=== PATIENT | female | born 1985 | race Two or more races ===

== ENCOUNTER 2020-08-07 11:59 | Outpatient (REF) | payer OTHER, SELFPAY ==
[2020-08-07 12:20] LABS: COVID-19 Test Negative (Negative); IDNOW Serial# 55D5AD1C
== END 2020-08-07 12:00 | disposition home or self-care (01) ==
LOC: HO.EMPCOV 11:59
PROVIDERS: PCP Internal Medicine; Visit Provider Internal Medicine
DX: Z20.828 Contact with and (suspected) exposure to other viral communicable diseases (principal)
CPT/HCPCS: 87635; C9803

== ENCOUNTER 2020-08-14 13:28 | Emergency (ER) | payer OTHER, SELFPAY ==
[2020-08-14 14:29] VITALS: BP 110/79; PULSE 89; RESP 18; TEMP 36.7; O2SAT 100; BMI 28.3
--- NOTE | 2020-08-14 14:37 | XR_ITS ---
EXAMINATION: CHEST 1 VIEW CLINICAL INFORMATION: Cough. COMPARISON: June 03, 2019. TECHNIQUE: An AP view of the chest is provided. FINDINGS: The cardiac silhouette is not enlarged. The mediastinal and hilar contours are unremarkable. There are neither pleural effusions nor pneumothoraces. There are no consolidations. The osseous structures are stable with mild S-shaped curvature present. XR/XR chest 1V IMPRESSION: No evidence for acute disease.
--- NOTE | 2020-08-14 14:46 | ED.URI ---
HPI - URI/Sore Throat General Chief Complaint: Upper Respiratory Symptoms Stated Complaint: covid symptoms Time Seen by Provider: 08/14/20 14:37 Source: patient Mode of arrival: ambulatory Limitations: no limitations History of Present Illness HPI Narrative: 34 y/o female presenting with COVID symptoms after an exposure on 08/05. She reports headache, dry cough, generalized weakness and back pain. She was tested for COVID 2 days after her exposure but it was negative. She reports back for testing today. She complains of chest pain with deep inspiration and cough. No sputum production. No MULLER. No fevers at home. MD elicited complaint: cough, nasal congestion and other (back pain, headache ) Onset (ago): day(s) (9) Consistency: constant Severity: moderate Description of mucous: clear Able to tolerate fluids by mouth: Yes Exacerbating factors: exertion and deep breaths Relieving factors: nothing Context: sick contacts Associated symptoms: myalgias, headache, nasal congestion, sore throat, cough, chest pain, shortness of breath, nausea and diarrhea Treatments prior to arrival: none Related Data Allergies Allergy/AdvReac Type Severity Reaction Status Date / Time No Known Allergies Allergy Unverified 04/27/20 15:36 [No Known Allergies*] Review of Systems Review of Systems: Constitutional: No Fever, + Chills ENT/Mouth: + sore throat, + Rhinorrhea, No Swallowing Difficulty Eyes: No Eye Pain, No Swelling, No Redness Cardiovascular: + Chest Pain, + SOB Respiratory: No Cough, No Sputum, No Wheezing, No dyspnea Gastrointestinal: + Nausea, No Vomiting, + Diarrhea, No abdominal Pain Genitourinary: No Dysuria, No Urinary Frequency, No Hematuria Musculoskeletal: No joint pain, + Myalgias Skin: No Skin Lesions, No rash Neuro: No Weakness, No Numbness, No Dizziness, + Headache Heme/Lymph: No Bruising, No Lymphadenopathy PMFSH Past Medical History Attestation statement: The following information was validated with the patient. Medical History Anxiety Social History Social History Advance Directives: No Advance Directives Information Provided: Yes Physical Exam Vital Signs: Vital Signs: Last Vital Signs Temp 98.1 F 08/14/20 14:29 Pulse 89 08/14/20 14:29 Resp 18 08/14/20 14:29 BP 110/79 08/14/20 14:29 Pulse Ox 100 08/14/20 14:29 Body Mass Index 28.3 Appearance: Alert. Oriented X3. No acute distress. Eyes: Pupils equal, round and reactive to light. ENT: Pharynx normal. No tonsilar exudates or swelling. Neck: Normal inspection. Neck supple. CVS: Normal heart rate and rhythm. Pulses normal. Mild anterior chest wall tenderness. Respiratory: No respiratory distress. Breath sounds normal. Abdomen: Soft and nontender. +BS x4 Skin: Skin warm and dry. Normal skin color. Normal skin turgor. No rashes. Extremities: No lower extremity edema. Negative Rafael's sign. Neuro: Oriented X 3, grossly normal, non-focal Course Course Course Narrative: 34 y/o female presenting with COVID symptoms after an exposure. VSS on arrival with SPO2 100%, afebrile. No resp distress and lungs are clear. Will get resp panel and CXR. Reevaluation(s) Reevaluation #1: COVID positive. CXR normal. Patient counseled on diagnosis, management and warning signs to come back to the ER. MDM - URI/Sore Throat Lab Data Labs: Lab Results 08/14/20 Range/Units 14:42 Coronavirus (PCR) POSITIVE A (Negative) Influenza Type A (PCR) NEGATIVE (Negative) Influenza Type B (PCR) NEGATIVE (Negative) RSV RNA Qual (PCR) NEGATIVE (Negative) Discharge Plan Discharge Clinical Impression: COVID-19 Patient Disposition: Home, Self-Care Instructions: COVID-19 (Coronavirus Disease 2019) (ED) Additional Instructions: You were found to be COVID-19 POSITIVE today. Your chest x-ray and oxygen levels were normal. Rest. Drink plenty of fluids. Do not go out in public for the next 14 days. Take over the counter cold/flu medications as needed for your symptoms. Take Tylenol and/or Motrin as needed for fevers and body aches. Follow up with your doctor this week. If you shortness of breath worsens , if you develop difficulty breathing or any other concerning symptom come back to the ER for further evaluation.
[2020-08-14 15:26] LABS: Influenza A PCR NEGATIVE (Negative); Influenza B PCR NEGATIVE (Negative); Resp Syncy Virus RNA Qual PCR NEGATIVE (Negative); SARS COV2 PCR INHOUSE POSITIVE (Negative)
== END 2020-08-14 16:00 | disposition home or self-care (01) ==
PROVIDERS: Physician Assistant; Emergency Provider Emergency Medicine; PCP Internal Medicine
DX: U07.1 COVID-19 (principal)
CPT/HCPCS: 0241U; 36415; 71045; 99283

== ENCOUNTER 2020-08-19 03:53 | Emergency (ER) | payer OTHER, SELFPAY ==
[2020-08-19 04:34] VITALS: BP 99/52; PULSE 75; RESP 16; TEMP 36.7; O2SAT 99; BMI 28.3
[2020-08-19 05:54] VITALS: BP 104/48; PULSE 78; RESP 16; O2SAT 99
--- NOTE | 2020-08-19 06:23 | PC.NURSE ---
provider seeing patient at this time. patient is sleeping on stretcher with no distress noted.
--- NOTE | 2020-08-19 06:40 | ED_ITS ---
HPI - General Adult General Chief complaint: Allergic Reaction Stated complaint: ALLERGIC REACTION/COVID POSITIVE Time Seen by Provider: 08/19/20 06:21 History of Present Illness HPI narrative: 34-year-old female who presents emergency department for evaluation of possible allergic reaction. The patient states that she has had COVID symptoms for approximately 1 week which include headaches, myalgias, diarrhea, loss of sense of taste and smell. She tested positive for COVID on Friday (5 days prior to evaluation). She states that last night she developed itchiness over her entire body. She did not notice a rash. She states that she took 1 Benadryl tablet with no relief of her symptoms therefore she came to the emergency department for evaluation. The patient states that she has had intermittent fever and chills. She denied chest pain, shortness of breath. She has had an occasional cough. She denied lightheadedness or dizziness. She has had no appetite but she has been able to drink fluids. She has not started any new medications. Related Data Home Medications Medication Instructions Recorded Confirmed No Known Home Meds 08/19/20 08/19/20 Previous Rx's Medication Instructions Recorded diphenhydramine HCl [Benadryl] 50 mg PO QID PRN #20 cap 08/19/20 prednisone 60 mg PO DAILY 5 Days #15 tab 08/19/20 Allergies Allergy/AdvReac Type Severity Reaction Status Date / Time No Known Allergies Allergy Verified 08/19/20 04:39 [No Known Allergies*] Review of Systems Review of Systems: Yes all other systems are reviewed and are negative Neurologic: Reports Abnormal speech present [facility] Past Medical History [facility] Narrative: The patient has a history depression and anxiety. She does smoke cigarettes. She drinks alcohol on the weekends. She denies drug use. Medical History Anxiety Social History Social History Alcohol intake: never Smoking Status: Never smoker Smoked in Last 30 Days: No Use of substances other than those prescribed or required for medical reasons: No Advance Directives: No Physical Exam Vital Signs: Vital Signs: Last Vital Signs Temp 98.1 F 08/19/20 04:34 Pulse 78 08/19/20 05:54 Resp 16 08/19/20 05:54 BP 104/48 L 08/19/20 05:54 Pulse Ox 99 08/19/20 05:54 Body Mass Index 28.3 Const: General: cooperative and healthy appearing Orientation/consciousness: oriented to person and oriented to place Limitations: no limitations HENMT: Head: Yes normal to inspection, Yes normocephalic and Yes atraumatic Ears: external ears normal General nose exam: Normal external nose present Face and sinus: Yes normal facial exam Mouth: Normal oral and palatal mucosa present Throat: Yes posterior oropharynx normal Eyes: Periorbital: periorbital findings normal Eyelids: Yes eyelids normal Conjunctivae: conjunctivae normal Sclerae: sclerae normal Corneas: corneas normal Pupils: Equal, round and reactive pupils present Direct Ophthalmoscopy: normal light reflex Neck: Neck: Yes full ROM, Yes no lymphadenopathy, Yes no meningeal signs, Yes trachea midline and Yes supple Chest: Chest palpation & inspection: normal inspection of the chest and normal palpation of entire chest wall Resp: Effort & Inspection: normal respiratory effort and able to speak in complete sentences Auscultation: clear to auscultation bilaterally Cardio: Rate: regular rate Rhythm: regular rhythm Heart sounds: S1 normal heart sound present, S2 normal heart sound present and no murmurs GI: Inspection: Yes normal to inspection Palpation (GI): Soft to palpation, nontender, no guarding, not rigid and No hepatosplenomegaly present : General: Yes no CVA tenderness Back/Spine/Pelvis: Back: no CVA tenderness Cervical Spine: normal cervical lordosis Thoracic/Lumbar Spine: thoracic and lumbar spine normal to inspection Skin: Lesions: no lesions Rashes: no rashes Wounds: no wounds Neuro: General: oriented to person, oriented to place and no meningeal signs Cranial nerves: Yes Equal, round and reactive pupils present Cognition (Neuro): normal cognition Speech: Abnormal speech present Motor exam (neuro): 5/5 motor strength present throughout Extrem: General: Yes normal to inspection and Yes full ROM Psych: Appearance: well kempt Mental Status: mental status grossly normal Speech and movement: Normal speech and movement present Affect: normal affect Attitude: cooperative Thought process: Normal thought process present Thought content: Normal thought content present Course Course Course Narrative: 34-year-old female who is COVID positive for presents the emergency department for evaluation of itchiness. The patient's physical examination revealed that she was afebrile with an O2 saturation of 99% on room air. Her lung exam was clear. Skin revealed no rashes or lesions. At this time, I do not have a clear etiology for her pruritus but it may be related to COVID-19. The patient was started on prednisone 60 mg once a day for 5 days. She was given a dose of prednisone here in the emergency department she was also started on Benadryl 50 mg 4 times a day and she was given a dose in the emergency department. She was advised to follow-up with the doctor in 2 days and return to emergency department if her symptoms get worse or if she feels these symptoms are concerning to her. Discharge Plan Discharge Clinical Impression: Pruritus, COVID-19 Patient Disposition: Home, Self-Care Instructions: Itchy Skin (ED) Additional Instructions: Your physical exam at this time was unremarkable. Your itchiness may be related to the COVID-19 virus. Take Benadryl 25 mg pills, 2 pills 4 times a day as needed for itchiness. Take prednisone 20 mg pills, 3 pills once a day 5 days. You were given a dose in the emergency department this morning. Take your next dose tomorrow morning. Follow-up with your doctor in 2 days. Please return to the emergency department if your symptoms get worse or if you develop any symptoms that are concerning to you. Prescriptions: New prednisone 20 mg tablet 60 mg PO DAILY 5 Days Qty: 15 RF: 0 diphenhydramine HCl [Benadryl] 25 mg capsule 50 mg PO QID PRN (Reason: itching) Qty: 20 RF: 0 No Action No Known Home Meds RF: 0
[2020-08-19] MEDS: diphenhydrAMINE HCL 25 MG TABLET 50 MG PO (06:48)
[2020-08-19] MEDS: predniSONE 20 MG TABLET 60 MG PO (06:48)
== END 2020-08-19 07:24 | disposition home or self-care (01) ==
PROVIDERS: Emergency Provider Emergency Medicine Emergency Medical Services; PCP Internal Medicine
DX: L29.9 Pruritus, unspecified (principal); Z86.16 Personal history of COVID-19
CPT/HCPCS: 99284; Q0163

== ENCOUNTER 2020-12-22 12:52 | Outpatient (REF) | payer OTHER, SELFPAY ==
[2020-12-22 13:19] LABS: COVID-19 Test Negative (Negative)
== END 2020-12-22 12:53 | disposition home or self-care (01) ==
LOC: HO.EMPCOV 12:52
PROVIDERS: Visit Provider Internal Medicine
DX: Z20.822 Contact with and (suspected) exposure to COVID-19 (principal)
CPT/HCPCS: 36415; 87635; C9803

== ENCOUNTER 2021-05-09 11:21 | Emergency (ER) | payer OTHER, SELFPAY ==
[2021-05-09 11:53] VITALS: BP 128/72; PULSE 78; RESP 18; TEMP 36.8; O2SAT 98; BMI 30.2
--- NOTE | 2021-05-09 12:47 | PC.NURSE ---
patient a&ox3, throat and nasal swab performed, will continue to monitor.
[2021-05-09 13:07] LABS: IDNOW Serial# 08D9AD1C; Strep A Nucleic Acid Negative (Negative)
[2021-05-09 13:22] LABS: COVID-19 Test Negative (Negative)
--- NOTE | 2021-05-09 13:27 | ED.URI ---
HPI - URI/Sore Throat General Chief Complaint: Upper Respiratory Symptoms Stated Complaint: flu like Time Seen by Provider: 05/09/21 12:37 Source: patient Mode of arrival: ambulatory Limitations: no limitations History of Present Illness HPI Narrative: 35-year-old female here with complaints of sore throat, nasal congestion headache for 3 days. No fevers, chills, sob, chest pain, vomiting, diarrhea. Related Data Home Medications Medication Instructions Recorded Confirmed No Known Home Meds 08/19/20 08/19/20 Previous Rx's Medication Instructions Recorded diphenhydramine HCl 25 mg capsule 50 mg PO QID PRN #20 cap 08/19/20 (Benadryl) prednisone 20 mg tablet 60 mg PO DAILY 5 Days #15 tab 08/19/20 Allergies Allergy/AdvReac Type Severity Reaction Status Date / Time No Known Allergies Allergy Verified 08/19/20 04:39 [No Known Allergies*] Review of Systems Review of Systems: Yes all other systems are reviewed and are negative Constitutional: Constitutional: Reports no additional constitutional complaints, Denies body ache(s), Denies chills, Denies fever(s), Reports headache(s) and Denies weakness Eyes: Eyes: Reports no additional eye complaints and Denies change in vision ENT: Reports system reviewed and no additional complaints, except as documented, Denies dizziness, Reports headache(s), Reports nasal congestion, Denies nasal discharge, Denies neck pain and Reports sore throat Cardiovascular: Cardiovascular: Reports no additional cardiovascular complaints, Denies chest pain, Denies leg edema and Denies dyspnea Respiratory: Respiratory: Reports no additional respiratory complaints, Denies cough and Denies dyspnea Gastrointestinal: Gastrointestinal: Reports no additional gastrointestinal complaints, Denies abdominal pain, Denies diarrhea, Denies nausea and Denies vomiting Genitourinary: Genitourinary: Reports no additional female genitourinary complaints and Denies urinary incontinence Musculoskeletal: Musculoskeletal: Reports no additional musculoskeletal complaints, Denies back pain, Denies arthralgias, Denies joint swelling, Denies neck pain, Denies numbness and Denies tingling Integumentary/Breasts: Skin/Breast: Reports system reviewed and no additional complaints, except as docu and Denies rash Neurologic: Reports system reviewed and no additional complaints, except as documented, Denies Abnormal speech present, Denies dizziness, Reports headache(s), Denies numbness, Denies tingling and Denies weakness [facility] Past Medical History Attestation statement: The following information was validated with the patient. Source: old records reviewed and nursing notes reviewed Medical History Anxiety Social History Social History Alcohol intake: never Advance Directives: No Patient : No Physical Exam Vital Signs: Vital Signs: Last Vital Signs Temp 98.3 F 05/09/21 11:53 Pulse 78 05/09/21 11:53 Resp 18 05/09/21 11:53 BP 128/72 05/09/21 11:53 Pulse Ox 98 05/09/21 11:53 Body Mass Index 30.2 Const: General: cooperative, healthy appearing, comfortable and no acute distress Orientation/consciousness: patient oriented x3 Limitations: no limitations HENMT: Head: Yes normal to inspection Ears: hearing grossly normal bilaterally and TM's normal bilaterally General nose exam: Normal external nose present Face and sinus: Yes normal facial exam Mouth: Normal oral and palatal mucosa present Throat: Yes posterior oropharynx normal, Yes uvula midline, Yes abnormal tonsil (Mild erythema. No exudate) and No peritonsillar mass Eyes: General: appearance normal, both eyes and all related structures Pupils: Equal, round and reactive pupils present Neck: Neck: Yes normal visual inspection Chest: Chest palpation & inspection: normal inspection of the chest Resp: Effort & Inspection: normal respiratory effort Auscultation: clear to auscultation bilaterally Cardio: Rate: regular rate Rhythm: regular rhythm Peripheral pulses: Peripheral pulses 2+ throughout GI: Inspection: Yes normal to inspection Palpation (GI): Soft to palpation and nontender Auscultation: normal bowel sounds Back/Spine/Pelvis: Thoracic/Lumbar Spine: thoracic and lumbar spine normal to inspection Skin: General skin exam: no rashes or lesions noted Neuro: General: patient oriented x3, no focal motor deficits and normal sensation to monofilament Cranial nerves: Yes Equal, round and reactive pupils present Cognition (Neuro): normal cognition Speech: No Abnormal speech present Gait exam (Neuro): Normal gait present Motor exam (neuro): 5/5 motor strength present throughout Extrem: General: Yes normal to inspection Course Course Course Narrative: 35-year-old female here with URI symptoms for several days. Will check COVID screen and rapid strep. 1355-rapid strep and COVID negative. Vitals are stable. Patient well appearing. Reviewed worrisome signs symptoms of when to return to the emergency department. Comfortable discharge home. MDM - URI/Sore Throat Medical Records Attestation: I reviewed the patient's medical records. Lab Data Attestation: I reviewed the patient's lab results. Labs: Lab Results 05/09/21 05/09/21 Range/Units 12:44 12:44 COVID-19 ([facility]) Negative (Negative) COVID-19 Clin Com See Note S. pyogenes GrpA ADEN Negative (Negative) Discharge Plan Discharge Clinical Impression: Viral infection Patient Disposition: Home, Self-Care Instructions: Viral Syndrome (ED) Additional Instructions: COVID test and strep test are negative Increase fluids, rest Motrin or Tylenol for pain or fever Prescriptions: No Action No Known Home Meds RF: 0 prednisone 20 mg tablet 60 mg PO DAILY 5 Days Qty: 15 RF: 0 diphenhydramine HCl [Benadryl] 25 mg capsule 50 mg PO QID PRN (Reason: itching) Qty: 20 RF: 0 Referrals: Physician,None [Primary Care Provider] - 2 days Stand Alone Forms: Work/School Release
== END 2021-05-09 14:03 | disposition home or self-care (01) ==
PROVIDERS: Nurse Practitioner Family; Emergency Provider Emergency Medicine Emergency Medical Services
DX: B34.9 Viral infection, unspecified (principal); R51.9 Headache, unspecified; Z20.822 Contact with and (suspected) exposure to COVID-19
CPT/HCPCS: 36415; 87635; 87651; 99282; 99283

== ENCOUNTER 2021-08-07 17:16 | Emergency (ER) | payer OTHER, SELFPAY ==
[2021-08-07 19:28] VITALS: BP 111/71; PULSE 84; RESP 18; TEMP 37.1; O2SAT 100; BMI 25.7
== END 2021-08-07 19:32 | disposition left against medical advice (07) ==
PROVIDERS: Emergency Provider Emergency Medicine
DX: R51.9 Headache, unspecified (principal); R68.83 Chills (without fever)
CPT/HCPCS: 99281; 99282

== ENCOUNTER 2021-08-08 10:17 | Emergency (ER) | payer OTHER, SELFPAY ==
[2021-08-08 10:24] VITALS: BP 98/56; PULSE 103; PULSE 115; RESP 18; TEMP 37.5; O2SAT 92; O2SAT 97; BMI 28.5
[2021-08-08] MEDS: Acetaminophen 325 MG TABLET 650 MG PO (10:35)
--- NOTE | 2021-08-08 11:05 | ED_ITS ---
HPI - General Adult General Chief complaint: Nausea/Vomiting/Diarrhea Stated complaint: FEVER Time Seen by Provider: 08/08/21 10:58 Source: patient Mode of arrival: ambulatory Limitations: no limitations History of Present Illness HPI narrative: Patient comes to the emergency room complaining of 2 weeks of generalized malaise, body aches, headache. pt returned from [place] on Jul 30. Related Data Previous Rx's Medication Instructions Recorded diphenhydramine HCl 25 mg capsule 50 mg PO QID PRN #20 cap 08/19/20 (Benadryl) prednisone 20 mg tablet 60 mg PO DAILY 5 Days #15 tab 08/19/20 acetaminophen 500 mg capsule 500 mg PO Q6H PRN #20 cap 08/08/21 ibuprofen 600 mg tablet 600 mg PO TID PRN #14 tab 08/08/21 loperamide 2 mg capsule 2 mg PO Q4H PRN #10 cap 08/08/21 (Anti-Diarrheal (loperamide)) Allergies Allergy/AdvReac Type Severity Reaction Status Date / Time No Known Allergies Allergy Verified 08/07/21 19:28 [No Known Allergies*] Review of Systems Review of Systems: Constitutional : No Weight loss, patient complaining of fever, chills, body aches, generalized malaise ENT/Mouth : No Hearing loss, No Ear Pain, No Nasal Congestion, No Sinus Pain, No Hoarseness, No sore throat, No Rhinorrhea, No Swallowing Difficulty Eyes: No Eye Pain, No Swelling, No Redness, No Foreign Body, No Discharge, No Vision Changes Cardiovascular : No Chest Pain, No SOB, No Dyspnea on Exertion, No Orthopnea, No Edema, No Palpitations Respiratory : No Cough, No Sputum, No Wheezing, No Smoke Exposure, No Dyspnea Gastrointestinal : No Nausea, No Vomiting, No Diarrhea, No Constipation, No abdominal Pain, No Hematochezia, No Melena Genitourinary : no irregular bleeding, No Dysuria, No Urinary Frequency, No Hematuria, No Urinary Incontinence, No Urgency, No Flank Pain, No Urinary Flow Changes, No Hesitancy, denies possible Musculoskeletal : No joint pain, No Myalgias, No Joint Swelling Skin : No Skin Lesions, No rash Neuro : No Weakness, No Numbness, No Paresthesias, No Loss of Consciousness, No Dizziness, complaining of a Headache that has been present for 2 weeks despite taking Tylenol and ibuprofen Psych : No Anxiety/Panic, No Depression, No SI/HI/AH/VH, No Social Issues, Heme/Lymph: No Bruising, No Bleeding,No Lymphadenopathy Endocrine : No Polyuria, No Polydipsia, No Temperature Intolerance [facility] Past Medical History Medical History Anxiety Social History Social History Alcohol intake: never Smoked in Last 30 Days: No Use of substances other than those prescribed or required for medical reasons: No Advance Directives: No Advance Directives Information Provided: Yes Patient : No Physical Exam Vital Signs: Vital Signs: Last Vital Signs Temp 99.6 F 08/08/21 11:16 Pulse 105 H 08/08/21 11:16 Resp 18 08/08/21 11:16 BP 99/63 08/08/21 11:16 Pulse Ox 95 08/08/21 11:16 BMI result Body Mass Index 28.5 Const: Other: Appearance: Alert. Oriented X3. No acute distress. Eyes: Pupils equal, round and reactive to light. ENT: Pharynx normal. Neck: Normal inspection. Neck supple. No lymph nodes noted. No crepitus CVS: Normal heart rate and rhythm. Pulses normal. Normal S1 and S2 Respiratory: No respiratory distress. Breath sounds normal. No Wheezing. No rales Abdomen: Soft and nontender. No rigidity. No distention. Skin: Skin warm and dry. Normal skin color. Normal skin turgor. Extremities: No lower extremity edema. No Lacerations. No Rash Neuro: Oriented X 3. No motor deficit. No sensory deficit. Moving all extermities. No slurred speech. Course Course Course Narrative: Patient tested positive for COVID-19. Patient instructed to isolate for 7 days. Patient also instructed to have her family tested who was in direct contact with her. Patient agrees with plan and understands. Medical Decision Making Lab Data Labs: Lab Results 08/08/21 Range/Units 10:34 Influenza Type A (PCR) NEGATIVE (Negative) Influenza Type B (PCR) NEGATIVE (Negative) RSV RNA Qual (PCR) NEGATIVE (Negative) SARS-CoV-2 RNA (RT-PCR) POSITIVE A (Negative) Discharge Plan Discharge Clinical Impression: COVID-19 Patient Disposition: Home, Self-Care Instructions: COVID-19 (Coronavirus Disease 2019) (ED) Additional Instructions: You tested positive for COVID-19. Please have your immediate family tested as well. You Need to quarantine for 7 days. Please follow-up with your primary care physician tomorrow. If you have any worsening or new symptoms, please return to the emergency room or call 911 Prescriptions: New acetaminophen 500 mg capsule 500 mg PO Q6H PRN (Reason: fever or pain) Qty: 20 RF: 0 ibuprofen 600 mg tablet 600 mg PO TID PRN (Reason: fever or pain) Qty: 14 RF: 0 loperamide [Anti-Diarrheal (loperamide)] 2 mg capsule 2 mg PO Q4H PRN (Reason: loose stool) Qty: 10 RF: 0 No Action prednisone 20 mg tablet 60 mg PO DAILY 5 Days Qty: 15 RF: 0 diphenhydramine HCl [Benadryl] 25 mg capsule 50 mg PO QID PRN (Reason: itching) Qty: 20 RF: 0
[2021-08-08 11:16] VITALS: BP 99/63; PULSE 105; RESP 18; TEMP 37.6; O2SAT 95
[2021-08-08] MEDS: Metoclopramide HCl 10 MG/2 ML VIAL IVPUSH (11:18)
[2021-08-08] MEDS: Ketorolac Tromethamine 30 MG/ML VIAL IVPUSH (11:18)
[2021-08-08 11:24] LABS: Influenza A PCR NEGATIVE (Negative); Influenza B PCR NEGATIVE (Negative); Resp Syncy Virus RNA Qual PCR NEGATIVE (Negative); SARS COV2 PCR INHOUSE POSITIVE (Negative)
== END 2021-08-08 11:56 | disposition home or self-care (01) ==
PROVIDERS: Emergency Provider Emergency Medicine; PCP Internal Medicine
DX: U07.1 COVID-19 (principal); R50.9 Fever, unspecified
CPT/HCPCS: 0241U; 96374; 96375; 99284; J1885; J2765

== ENCOUNTER 2021-11-05 01:20 | Emergency (ER) | payer OTHER, SELFPAY ==
--- NOTE | ~2021-11-05 | CT_ITS ---
EXAMINATION: CT ABDOMEN AND PELVIS WITHOUT CONTRAST CLINICAL INFORMATION: RLQ, right flank pain rule out kidney stone COMPARISON: 12/01/2017 TECHNIQUE: Multidetector volumetric imaging was performed from the superior aspect of the liver through the pubic symphysis. Sagittal and coronal reformatted images were obtained on the technologist's workstation. This CT examination was performed using dose optimization techniques as appropriate, variously including the following: *Automated exposure control *Adjustment of mA and/or kV according to patient size (this includes techniques or standardized protocols for targeted exams where dose is matched to indication/reason for exam; i.e. extremities or head) *Use of iterative reconstruction technique DLP: 500 mGy-cm FINDINGS: LUNG BASES: Mild dependent atelectasis. Mild wall thickening of the distal esophagus, likely due to a small hiatal hernia. LIVER, GALLBLADDER, AND BILIARY TREE: The liver is normal in size, shape, and attenuation. No focal hepatic lesion or biliary ductal dilatation is present. The gallbladder is unremarkable with no evidence of radiopaque gallstones, gallbladder wall thickening, or obvious pericholecystic inflammatory changes. PANCREAS: Unremarkable. SPLEEN: Unremarkable. ADRENAL GLANDS: Unremarkable. KIDNEYS AND URETERS: The kidneys are normal in size, shape, and attenuation. No hydronephrosis, hydroureter, or calculi seen. No perinephric stranding. BLADDER: Unremarkable. GASTROINTESTINAL TRACT: Probable small hiatal hernia. Stomach, small bowel, and colon are normal in caliber. The cecum is on a mesentery and is medially displaced in the central abdomen. This appearance is similar to the prior study. Appendix is normal. No intraperitoneal free fluid or free air. ABDOMINAL WALL: No significant hernia is appreciated. LYMPH NODES: Normal. VASCULAR: Unremarkable. PELVIC VISCERA: IUD is present in the uterus. No adnexal lesions. Ovaries are unremarkable. OSSEOUS STRUCTURES: No acute osseous findings. Lumbar spine appears relatively well-preserved. CT/CT abdomen pelvis wo con IMPRESSION: No acute intra-abdominal or intrapelvic abnormalities. No renal calculi or evidence of obstructive uropathy.
[2021-11-05 01:29] VITALS: BP 111/62; PULSE 81; RESP 16; TEMP 36.8; O2SAT 100; BMI 21.9
[2021-11-05 02:49] LABS: Basophils Percent Auto 0.3 % (0-2); Eosinophils Absolute Auto 0.1 X10*3/uL (0.0-0.4); Eosinophils Percent Auto 1.4 % (0-4); Hematocrit 38.5 % (37.0-47.0); Hemoglobin 12.7 g/dl (12.0-16.0); Imm Gran Abs Auto 0.03 X10*3/uL (0.00-0.03); Imm Gran Pct Auto 0.3 % (0.0-0.4); Lymphocytes Absolute Auto 3.5 X10*3/uL (1.2-4.9); Lymphocytes Percent Auto 34.2 % (20-40); MANUAL DIFF FLAG NO; Mean Corpuscular Hemoglobin 30.7 pg (27.0-33.0); Mean Platelet Volume 9.5 fL (9.4-12.3); Monocytes Absolute Auto 0.6 X10*3/uL (0.1-1.2); Monocytes Percent Auto 5.5 % (2-11); Neutrophils Absolute Auto 5.9 x10*3/uL (2.0-8.3); Neutrophils Percent Auto 58.3 % (45-73); Platelet Count 299 X10*3/uL (160-400); Red Blood Count 4.14 X10*6/uL (4.20-5.50); Red Cell Distribution Width 12.4 % (11.0-16.0); White Blood Count 10.2 X10*3/uL (4.8-10.8)
[2021-11-05 03:06] LABS: Alanine Aminotransferase 22 U/L (0-31); Albumin Level 4.3 g/dL (3.5-5.0); Alkaline Phosphatase 86 U/L (39-117); Anion Gap 13 (12-20); Aspartate Amino Transferase 16 U/L (5-31); Bilirubin Direct 0.2 mg/dL (0.0-0.5); Bilirubin Total 0.7 mg/dL (0.0-1.0); Blood Urea Nitrogen 11 mg/dL (9-16); Calcium 9.8 mg/dL (8.4-10.2); Carbon Dioxide 24 mmol/L (22-29); Chloride 106 mmol/L (96-108); Creatinine Clr Calc Pharmacy 84.6; Estimated Glomerular Filt Rate > 60; Glucose Random 114 mg/dL (60-115); Lipase 22 U/L (8-78); Potassium 4.3 mmol/L (3.3-5.1); Sodium 139 mmol/L (135-145); Total Protein 7.2 g/dL (6.5-8.0)
[2021-11-05 03:15] VITALS: BP 109/63; PULSE 70; RESP 20; O2SAT 100
[2021-11-05 03:21] LABS: Appearance Urine CLEAR; Color Urine YELLOW; Glucose Urine UA NEG (NEG); Leukocyte Esterase Urine NEG (NEG); Nitrite Urine NEG (NEG); Specific Gravity - Urine >= 1.030 (1.005-1.025); UACC Culture Trigger NO; Urine Blood 2+ (NEG); Urine Ketones NEG (NEG); Urine Protein NEG (NEG-TRACE)
[2021-11-05 03:30] LABS: Bacteria Urine 2+ /LPF; Mucus Urine 2+ /LPF; Squamous Epithelial Cell Urine 2+ /LPF
--- NOTE | 2021-11-05 05:09 | ED_ITS ---
HPI - Abdominal Pain General Chief Complaint: Abdominal Pain Stated Complaint: Lower abd pain Time Seen by Provider: 11/05/21 05:00 Source: patient Mode of arrival: ambulatory Limitations: no limitations History of Present Illness HPI narrative: 36-year-old female who presents emergency department for evaluation of intermittent abdominal pain for 1 week. The patient points to her right lower quadrant and right flank when asked to localize the pain. She states she gets the pain daily and seems to be worse at night. She states the pain will last several hours. She states that the pain is a very and uncomfortable pain the pain is all 11/10. She states the pain feels similar to when she had a tubal . she denied fever, chills, chest pain, shortness of breath, vomiting, diarrhea, frequency or dysuria. She states that she does have associated nausea. Related Data Previous Rx's Medication Instructions Recorded diphenhydramine HCl 25 mg capsule 50 mg PO QID PRN #20 cap 08/19/20 (Benadryl) prednisone 20 mg tablet 60 mg PO DAILY 5 Days #15 tab 08/19/20 acetaminophen 500 mg capsule 500 mg PO Q6H PRN #20 cap 08/08/21 ibuprofen 600 mg tablet 600 mg PO TID PRN #14 tab 08/08/21 loperamide 2 mg capsule 2 mg PO Q4H PRN #10 cap 08/08/21 (Anti-Diarrheal (loperamide)) cyclobenzaprine 10 mg tablet 10 mg PO TID PRN #15 tab 11/05/21 oxycodone 5 mg tablet 5 mg PO Q4H PRN #14 tab 11/05/21 Allergies Allergy/AdvReac Type Severity Reaction Status Date / Time No Known Allergies Allergy Verified 08/07/21 19:28 [No Known Allergies*] Review of Systems Review of Systems Yes all other systems are reviewed and are negative [facility] Past Medical History [facility] Narrative: Past medical history: Anxiety. Past surgical history: hernia with mesh repair. Social history: She states she occasionally smokes cigarettes when she drinks alcohol. Patient states she occasionally drinks alcohol. She denies drug use. Medical History (Updated 11/05/21 @ 07:28 by Rian Randall MD) Anxiety Hernia Social History Social History Alcohol intake: never Advance Directives: No Advance Directives Information Provided: Yes Physical Exam ED Vital Signs: Vital Signs - 24 hr 11/05/21 01:29 11/05/21 03:15 11/05/21 06:58 Temperature 98.2 F Pulse Rate 81 70 72 Respiratory Rate 16 20 12 Blood Pressure 111/62 109/63 101/57 L Pulse Oximetry 100 100 97 BMI result Body Mass Index 21.9 Const General: cooperative and no acute distress Orientation/consciousness: oriented to person and oriented to place Limitations: no limitations HENMT Head: Yes normal to inspection, Yes normocephalic and Yes atraumatic Ears: external ears normal General nose exam: Normal external nose present Face and sinus: Yes normal facial exam Mouth: Normal oral and palatal mucosa present Throat: Yes posterior oropharynx normal Eyes General: appearance normal, both eyes and all related structures Pupils: Equal, round and reactive pupils present Neck Neck: Yes normal visual inspection, Yes no lymphadenopathy, Yes trachea midline and Yes supple Chest Chest palpation & inspection: normal inspection of the chest and normal palpation of entire chest wall Resp Effort & Inspection: normal respiratory effort and able to speak in complete sentences Auscultation: clear to auscultation bilaterally Cardio Rate: regular rate Rhythm: regular rhythm Heart sounds: S1 normal heart sound present, S2 normal heart sound present and no murmurs GI Inspection: Yes normal to inspection Palpation (GI): Soft to palpation, Tenderness to palpation present (GI) in the RLQ ( Moderate) and no guarding Auscultation: normal bowel sounds General: Yes CVA tenderness on the right ( moderate) Back/Spine/Pelvis Back: CVA tenderness Skin General skin exam: no rashes or lesions noted Neuro General: oriented to person and oriented to place Cranial nerves: Yes CN's II-XII intact bilaterally and Yes Equal, round and reactive pupils present Cognition (Neuro): normal cognition Motor exam (neuro): 5/5 motor strength present throughout Extrem General: Yes normal to inspection Psych Appearance: grossly normal Speech and movement: Normal speech and movement present Affect: normal affect Attitude: cooperative Thought process: Normal thought process present Thought content: Normal thought content present Course Course Course Narrative: 36-year-old female who presents emergency department for evaluation of right lower quadrant and right flank pain x1 week, the pain is been intermittent but she states that it is worse at night and is 11/10. Vital signs were normal. Abdominal exam did reveal right lower quadrant tenderness and right flank tenderness. Differential includes was not limited to appendicitis, renal colic. Laboratory evaluation and CT scan abdomen pelvis without IV contrast was ordered. Patient was treated with Toradol 30 mg IV and Zofran 4 mg IV. She was also ordered to get normal saline x1 L. 0515: Laboratory evaluation: CBC, CMP, lipase were normal. Urinalysis revealed 2+ blood, negative leukocyte esterase and negative nitrates. Microscopic revealed 14 RBCs, 4 WBCs, 2+ bacteria and 2+ squamous cells. 0725: CT scan of the abdomen pelvis without IV contrast did not reveal a clear cause for the patient's pain. Appendix was visualized and was normal. The patient did get some improvement with the IV Toradol but she still has 8/10 pain. She was ordered to get morphine 4 mg IV. The patient will be discharged home with prescriptions for cyclobenzaprine and oxycodone, she was also advised to take Tylenol and ibuprofen. MDM - Abdominal Pain Lab Data Result diagrams: 11/05/21 02:44 11/05/21 02:44 Labs: Lab Results 11/05/21 11/05/21 11/05/21 Range/Units 02:44 02:44 03:14 WBC 10.2 (4.8-10.8) X10*3/uL RBC 4.14 L (4.20-5.50) X10*6/uL Hgb 12.7 (12.0-16.0) g/dl Hct 38.5 (37.0-47.0) % MCV 93.0 (80.0-98.0) fL MCH 30.7 (27.0-33.0) pg MCHC 33.0 (31.0-35.0) g/dl RDW 12.4 (11.0-16.0) % Plt Count 299 (160-400) X10*3/uL MPV 9.5 (9.4-12.3) fL Immature Gran % (Auto) 0.3 (0.0-0.4) % Neut % (Auto) 58.3 (45-73) % Lymph % (Auto) 34.2 (20-40) % [place] % (Auto) 5.5 (2-11) % Eos % (Auto) 1.4 (0-4) % Baso % (Auto) 0.3 (0-2) % Lymph # (Auto) 3.5 (1.2-4.9) X10*3/uL [place] # (Auto) 0.6 (0.1-1.2) X10*3/uL Eos # (Auto) 0.1 (0.0-0.4) X10*3/uL Baso # (Auto) 0.0 (0.0-0.2) X10*3/uL Abs Immat Gran (auto) 0.03 (0.00-0.03) X10*3/uL Absolute Neuts (auto) 5.9 (2.0-8.3) x10*3/uL Absolute Nucleated RBC 0.000 (0.0-0.012) X10*3/uL Nucleated RBC % (auto) 0.0 (0.0-0.2) /100WBC Sodium 139 (135-145) mmol/L Potassium 4.3 (3.3-5.1) mmol/L Chloride 106 (96-108) mmol/L Carbon Dioxide 24 (22-29) mmol/L Anion Gap 13 (12-20) BUN 11 (9-16) mg/dL Creatinine 0.72 (0.5-1.4) mg/dL Estim Creat Clear Calc 84.6 Estimated GFR > 60 Random Glucose 114 (60-115) mg/dL Calcium 9.8 (8.4-10.2) mg/dL Total Bilirubin 0.7 (0.0-1.0) mg/dL Direct Bilirubin 0.2 (0.0-0.5) mg/dL AST 16 (5-31) U/L ALT 22 (0-31) U/L Alkaline Phosphatase 86 (39-117) U/L Total Protein 7.2 (6.5-8.0) g/dL Albumin 4.3 (3.5-5.0) g/dL Lipase 22 (8-78) U/L Beta HCG, Quant < 2 mIU/mL Urine Color YELLOW Urine Appearance CLEAR Urine pH 6.0 (5.0-8.0) Ur Specific [place] >= 1.030 H (1.005-1.025) Urine Protein NEG (NEG-TRACE) MG/DL Urine Glucose (UA) NEG (NEG) MG/DL Urine Ketones NEG (NEG) MG/DL Urine Blood 2+ H (NEG) Urine Nitrite NEG (NEG) Ur Leukocyte Esterase NEG (NEG) Urine RBC 10-14 H (0) /HPF Urine WBC 1-4 (0-4) /HPF Ur Squamous Epith Cells 2+ /LPF Urine Bacteria 2+ /LPF Urine Mucus 2+ /LPF Discharge Plan Discharge Clinical Impression: Acute flank pain Abdominal pain Qualifiers: Abdominal location: right lower quadrant Qualified Code(s): R10.31 - Right lower quadrant pain Patient Disposition: Home, Self-Care Instructions: Abdominal Pain (ED) Additional Instructions: Your laboratory evaluation was unremarkable. Your urine tests revealed no evidence for urinary tract infection. The CT scan of your abdomen pelvis without IV contrast did not reveal a clear cause for your pain. Take ibuprofen 200 mg pills, 3 pills every 6 hours as needed for pain. Take Tylenol (acetaminophen) 500 mg pills, 2 pills every 4-6 hours as needed for pain. For pain not relieved by ibuprofen or Tylenol take oxycodone 5 mg pills, 1 pill every 4 hours as needed for pain. Do not drive or work while taking this me dication since they can cause sleepiness. Oxycodone is a narcotic medication that can be addicting. If you are concerned about addiction you can ask the pharmacist for less pills or do not get this prescription filled. Take Flexeril (cyclobenzaprine) 10 mg pills, 1 pill every 6-8 hours as needed f or pain or spasm. This medication will make you sleepy. Do not drive or work while taking this medication. Follow-up with your doctor in 2 days. Please return to the emergency department if your symptoms get worse or if you develop any symptoms that are concerning to you. Prescriptions: New cyclobenzaprine 10 mg tablet 10 mg PO TID PRN (Reason: pain, muscle spasm) Qty: 15 0RF oxycodone 5 mg tablet 5 mg PO Q4H PRN (Reason: pain) Qty: 14 0RF Rx Instructions: Patient may request partial fill No Action prednisone 20 mg tablet 60 mg PO DAILY 5 Days Qty: 15 0RF diphenhydramine HCl [Benadryl] 25 mg capsule 50 mg PO QID PRN (Reason: itching) Qty: 20 0RF acetaminophen 500 mg capsule 500 mg PO Q6H PRN (Reason: fever or pain) Qty: 20 0RF ibuprofen 600 mg tablet 600 mg PO TID PRN (Reason: fever or pain) Qty: 14 0RF loperamide [Anti-Diarrheal (loperamide)] 2 mg capsule 2 mg PO Q4H PRN (Reason: loose stool) Qty: 10 0RF Rx Instructions: administer after each loose stool until symptoms controlled; do not exceed 8 mg per 24 hrs
[2021-11-05] MEDS: ondansetron HCL 4 MG/2 ML VIAL IVPUSH (05:16)
[2021-11-05] MEDS: Ketorolac Tromethamine 15 MG/ML VIAL IVPUSH (05:16)
[2021-11-05 05:33] LABS: HCG Quantitative < 2 mIU/mL
[2021-11-05 06:58] VITALS: BP 101/57; PULSE 72; RESP 12; O2SAT 97
[2021-11-05] MEDS: Morphine Sulfate 4 MG/ML CARTRIDGE IVPUSH (07:57)
== END 2021-11-05 08:28 | disposition home or self-care (01) ==
PROVIDERS: Emergency Provider Emergency Medicine Emergency Medical Services
DX: R10.9 Unspecified abdominal pain (principal); R10.31 Right lower quadrant pain; F41.9 Anxiety disorder, unspecified
CPT/HCPCS: 36415; 74176; 80048; 80076; 81001; 83690; 84702; 85025; 96374; 96375; 99284; J1885; J2270; J2405

== ENCOUNTER 2022-02-08 04:58 | Emergency (ER) | payer OTHER, SELFPAY ==
--- NOTE | ~2022-02-08 | CT_ITS ---
EXAMINATION: CT ABDOMEN AND PELVIS WITHOUT CONTRAST CLINICAL INFORMATION: Abdominal pain. COMPARISON: CT scans dating between November 05, 2021 and February 19, 2011. TECHNIQUE: Multidetector volumetric imaging was performed from the superior aspect of the liver through the pubic symphysis. Sagittal and coronal reformatted images were obtained on the technologist's workstation. This CT examination was performed using dose optimization techniques as appropriate, variously including the following: *Automated exposure control *Adjustment of mA and/or kV according to patient size (this includes techniques or standardized protocols for targeted exams where dose is matched to indication/reason for exam; i.e. extremities or head) *Use of iterative reconstruction technique DLP: 490 mGy-cm FINDINGS: LUNG BASES: The visualized lung bases appear unremarkable. LIVER, GALLBLADDER, AND BILIARY TREE: The liver appears unremarkable in size, shape, and attenuation. No focal hepatic lesion or biliary ductal dilatation is appreciated. Unremarkable appearance of the gallbladder. PANCREAS: Unremarkable. SPLEEN: Unremarkable. ADRENAL GLANDS: Unremarkable. KIDNEYS AND URETERS: The kidneys appear unremarkable in size, shape, and attenuation. No hydronephrosis, hydroureter, or calculi seen. BLADDER: Unremarkable. GASTROINTESTINAL TRACT: Suspect small hiatus hernia. The small and large bowel appear unremarkable. No diverticulosis. Normal-appearing distal ileum and vermiform appendix. ABDOMINAL WALL: No significant hernia is appreciated. LYMPH NODES: Normal. VASCULAR: Unremarkable. PELVIC VISCERA: Right ovary more prominent than left. In October 2021, the left ovary was more prominent than right. IUD. OSSEOUS STRUCTURES: Unremarkable. CT/CT abdomen pelvis wo con IMPRESSION: Right ovary more prominent than left. In October 2021, the left ovary was more prominent than right. These findings may simply represent functional changes, but are suboptimally evaluated on this noncontrast CT scan. Recommend clinical correlation. Suspect small hiatus hernia.
[2022-02-08 05:34] VITALS: BP 113/54; PULSE 83; RESP 20; TEMP 37.1; O2SAT 98; BMI 27.4
[2022-02-08 05:38] LABS: MANUAL DIFF FLAG NO
[2022-02-08 05:40] LABS: Basophils Percent Auto 0.2 % (0-2); Eosinophils Absolute Auto 0.1 X10*3/uL (0.0-0.4); Eosinophils Percent Auto 0.8 % (0-4); Hematocrit 36.7 % (37.0-47.0); Hemoglobin 12.3 g/dl (12.0-16.0); Imm Gran Abs Auto 0.08 X10*3/uL (0.00-0.03); Imm Gran Pct Auto 0.6 % (0.0-0.4); Lymphocytes Absolute Auto 3.8 X10*3/uL (1.2-4.9); Lymphocytes Percent Auto 28.8 % (20-40); Mean Corpuscular HGB Conc 33.5 g/dl (31.0-35.0); Mean Corpuscular Hemoglobin 30.8 pg (27.0-33.0); Mean Corpuscular Volume 91.8 fL (80.0-98.0); Mean Platelet Volume 9.9 fL (9.4-12.3); Monocytes Absolute Auto 0.8 X10*3/uL (0.1-1.2); Monocytes Percent Auto 6.1 % (2-11); Neutrophils Absolute Auto 8.5 x10*3/uL (2.0-8.3); Neutrophils Percent Auto 63.5 % (45-73); Platelet Count 322 X10*3/uL (160-400); White Blood Count 13.4 X10*3/uL (4.8-10.8)
[2022-02-08 05:41] LABS: Appearance Urine CLOUDY; Color Urine YELLOW; Glucose Urine UA NEG (NEG); Leukocyte Esterase Urine 2+ (NEG); Nitrite Urine NEG (NEG); PH 6.5 (5.0-8.0); Specific Gravity - Urine 1.025 (1.005-1.025); Urine Blood 2+ (NEG); Urine Ketones NEG (NEG); Urine Protein TRACE MG/DL (NEG-TRACE)
[2022-02-08 05:44] LABS: UPreg QC Valid YES; Urine Pregnancy NEGATIVE (NEGATIVE)
[2022-02-08 05:54] LABS: Bacteria Urine 3+ /LPF; Mucus Urine TRACE /LPF; RBC Urine 0-2 /HPF (0); Squamous Epithelial Cell Urine 2+ /LPF
[2022-02-08 05:58] LABS: Influenza A Negative (Negative); Influenza B2 Negative (Negative)
[2022-02-08 06:02] LABS: Alanine Aminotransferase 14 U/L (0-31); Albumin Level 4.4 g/dL (3.5-5.0); Alkaline Phosphatase 85 U/L (39-117); Anion Gap 14 (12-20); Aspartate Amino Transferase 14 U/L (5-31); Bilirubin Total 0.3 mg/dL (0.0-1.0); Blood Urea Nitrogen 15 mg/dL (9-16); Calcium 9.4 mg/dL (8.4-10.2); Carbon Dioxide 23 mmol/L (22-29); Chloride 107 mmol/L (96-108); Creatinine Clr Calc Pharmacy 88.1; Estimated Glomerular Filt Rate > 60; Glucose Random 131 mg/dL (60-115); Sodium 140 mmol/L (135-145); Total Protein 7.1 g/dL (6.5-8.0)
[2022-02-08 06:17] LABS: COVID-19 Test Negative (Negative)
--- NOTE | 2022-02-08 08:44 | ED.GENADULT ---
HPI - General Adult General Chief complaint: Nausea/Vomiting/Diarrhea Stated complaint: chest pain, stomach pain, vomiting x4 days Time Seen by Provider: 02/08/22 08:42 Source: patient Mode of arrival: ambulatory Limitations: no limitations History of Present Illness HPI narrative: Patient is a 36 year old female presenting to the emergency department today with abdominal pain, nausea, and vomiting. Patient states that over the last 4 days, she has been vomiting and has had abdominal pain. Patient denies any dizziness, lightheadedness, fever, chills, blurry vision, double vision, loss of vision, chest pain, difficulty breathing, shortness of breath, back pain, night sweats, pain with urination, increased urinary frequency, increased urinary urgency, blood in her urine or stool, syncope or a near syncopal episode, recent trauma or falls, bowel incontinence, bladder incontinence, bowel retention, bladder retention, or any other complaints at this time. Onset (ago): day(s) (4) Location: abdomen Radiation: non-radiation Severity: mild Severity scale (1-10): 2 Quality: dull Pain Consistency: intermittent Relieving factors: none Exacerbating factors: none Associated symptoms: nausea/vomiting Treatments prior to arrival: none Related Data Previous Rx's Medication Instructions Recorded diphenhydramine HCl 25 mg capsule 50 mg PO QID PRN itching #20 caps 08/19/20 (Benadryl) prednisone 20 mg tablet 60 mg PO DAILY 5 days #15 tabs 08/19/20 acetaminophen 500 mg capsule 500 mg PO Q6H PRN fever or pain 08/08/21 #20 caps ibuprofen 600 mg tablet 600 mg PO TID PRN fever or pain 08/08/21 #14 tabs loperamide 2 mg capsule 2 mg PO Q4H PRN loose stool #10 08/08/21 (Anti-Diarrheal (loperamide)) caps cyclobenzaprine 10 mg tablet 10 mg PO TID PRN pain, muscle 11/05/21 spasm #15 tabs oxycodone 5 mg tablet 5 mg PO Q4H PRN pain #14 tabs 11/05/21 Allergies Allergy/AdvReac Type Severity Reaction Status Date / Time No Known Allergies Allergy Verified 08/07/21 19:28 [No Known Allergies*] Review of Systems Constitutional: Constitutional: Reports no additional constitutional complaints, Denies chills, Denies fever(s) and Denies night sweats Eyes: Eyes: Reports no additional eye complaints, Denies blurry vision, Denies change in vision, Denies diplopia, Denies eye discharge, Denies loss of vision and Denies eye pain ENT: Denies dizziness Cardiovascular: Cardiovascular: Reports no additional cardiovascular complaints, Denies chest pain, Denies lightheadedness, Denies Loss of Consciousness and Denies dyspnea Respiratory: Respiratory: Reports no additional respiratory complaints and Denies dyspnea Gastrointestinal: Gastrointestinal: Reports no additional gastrointestinal complaints, Reports abdominal pain, Denies melena, Denies hematochezia, Denies change in bowel habits, Denies change in stool character, Reports nausea and Reports vomiting Genitourinary: Genitourinary: Denies hematuria, Denies urinary frequency, Denies dysuria, Denies urinary incontinence, Denies urinary hesitancy and Denies urinary urgency Musculoskeletal: Musculoskeletal: Reports no additional musculoskeletal complaints, Denies numbness and Denies tingling Neurologic: Denies dizziness, Denies loss of vision, Denies numbness and Denies tingling Psychiatric: Psychiatric: Reports no additional psychiatric complaints Endocrine: Endocrine: Reports no additional endocrine complaints Hematologic/Lymphatic: Hematologic/Lymphatic: Reports no additional hematologic/lymphatic complaints Allergic/Immunologic: Allergic/Immunologic: Reports no additional allergic/immunologic complaints PMFSH Past Medical History Attestation statement: The following information was validated with the patient. Source: old records reviewed Medical History Anxiety Hernia Social History Social History Alcohol intake: never Advance Directives: No Advance Directives Information Provided: No Physical Exam ED Vital Signs: Vital Signs - 24 hr 02/08/22 05:34 Temperature 98.7 F Pulse Rate 83 Respiratory Rate 20 Blood Pressure 113/54 L Pulse Oximetry 98 Oxygen Delivery Method Room Air BMI result Body Mass Index 27.4 Const General: cooperative, no acute distress, alert and awake Nutritional Appearance: well nourished Orientation/consciousness: patient oriented x3 Limitations: no limitations HENMT Head: Yes normal to inspection and Yes atraumatic Ears: hearing grossly normal bilaterally and external ears normal General nose exam: Normal external nose present, no nasal discharge noted and no epistaxis Face and sinus: Yes normal facial exam, No abrasion and No laceration Mouth: Normal oral and palatal mucosa present, no drooling and no muffled voice Eyes General: appearance normal, both eyes and all related structures Periorbital: periorbital findings normal Eyelids: Yes eyelids normal Conjunctivae: conjunctivae normal Pupils: Equal, round and reactive pupils present EOM: EOMs intact bilaterally Neck Neck: Yes normal visual inspection, Yes full ROM and Yes no lymphadenopathy Chest Chest palpation & inspection: normal inspection of the chest Resp Effort & Inspection: normal respiratory effort and able to speak in complete sentences Auscultation: clear to auscultation bilaterally Cardio Rate: regular rate Rhythm: regular rhythm GI Inspection: Yes normal to inspection Palpation (GI): Soft to palpation, not firm, nontender, no guarding and not rigid Neuro General: patient oriented x3 and moves all extremities Cranial nerves: Yes Equal, round and reactive pupils present Cognition (Neuro): normal cognition Motor exam (neuro): 5/5 motor strength present throughout Sensory Exam: Normal double simultaneous stimulation for sensation Coordination: [id number] test normal Extrem General: Yes normal to inspection, Yes full ROM and Yes capillary refill normal Psych Appearance: grossly normal Mental Status: mental status grossly normal Affect: normal affect Attitude: cooperative Thought process: Normal thought process present Thought content: Normal thought content present Insight: Good insight present (Psych) Medical Decision Making [facility] Narrative Medical decision making narrative: Patient is a 36 year old female presenting to the emergency department today with abdominal pain, nausea, and vomiting. Patient's physical exam was unremarkable. Patient's blood work was unremarkable. Patient's urine showed no acute process. Patient's abdominal CT showed that her right ovary was larger than her left and previously, her left had been larger than her right. Patient declined any symptoms. Patient was non-toxic appearing. I did not have any clinical concern for torsion or ectopic in this patient. I explained my physical exam findings as well as all test results to the patient. I answered all questions asked by the patient. Patient received IV Zofran, Protonix, and fluids with PO Maalox which she stated helped her symptoms significantly. I stressed the importance of the patient taking her medication as prescribed. I stressed the importance of the patient following up with her primary care provider. I stressed the importance of the patient returning to the emergency department immediately if her symptoms were to worsen or if she were to develop any dizziness, shortness of breath, difficulty breathing, chest pain, blurry vision, loss of vision, nausea, vomiting, abdominal pain, fever, chills, back pain, or any other complaints. Patient verbalized agreement and understanding with this treatment plan and discharge. Differential Diagnosis Differential Diagnosis: abdominal pain, nausea, vomiting Medical Records Medical records reviewed: Yes I reviewed the patient's medical records. Lab Data Lab results reviewed: Yes I reviewed the patient's lab results. Result diagrams: 02/08/22 05:10 02/08/22 05:10 Labs: Lab Results 02/08/22 02/08/22 02/08/22 Range/Units 05:10 05:10 05:10 WBC 13.4 H (4.8-10.8) X10*3/uL RBC 4.00 L (4.20-5.50) X10*6/uL Hgb 12.3 (12.0-16.0) g/dl Hct 36.7 L (37.0-47.0) % MCV 91.8 (80.0-98.0) fL MCH 30.8 (27.0-33.0) pg MCHC 33.5 (31.0-35.0) g/dl RDW 13.0 (11.0-16.0) % Plt Count 322 (160-400) X10*3/uL MPV 9.9 (9.4-12.3) fL Immature Gran % (Auto) 0.6 H (0.0-0.4) % Neut % (Auto) 63.5 (45-73) % Lymph % (Auto) 28.8 (20-40) % [place] % (Auto) 6.1 (2-11) % Eos % (Auto) 0.8 (0-4) % Baso % (Auto) 0.2 (0-2) % Lymph # (Auto) 3.8 (1.2-4.9) X10*3/uL [place] # (Auto) 0.8 (0.1-1.2) X10*3/uL Eos # (Auto) 0.1 (0.0-0.4) X10*3/uL Baso # (Auto) 0.0 (0.0-0.2) X10*3/uL Abs Immat Gran (auto) 0.08 H (0.00-0.03) X10*3/uL Absolute Neuts (auto) 8.5 H (2.0-8.3) x10*3/uL Absolute Nucleated RBC 0.000 (0.0-0.012) X10*3/uL Nucleated RBC % (auto) 0.0 (0.0-0.2) /100WBC Sodium 140 (135-145) mmol/L Potassium 4.0 (3.3-5.1) mmol/L Chloride 107 (96-108) mmol/L Carbon Dioxide 23 (22-29) mmol/L Anion Gap 14 (12-20) BUN 15 (9-16) mg/dL Creatinine 0.79 (0.5-1.4) mg/dL Estim Creat Clear Calc 88.1 Estimated GFR > 60 Random Glucose 131 H (60-115) mg/dL Calcium 9.4 (8.4-10.2) mg/dL Total Bilirubin 0.3 (0.0-1.0) mg/dL AST 14 (5-31) U/L ALT 14 (0-31) U/L Alkaline Phosphatase 85 (39-117) U/L Total Protein 7.1 (6.5-8.0) g/dL Albumin 4.4 (3.5-5.0) g/dL Urine Color Urine Appearance Urine pH (5.0-8.0) Ur Specific [place] (1.005-1.025) Urine Protein (NEG-TRACE) MG/DL Urine Glucose (UA) (NEG) MG/DL Urine Ketones (NEG) MG/DL Urine Blood (NEG) Urine Nitrite (NEG) Ur Leukocyte Esterase (NEG) Urine RBC (0) /HPF Urine WBC (0-4) /HPF Ur Squamous Epith Cells /LPF Urine Bacteria /LPF Urine Mucus /LPF Urine Test (NEGATIVE) COVID-19 ([facility]) (Negative) COVID-19 Clin Com Influenza Type A ([facility]) Negative (Negative) Influenza Type B ([facility]) Negative (Negative) Influenza A & B Note See Note 02/08/22 02/08/22 02/08/22 Range/Units 05:10 05:10 05:10 WBC (4.8-10.8) X10*3/uL RBC (4.20-5.50) X10*6/uL Hgb (12.0-16.0) g/dl Hct (37.0-47.0) % MCV (80.0-98.0) fL MCH (27.0-33.0) pg MCHC (31.0-35.0) g/dl RDW (11.0-16.0) % Plt Count (160-400) X10*3/uL MPV (9.4-12.3) fL Immature Gran % (Auto) (0.0-0.4) % Neut % (Auto) (45-73) % Lymph % (Auto) (20-40) % [place] % (Auto) (2-11) % Eos % (Auto) (0-4) % Baso % (Auto) (0-2) % Lymph # (Auto) (1.2-4.9) X10*3/uL [place] # (Auto) (0.1-1.2) X10*3/uL Eos # (Auto) (0.0-0.4) X10*3/uL Baso # (Auto) (0.0-0.2) X10*3/uL Abs Immat Gran (auto) (0.00-0.03) X10*3/uL Absolute Neuts (auto) (2.0-8.3) x10*3/uL Absolute Nucleated RBC (0.0-0.012) X10*3/uL Nucleated RBC % (auto) (0.0-0.2) /100WBC Sodium (135-145) mmol/L Potassium (3.3-5.1) mmol/L Chloride (96-108) mmol/L Carbon Dioxide (22-29) mmol/L Anion Gap (12-20) BUN (9-16) mg/dL Creatinine (0.5-1.4) mg/dL Estim Creat Clear Calc Estimated GFR Random Glucose (60-115) mg/dL Calcium (8.4-10.2) mg/dL Total Bilirubin (0.0-1.0) mg/dL AST (5-31) U/L ALT (0-31) U/L Alkaline Phosphatase (39-117) U/L Total Protein (6.5-8.0) g/dL Albumin (3.5-5.0) g/dL Urine Color YELLOW Urine Appearance CLOUDY Urine pH 6.5 (5.0-8.0) Ur Specific [place] 1.025 (1.005-1.025) Urine Protein TRACE (NEG-TRACE) MG/DL Urine Glucose (UA) NEG (NEG) MG/DL Urine Ketones NEG (NEG) MG/DL Urine Blood 2+ H (NEG) Urine Nitrite NEG (NEG) Ur Leukocyte Esterase 2+ H (NEG) Urine RBC 0-2 (0) /HPF Urine WBC 1-4 (0-4) /HPF Ur Squamous Epith Cells 2+ /LPF Urine Bacteria 3+ /LPF Urine Mucus TRACE /LPF Urine Test NEGATIVE (NEGATIVE) COVID-19 ([facility]) Negative (Negative) COVID-19 Clin Com See Note Influenza Type A ([facility]) (Negative) Influenza Type B ([facility]) (Negative) Influenza A & B Note Imaging Data CT scan - abdomen: Attestation: I personally reviewed and interpreted this imaging study as follows: My impression: No acute process. Radiologist's impression: EXAMINATION: CT ABDOMEN AND PELVIS WITHOUT CONTRAST? CLINICAL INFORMATION: Abdominal pain.? COMPARISON: CT scans dating between November 05, 2021 and February 19, 2011.? TECHNIQUE: Multidetector volumetric imaging was performed from the superior aspect of the liver through the pubic symphysis. Sagittal and coronal reformatted images were obtained on the technologist's workstation.? This CT examination was performed using dose optimization techniques as appropriate, variously including the following: *Automated exposure control *Adjustment of mA and/or kV according to patient size (this includes techniques or standardized protocols for targeted exams where dose is matched to indication/reason for exam; i.e. extremities or head) *Use of iterative reconstruction technique DLP: 490 mGy-cm FINDINGS: LUNG BASES: The visualized lung bases appear unremarkable.? LIVER, GALLBLADDER, AND BILIARY TREE: The liver appears unremarkable in size, shape, and attenuation. No focal hepatic lesion or biliary ductal dilatation is appreciated. Unremarkable appearance of the gallbladder. PANCREAS: Unremarkable.? SPLEEN: Unremarkable.? ADRENAL GLANDS: Unremarkable.? KIDNEYS AND URETERS: The kidneys appear unremarkable in size, shape, and attenuation. No hydronephrosis, hydroureter, or calculi seen. BLADDER: Unremarkable.? GASTROINTESTINAL TRACT: Suspect small hiatus hernia. The small and large bowel appear unremarkable. No diverticulosis. Normal-appearing distal ileum and vermiform appendix. ABDOMINAL WALL: No significant hernia is appreciated.? LYMPH NODES: Normal. VASCULAR: Unremarkable. PELVIC VISCERA: Right ovary more prominent than left. In October 2021, the left ovary was more prominent than right. IUD.? OSSEOUS STRUCTURES: Unremarkable.? CT/CT abdomen pelvis wo con IMPRESSION: ? Right ovary more prominent than left. In October 2021, the left ovary was more prominent than right. These findings may simply represent functional changes, but are suboptimally evaluated on this noncontrast CT scan. Recommend clinical correlation. ? Suspect small hiatus hernia. Dictated By: Epifanio Holder Signed By: Electronically signed by Epifanio Holder 02/08/22 0934 Discharge Plan Discharge Clinical Impression: Gastroenteritis Patient Disposition: Home, Self-Care Instructions: Gastroenteritis (ED) Additional Instructions: Follow up with your primary care provider. Return to the emergency department immediately if your symptoms worsen or if you develop any dizziness, shortness of breath, difficulty breathing, chest pain, blurry vision, loss of vision, nausea, vomiting, abdominal pain, fever, chills, back pain, or any other complaints. Prescriptions: No Action prednisone 20 mg tablet 60 mg PO DAILY 5 Days Qty: 15 0RF diphenhydramine HCl [Benadryl] 25 mg capsule 50 mg PO QID PRN (Reason: itching) Qty: 20 0RF acetaminophen 500 mg capsule 500 mg PO Q6H PRN (Reason: fever or pain) Qty: 20 0RF ibuprofen 600 mg tablet 600 mg PO TID PRN (Reason: fever or pain) Qty: 14 0RF loperamide [Anti-Diarrheal (loperamide)] 2 mg capsule 2 mg PO Q4H PRN (Reason: loose stool) Qty: 10 0RF Rx Instructions: administer after each loose stool until symptoms controlled; do not exceed 8 mg per 24 hrs cyclobenzaprine 10 mg tablet 10 mg PO TID PRN (Reason: pain, muscle spasm) Qty: 15 0RF oxycodone 5 mg tablet 5 mg PO Q4H PRN (Reason: pain) Qty: 14 0RF Rx Instructions: Patient may request partial fill Referrals: [facility] [place] [facility] [Provider Group] (If symptoms persist, please call to establish and follow up with a GI provider. ) [facility] [place] Family Medicine [Provider Group] (Call to establish and follow up with a primary care provider. If you already have a primary care provider, please follow up with them. ) [facility] [place] [facility] [Provider Group] (Call to establish and follow up with a primary care provider. If you already have a primary care provider, please follow up with them. ) [facility] [place] [facility] [Provider Group] (Call to establish and follow up with a primary care provider. If you already have a primary care provider, please follow up with them. ) Stand Alone Forms: Work/School Release Interventions: ED Discharge Assessment Last Done: 02/08/22 09:59 Discharge Date/Time: 02/08/22 09:59 Print Language: Citizen [place]
[2022-02-08] MEDS: Pantoprazole Sodium 40 MG/10 ML VIAL IVPUSH (09:14)
[2022-02-08] MEDS: ondansetron HCL 4 MG/2 ML VIAL IVPUSH (09:14)
[2022-02-08] MEDS: Magnesium Hydrox/Alum Hydrox 30 ML ORAL.SUSP 15 ML PO (09:14)
[2022-02-08] MEDS: 0.9 % Sodium Chloride 500 ML 999 ML IV (09:14)
== END 2022-02-08 09:59 | disposition home or self-care (01) ==
PROVIDERS: Emergency Provider Emergency Medicine Emergency Medical Services
DX: K52.9 Noninfective gastroenteritis and colitis, unspecified (principal); R10.9 Unspecified abdominal pain; R07.89 Other chest pain; Z20.822 Contact with and (suspected) exposure to COVID-19; Z79.899 Other long term (current) drug therapy
CPT/HCPCS: 74176; 80053; 81001; 81025; 85025; 87502; 87635; 96374; 96375; 99283; 99284; J2405

== ENCOUNTER 2022-02-12 14:23 | Emergency (ER) | payer OTHER, SELFPAY | END 2022-02-12 18:01 | disposition left against medical advice (07) | PROVIDERS: Emergency Provider Emergency Medicine | DX: R10.9 Unspecified abdominal pain (principal) ==

== ENCOUNTER 2022-05-07 01:03 | Emergency (ER) | payer OTHER, SELFPAY ==
[2022-05-07 01:25] VITALS: BP 117/77; PULSE 70; RESP 20; TEMP 37.1; O2SAT 96; BMI 27.4
[2022-05-07 01:41] LABS: MANUAL DIFF FLAG NO
[2022-05-07 01:42] LABS: Basophils Percent Auto 0.4 % (0-2); Eosinophils Absolute Auto 0.1 X10*3/uL (0.0-0.4); Eosinophils Percent Auto 0.7 % (0-4); Hematocrit 37.7 % (37.0-47.0); Hemoglobin 12.8 g/dl (12.0-16.0); Imm Gran Abs Auto 0.04 X10*3/uL (0.00-0.03); Imm Gran Pct Auto 0.4 % (0.0-0.4); Lymphocytes Absolute Auto 4.1 X10*3/uL (1.2-4.9); Lymphocytes Percent Auto 37.9 % (20-40); Mean Corpuscular Volume 91.3 fL (80.0-98.0); Monocytes Absolute Auto 0.6 X10*3/uL (0.1-1.2); Monocytes Percent Auto 5.1 % (2-11); Neutrophils Absolute Auto 6.1 x10*3/uL (2.0-8.3); Neutrophils Percent Auto 55.5 % (45-73); Platelet Count 328 X10*3/uL (160-400); Red Blood Count 4.13 X10*6/uL (4.20-5.50); Red Cell Distribution Width 12.2 % (11.0-16.0); White Blood Count 10.9 X10*3/uL (4.8-10.8)
[2022-05-07 01:56] LABS: Anion Gap 16 (12-20); Blood Urea Nitrogen 14 mg/dL (9-16); Calcium 9.4 mg/dL (8.4-10.2); Carbon Dioxide 18 mmol/L (22-29); Chloride 108 mmol/L (96-108); Creatinine Clr Calc Pharmacy 91.6; Estimated Glomerular Filt Rate > 60; Glucose Random 107 mg/dL (60-115); Potassium 4.1 mmol/L (3.3-5.1); Sodium 138 mmol/L (135-145)
[2022-05-07 02:09] LABS: COVID-19 Test Negative (Negative)
[2022-05-07 04:04] LABS: Appearance Urine Clear; Color Urine Yellow; Glucose Urine UA Negative (Negative); Leukocyte Esterase Urine Negative (Negative); Nitrite Urine Negative (Negative); UMIC TRIGGER UACC YES; Urine Blood Moderate (2+) (Negative); Urine Ketones Negative (Negative); Urine Protein Negative (Neg-Trace)
[2022-05-07 04:07] LABS: UPreg QC Valid YES; Urine Pregnancy NEGATIVE (NEGATIVE)
[2022-05-07 04:15] LABS: WBC Urine 0-5 /HPF (0-5)
[2022-05-07 04:16] LABS: Bacteria Urine Trace (None Seen); Hyaline Casts Urine 0-2 /LPF (0-2); Squamous Epithelial Cell Urine 0-2 /HPF (0-2)
[2022-05-07 06:39] VITALS: BP 100/59; PULSE 67; RESP 22; TEMP 36.7; O2SAT 100
--- NOTE | 2022-05-07 08:10 | ED.ABDPAIN ---
HPI - Abdominal Pain General Chief Complaint: Abdominal Pain Stated Complaint: back pain , abd pain Time Seen by Provider: 05/07/22 08:09 Source: patient Mode of arrival: ambulatory Limitations: no limitations History of Present Illness HPI narrative: abdominal pain, epigastric for months, now she feels it in the back. Patient states that she has not seen her PCP MD elicited complaint: abdominal pain Pertinent past history: gastritis Onset (ago): month(s) Pain Consistency: intermittent Location: epigastric Severity: moderate Quality: stabbing and sharp Radiation: back Migration to: no migration Exacerbating factors: vomiting Associated symptoms: nausea and vomiting Related Data Previous Rx's Medication Instructions Recorded diphenhydramine HCl 25 mg capsule 50 mg PO QID PRN itching #20 caps 08/19/20 (Benadryl) prednisone 20 mg tablet 60 mg PO DAILY 5 days #15 tabs 08/19/20 acetaminophen 500 mg capsule 500 mg PO Q6H PRN fever or pain 08/08/21 #20 caps ibuprofen 600 mg tablet 600 mg PO TID PRN fever or pain 08/08/21 #14 tabs loperamide 2 mg capsule 2 mg PO Q4H PRN loose stool #10 08/08/21 (Anti-Diarrheal (loperamide)) caps cyclobenzaprine 10 mg tablet 10 mg PO TID PRN pain, muscle 11/05/21 spasm #15 tabs oxycodone 5 mg tablet 5 mg PO Q4H PRN pain #14 tabs 11/05/21 ondansetron 4 mg disintegrating 4 mg PO Q8H 4 days #12 tabs 05/07/22 tablet pantoprazole 40 mg tablet,delayed 40 mg PO DAILY #20 tabs 05/07/22 release (Protonix) Allergies Allergy/AdvReac Type Severity Reaction Status Date / Time No Known Allergies Allergy Verified 08/07/21 19:28 [No Known Allergies*] Review of Systems Constitutional: Reports no additional constitutional complaints Eyes: Reports no additional eye complaints Denies dizziness Cardiovascular: Reports no additional cardiovascular complaints Respiratory: Reports as per HPI Gastrointestinal: Reports no additional gastrointestinal complaints Genitourinary: Reports no additional female genitourinary complaints Musculoskeletal: Reports no additional musculoskeletal complaints Skin/Breast: Denies rash Reports system reviewed and no additional complaints, except as documented, Denies dizziness and Denies Sensory deficit (Neuro) Psychiatric: Denies anxiety PMFSH Past Medical History Medical History Anxiety Hernia Social History Social History Alcohol intake: current Alcohol intake frequency: holidays/special occasions only Patient Tobacco Use Status: Current someday Tobacco user Smoked in Last 30 Days: Yes Use of substances other than those prescribed or required for medical reasons: No Advance Directives: No Advance Directives Information Provided: No Physical Exam ED Vital Signs: Vital Signs - 24 hr 05/07/22 01:25 05/07/22 06:39 05/07/22 08:36 Temperature 98.8 F 98.1 F 98.6 F Pulse Rate 70 67 77 Respiratory Rate 20 22 H 18 Blood Pressure 117/77 100/59 L 107/68 Pulse Oximetry 96 100 98 Oxygen Delivery Method Room Air Room Air Room Air BMI result Body Mass Index 27.4 Const General: healthy appearing Nutritional Appearance: average body habitus Orientation/consciousness: oriented to person and patient oriented x3 Limitations: no limitations HENMT Head: Yes normal to inspection Ears: external ears normal General nose exam: Normal external nose present Mouth: Normal oral and palatal mucosa present and oropharynx normal Throat: Yes posterior oropharynx normal Eyes General: appearance normal, both eyes and all related structures Neck Neck: Yes normal visual inspection Chest Chest palpation & inspection: normal inspection of the chest Resp Auscultation: clear to auscultation bilaterally Cardio Jugular venous distension: no JVD Rate: regular rate Rhythm: regular rhythm Heart sounds: S1 normal heart sound present and S2 normal heart sound present GI Inspection: Yes normal to inspection Palpation (GI): Soft to palpation, nontender and No hepatosplenomegaly present Auscultation: normal bowel sounds General: Yes no CVA tenderness Back/Spine/Pelvis Back: no CVA tenderness Skin General skin exam: no rashes or lesions noted Neuro General: oriented to person and patient oriented x3 Cranial nerves: Yes CN's II-XII intact bilaterally Motor exam (neuro): 5/5 motor strength present throughout Sensory Exam: No Sensory deficit (Neuro) Extrem General: Yes normal to inspection Psych Appearance: grossly normal Course Reevaluation(s) Reevaluation #1: LFTs and lipase are normal, patient with prior history of gastritis not on medications, will dc on protonix and zofran Time: 10:30 MDM - Abdominal Pain Lab Data Result diagrams: 05/07/22 01:31 05/07/22 01:31 Labs: Lab Results 05/07/22 05/07/22 05/07/22 Range/Units 01:31 01:31 01:31 WBC 10.9 H (4.8-10.8) X10*3/uL RBC 4.13 L (4.20-5.50) X10*6/uL Hgb 12.8 (12.0-16.0) g/dl Hct 37.7 (37.0-47.0) % MCV 91.3 (80.0-98.0) fL MCH 31.0 (27.0-33.0) pg MCHC 34.0 (31.0-35.0) g/dl RDW 12.2 (11.0-16.0) % Plt Count 328 (160-400) X10*3/uL MPV 10.0 (9.4-12.3) fL Immature Gran % (Auto) 0.4 (0.0-0.4) % Neut % (Auto) 55.5 (45-73) % Lymph % (Auto) 37.9 (20-40) % [place] % (Auto) 5.1 (2-11) % Eos % (Auto) 0.7 (0-4) % Baso % (Auto) 0.4 (0-2) % Lymph # (Auto) 4.1 (1.2-4.9) X10*3/uL [place] # (Auto) 0.6 (0.1-1.2) X10*3/uL Eos # (Auto) 0.1 (0.0-0.4) X10*3/uL Baso # (Auto) 0.0 (0.0-0.2) X10*3/uL Abs Immat Gran (auto) 0.04 H (0.00-0.03) X10*3/uL Absolute Neuts (auto) 6.1 (2.0-8.3) x10*3/uL Absolute Nucleated RBC 0.000 (0.0-0.012) X10*3/uL Nucleated RBC % (auto) 0.0 (0.0-0.2) /100WBC Sodium 138 (135-145) mmol/L Potassium 4.1 (3.3-5.1) mmol/L Chloride 108 (96-108) mmol/L Carbon Dioxide 18 L (22-29) mmol/L Anion Gap 16 (12-20) BUN 14 (9-16) mg/dL Creatinine 0.76 (0.5-1.4) mg/dL Estim Creat Clear Calc 91.6 Estimated GFR > 60 Random Glucose 107 (60-115) mg/dL Calcium 9.4 (8.4-10.2) mg/dL Total Bilirubin 0.3 (0.0-1.0) mg/dL Direct Bilirubin 0.2 (0.0-0.5) mg/dL AST 16 (5-31) U/L ALT 16 (0-31) U/L Alkaline Phosphatase 86 (39-117) U/L Total Protein 7.2 (6.5-8.0) g/dL Albumin 4.5 (3.5-5.0) g/dL Lipase 25 (8-78) U/L Urine Color Urine Appearance Urine pH (5.0-9.0) Ur Specific [place] (1.005-1.025) Urine Protein (Neg-Trace) mg/dL Urine Glucose (UA) (Negative) mg/dL Urine Ketones (Negative) mg/dL Urine Blood (Negative) Urine Nitrite (Negative) Ur Leukocyte Esterase (Negative) Urine RBC (0-2) /HPF Urine WBC (0-5) /HPF Ur Squamous Epith Cells (0-2) /HPF Urine Bacteria (None Seen) Hyaline Casts (0-2) /LPF Urine Test (NEGATIVE) COVID-19 ([facility]) Negative (Negative) COVID-19 Clin Com See Note 05/07/22 05/07/22 Range/Units 03:36 03:36 WBC (4.8-10.8) X10*3/uL RBC (4.20-5.50) X10*6/uL Hgb (12.0-16.0) g/dl Hct (37.0-47.0) % MCV (80.0-98.0) fL MCH (27.0-33.0) pg MCHC (31.0-35.0) g/dl RDW (11.0-16.0) % Plt Count (160-400) X10*3/uL MPV (9.4-12.3) fL Immature Gran % (Auto) (0.0-0.4) % Neut % (Auto) (45-73) % Lymph % (Auto) (20-40) % [place] % (Auto) (2-11) % Eos % (Auto) (0-4) % Baso % (Auto) (0-2) % Lymph # (Auto) (1.2-4.9) X10*3/uL [place] # (Auto) (0.1-1.2) X10*3/uL Eos # (Auto) (0.0-0.4) X10*3/uL Baso # (Auto) (0.0-0.2) X10*3/uL Abs Immat Gran (auto) (0.00-0.03) X10*3/uL Absolute Neuts (auto) (2.0-8.3) x10*3/uL Absolute Nucleated RBC (0.0-0.012) X10*3/uL Nucleated RBC % (auto) (0.0-0.2) /100WBC Sodium (135-145) mmol/L Potassium (3.3-5.1) mmol/L Chloride (96-108) mmol/L Carbon Dioxide (22-29) mmol/L Anion Gap (12-20) BUN (9-16) mg/dL Creatinine (0.5-1.4) mg/dL Estim Creat Clear Calc Estimated GFR Random Glucose (60-115) mg/dL Calcium (8.4-10.2) mg/dL Total Bilirubin (0.0-1.0) mg/dL Direct Bilirubin (0.0-0.5) mg/dL AST (5-31) U/L ALT (0-31) U/L Alkaline Phosphatase (39-117) U/L Total Protein (6.5-8.0) g/dL Albumin (3.5-5.0) g/dL Lipase (8-78) U/L Urine Color Yellow Urine Appearance Clear Urine pH 7.0 (5.0-9.0) Ur Specific [place] 1.020 (1.005-1.025) Urine Protein Negative (Neg-Trace) mg/dL Urine Glucose (UA) Negative (Negative) mg/dL Urine Ketones Negative (Negative) mg/dL Urine Blood Moderate (2+) H (Negative) Urine Nitrite Negative (Negative) Ur Leukocyte Esterase Negative (Negative) Urine RBC 6-10 H (0-2) /HPF Urine WBC 0-5 (0-5) /HPF Ur Squamous Epith Cells 0-2 (0-2) /HPF Urine Bacteria Trace (None Seen) Hyaline Casts 0-2 (0-2) /LPF Urine Test NEGATIVE (NEGATIVE) COVID-19 ([facility]) (Negative) COVID-19 Clin Com Discharge Plan Discharge Clinical Impression: Gastritis Patient Disposition: Home, Self-Care Instructions: Gastritis (ED) Prescriptions: New pantoprazole [Protonix] 40 mg tablet,delayed release (DR/EC) 40 mg PO DAILY Qty: 20 0RF ondansetron 4 mg tablet,disintegrating 4 mg PO Q8H 4 Days Qty: 12 0RF No Action prednisone 20 mg tablet 60 mg PO DAILY 5 Days Qty: 15 0RF diphenhydramine HCl [Benadryl] 25 mg capsule 50 mg PO QID PRN (Reason: itching) Qty: 20 0RF acetaminophen 500 mg capsule 500 mg PO Q6H PRN (Reason: fever or pain) Qty: 20 0RF ibuprofen 600 mg tablet 600 mg PO TID PRN (Reason: fever or pain) Qty: 14 0RF loperamide [Anti-Diarrheal (loperamide)] 2 mg capsule 2 mg PO Q4H PRN (Reason: loose stool) Qty: 10 0RF Rx Instructions: administer after each loose stool until symptoms controlled; do not exceed 8 mg per 24 hrs cyclobenzaprine 10 mg tablet 10 mg PO TID PRN (Reason: pain, muscle spasm) Qty: 15 0RF oxycodone 5 mg tablet 5 mg PO Q4H PRN (Reason: pain) Qty: 14 0RF Rx Instructions: Patient may request partial fill Referrals: Physician,Unknown J [Primary Care Provider] - 1 week
[2022-05-07] MEDS: Ondansetron ODT 4 MG TAB.RAPDIS TRANSLINGU (08:31)
[2022-05-07] MEDS: Famotidine 20 MG TABLET PO (08:31)
[2022-05-07] MEDS: PHENobarb/Hyoscy/Atropine/Scop 10 ML ELIXIR PO (08:32)
[2022-05-07] MEDS: Lidocaine HCl Viscous 2 % 15 ML SOLUTION MUCOUS MEM (08:32)
[2022-05-07] MEDS: Magnesium Hydrox/Alum Hydrox 30 ML ORAL.SUSP PO (08:32)
[2022-05-07 08:35] LABS: Alanine Aminotransferase 16 U/L (0-31); Albumin Level 4.5 g/dL (3.5-5.0); Aspartate Amino Transferase 16 U/L (5-31); Bilirubin Direct 0.2 mg/dL (0.0-0.5); Bilirubin Total 0.3 mg/dL (0.0-1.0); Lipase 25 U/L (8-78); Total Protein 7.2 g/dL (6.5-8.0)
[2022-05-07 08:36] VITALS: BP 107/68; PULSE 77; RESP 18; TEMP 37; O2SAT 98
[2022-05-07 08:43] LABS: Alkaline Phosphatase 86 U/L (39-117)
== END 2022-05-07 10:40 | disposition home or self-care (01) ==
PROVIDERS: Emergency Provider Emergency Medicine
DX: K29.70 Gastritis, unspecified, without bleeding (principal); R10.13 Epigastric pain; M54.50 Low back pain, unspecified; F17.200 Nicotine dependence, unspecified, uncomplicated; Z20.822 Contact with and (suspected) exposure to COVID-19; Z71.6 Tobacco abuse counseling; Z79.899 Other long term (current) drug therapy
CPT/HCPCS: 36415; 80048; 80076; 81001; 81025; 83690; 85025; 87635; 99283; 99284

== ENCOUNTER → 2022-05-14 12:21 | Outpatient (BNVA) | payer OTHER, SELFPAY | PROVIDERS: Visit Provider Internal Medicine | DX: R10.13 Epigastric pain (principal); R11.10 Vomiting, unspecified; Z79.899 Other long term (current) drug therapy | CPT/HCPCS: 99202 ==

== ENCOUNTER 2022-05-15 11:39 | Outpatient (REF) | payer OTHER, SELFPAY ==
[2022-05-15 12:30] LABS: C Reactive Protein 0.27 mg/dL (< or = 0.50)
[2022-05-16 14:52] LABS: Immunoglobulin A 311 mg/dL (47-310)
[2022-05-17 11:56] LABS: Transglutaminase IgA <1.0 U/mL
== END 2022-05-15 11:40 | disposition home or self-care (01) ==
LOC: HO.LAB 11:39
PROVIDERS: Visit Provider Internal Medicine
DX: R10.9 Unspecified abdominal pain (principal); R19.7 Diarrhea, unspecified
CPT/HCPCS: 36415; 82784; 86140; 86364

== ENCOUNTER 2022-06-16 12:12 | Emergency (ER) | payer OTHER, SELFPAY ==
--- NOTE | 2022-06-16 | ECG_ITS ---
Test Reason : sob Blood Pressure : / mmHG Vent. Rate : 092 BPM Atrial Rate : 092 BPM P-R Int : 136 ms QRS Dur : 092 ms QT Int : 356 ms P-R-T Axes : 028 000 -23 degrees QTc Int : 440 ms Normal sinus rhythm Nonspecific T wave abnormality Abnormal ECG When compared with ECG of 03-JUN-2019 09:37, No significant change was found Referred By: Patricio Garcia Electronically Signed By:LILLIE MARTINEZ MD
--- NOTE | ~2022-06-16 | XR_ITS ---
EXAMINATION: XR CHEST CLINICAL INFORMATION: Chest pain COMPARISON: 08/14/2020 TECHNIQUE: Frontal view of the chest was obtained. FINDINGS: No acute finding. The lung patterson are grossly clear. The cardiac silhouette is felt to be within normal limits. No infiltrate or effusion is seen. Old clavicular fracture on the left XR/XR chest 1V IMPRESSION: No acute finding
[2022-06-16 12:42] VITALS: BP 100/50; BP 142/58; PULSE 89; RESP 15; TEMP 37.4; O2SAT 94; BMI 27.8
--- NOTE | 2022-06-16 13:46 | ED_ITS ---
HPI - General Adult General Chief complaint: Dyspnea Stated complaint: DIZZY,WEAK,CP W/PROD COUGH Time Seen by Provider: 06/16/22 12:42 Source: patient Mode of arrival: EMS Limitations: no limitations History of Present Illness HPI narrative: THIS IS A 36 YEARS OLD FEMALE PRESENTED TO THE EMERGENCY DEPARTMENT VIA A MBULANCE WITH A CHIEF COMPLAINT OF SHORTNESS OF BREATH WEAKNESS MALAISE DIZZINESS SINCE THIS MORNING. DENIES ANY VOMITING ANY DIARRHEA ANY FEVER Onset (ago): hour(s) (6) Radiation: non-radiation Severity: mild Pain Consistency: constant Exacerbating factors: none Related Data Previous Rx's Medication Instructions Recorded acetaminophen 500 mg capsule 500 mg PO Q6H PRN fever or pain 08/08/21 #20 caps cyclobenzaprine 10 mg tablet 10 mg PO TID PRN pain, muscle 11/05/21 spasm #15 tabs ondansetron 4 mg disintegrating 4 mg PO Q8H 4 days #12 tabs 05/07/22 tablet pantoprazole 40 mg tablet,delayed 40 mg PO DAILY #20 tabs 05/07/22 release (Protonix) Allergies Allergy/AdvReac Type Severity Reaction Status Date / Time No Known Allergies Allergy Verified 05/14/22 12:34 [No Known Allergies*] Review of Systems Review of Systems: Yes all other systems are reviewed and are negative ENT: Reports system reviewed and no additional complaints, except as documented Cardiovascular: Cardiovascular: Reports no additional cardiovascular complaints and Reports dyspnea Respiratory: Respiratory: Reports no additional respiratory complaints and Reports dyspnea Gastrointestinal: Gastrointestinal: Reports no additional gastrointestinal complaints PMFSH Past Medical History Medical History Anxiety Hernia Social History Social History Alcohol intake: current Alcohol intake frequency: holidays/special occasions only Patient Tobacco Use Status: Current someday Tobacco user Smoked in Last 30 Days: Yes Use of substances other than those prescribed or required for medical reasons: No Advance Directives: No Advance Directives Information Provided: No Physical Exam ED Vital Signs: Vital Signs - 24 hr 06/16/22 12:42 06/16/22 16:10 Temperature 99.3 F 99.7 F Pulse Rate 89 98 Respiratory Rate 15 19 Blood Pressure 142/58 H 107/70 Pulse Oximetry 94 96 Oxygen Delivery Method Room Air Room Air BMI result Body Mass Index 27.8 Const General: cooperative Nutritional Appearance: average body habitus Orientation/consciousness: oriented to person, oriented to place, oriented to time and patient oriented x3 HENKY Head: Yes normal to inspection Ears: hearing grossly normal bilaterally General nose exam: Normal external nose present Face and sinus: Yes normal facial exam Throat: Yes posterior oropharynx normal Neck Neck: Yes normal visual inspection Chest Chest palpation & inspection: normal inspection of the chest Resp Effort & Inspection: normal respiratory effort Auscultation: clear to auscultation bilaterally Cardio Jugular venous distension: no JVD Rate: regular rate Rhythm: regular rhythm GI Inspection: Yes normal to inspection Palpation (GI): Soft to palpation, not firm and nontender Auscultation: normal bowel sounds Skin General skin exam: no rashes or lesions noted, elasticity normal and turgor normal Neuro General: oriented to person, oriented to place, oriented to time and patient oriented x3 Course Reevaluation(s) Reevaluation #1: RE-EXAMINED HERE VERY ANXIOUS WILL TRY IV BENZO ; LABS ARE WITHIN NORMAL LIMIT Reevaluation #2: RE-EXAMINED 5 pm SHE IS FEELING MUCH BETTER, LABS ARE WITHIN NORMAL LIMITS,cxr NEGATIVE ANTICIPATE DISHARGE Medical Decision Making Lab Data Result diagrams: 06/16/22 14:11 06/16/22 14:11 Labs: Lab Results 06/16/22 06/16/22 06/16/22 Range/Units 14:11 14:11 14:11 WBC 6.6 (4.8-10.8) X10*3/uL RBC 3.85 L (4.20-5.50) X10*6/uL Hgb 11.8 L (12.0-16.0) g/dl Hct 35.7 L (37.0-47.0) % MCV 92.7 (80.0-98.0) fL MCH 30.6 (27.0-33.0) pg MCHC 33.1 (31.0-35.0) g/dl RDW 12.5 (11.0-16.0) % Plt Count 191 D (160-400) X10*3/uL MPV 9.6 (9.4-12.3) fL Immature Gran % (Auto) 0.2 (0.0-0.4) % Neut % (Auto) 76.1 H (45-73) % Lymph % (Auto) 15.1 L (20-40) % [place] % (Auto) 8.4 (2-11) % Eos % (Auto) 0.0 (0-4) % Baso % (Auto) 0.2 (0-2) % Lymph # (Auto) 1.0 L (1.2-4.9) X10*3/uL [place] # (Auto) 0.6 (0.1-1.2) X10*3/uL Eos # (Auto) 0.0 (0.0-0.4) X10*3/uL Baso # (Auto) 0.0 (0.0-0.2) X10*3/uL Abs Immat Gran (auto) 0.01 (0.00-0.03) X10*3/uL Absolute Neuts (auto) 5.0 (2.0-8.3) x10*3/uL Absolute Nucleated RBC 0.000 (0.0-0.012) X10*3/uL Nucleated RBC % (auto) 0.0 (0.0-0.2) /100WBC D-Dimer High Sensitivty NG/ML Sodium 137 (135-145) mmol/L Potassium 3.6 (3.3-5.1) mmol/L Chloride 106 (96-108) mmol/L Carbon Dioxide 19 L (22-29) mmol/L Anion Gap 16 (12-20) BUN 9 (9-16) mg/dL Creatinine 0.69 (0.5-1.4) mg/dL Estim Creat Clear Calc 101.5 Estimated GFR > 60 Random Glucose 82 (60-115) mg/dL Calcium 8.6 D (8.4-10.2) mg/dL Total Bilirubin 0.5 (0.0-1.0) mg/dL AST 20 (5-31) U/L ALT 20 (0-31) U/L Alkaline Phosphatase 69 (39-117) U/L Troponin I High Sens < 3.5 (<3.5-17.0) ng/L B-Natriuretic Peptide (<100) pg/mL Total Protein 6.7 (6.5-8.0) g/dL Albumin 4.1 (3.5-5.0) g/dL Beta HCG, Quant mIU/mL COVID-19 ([facility]) (Negative) COVID-19 Clin Com Influenza Type A ([facility]) (Negative) Influenza Type B ([facility]) (Negative) Influenza A & B Note 06/16/22 06/16/22 06/16/22 Range/Units 14:11 14:11 14:11 WBC (4.8-10.8) X10*3/uL RBC (4.20-5.50) X10*6/uL Hgb (12.0-16.0) g/dl Hct (37.0-47.0) % MCV (80.0-98.0) fL MCH (27.0-33.0) pg MCHC (31.0-35.0) g/dl RDW (11.0-16.0) % Plt Count (160-400) X10*3/uL MPV (9.4-12.3) fL Immature Gran % (Auto) (0.0-0.4) % Neut % (Auto) (45-73) % Lymph % (Auto) (20-40) % [place] % (Auto) (2-11) % Eos % (Auto) (0-4) % Baso % (Auto) (0-2) % Lymph # (Auto) (1.2-4.9) X10*3/uL [place] # (Auto) (0.1-1.2) X10*3/uL Eos # (Auto) (0.0-0.4) X10*3/uL Baso # (Auto) (0.0-0.2) X10*3/uL Abs Immat Gran (auto) (0.00-0.03) X10*3/uL Absolute Neuts (auto) (2.0-8.3) x10*3/uL Absolute Nucleated RBC (0.0-0.012) X10*3/uL Nucleated RBC % (auto) (0.0-0.2) /100WBC D-Dimer High Sensitivty < 150 NG/ML Sodium (135-145) mmol/L Potassium (3.3-5.1) mmol/L Chloride (96-108) mmol/L Carbon Dioxide (22-29) mmol/L Anion Gap (12-20) BUN (9-16) mg/dL Creatinine (0.5-1.4) mg/dL Estim Creat Clear Calc Estimated GFR Random Glucose (60-115) mg/dL Calcium (8.4-10.2) mg/dL Total Bilirubin (0.0-1.0) mg/dL AST (5-31) U/L ALT (0-31) U/L Alkaline Phosphatase (39-117) U/L Troponin I High Sens (<3.5-17.0) ng/L B-Natriuretic Peptide (<100) pg/mL Total Protein (6.5-8.0) g/dL Albumin (3.5-5.0) g/dL Beta HCG, Quant < 2 mIU/mL COVID-19 ([facility]) Negative (Negative) COVID-19 Clin Com See Note Influenza Type A ([facility]) (Negative) Influenza Type B ([facility]) (Negative) Influenza A & B Note 06/16/22 06/16/22 Range/Units 14:11 17:03 WBC (4.8-10.8) X10*3/uL RBC (4.20-5.50) X10*6/uL Hgb (12.0-16.0) g/dl Hct (37.0-47.0) % MCV (80.0-98.0) fL MCH (27.0-33.0) pg MCHC (31.0-35.0) g/dl RDW (11.0-16.0) % Plt Count (160-400) X10*3/uL MPV (9.4-12.3) fL Immature Gran % (Auto) (0.0-0.4) % Neut % (Auto) (45-73) % Lymph % (Auto) (20-40) % [place] % (Auto) (2-11) % Eos % (Auto) (0-4) % Baso % (Auto) (0-2) % Lymph # (Auto) (1.2-4.9) X10*3/uL [place] # (Auto) (0.1-1.2) X10*3/uL Eos # (Auto) (0.0-0.4) X10*3/uL Baso # (Auto) (0.0-0.2) X10*3/uL Abs Immat Gran (auto) (0.00-0.03) X10*3/uL Absolute Neuts (auto) (2.0-8.3) x10*3/uL Absolute Nucleated RBC (0.0-0.012) X10*3/uL Nucleated RBC % (auto) (0.0-0.2) /100WBC D-Dimer High Sensitivty NG/ML Sodium (135-145) mmol/L Potassium (3.3-5.1) mmol/L Chloride (96-108) mmol/L Carbon Dioxide (22-29) mmol/L Anion Gap (12-20) BUN (9-16) mg/dL Creatinine (0.5-1.4) mg/dL Estim Creat Clear Calc Estimated GFR Random Glucose (60-115) mg/dL Calcium (8.4-10.2) mg/dL Total Bilirubin (0.0-1.0) mg/dL AST (5-31) U/L ALT (0-31) U/L Alkaline Phosphatase (39-117) U/L Troponin I High Sens (<3.5-17.0) ng/L B-Natriuretic Peptide 10 (<100) pg/mL Total Protein (6.5-8.0) g/dL Albumin (3.5-5.0) g/dL Beta HCG, Quant mIU/mL COVID-19 ([facility]) (Negative) COVID-19 Clin Com Influenza Type A ([facility]) Positive A (Negative) Influenza Type B ([facility]) Negative (Negative) Influenza A & B Note See Note Imaging Data Chest x-ray: Radiologist's impression: COMPARISON: 08/14/2020 TECHNIQUE: Frontal view of the chest was obtained. FINDINGS: No acute finding. The lung patterson are grossly clear. The cardiac silhouette is felt to be within normal limits. No infiltrate or effusion is seen. Old clavicular fracture on the left XR/XR chest 1V IMPRESSION: No acute finding ? Dictated By: Royce Jose MD Signed By: <Electronically signed by Royce Jose MD in [place]> 06/16/22 1502 ECG Data Pacemaker model: EKG NORMAL SINUS RHYTHM RATE [address]-T CHANGES Discharge Plan Discharge Clinical Impression: Acute viral syndrome Patient Disposition: Still a Patient Instructions: Viral Syndrome (ED) Prescriptions: No Action acetaminophen 500 mg capsule 500 mg PO Q6H PRN (Reason: fever or pain) Qty: 20 0RF cyclobenzaprine 10 mg tablet 10 mg PO TID PRN (Reason: pain, muscle spasm) Qty: 15 0RF pantoprazole [Protonix] 40 mg tablet,delayed release (DR/EC) 40 mg PO DAILY Qty: 20 0RF ondansetron 4 mg tablet,disintegrating 4 mg PO Q8H 4 Days Qty: 12 0RF Referrals: Physician,Unknown J [Primary Care Provider] - 2 days
[2022-06-16] MEDS: 0.9 % Sodium Chloride 1,000 ML 999 ML IVCONT ×2 (13:55→17:38)
[2022-06-16 14:17] LABS: MANUAL DIFF FLAG NO
[2022-06-16 14:19] LABS: Basophils Percent Auto 0.2 % (0-2); Hematocrit 35.7 % (37.0-47.0); Hemoglobin 11.8 g/dl (12.0-16.0); Imm Gran Abs Auto 0.01 X10*3/uL (0.00-0.03); Imm Gran Pct Auto 0.2 % (0.0-0.4); Lymphocytes Percent Auto 15.1 % (20-40); Mean Corpuscular HGB Conc 33.1 g/dl (31.0-35.0); Mean Corpuscular Hemoglobin 30.6 pg (27.0-33.0); Mean Corpuscular Volume 92.7 fL (80.0-98.0); Mean Platelet Volume 9.6 fL (9.4-12.3); Monocytes Absolute Auto 0.6 X10*3/uL (0.1-1.2); Monocytes Percent Auto 8.4 % (2-11); Neutrophils Percent Auto 76.1 % (45-73); Platelet Count 191 X10*3/uL (160-400); Red Blood Count 3.85 X10*6/uL (4.20-5.50); Red Cell Distribution Width 12.5 % (11.0-16.0); White Blood Count 6.6 X10*3/uL (4.8-10.8)
[2022-06-16 14:33] LABS: COVID-19 Test Negative (Negative); IDNOW Serial# 16C4AD1C
[2022-06-16 14:37] LABS: Alanine Aminotransferase 20 U/L (0-31); Albumin Level 4.1 g/dL (3.5-5.0); Alkaline Phosphatase 69 U/L (39-117); Anion Gap 16 (12-20); Aspartate Amino Transferase 20 U/L (5-31); Bilirubin Total 0.5 mg/dL (0.0-1.0); Blood Urea Nitrogen 9 mg/dL (9-16); Calcium 8.6 mg/dL (8.4-10.2); Carbon Dioxide 19 mmol/L (22-29); Chloride 106 mmol/L (96-108); Creatinine Clr Calc Pharmacy 101.5; Estimated Glomerular Filt Rate > 60; Glucose Random 82 mg/dL (60-115); Potassium 3.6 mmol/L (3.3-5.1); Sodium 137 mmol/L (135-145); Total Protein 6.7 g/dL (6.5-8.0)
[2022-06-16 14:38] LABS: B Type Natriuretic Peptide 10 pg/mL (<100)
[2022-06-16 14:39] LABS: D Dimer High Sensitivity < 150 NG/ML; Troponin-I High Sensitivity < 3.5 ng/L (<3.5-17.0)
[2022-06-16 14:43] LABS: HCG Quantitative < 2 mIU/mL
[2022-06-16] MEDS: Metoclopramide HCl 10 MG/2 ML VIAL IVPUSH (15:55)
[2022-06-16 16:10] VITALS: BP 107/70; PULSE 98; RESP 19; TEMP 37.6; O2SAT 96
[2022-06-16] MEDS: Midazolam HCl/PF 2 MG/2 ML VIAL 1 MG IVPUSH (16:13)
[2022-06-16 17:22] LABS: IDNOW Serial# 9DB6401D; Influenza A Positive (Negative); Influenza B2 Negative (Negative)
[2022-06-16] MEDS: Acetaminophen 325 MG TABLET 650 MG PO (17:37)
[2022-06-16 17:48] VITALS: TEMP 37.8
[2022-06-16 17:53] LABS: Appearance Urine Clear; Color Urine Yellow; Glucose Urine UA Negative (Negative); Leukocyte Esterase Urine Negative (Negative); Nitrite Urine Negative (Negative); Specific Gravity - Urine 1.015 (1.005-1.025); UMIC TRIGGER UACC YES; Urine Blood Moderate (2+) (Negative); Urine Ketones Trace mg/dL (Negative); Urine Protein Negative (Neg-Trace)
[2022-06-16 17:58] LABS: Bacteria Urine None Seen (None Seen); Hyaline Casts Urine 0-2 /LPF (0-2); Squamous Epithelial Cell Urine 0-2 /HPF (0-2); WBC Urine 0-5 /HPF (0-5)
== END 2022-06-16 20:02 | disposition home or self-care (01) ==
PROVIDERS: Emergency Provider Emergency Medicine
DX: B34.9 Viral infection, unspecified (principal); R42 Dizziness and giddiness; R07.89 Other chest pain; R05.9 Cough, unspecified; R06.02 Shortness of breath; F17.210 Nicotine dependence, cigarettes, uncomplicated; Z20.822 Contact with and (suspected) exposure to COVID-19; Z71.6 Tobacco abuse counseling; Z79.899 Other long term (current) drug therapy
CPT/HCPCS: 36415; 71045; 80053; 81001; 83880; 84484; 84702; 85025; 85379; 87502; 87635; 93005; 96361; 96374; 96375; 99285; J2250; J2765

== ENCOUNTER 2022-07-25 11:49 | Day surgery (SDC) | payer OTHER, SELFPAY ==
[2022-07-19 12:52] VITALS: BMI 27.8
--- NOTE | 2022-07-22 14:43 | HO.ANESPROP2 ---
Documented by User: Merry Knox NP 07/22/22 14:45 HPI - Anesthesia Eval Consult details Narrative: 36yo F for Upper Endoscopy [facility] 06/2022 with flu like symptoms. PMFSH Active Problems Active Problems: All Active Problems (Updated 06/17/22 @ 00:01 by Background Vicky) Vomiting (Acute) Epigastric pain (Acute) COVID-19 (Acute) Past Medical History Medical History Anxiety Hernia Social History Social History Alcohol intake: current Alcohol intake frequency: holidays/special occasions only Patient Tobacco Use Status: Current someday Tobacco user Advance Directives: No Advance Directives Information Provided: Yes Meds Allergies Allergy/AdvReac Type Severity Reaction Status Date / Time No Known Allergies Allergy Verified 05/14/22 12:34 [No Known Allergies*] Exam Exam Date and Time: July 22, 2022 1443 Height,Weight and Vital Signs: Height 5 ft 2 in Weight 68.946 kg Pertinent Lab Results Pertinent Lab Results: Laboratory Tests 06/16/22 06/16/22 14:11 14:11 WBC 6.6 Hgb 11.8 L Hct 35.7 L Plt Count 191 D Sodium 137 Potassium 3.6 Chloride 106 Carbon Dioxide 19 L BUN 9 Creatinine 0.69 Narrative Narrative: EKG 06/2022 Vent. Rate : 092 BPM ? ? Atrial Rate : 092 BPM ?? P-R Int : 136 ms? QRS Dur : 092 ms ? ? QT Int : 356 ms ? ? ? P-R-T Axes : 028 000 -23 degrees ?? QTc Int : 440 ms ? Normal sinus rhythm Nonspecific T wave abnormality Abnormal ECG When compared with ECG of 03-JUN-2019 09:37, No significant change was found Assessment and Plan Assessment Anesthesia Assessment: Chart Reviewed Documented by User: Taisha Parrish MD 07/25/22 12:14 [facility] Past Medical History Medical History Anxiety Hernia Family History Family history of problems with anesthesia: No Surgical History History of Problems with Anesthesia: No Social History Social History Alcohol intake: current Alcohol intake frequency: holidays/special occasions only Patient Tobacco Use Status: Current someday Tobacco user Advance Directives: No Advance Directives Information Provided: Yes Meds Allergies Allergy/AdvReac Type Severity Reaction Status Date / Time No Known Allergies Allergy Verified 05/14/22 12:34 [No Known Allergies*] Exam Airway Mallampati Class: II TM Dist: >3cm Neck ROM: Full Heart: RRR Lungs: CTA Assessment and Plan Final Anesthetic Review Family History of Problems with Anesthesia: No History of Problems with Anesthesia: No ASA Class: II Final Preanesthetic Review: No Changes in Pt Med Stat, Meds/Allgs Chart Reviewed, Consent Obtained/Reviewed and Anes Risks/Benef Reviewed Patient Risk: Low Procedure Risk: Low Anesthetic Plan Anesthetic Plan: MAC: Disposition: Standard PACU
[2022-07-25 11:58] VITALS: BMI 28.3
[2022-07-25 12:12] VITALS: BP 90/63; PULSE 76; RESP 18; TEMP 36.2; O2SAT 97; BMI 28.3
[2022-07-25 12:12] LABS: UPreg QC Valid YES; Urine Pregnancy NEGATIVE (NEGATIVE)
--- NOTE | 2022-07-25 12:21 | P.CONAN_ITS ---
[facility] Active Problems Active Problems: All Active Problems (Updated 06/17/22 @ 00:01 by Carlota Perry) Vomiting (Acute) Epigastric pain (Acute) COVID-19 (Acute) Past Medical History Medical History Anxiety Hernia Functional capacity: independent ambulation Patient : No Family History Family history of problems with anesthesia: No Surgical History History of Problems with Anesthesia: No Social History Social History Alcohol intake: current Alcohol intake frequency: holidays/special occasions only Patient Tobacco Use Status: Current someday Tobacco user Tobacco use type: Cigarette Date Education Initiated: 07/25/22 Use of substances other than those prescribed or required for medical reasons: Yes Are you DNR?: No Advance Directives: No Advance Directives Information Provided: Yes Meds Allergies Allergy/AdvReac Type Severity Reaction Status Date / Time No Known Allergies Allergy Verified 05/14/22 12:34 [No Known Allergies*] Active Medications: Current Medications Lactated Ringer's (Lr) 1,000 mls @ 100 mls/hr IVCONT .Q10H JONY Exam Exam Date and Time: July 25, 2022 1221 Height,Weight and Vital Signs: Height 5 ft 2 in Weight 70.307 kg Last Vital Signs Temp 97.2 F 07/25/22 12:12 Pulse 76 07/25/22 12:12 Resp 18 07/25/22 12:12 BP 90/63 07/25/22 12:12 Pulse Ox 97 07/25/22 12:12 O2 Del Method 07/25/22 12:12 Pertinent Lab Results Pertinent Lab Results: Laboratory Tests 07/25/22 12:00 Urine Test NEGATIVE Airway Mallampati Class: II TM Dist: >3cm Neck ROM: Full Heart: RRR Lungs: CTA Assessment and Plan Final Anesthetic Review Family History of Problems with Anesthesia: No History of Problems with Anesthesia: No NPO: Yes ASA Class: II Final Preanesthetic Review: No Changes in Pt Med Stat, Meds/Allgs Chart Reviewed, Consent Obtained/Reviewed and Anes Risks/Benef Reviewed Patient Risk: Low Procedure Risk: Low Anesthetic Plan Anesthetic Plan: MAC: Disposition: Standard PACU
[2022-07-25] MEDS: Lactated Ringers 1,000 ML 100 ML IVCONT (12:28)
--- NOTE | 2022-07-25 14:17 | HO.ANESPROP2 ---
HPI - Anesthesia Eval Consult details Narrative: eGD for epigastric pain , n/v PMFSH Active Problems Active Problems: All Active Problems (Updated 06/17/22 @ 00:01 by Carlota Perry) Vomiting (Acute) Epigastric pain (Acute) COVID-19 (Acute) Past Medical History Medical History Anxiety Hernia Functional capacity: independent ambulation Family History Family history of problems with anesthesia: No Surgical History History of Problems with Anesthesia: No Social History Social History Alcohol intake: current Alcohol intake frequency: holidays/special occasions only Patient Tobacco Use Status: Current someday Tobacco user Tobacco use type: Cigarette Date Education Initiated: 07/25/22 Use of substances other than those prescribed or required for medical reasons: Yes Are you DNR?: No Advance Directives: No Advance Directives Information Provided: Yes Patient : No Meds Allergies Allergy/AdvReac Type Severity Reaction Status Date / Time No Known Allergies Allergy Verified 05/14/22 12:34 [No Known Allergies*] Active Medications: Current Medications Lactated Ringer's (Lr) 1,000 mls @ 100 mls/hr IVCONT .Q10H JONY Last Admin: 07/25/22 12:28 Dose: 100 mls/hr Exam Exam Date and Time: July 25, 2022 1417 Height,Weight and Vital Signs: Height 5 ft 2 in Weight 70.307 kg Last Vital Signs Temp 97.2 F 07/25/22 12:12 Pulse 76 07/25/22 12:12 Resp 18 07/25/22 12:12 BP 90/63 07/25/22 12:12 Pulse Ox 97 07/25/22 12:12 O2 Del Method 07/25/22 12:12 Pertinent Lab Results Pertinent Lab Results: Laboratory Tests 07/25/22 12:00 Urine Test NEGATIVE Airway Mallampati Class: II TM Dist: >3cm Heart: Rr Lungs: CTA Assessment and Plan Final Anesthetic Review Family History of Problems with Anesthesia: No History of Problems with Anesthesia: No ASA Class: II Final Preanesthetic Review: No Changes in Pt Med Stat, Consent Obtained/Reviewed and Anes Risks/Benef Reviewed Patient Risk: Low Procedure Risk: Low Anesthetic Plan Anesthetic Plan: MAC: Disposition: Standard PACU
--- NOTE | 2022-07-25 15:35 | MHC.SHP ---
Pre-Procedural Eval Section A Date of Service: 07/25/22 Section B Chief Complaint: Epigastric pain, nausea & vomiting Details of Present Illness: intermittent epigastric pain x 3-4 months associated with nausea and vomiting as well as decreased appetite. Here for EGD Relevant Family History (Specify if Yes): No Relevant Social History: None Present Medications: see Short Stay Collaborative assessment Medical History: No relevant PMH History of Previous Operations: No relevant previous surgery Allergies: Allergies Allergy/AdvReac Type Severity Reaction Status Date / Time No Known Allergies Allergy Verified 05/14/22 12:34 [No Known Allergies*] Review of Systems Review of Systems Comment: 10 point ROS negative except as above Exam Exam Comment: Gen appear: No acute distress, well nourished HEENT: no icterus Chest: No overt resp distress Abd: soft, nontender, nondistended Psych: Stable affect, answering questions appropriately Neuro: A/Ox3 noted to move all extremities spontaneously Ext: no peripheral edema Plan Diagnosis/Plan: Unchanged I have reviewed the history and physical and performed a pertinent physical examination on my patient. No changes have occurred unless specified. Time Spent With Patient Time: Total time managing care of this patient today ____ minutes.
--- NOTE | 2022-07-25 15:37 | P.OP_ITS ---
Operative Note Operative Note Date of Service: 07/25/22 Narrative: Procedure: Esophagogastroduodenoscopy Endoscopist: Radha Swain MD Indication: Epigastric pain, nausea, vomiting Anesthesia Provider: Dr Dena Verde Anesthesia Type: MAC Instrument: [id number] ?? EGD Procedure:?? The procedure, indications, preparation and potential complications were reviewed with the patient, who indicated understanding and gave written informed consent to proceed. A physical exam was performed. The endoscope was introduced through the mouth, and advanced to the second part of duodenum. The mucosa was carefully examined on slow withdrawal of the endoscope. The patient tolerated the procedure well. There were no immediate complications.? ? EGD Findings:? * Esophagus:? Linear furrows noted in the lower esophagus. The Z line was at 35 cm. It was irregular but < 1cm. Middle and lower esophagus cold forceps biopsies were obtained to rule out eosinophilic esophagitis. * Stomach:? Normal mucosa was noted in the stomach. Random cold forceps gastric biopsies were taken to rule out H Pylori infection. * Duodenum:? Normal mucosa was noted in the whole of the examined duodenum. Cold forceps biopsies were taken from duodenal bulb and second portion of the duodenum to rule out celiac sprue. ? EGD Impressions:? * Linear furrows in esophagus ? EoE (biopsy) * Normal stomach (biopsy) * Normal duodenum (biopsy) ?? Recommendations:?? * Follow biopsy results. Our office will call or send a letter with results within 7-10 days. * If H pylori +, patient will be prescribed eradication therapy followed by test of cure. * Avoid NSAIDs. * US Abd pending. Patient was reminded to call radiology to [facility] (missed previous appt in Jun). Above has been reviewed with the patient. Relevant educational hand outs were provided at discharge.
[2022-07-25 16:01] VITALS: BP 83/57; PULSE 96; RESP 18; TEMP 36.8; O2SAT 96
[2022-07-25 16:16] VITALS: BP 101/65; PULSE 74; RESP 18; O2SAT 97
[2022-07-25 16:21] VITALS: BP 105/67; PULSE 76; RESP 14; TEMP 36.8; O2SAT 96
== END 2022-07-25 16:45 | disposition home or self-care (01) ==
PROVIDERS: Nurse Practitioner; Visit Provider Internal Medicine
PROC: 0DJ08ZZ Inspection of Upper Intestinal Tract, Via Natural or Artificial Opening Endoscopic (ICD-10-PCS; CPT 43235; principal; 2022-07-25 11:30)
DX: R10.13 Epigastric pain (principal); R11.2 Nausea with vomiting, unspecified; K22.89 Other specified disease of esophagus; K46.9 Unspecified abdominal hernia without obstruction or gangrene; F41.1 Generalized anxiety disorder; Z79.899 Other long term (current) drug therapy; F17.210 Nicotine dependence, cigarettes, uncomplicated
CPT/HCPCS: 43239; 81025; 88305; 88342

== ENCOUNTER 2022-08-05 11:02 | Emergency (ER) | payer OTHER, SELFPAY ==
[2022-08-05 11:38] VITALS: BP 101/62; PULSE 74; RESP 16; TEMP 36.2; O2SAT 98; BMI 27.8
--- NOTE | 2022-08-05 11:44 | ECG_ITS ---
Test Reason : EPIGASTRIC PAIN Blood Pressure : / mmHG Vent. Rate : 060 BPM Atrial Rate : 060 BPM P-R Int : 132 ms QRS Dur : 082 ms QT Int : 430 ms P-R-T Axes : 019 -03 -19 degrees QTc Int : 430 ms Normal sinus rhythm with sinus arrhythmia Minimal voltage criteria for LVH, may be normal variant ( R in aVL ) Borderline ECG When compared with ECG of 16-JUN-2022 13:57, Vent. rate has decreased BY 32 BPM Nonspecific T wave abnormality no longer evident in Anterior leads Referred By: Yousif Walsh Electronically Signed By:Dontrell Sanders
--- NOTE | 2022-08-05 11:46 | ED.GENADULT ---
HPI - General Adult General Chief complaint: Abdominal Pain Stated complaint: Abd pain/Swollen toe Time Seen by Provider: 08/05/22 13:55 Related Data Previous Rx's Medication Instructions Recorded acetaminophen 500 mg capsule 500 mg PO Q6H PRN fever or pain 08/08/21 #20 caps cyclobenzaprine 10 mg tablet 10 mg PO TID PRN pain, muscle 11/05/21 spasm #15 tabs ondansetron 4 mg disintegrating 4 mg PO Q8H 4 days #12 tabs 05/07/22 tablet pantoprazole 40 mg tablet,delayed 40 mg PO DAILY #20 tabs 05/07/22 release (Protonix) Allergies Allergy/AdvReac Type Severity Reaction Status Date / Time No Known Allergies Allergy Verified 05/14/22 12:34 [No Known Allergies*] [facility] Past Medical History Medical History Anxiety Hernia Social History Social History Alcohol intake: current Alcohol intake frequency: holidays/special occasions only Patient Tobacco Use Status: Current someday Tobacco user Tobacco use type: Cigarette Advance Directives: No Advance Directives Information Provided: Yes Physical Exam ED Vital Signs: Vital Signs - 24 hr 08/05/22 11:38 08/05/22 13:42 Temperature 97.1 F Pulse Rate 74 63 Respiratory Rate 16 16 Blood Pressure 101/62 107/69 Pulse Oximetry 98 100 Oxygen Delivery Method Room Air Room Air BMI result Body Mass Index 27.8 Course Course Course Narrative: RME: 36 year female history of gastritis presents to ED for full mid abdominal pain, nausea, and bilateral low back pain. Patient states no dysuria, hematuria, fever, chills. Patient states no chest pain or shortness of breath. EKG, labs, UA ordered. Vital signs stable. No abdominal tenderness on palpation Medical Decision Making Lab Data Result Diagrams: 08/05/22 13:01 08/05/22 13:01 Labs: Lab Results 08/05/22 08/05/22 08/05/22 Range/Units 12:58 12:58 13:01 WBC 10.0 (4.8-10.8) X10*3/uL RBC 4.12 L (4.20-5.50) X10*6/uL Hgb 12.3 (12.0-16.0) g/dl Hct 38.2 (37.0-47.0) % MCV 92.7 (80.0-98.0) fL MCH 29.9 (27.0-33.0) pg MCHC 32.2 (31.0-35.0) g/dl RDW 12.9 (11.0-16.0) % Plt Count 285 D (160-400) X10*3/uL MPV 9.5 (9.4-12.3) fL Immature Gran % (Auto) 0.3 (0.0-0.4) % Neut % (Auto) 72.4 (45-73) % Lymph % (Auto) 20.9 (20-40) % [place] % (Auto) 5.7 (2-11) % Eos % (Auto) 0.4 (0-4) % Baso % (Auto) 0.3 (0-2) % Lymph # (Auto) 2.1 (1.2-4.9) X10*3/uL [place] # (Auto) 0.6 (0.1-1.2) X10*3/uL Eos # (Auto) 0.0 (0.0-0.4) X10*3/uL Baso # (Auto) 0.0 (0.0-0.2) X10*3/uL Abs Immat Gran (auto) 0.03 (0.00-0.03) X10*3/uL Absolute Neuts (auto) 7.3 (2.0-8.3) x10*3/uL Absolute Nucleated RBC 0.000 (0.0-0.012) X10*3/uL Nucleated RBC % (auto) 0.0 (0.0-0.2) /100WBC PT (10.0-13.1) SEC INR (0.9-1.1) APTT (26.0-36.4) SEC Sodium (135-145) mmol/L Potassium (3.3-5.1) mmol/L Chloride (96-108) mmol/L Carbon Dioxide (22-29) mmol/L Anion Gap (12-20) BUN (9-16) mg/dL Creatinine (0.5-1.4) mg/dL Estim Creat Clear Calc Estimated GFR Random Glucose (60-115) mg/dL Calcium (8.4-10.2) mg/dL Total Bilirubin (0.0-1.0) mg/dL AST (5-31) U/L ALT (0-31) U/L Alkaline Phosphatase (39-117) U/L Troponin I High Sens (<3.5-17.0) ng/L Total Protein (6.5-8.0) g/dL Albumin (3.5-5.0) g/dL Urine Color Yellow Urine Appearance Clear Urine pH 6.0 (5.0-9.0) Ur Specific [place] 1.020 (1.005-1.025) Urine Protein Negative (Neg-Trace) mg/dL Urine Glucose (UA) Negative (Negative) mg/dL Urine Ketones Negative (Negative) mg/dL Urine Blood Small (1+) H (Negative) Urine Nitrite Negative (Negative) Ur Leukocyte Esterase Negative (Negative) Urine RBC 3-5 H (0-2) /HPF Urine WBC 0-5 (0-5) /HPF Ur Squamous Epith Cells 3-5 (0-2) /HPF Urine Bacteria Trace (None Seen) Hyaline Casts 0-2 (0-2) /LPF Urine Test NEGATIVE (NEGATIVE) 08/05/22 08/05/22 08/05/22 Range/Units 13:01 13:01 13:02 WBC (4.8-10.8) X10*3/uL RBC (4.20-5.50) X10*6/uL Hgb (12.0-16.0) g/dl Hct (37.0-47.0) % MCV (80.0-98.0) fL MCH (27.0-33.0) pg MCHC (31.0-35.0) g/dl RDW (11.0-16.0) % Plt Count (160-400) X10*3/uL MPV (9.4-12.3) fL Immature Gran % (Auto) (0.0-0.4) % Neut % (Auto) (45-73) % Lymph % (Auto) (20-40) % [place] % (Auto) (2-11) % Eos % (Auto) (0-4) % Baso % (Auto) (0-2) % Lymph # (Auto) (1.2-4.9) X10*3/uL [place] # (Auto) (0.1-1.2) X10*3/uL Eos # (Auto) (0.0-0.4) X10*3/uL Baso # (Auto) (0.0-0.2) X10*3/uL Abs Immat Gran (auto) (0.00-0.03) X10*3/uL Absolute Neuts (auto) (2.0-8.3) x10*3/uL Absolute Nucleated RBC (0.0-0.012) X10*3/uL Nucleated RBC % (auto) (0.0-0.2) /100WBC PT 10.8 (10.0-13.1) SEC INR 0.9 (0.9-1.1) APTT 32.5 (26.0-36.4) SEC Sodium 138 (135-145) mmol/L Potassium 4.1 (3.3-5.1) mmol/L Chloride 105 (96-108) mmol/L Carbon Dioxide 27 (22-29) mmol/L Anion Gap 10 L (12-20) BUN 13 (9-16) mg/dL Creatinine 0.71 (0.5-1.4) mg/dL Estim Creat Clear Calc 98.7 Estimated GFR > 60 Random Glucose 104 (60-115) mg/dL Calcium 9.5 D (8.4-10.2) mg/dL Total Bilirubin 0.6 (0.0-1.0) mg/dL AST 17 (5-31) U/L ALT 23 (0-31) U/L Alkaline Phosphatase 95 (39-117) U/L Troponin I High Sens < 3.5 (<3.5-17.0) ng/L Total Protein 6.8 (6.5-8.0) g/dL Albumin 4.2 (3.5-5.0) g/dL Urine Color Urine Appearance Urine pH (5.0-9.0) Ur Specific [place] (1.005-1.025) Urine Protein (Neg-Trace) mg/dL Urine Glucose (UA) (Negative) mg/dL Urine Ketones (Negative) mg/dL Urine Blood (Negative) Urine Nitrite (Negative) Ur Leukocyte Esterase (Negative) Urine RBC (0-2) /HPF Urine WBC (0-5) /HPF Ur Squamous Epith Cells (0-2) /HPF Urine Bacteria (None Seen) Hyaline Casts (0-2) /LPF Urine Test (NEGATIVE) Discharge Plan Discharge Clinical Impression: Epigastric pain, Helicobacter pylori gastritis, Contusion of foot, right Patient Disposition: Home, Self-Care Instructions: Gastritis (ED), Foot Contusion (ED) Prescriptions: No Action acetaminophen 500 mg capsule 500 mg PO Q6H PRN (Reason: fever or pain) Qty: 20 0RF cyclobenzaprine 10 mg tablet 10 mg PO TID PRN (Reason: pain, muscle spasm) Qty: 15 0RF pantoprazole [Protonix] 40 mg tablet,delayed release (DR/EC) 40 mg PO DAILY Qty: 20 0RF ondansetron 4 mg tablet,disintegrating 4 mg PO Q8H 4 Days Qty: 12 0RF Interventions: ED Discharge Assessment Last Done: 08/05/22 15:05 Discharge Date/Time: 08/05/22 15:06
[2022-08-05 13:07] LABS: MANUAL DIFF FLAG NO
[2022-08-05 13:08] LABS: Basophils Percent Auto 0.3 % (0-2); Eosinophils Percent Auto 0.4 % (0-4); Hematocrit 38.2 % (37.0-47.0); Hemoglobin 12.3 g/dl (12.0-16.0); Imm Gran Abs Auto 0.03 X10*3/uL (0.00-0.03); Imm Gran Pct Auto 0.3 % (0.0-0.4); Lymphocytes Absolute Auto 2.1 X10*3/uL (1.2-4.9); Lymphocytes Percent Auto 20.9 % (20-40); Mean Corpuscular HGB Conc 32.2 g/dl (31.0-35.0); Mean Corpuscular Hemoglobin 29.9 pg (27.0-33.0); Mean Corpuscular Volume 92.7 fL (80.0-98.0); Mean Platelet Volume 9.5 fL (9.4-12.3); Monocytes Absolute Auto 0.6 X10*3/uL (0.1-1.2); Monocytes Percent Auto 5.7 % (2-11); Neutrophils Absolute Auto 7.3 x10*3/uL (2.0-8.3); Neutrophils Percent Auto 72.4 % (45-73); Platelet Count 285 X10*3/uL (160-400); Red Blood Count 4.12 X10*6/uL (4.20-5.50); Red Cell Distribution Width 12.9 % (11.0-16.0)
[2022-08-05 13:10] LABS: Appearance Urine Clear; Color Urine Yellow; Glucose Urine UA Negative (Negative); Leukocyte Esterase Urine Negative (Negative); Nitrite Urine Negative (Negative); UMIC TRIGGER UACC YES; Urine Blood Small (1+) (Negative); Urine Ketones Negative (Negative); Urine Protein Negative (Neg-Trace)
[2022-08-05 13:12] LABS: UPreg QC Valid YES; Urine Pregnancy NEGATIVE (NEGATIVE)
[2022-08-05 13:17] LABS: INTERNATIONAL NORM RATIO 0.9 (0.9-1.1); Prothrombin Time 10.8 SEC (10.0-13.1)
[2022-08-05 13:19] LABS: Bacteria Urine Trace (None Seen); Hyaline Casts Urine 0-2 /LPF (0-2); WBC Urine 0-5 /HPF (0-5)
[2022-08-05 13:20] LABS: Partial Thromboplastin Time 32.5 SEC (26.0-36.4)
[2022-08-05 13:35] LABS: Alanine Aminotransferase 23 U/L (0-31); Albumin Level 4.2 g/dL (3.5-5.0); Alkaline Phosphatase 95 U/L (39-117); Anion Gap 10 (12-20); Aspartate Amino Transferase 17 U/L (5-31); Bilirubin Total 0.6 mg/dL (0.0-1.0); Blood Urea Nitrogen 13 mg/dL (9-16); Calcium 9.5 mg/dL (8.4-10.2); Carbon Dioxide 27 mmol/L (22-29); Chloride 105 mmol/L (96-108); Creatinine Clr Calc Pharmacy 98.7; Estimated Glomerular Filt Rate > 60; Glucose Random 104 mg/dL (60-115); Potassium 4.1 mmol/L (3.3-5.1); Sodium 138 mmol/L (135-145); Total Protein 6.8 g/dL (6.5-8.0)
[2022-08-05 13:42] VITALS: BP 107/69; PULSE 63; RESP 16; O2SAT 100
[2022-08-05 13:56] LABS: Troponin-I High Sensitivity < 3.5 ng/L (<3.5-17.0)
--- NOTE | 2022-08-05 14:36 | ED.ABDPAIN ---
HPI - Abdominal Pain General Chief Complaint: Abdominal Pain Stated Complaint: Abd pain/Swollen toe Time Seen by Provider: 08/05/22 13:55 Source: patient Mode of arrival: ambulatory Limitations: no limitations History of Present Illness HPI narrative: 36-year-old female came in for evaluation of left-sided abdominal pain and right foot pain. Patient been having chronic abdominal pain for the last few months had several ED visits and previous workup which was unremarkable patient recently had EGD and was positive for H pylori patient currently on multiple antibiotic therapy however biopsy from EGD is still pending patient is having a follow-up appointment with GI in 2 days. Pain is similar to her previous chronic pain mostly in the left side and upper stomach area, patient had a history of hernia repair surgery otherwise no other abdominal surgeries. Patient has no nausea or vomiting, normal bowel movements, no dysuria or frequency urination. 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 Related Data Previous Rx's Medication Instructions Recorded acetaminophen 500 mg capsule 500 mg PO Q6H PRN fever or pain 08/08/21 #20 caps cyclobenzaprine 10 mg tablet 10 mg PO TID PRN pain, muscle 11/05/21 spasm #15 tabs ondansetron 4 mg disintegrating 4 mg PO Q8H 4 days #12 tabs 05/07/22 tablet pantoprazole 40 mg tablet,delayed 40 mg PO DAILY #20 tabs 05/07/22 release (Protonix) Allergies Allergy/AdvReac Type Severity Reaction Status Date / Time No Known Allergies Allergy Verified 05/14/22 12:34 [No Known Allergies*] Review of Systems Review of Systems All other systems are reviewed and are negative Constitutional: Reports as per HPI and Reports no additional constitutional complaints Eyes: Reports as per HPI and Reports no additional eye complaints Reports system reviewed and no additional complaints, except as documented Cardiovascular: Reports as per HPI and Reports no additional cardiovascular complaints Respiratory: Reports as per HPI and Reports no additional respiratory complaints Gastrointestinal: Reports as per HPI and Reports no additional gastrointestinal complaints Genitourinary: Reports no additional female genitourinary complaints Musculoskeletal: Reports no additional musculoskeletal complaints Skin/Breast: Reports system reviewed and no additional complaints, except as docu Psychiatric: Reports no additional psychiatric complaints Endocrine: Reports no additional endocrine complaints Hematologic/Lymphatic: Reports no additional hematologic/lymphatic complaints Allergic/Immunologic: Reports no additional allergic/immunologic complaints Reports system reviewed and no additional complaints, except as documented and Reports Abnormal speech present [facility] Past Medical History Medical History Anxiety Hernia Social History Social History Alcohol intake: current Alcohol intake frequency: holidays/special occasions only Patient Tobacco Use Status: Current someday Tobacco user Tobacco use type: Cigarette Advance Directives: No Advance Directives Information Provided: Yes Physical Exam ED Vital Signs: Vital Signs - 24 hr 08/05/22 11:38 08/05/22 13:42 Temperature 97.1 F Pulse Rate 74 63 Respiratory Rate 16 16 Blood Pressure 101/62 107/69 Pulse Oximetry 98 100 Oxygen Delivery Method Room Air Room Air BMI result Body Mass Index 27.8 Vital signs have been reviewed as appeared to be correct. Blood pressure normal. Heart rate normal. Respiration rate normal. Temperature normal. Oxygen saturation normal. Appearance: Alert. Oriented X3. No acute distress. Head: Normal external exam. Normocephalic. Atraumatic. No Cao signs noted. No raccoon eyes noted Eyes: PERRLA. EOMI. Conjunctiva and sclera normal. Eyelids normal. ENT: TM's Normal. Pharynx normal. Uvula midline. Moist mucous membranes. No trismus noted. No drooling noted. No muffled voice noted. Neck: Normal inspection. Neck supple. FROM. No adenopathy. Thyroid Normal. No meningeal signs. No neck mass noted. CVS: Normal heart rate and rhythm. Heart sound normal. No murmurs noted. Pulses normal throughout. Respiratory: No respiratory distress. Painless inspiration. Breath sounds normal. No wheezes/rales/rhonchi noted. Chest nontender. No accessory muscle usage noted or decreased air movement noted. Abdomen: Soft and nontender. Bowel sounds normal in all 4 quadrants. No distention noted. No organomegaly noted. No visible injury noted. Back: No CVA tenderness. Full range of motion noted. Skin: Skin warm and dry. Normal skin color. Normal skin turgor. No rashes/lesions/lacerations noted. Extremities: Right foot exam: Diffuse tenderness with no deformity, intact neurovascular exam. Neuro: Oriented X 3. Cranial nerve exam: II-XII are grossly intact No motor deficit. No sensory deficit. Reflexes normal. Course Course Course Narrative: 36-year-old female came in for evaluation of chronic abdominal pain patient had a previous workup for her chronic abdominal pain with no resolution of patient's symptoms patient is following with Dr. Swain from GI and had a recent upper endoscopy waiting for biopsy resolved patient will follow-up with Dr. Swain in 2 days. Right foot trauma with no acute injury and negative x-ray. Will discharge the patient to follow with GI and use Tylenol if needed for pain. Medical Decision Making Differential Diagnosis Differential Diagnoses: The differential diagnosis associated with the presentation includes (Abdominal pain, chronic gastritis, UTI, right foot fracture, right foot contusion.) Lab Data MDM Lab Attestation statement: I reviewed the patient's lab results. Result Diagrams: 08/05/22 13:01 08/05/22 13:01 Labs: Lab Results 08/05/22 08/05/22 08/05/22 Range/Units 12:58 12:58 13:01 WBC 10.0 (4.8-10.8) X10*3/uL RBC 4.12 L (4.20-5.50) X10*6/uL Hgb 12.3 (12.0-16.0) g/dl Hct 38.2 (37.0-47.0) % MCV 92.7 (80.0-98.0) fL MCH 29.9 (27.0-33.0) pg MCHC 32.2 (31.0-35.0) g/dl RDW 12.9 (11.0-16.0) % Plt Count 285 D (160-400) X10*3/uL MPV 9.5 (9.4-12.3) fL Immature Gran % (Auto) 0.3 (0.0-0.4) % Neut % (Auto) 72.4 (45-73) % Lymph % (Auto) 20.9 (20-40) % [place] % (Auto) 5.7 (2-11) % Eos % (Auto) 0.4 (0-4) % Baso % (Auto) 0.3 (0-2) % Lymph # (Auto) 2.1 (1.2-4.9) X10*3/uL [place] # (Auto) 0.6 (0.1-1.2) X10*3/uL Eos # (Auto) 0.0 (0.0-0.4) X10*3/uL Baso # (Auto) 0.0 (0.0-0.2) X10*3/uL Abs Immat Gran (auto) 0.03 (0.00-0.03) X10*3/uL Absolute Neuts (auto) 7.3 (2.0-8.3) x10*3/uL Absolute Nucleated RBC 0.000 (0.0-0.012) X10*3/uL Nucleated RBC % (auto) 0.0 (0.0-0.2) /100WBC PT (10.0-13.1) SEC INR (0.9-1.1) APTT (26.0-36.4) SEC Sodium (135-145) mmol/L Potassium (3.3-5.1) mmol/L Chloride (96-108) mmol/L Carbon Dioxide (22-29) mmol/L Anion Gap (12-20) BUN (9-16) mg/dL Creatinine (0.5-1.4) mg/dL Estim Creat Clear Calc Estimated GFR Random Glucose (60-115) mg/dL Calcium (8.4-10.2) mg/dL Total Bilirubin (0.0-1.0) mg/dL AST (5-31) U/L ALT (0-31) U/L Alkaline Phosphatase (39-117) U/L Troponin I High Sens (<3.5-17.0) ng/L Total Protein (6.5-8.0) g/dL Albumin (3.5-5.0) g/dL Urine Color Yellow Urine Appearance Clear Urine pH 6.0 (5.0-9.0) Ur Specific [place] 1.020 (1.005-1.025) Urine Protein Negative (Neg-Trace) mg/dL Urine Glucose (UA) Negative (Negative) mg/dL Urine Ketones Negative (Negative) mg/dL Urine Blood Small (1+) H (Negative) Urine Nitrite Negative (Negative) Ur Leukocyte Esterase Negative (Negative) Urine RBC 3-5 H (0-2) /HPF Urine WBC 0-5 (0-5) /HPF Ur Squamous Epith Cells 3-5 (0-2) /HPF Urine Bacteria Trace (None Seen) Hyaline Casts 0-2 (0-2) /LPF Urine Test NEGATIVE (NEGATIVE) 08/05/22 08/05/22 08/05/22 Range/Units 13:01 13:01 13:02 WBC (4.8-10.8) X10*3/uL RBC (4.20-5.50) X10*6/uL Hgb (12.0-16.0) g/dl Hct (37.0-47.0) % MCV (80.0-98.0) fL MCH (27.0-33.0) pg MCHC (31.0-35.0) g/dl RDW (11.0-16.0) % Plt Count (160-400) X10*3/uL MPV (9.4-12.3) fL Immature Gran % (Auto) (0.0-0.4) % Neut % (Auto) (45-73) % Lymph % (Auto) (20-40) % [place] % (Auto) (2-11) % Eos % (Auto) (0-4) % Baso % (Auto) (0-2) % Lymph # (Auto) (1.2-4.9) X10*3/uL [place] # (Auto) (0.1-1.2) X10*3/uL Eos # (Auto) (0.0-0.4) X10*3/uL Baso # (Auto) (0.0-0.2) X10*3/uL Abs Immat Gran (auto) (0.00-0.03) X10*3/uL Absolute Neuts (auto) (2.0-8.3) x10*3/uL Absolute Nucleated RBC (0.0-0.012) X10*3/uL Nucleated RBC % (auto) (0.0-0.2) /100WBC PT 10.8 (10.0-13.1) SEC INR 0.9 (0.9-1.1) APTT 32.5 (26.0-36.4) SEC Sodium 138 (135-145) mmol/L Potassium 4.1 (3.3-5.1) mmol/L Chloride 105 (96-108) mmol/L Carbon Dioxide 27 (22-29) mmol/L Anion Gap 10 L (12-20) BUN 13 (9-16) mg/dL Creatinine 0.71 (0.5-1.4) mg/dL Estim Creat Clear Calc 98.7 Estimated GFR > 60 Random Glucose 104 (60-115) mg/dL Calcium 9.5 D (8.4-10.2) mg/dL Total Bilirubin 0.6 (0.0-1.0) mg/dL AST 17 (5-31) U/L ALT 23 (0-31) U/L Alkaline Phosphatase 95 (39-117) U/L Troponin I High Sens < 3.5 (<3.5-17.0) ng/L Total Protein 6.8 (6.5-8.0) g/dL Albumin 4.2 (3.5-5.0) g/dL Urine Color Urine Appearance Urine pH (5.0-9.0) Ur Specific [place] (1.005-1.025) Urine Protein (Neg-Trace) mg/dL Urine Glucose (UA) (Negative) mg/dL Urine Ketones (Negative) mg/dL Urine Blood (Negative) Urine Nitrite (Negative) Ur Leukocyte Esterase (Negative) Urine RBC (0-2) /HPF Urine WBC (0-5) /HPF Ur Squamous Epith Cells (0-2) /HPF Urine Bacteria (None Seen) Hyaline Casts (0-2) /LPF Urine Test (NEGATIVE) Independent Interpretation I performed an independent interpretation of an: Plain X-Ray (Right foot: No acute fracture dislocation.) Radiology Impression Discussion of test interpretation with radiology: I have reviewed the radiologist's reading. Discharge Plan Discharge Clinical Impression: Epigastric pain, Helicobacter pylori gastritis, Contusion of foot, right Patient Disposition: Home, Self-Care Instructions: Foot Contusion (ED), Gastritis (ED) Prescriptions: No Action acetaminophen 500 mg capsule 500 mg PO Q6H PRN (Reason: fever or pain) Qty: 20 0RF cyclobenzaprine 10 mg tablet 10 mg PO TID PRN (Reason: pain, muscle spasm) Qty: 15 0RF pantoprazole [Protonix] 40 mg tablet,delayed release (DR/EC) 40 mg PO DAILY Qty: 20 0RF ondansetron 4 mg tablet,disintegrating 4 mg PO Q8H 4 Days Qty: 12 0RF
--- NOTE | 2022-08-05 15:04 | PC.NURSE ---
This RN went to discharge pt and pt not in room, unable to medicated with tylenol
== END 2022-08-05 15:06 | disposition home or self-care (01) ==
PROVIDERS: Physician Assistant; Emergency Provider Emergency Medicine
DX: K29.60 Other gastritis without bleeding (principal); R10.13 Epigastric pain; S90.32XA Contusion of left foot, initial encounter; W20.8XXA Other cause of strike by thrown, projected or falling object, initial encounter; F17.210 Nicotine dependence, cigarettes, uncomplicated; Y93.E9 Activity, other interior property and clothing maintenance; Y92.018 Other place in single-family (private) house as the place of occurrence of the external cause; Y99.9 Unspecified external cause status
CPT/HCPCS: 36415; 73630; 80053; 81001; 81025; 84484; 85025; 85610; 85730; 93005; 99283; 99284

== ENCOUNTER 2022-09-13 08:43 | Outpatient (REF) | payer OTHER, SELFPAY ==
[2022-09-16 13:35] LABS: H Pylori Breath Test Negative (Negative)
== END 2022-09-13 08:44 | disposition home or self-care (01) ==
LOC: HO.LNP 08:43
PROVIDERS: Visit Provider Internal Medicine
DX: Z11.0 Encounter for screening for intestinal infectious diseases (principal)
CPT/HCPCS: 83013; 99211

== ENCOUNTER 2022-09-24 08:49 | Outpatient (REF) | payer OTHER, SELFPAY ==
--- NOTE | ~2022-09-24 | US_ITS ---
EXAMINATION: US ABDOMEN COMPLETE CLINICAL INFORMATION: Unspecified abdominal pain. COMPARISON: CT abdomen and pelvis 02/08/2022. Ultrasound abdomen 02/20/2011. TECHNIQUE: Real-time imaging of the abdominal viscera. FINDINGS: PANCREAS: Normal. ABDOMINAL AORTA: The proximal, mid, and distal segments are normal in caliber. INFERIOR VENA CAVA: Visualized portions are normal. LIVER: The liver is normal in size. The liver contour is normal. There is diffuse increased liver parenchymal echogenicity, consistent with hepatic steatosis. No focal hepatic lesion. There is no intrahepatic biliary duct dilatation seen. GALLBLADDER:The gallbladder is physiologically distended. Two gallstones are seen measuring 1.5 x 1.3 cm. Gallbladder wall appears thickened at 5 mm. The patient experienced tenderness when compressed over the gallbladder. No pericholecystic fluid. COMMON BILE DUCT: Normal in caliber measuring 0.4 cm in diameter. RIGHT KIDNEY: Normal. No hydronephrosis. No renal calculi or focal parenchymal lesions. The kidney measures 12.7 cm in maximum dimension. LEFT KIDNEY: Normal. No hydronephrosis. No renal calculi or focal parenchymal lesions. The kidney measures 12.2 cm in maximum dimension. SPLEEN: Normal. The spleen measures 10.4 cm in maximum dimension. FREE FLUID: None. US/US abdomen complete IMPRESSION: Cholelithiasis with gallbladder wall thickening. The patient complained of pain when compressed over the gallbladder by the manager actuarial. Findings are suggestive of cholecystitis. Please correlate clinically.
== END 2022-09-24 08:50 | disposition home or self-care (01) ==
LOC: HO.US 08:49
PROVIDERS: Visit Provider Internal Medicine
DX: R10.9 Unspecified abdominal pain (principal)
CPT/HCPCS: 76700

== ENCOUNTER 2022-09-30 01:00 | Emergency (ER) | payer OTHER, SELFPAY ==
--- NOTE | ~2022-09-30 | US_ITS ---
EXAMINATION: US ABDOMEN LIMITED CLINICAL INFORMATION: Cholelithiasis. Question cholecystitis.. COMPARISON: 09/24/2012 TECHNIQUE: Real-time imaging of the right upper quadrant abdominal viscera. FINDINGS: GALLBLADDER: Mobile gallstones are noted measuring up to 1.6 cm . No gallbladder wall thickening or edema. No pericholecystic fluid. COMMON BILE DUCT: Normal in caliber measuring 0.3 cm in diameter. FREE FLUID: None. US/US abdomen limited IMPRESSION: Cholelithiasis. No inflammatory changes of the gallbladder.
[2022-09-30 01:17] VITALS: BP 106/55; PULSE 75; RESP 18; TEMP 36.8; O2SAT 100; BMI 28.3
--- NOTE | 2022-09-30 01:27 | ED.ABDPAIN ---
HPI - Abdominal Pain General Chief Complaint: Abdominal Pain Stated Complaint: Abd pain ?Gallbladder Time Seen by Provider: 09/30/22 01:25 Source: patient Mode of arrival: ambulatory Limitations: no limitations History of Present Illness HPI narrative: Patient with cholelithiasis head ultrasound on 09/24 suggestive of cholecystitis without leukocytosis or abnormal LFTs patient was pain-free hands advise to get surgery done as outpatient. Patient comes here with pain in the right upper quadrant for last 1 hour had passed earlier had nausea and vomiting four times no fever or chills Related Data Previous Rx's Medication Instructions Recorded acetaminophen 500 mg capsule 500 mg PO Q6H PRN fever or pain 08/08/21 #20 caps cyclobenzaprine 10 mg tablet 10 mg PO TID PRN pain, muscle 11/05/21 spasm #15 tabs ondansetron 4 mg disintegrating 4 mg PO Q8H 4 days #12 tabs 09/27/22 tablet pantoprazole 40 mg tablet,delayed 40 mg PO DAILY #20 tabs 09/27/22 release (Protonix) ondansetron 4 mg disintegrating 4 mg PO Q6-8H PRN nausea and 09/30/22 tablet vomiting #10 tabs tramadol 50 mg tablet 50 mg PO Q6H PRN pain #20 tabs 09/30/22 Allergies Allergy/AdvReac Type Severity Reaction Status Date / Time No Known Allergies Allergy Verified 09/30/22 01:22 [No Known Allergies*] Review of Systems Review of Systems Yes all other systems are reviewed and are negative PMFSH Past Medical History Medical History Anxiety Hernia Social History Social History Alcohol intake: current Alcohol intake frequency: holidays/special occasions only Patient Tobacco Use Status: Current someday Tobacco user Tobacco use type: Cigarette Advance Directives: No Advance Directives Information Provided: Yes Patient : No Physical Exam ED Vital Signs: Vital Signs - 24 hr 09/30/22 01:17 09/30/22 02:29 09/30/22 03:27 Temperature 98.3 F 98.3 F 98.2 F Pulse Rate 75 73 80 Respiratory Rate 18 18 17 Blood Pressure 106/55 L 92/47 L 90/45 L Pulse Oximetry 100 100 96 Oxygen Delivery Method Room Air Room Air Room Air BMI result Body Mass Index 28.3 Appearance: Alert. Oriented X3. No acute distress. Eyes: PERRLA, No Nystagmus ENT: Pharynx normal. Oral Mucosa moist Neck: Normal inspection. Neck supple. CVS: Normal heart rate and rhythm. Pulses normal. Respiratory: No respiratory distress. Equal air entry bilateral, no wheezing/rales/rhonchi Abdomen: Soft, tender right upper quadrant with slight guarding Bowel sounds are present, no mass palpable, no CVA tenderness Skin: Skin warm and dry. Normal skin color. Normal skin turgor. Extremities: No lower extremity edema. No calf tenderness Neuro: Oriented X 3. No motor deficit. No sensory deficit. Medical Decision Making Medical Decision Making [facility] Narrative: Patient with solitary gallbladder stone 1.6 cm causing the pain no signs of CBD obstruction normal LFTs normal lactic acid ultrasound negative for cholecystitis case discussed Dr. Vargas will see the patient as outpatient no need for inpatient admission . Patient pain-free at time of discharge Lab Data [facility] Lab Attestation statement: I reviewed the patient's lab results. 09/30/22 01:36 09/30/22 01:36 Labs: Lab Results 09/30/22 09/30/22 09/30/22 Range/Units 01:36 01:36 01:36 WBC 10.0 (4.8-10.8) X10*3/uL RBC 3.89 L (4.20-5.50) X10*6/uL Hgb 11.8 L (12.0-16.0) g/dl Hct 35.6 L (37.0-47.0) % MCV 91.5 (80.0-98.0) fL MCH 30.3 (27.0-33.0) pg MCHC 33.1 (31.0-35.0) g/dl RDW 13.0 (11.0-16.0) % Plt Count 293 (160-400) X10*3/uL MPV 9.7 (9.4-12.3) fL Immature Gran % (Auto) 0.2 (0.0-0.4) % Neut % (Auto) 51.7 (45-73) % Lymph % (Auto) 39.2 (20-40) % [place] % (Auto) 7.5 (2-11) % Eos % (Auto) 1.0 (0-4) % Baso % (Auto) 0.4 (0-2) % Lymph # (Auto) 3.9 (1.2-4.9) X10*3/uL [place] # (Auto) 0.8 (0.1-1.2) X10*3/uL Eos # (Auto) 0.1 (0.0-0.4) X10*3/uL Baso # (Auto) 0.0 (0.0-0.2) X10*3/uL Abs Immat Gran (auto) 0.02 (0.00-0.03) X10*3/uL Absolute Neuts (auto) 5.2 (2.0-8.3) x10*3/uL Absolute Nucleated RBC 0.000 (0.0-0.012) X10*3/uL Nucleated RBC % (auto) 0.0 (0.0-0.2) /100WBC Sodium 138 (135-145) mmol/L Potassium 4.0 (3.3-5.1) mmol/L Chloride 106 (96-108) mmol/L Carbon Dioxide 22 (22-29) mmol/L Anion Gap 14 (12-20) BUN 15 (9-16) mg/dL Creatinine 0.68 (0.5-1.4) mg/dL Estim Creat Clear Calc 103.0 Estimated GFR > 60 Random Glucose 110 (60-115) mg/dL Lactic Acid 1.0 (0.5-2.0) mmol/L Calcium 9.4 (8.4-10.2) mg/dL Total Bilirubin 0.6 (0.0-1.0) mg/dL AST 15 (5-31) U/L ALT 16 (0-31) U/L Alkaline Phosphatase 75 (39-117) U/L Total Protein 6.4 L (6.5-8.0) g/dL Albumin 3.9 (3.5-5.0) g/dL Lipase 29 (8-78) U/L Medications Administered Discontinued Medications Generic Name Dose Route Start Last Admin Trade Name Freq PRN Reason Stop Dose Admin Sodium Chloride 1,000 mls @ 999 mls/hr 09/30/22 01:27 09/30/22 02:42 Ns IV 09/30/22 02:27 Infused .Q1H1M ONE Infusion Ketorolac Tromethamine 30 mg 09/30/22 02:02 09/30/22 02:07 Ketorolac Tromethamine 30 Mg/Ml Vial IVPUSH 09/30/22 02:03 30 mg ONCE ONE Administration Lorazepam 1 mg 09/30/22 02:27 09/30/22 02:40 Lorazepam 2 Mg/Ml Vial IVPUSH 09/30/22 02:28 1 mg ONCE ONE Administration Morphine Sulfate 4 mg 09/30/22 01:27 09/30/22 01:39 Morphine Sulfate 4 Mg/Ml Cartridge IVPUSH 09/30/22 01:28 4 mg ONCE ONE Administration Protocol Ondansetron HCl 4 mg 09/30/22 01:27 09/30/22 01:39 Ondansetron Hcl 4 Mg/2 Ml Vial IVPUSH 09/30/22 01:28 4 mg ONCE ONE Administration Discharge Plan Discharge Clinical Impression: Cholelithiasis Patient Disposition: Home, Self-Care Additional Instructions: Avoid fried food Tramadol for pain, Zofran for nausea Follow-up with surgeon on 10/01 Prescriptions: New tramadol 50 mg tablet 50 mg PO Q6H PRN (Reason: pain) Qty: 20 0RF ondansetron 4 mg tablet,disintegrating 4 mg PO Q6-8H PRN (Reason: nausea and vomiting) Qty: 10 0RF No Action ondansetron 4 mg tablet,disintegrating 4 mg PO Q8H 4 Days Qty: 12 0RF pantoprazole [Protonix] 40 mg tablet,delayed release (DR/EC) 40 mg PO DAILY Qty: 20 0RF acetaminophen 500 mg capsule 500 mg PO Q6H PRN (Reason: fever or pain) Qty: 20 0RF cyclobenzaprine 10 mg tablet 10 mg PO TID PRN (Reason: pain, muscle spasm) Qty: 15 0RF Referrals: Zion Vargas MD [Physician] - 2 days
[2022-09-30] MEDS: ondansetron HCL 4 MG/2 ML VIAL IVPUSH (01:39)
[2022-09-30] MEDS: Morphine Sulfate 4 MG/ML CARTRIDGE IVPUSH (01:39)
[2022-09-30] MEDS: 0.9 % Sodium Chloride 1,000 ML 999 ML IV (01:39)
[2022-09-30 01:40] LABS: MANUAL DIFF FLAG NO
[2022-09-30 01:41] LABS: Basophils Percent Auto 0.4 % (0-2); Eosinophils Absolute Auto 0.1 X10*3/uL (0.0-0.4); Hematocrit 35.6 % (37.0-47.0); Hemoglobin 11.8 g/dl (12.0-16.0); Imm Gran Abs Auto 0.02 X10*3/uL (0.00-0.03); Imm Gran Pct Auto 0.2 % (0.0-0.4); Lymphocytes Absolute Auto 3.9 X10*3/uL (1.2-4.9); Lymphocytes Percent Auto 39.2 % (20-40); Mean Corpuscular HGB Conc 33.1 g/dl (31.0-35.0); Mean Corpuscular Hemoglobin 30.3 pg (27.0-33.0); Mean Corpuscular Volume 91.5 fL (80.0-98.0); Mean Platelet Volume 9.7 fL (9.4-12.3); Monocytes Absolute Auto 0.8 X10*3/uL (0.1-1.2); Monocytes Percent Auto 7.5 % (2-11); Neutrophils Absolute Auto 5.2 x10*3/uL (2.0-8.3); Neutrophils Percent Auto 51.7 % (45-73); Platelet Count 293 X10*3/uL (160-400); Red Blood Count 3.89 X10*6/uL (4.20-5.50)
[2022-09-30 02:02] LABS: Alanine Aminotransferase 16 U/L (0-31); Albumin Level 3.9 g/dL (3.5-5.0); Alkaline Phosphatase 75 U/L (39-117); Anion Gap 14 (12-20); Aspartate Amino Transferase 15 U/L (5-31); Bilirubin Total 0.6 mg/dL (0.0-1.0); Blood Urea Nitrogen 15 mg/dL (9-16); Calcium 9.4 mg/dL (8.4-10.2); Carbon Dioxide 22 mmol/L (22-29); Chloride 106 mmol/L (96-108); Estimated Glomerular Filt Rate > 60; Glucose Random 110 mg/dL (60-115); Lipase 29 U/L (8-78); Sodium 138 mmol/L (135-145); Total Protein 6.4 g/dL (6.5-8.0)
[2022-09-30] MEDS: Ketorolac Tromethamine 30 MG/ML VIAL IVPUSH (02:07)
[2022-09-30 02:29] VITALS: BP 92/47; PULSE 73; RESP 18; TEMP 36.8; O2SAT 100
[2022-09-30] MEDS: LORazepam 2 MG/ML VIAL 1 MG IVPUSH (02:40)
[2022-09-30 03:27] VITALS: BP 90/45; PULSE 80; RESP 17; TEMP 36.8; O2SAT 96
[2022-09-30 05:37] VITALS: BP 98/61; PULSE 73; RESP 16; O2SAT 100
[2022-09-30] MEDS: oxyCODONE HCl Immed Release 5 MG TABLET PO (05:53)
== END 2022-09-30 05:44 | disposition home or self-care (01) ==
PROVIDERS: Emergency Provider Internal Medicine; PCP Family Medicine
DX: K80.20 Calculus of gallbladder without cholecystitis without obstruction (principal); F17.210 Nicotine dependence, cigarettes, uncomplicated; Z71.6 Tobacco abuse counseling; Z79.899 Other long term (current) drug therapy
CPT/HCPCS: 36415; 76705; 80053; 83605; 83690; 85025; 96361; 96374; 96375; 99284; J1885; J2060; J2270; J2405

== ENCOUNTER 2022-10-01 08:30 | Observation (INO) | payer OTHER, SELFPAY ==
[2022-10-01] VITALS (7 sets, daily range): BP systolic 95–111; BP diastolic 44–71; PULSE 73–84; RESP 14–18; TEMP 36.1–36.7; O2SAT 97–100; BMI 28.3
--- NOTE | ~2022-10-01 | US_ITS ---
EXAMINATION: US ABDOMEN LIMITED CLINICAL INFORMATION: Abdominal pain. Question of cholecystitis.. COMPARISON: Previous day TECHNIQUE: Real-time imaging of the right upper quadrant abdominal viscera. FINDINGS: GALLBLADDER: Contracted with mild gallbladder wall thickening, in part secondarily. Echogenic foci within the gallbladder wall, possibly adenomyomatosis Cholelithiasis. One of the stones in the gallbladder neck is immobile/impacted. COMMON BILE DUCT: Normal in caliber measuring 0.3 cm in diameter. FREE FLUID: None. US/US abdomen limited IMPRESSION: While there is cholelithiasis with one of the stones apparently being impacted in the gallbladder neck, the gallbladder is somewhat contracted measuring no more than 1.6 cm in width. This lack of distention (less than 2.2 cm) is a highly sensitive sign for exclusion of acute cholecystitis.
[2022-10-01 09:22] LABS: COVID-19 Test Negative (Negative); IDNOW Serial# 9DB6401D
--- NOTE | 2022-10-01 09:47 | ECG_ITS ---
Test Reason : CP Blood Pressure : / mmHG Vent. Rate : 076 BPM Atrial Rate : 076 BPM P-R Int : 142 ms QRS Dur : 080 ms QT Int : 366 ms P-R-T Axes : 020 002 -03 degrees QTc Int : 411 ms Normal sinus rhythm Normal ECG When compared with ECG of 05-AUG-2022 12:53, No significant change was found Referred By: Generic ED Physician Electronically Signed By:LINWOOD MASON
--- NOTE | 2022-10-01 09:48 | PC.NURSE ---
Pt approached registration endorsing chest pain. Upon reassessment: CP is substernal, reproducible with movement/palpation and position change. I've been waiting here long enough to get anxiety . EKG obtained per protocol VS HR77, RR16, SPO2 100%, Temp 96.9, BP 96/53
[2022-10-01 11:11] LABS: MANUAL DIFF FLAG NO
[2022-10-01 11:13] LABS: Basophils Percent Auto 0.4 % (0-2); Eosinophils Absolute Auto 0.1 X10*3/uL (0.0-0.4); Eosinophils Percent Auto 0.7 % (0-4); Hematocrit 39.7 % (37.0-47.0); Hemoglobin 13.2 g/dl (12.0-16.0); Imm Gran Abs Auto 0.02 X10*3/uL (0.00-0.03); Imm Gran Pct Auto 0.2 % (0.0-0.4); Lymphocytes Absolute Auto 2.5 X10*3/uL (1.2-4.9); Lymphocytes Percent Auto 29.3 % (20-40); Mean Corpuscular HGB Conc 33.2 g/dl (31.0-35.0); Mean Corpuscular Hemoglobin 30.6 pg (27.0-33.0); Mean Corpuscular Volume 92.1 fL (80.0-98.0); Mean Platelet Volume 9.7 fL (9.4-12.3); Monocytes Absolute Auto 0.5 X10*3/uL (0.1-1.2); Monocytes Percent Auto 5.7 % (2-11); Neutrophils Absolute Auto 5.4 x10*3/uL (2.0-8.3); Neutrophils Percent Auto 63.7 % (45-73); Platelet Count 295 X10*3/uL (160-400); Red Blood Count 4.31 X10*6/uL (4.20-5.50); Red Cell Distribution Width 12.9 % (11.0-16.0); White Blood Count 8.5 X10*3/uL (4.8-10.8)
[2022-10-01 11:29] LABS: Alanine Aminotransferase 21 U/L (0-31); Albumin Level 4.3 g/dL (3.5-5.0); Alkaline Phosphatase 72 U/L (39-117); Anion Gap 12 (12-20); Aspartate Amino Transferase 20 U/L (5-31); Bilirubin Direct 0.2 mg/dL (0.0-0.5); Bilirubin Total 0.9 mg/dL (0.0-1.0); Blood Urea Nitrogen 9 mg/dL (9-16); Calcium 9.4 mg/dL (8.4-10.2); Carbon Dioxide 26 mmol/L (22-29); Chloride 105 mmol/L (96-108); Estimated Glomerular Filt Rate > 60; Glucose Random 81 mg/dL (60-115); Lipase 13 U/L (8-78); Potassium 4.5 mmol/L (3.3-5.1); Sodium 138 mmol/L (135-145)
[2022-10-01] MEDS: 0.9 % Sodium Chloride 1,000 ML 999 ML IVCONT (11:46)
[2022-10-01] MEDS: ondansetron HCL 4 MG/2 ML VIAL IVPUSH (11:47)
[2022-10-01] MEDS: LORazepam 2 MG/ML VIAL 1 MG IVPUSH (11:47)
[2022-10-01] MEDS: Ketorolac Tromethamine 30 MG/ML VIAL IVPUSH (11:49)
--- NOTE | 2022-10-01 12:24 | ED_ITS ---
HPI - Abdominal Pain General Chief Complaint: Abdominal Pain Stated Complaint: Gallbladder issues Time Seen by Provider: 10/01/22 11:16 Source: patient Mode of arrival: ambulatory Limitations: no limitations History of Present Illness HPI narrative: 37yoF with a PMHx of anxiety, hernia and gallstones who is presenting to the ER with complaints of 2-3 days of epigastric abdominal pain. Reports she started having nausea/vomiting today. She was seen here yesterday and had an abdominal ultrasound which revealed cholelithiasis and was instructed to follow up with General surgery as an outpatient basis. Although reports her symptoms persist and are now worsening and now she has a nausea/vomiting therefore she came here for further evaluation treatment. She reports associated chills. She denies any measured fevers, dizziness, neck pain/stiffness, headaches, chest pain or shortness of breath, radiation of the abdominal pain, back pain, flank pain, dysuria, hematuria, abnormal vaginal discharge, black or bloody stools, diarrhea constipation, recent travel or sick contacts, possible bad food exposure, others with similar symptoms, rashes or any other symptoms complaints or concerns at this time. MD elicited complaint: abdominal pain Pertinent past history: other (Cholelithiasis) Onset (ago): day(s) (2-3 days worse today ) Pain Consistency: constant Location: epigastric Severity: moderate Quality: cramping and aching Radiation: none Migration to: no migration Exacerbating factors: nothing Relieving factors: nothing Associated symptoms: nausea and vomiting Related Data Previous Rx's Medication Instructions Recorded acetaminophen 500 mg capsule 500 mg PO Q6H PRN fever or pain 08/08/21 #20 caps cyclobenzaprine 10 mg tablet 10 mg PO TID PRN pain, muscle 11/05/21 spasm #15 tabs ondansetron 4 mg disintegrating 4 mg PO Q8H 4 days #12 tabs 09/27/22 tablet pantoprazole 40 mg tablet,delayed 40 mg PO DAILY #20 tabs 09/27/22 release (Protonix) citalopram 10 mg tablet 10 mg PO DAILY #90 tabs 09/30/22 lorazepam 0.5 mg tablet 0.5 mg PO BEDTIME PRN anxiety #10 09/30/22 tabs ondansetron 4 mg disintegrating 4 mg PO Q6-8H PRN nausea and 09/30/22 tablet vomiting #10 tabs tramadol 50 mg tablet 50 mg PO Q6H PRN pain #20 tabs 09/30/22 Allergies Allergy/AdvReac Type Severity Reaction Status Date / Time No Known Allergies Allergy Verified 09/30/22 01:22 [No Known Allergies*] Review of Systems Review of Systems Constitutional : No Fever, + Chills, No Night Sweats, No Fatigue, No Malaise Cardiovascular : No Chest Pain, No SOB Respiratory : No Cough, No Sputum, No Wheezing, No Dyspnea Gastrointestinal : + Nausea, + Vomiting, No Diarrhea, + abdominal Pain, No Hematochezia, No Melena Genitourinary : No irregular bleeding, No Dysuria, No Urinary Frequency, No Hematuria,No Urinary Incontinence, No Urgency, No Flank Pain Musculoskeletal : No joint pain, No Myalgias, No Joint Swelling Skin : No Skin Lesions, No rash Neuro : No Weakness, No Numbness, No Paresthesias, No Loss of Consciousness, No Dizziness, No Headache Heme/Lymph: No Lymphadenopathy Endocrine : No Temperature Intolerance Yes all other systems are reviewed and are negative FORMERLY [facility], [facility] Past Medical History Attestation statement: The following information was validated with the patient. Source: old records reviewed and nursing notes reviewed Medical History Anxiety Hernia Social History Social History Alcohol intake: current Alcohol intake frequency: holidays/special occasions only Patient Tobacco Use Status: Current someday Tobacco user Tobacco use type: Cigarette Smoked in Last 30 Days: Yes Use of substances other than those prescribed or required for medical reasons: Yes Substance Use Type: Marijuana Advance Directives: No Advance Directives Information Provided: Yes Physical Exam ED Vital Signs: Vital Signs - 24 hr 10/01/22 08:41 10/01/22 09:55 10/01/22 10:45 Temperature 97.8 F 96.9 F 98.1 F Pulse Rate 84 77 75 Respiratory Rate 18 16 14 Blood Pressure 98/53 L 96/53 L 95/44 L Pulse Oximetry 100 100 97 Oxygen Delivery Method Room Air Room Air Room Air 10/01/22 12:32 Temperature 97.9 F Pulse Rate 73 Respiratory Rate 14 Blood Pressure 105/71 Pulse Oximetry 100 Oxygen Delivery Method Room Air BMI result Body Mass Index 28.3 Vital signs have been reviewed BP 98/53. Pulse 84. Respiration 18. Temperature 97.8 degrees. Oxygen 100% on room air. Appearance: Alert. Oriented X3. No acute distress. Head: Normal external exam. Normocephalic. Eyes: PERRLA. EOMI. Conjunctiva and sclera normal. Eyelids normal. ENT: Pharynx normal. Uvula midline. Moist mucous membranes. No trismus noted. No drooling noted. No muffled voice noted. Neck: Normal inspection. Neck supple. FROM. No adenopathy. No meningeal signs. CVS: Normal heart rate and rhythm. Heart sound normal. No murmurs noted. Pulses normal throughout. Respiratory: No respiratory distress. Painless inspiration. Breath sounds normal. No wheezes/rales/rhonchi noted. Chest nontender. No accessory muscle usage noted or decreased air movement noted. Abdomen: Soft and moderate tenderness to the epigastric area with guarding. Nondistended.No rigidity. Bowel sounds normal in all 4 quadrants. No distention noted. No organomegaly noted. No visible injury noted. No rebound tenderness. Negative Rovsing sign. Negative obturator's sign. Negative psoas sign. Positive Velázquez's sign. Back: No CVA tenderness. Full range of motion noted. Skin: Skin warm and dry. Normal skin color. Normal skin turgor. No rashes/lesions/lacerations noted. Extremities: Extremities exhibit normal range of motion. Extremities nontender. Neuro: Oriented X 3. No motor deficit. No sensory deficit. Reflexes normal. Normal steady gait. CN's II-XII intact bilaterally? Course Course Course Narrative: 11:40am - 37yoF with a PMHx of anxiety, hernia and gallstones who is presenting to the ER with complaints of 2-3 days of epigastric abdominal pain. Reports she started having nausea/vomiting today. She was seen here yesterday and had an abdominal ultrasound which revealed cholelithiasis and was instructed to follow up with General surgery as an outpatient basis. Although reports her symptoms persist and are now worsening and now she has a nausea/vomiting therefore she came here for further evaluation treatment. She reports associated chills. This patient presents with abdominal pain, most consistent with acute, uncomplicated biliary colic/cholelithiasis. Patient is afebrile and not jaundiced or altered, lowering my suspicion for cholangitis/cholecystitis. Presentation not consistent with acute pancreatitis at this time. Low suspicion for bowel obstruction, viscus perforation, vascular catastrophe, or atypical appendicitis. Presentation not consistent with other acute, emergent causes of abdominal pain at this time. Labs were obtained while the patient was in triage/waiting for provider Labs reviewed and all labs are within normal limits. Patient negative for COVID. Plan for formal RUQ U/S to evaluate gallbladder pathology provide symptomatic treatment with IV fluids, 30 mg of IV Toradol and 4 mg of Zofran and re-ev aluate. Reevaluation(s) Reevaluation #1: Abdominal ultrasound revealed cholelithiasis no acute evidence of acute cholecystitis. Although patient requesting to be admitted therefore Dr. Vargas evaluated the patient he will admit at this time. Patient understands and is agreeable to this plan. Time: 13:37 Medical Decision Making Admission/Observation Consideration of admission/observation: Escalation of care including admission/observation considered (Dr. Vargas to admit at this time) Consult Healthcare Provider Management of the patient was discussed with: Legal Contracts Specialist (Dr. Vargas) Lab Data MDM Lab Attestation statement: I reviewed the patient's lab results. 10/01/22 11:07 10/01/22 11:07 Labs: Lab Results 10/01/22 10/01/22 10/01/22 Range/Units 09:01 11:07 11:07 WBC 8.5 (4.8-10.8) X10*3/uL RBC 4.31 (4.20-5.50) X10*6/uL Hgb 13.2 (12.0-16.0) g/dl Hct 39.7 (37.0-47.0) % MCV 92.1 (80.0-98.0) fL MCH 30.6 (27.0-33.0) pg MCHC 33.2 (31.0-35.0) g/dl RDW 12.9 (11.0-16.0) % Plt Count 295 (160-400) X10*3/uL MPV 9.7 (9.4-12.3) fL Immature Gran % (Auto) 0.2 (0.0-0.4) % Neut % (Auto) 63.7 (45-73) % Lymph % (Auto) 29.3 (20-40) % [place] % (Auto) 5.7 (2-11) % Eos % (Auto) 0.7 (0-4) % Baso % (Auto) 0.4 (0-2) % Lymph # (Auto) 2.5 (1.2-4.9) X10*3/uL [place] # (Auto) 0.5 (0.1-1.2) X10*3/uL Eos # (Auto) 0.1 (0.0-0.4) X10*3/uL Baso # (Auto) 0.0 (0.0-0.2) X10*3/uL Abs Immat Gran (auto) 0.02 (0.00-0.03) X10*3/uL Absolute Neuts (auto) 5.4 (2.0-8.3) x10*3/uL Absolute Nucleated RBC 0.000 (0.0-0.012) X10*3/uL Nucleated RBC % (auto) 0.0 (0.0-0.2) /100WBC Sodium 138 (135-145) mmol/L Potassium 4.5 (3.3-5.1) mmol/L Chloride 105 (96-108) mmol/L Carbon Dioxide 26 (22-29) mmol/L Anion Gap 12 (12-20) BUN 9 (9-16) mg/dL Creatinine 0.70 (0.5-1.4) mg/dL Estim Creat Clear Calc 100.0 Estimated GFR > 60 Random Glucose 81 (60-115) mg/dL Calcium 9.4 (8.4-10.2) mg/dL Total Bilirubin 0.9 (0.0-1.0) mg/dL Direct Bilirubin 0.2 (0.0-0.5) mg/dL AST 20 (5-31) U/L ALT 21 (0-31) U/L Alkaline Phosphatase 72 (39-117) U/L Total Protein 7.0 (6.5-8.0) g/dL Albumin 4.3 (3.5-5.0) g/dL Lipase 13 (8-78) U/L Beta HCG, Quant < 2 mIU/mL COVID-19 ([facility]) Negative (Negative) COVID-19 Clin Com See Note Independent Interpretation I performed an independent interpretation of an: Ultrasound (I reviewed the ultrasound and reviewed this with the patient) Radiology Impression Discussion of test interpretation with radiology: I have reviewed the radiologist's reading. Radiologist Impression: FINDINGS: GALLBLADDER: Contracted with mild gallbladder wall thickening, in part secondarily. Echogenic foci within the gallbladder wall, possibly adenomyomatosis Cholelithiasis. One of the stones in the gallbladder neck is immobile/impacted. COMMON BILE DUCT: Normal in caliber measuring 0.3 cm in diameter. FREE FLUID: None. US/US abdomen limited IMPRESSION: While there is cholelithiasis with one of the stones apparently being impacted in the gallbladder neck, the gallbladder is somewhat contracted measuring no more than 1.6 cm in width. This lack of distention (less than 2.2 cm) is a highly sensitive sign for exclusion of acute cholecystitis. External Record Review External record reviewed: Inpatient record, Office record, Outpatient record, Prior outpatient labs, Prior outpatient radiology, Primary care record and Outside ED record Patient was seen here yesterday for similar complaint had a negative workup and sent home with outpatient follow-up although symptoms worsen. Prescription Management I considered prescription management with: Pain Medication Chronic Conditions Patient?s care impacted by: Other (Gallstones) Medications Administered Discontinued Medications Generic Name Dose Route Start Last Admin Trade Name Freq PRN Reason Stop Dose Admin Sodium Chloride 1,000 mls @ 999 mls/hr 10/01/22 11:45 10/01/22 13:25 Ns IVCONT 10/01/22 12:45 Infused .Q1H1M JONY Infusion Ketorolac Tromethamine 30 mg 10/01/22 11:40 10/01/22 11:49 Ketorolac Tromethamine 30 Mg/Ml Vial IVPUSH 10/01/22 11:41 30 mg ONCE ONE Administration Lorazepam 1 mg 10/01/22 11:39 10/01/22 11:47 Lorazepam 2 Mg/Ml Vial IVPUSH 10/01/22 11:40 1 mg ONCE ONE Administration Ondansetron HCl 4 mg 10/01/22 11:39 10/01/22 11:47 Ondansetron Hcl 4 Mg/2 Ml Vial IVPUSH 10/01/22 11:40 4 mg ONCE ONE Administration Critical Care Time Critical Care Time Critical Care Time: Yes Total Critical Care Time: 60 Attestation: I personally attest to this time spent taking care of the patient Discharge Plan Discharge Clinical Impression: Biliary colic Patient Disposition: Admitted As Inpatient
[2022-10-01 12:57] LABS: HCG Quantitative < 2 mIU/mL
--- NOTE | 2022-10-01 13:25 | PC.NURSE ---
Pt asleep at this time. Awaiting re eval and dispo
--- NOTE | 2022-10-01 13:46 | PM.HPGS ---
History of Present Illness History of Present Illness Date of Service: 10/02/22 Chief complaint: Gallstones with pain Narrative: Rena Brady is a 37 year old female here in the ED for right sided abdominal pain. She has had these episodes for a few months . SHe catually was seen by GI last year and had undergone an EGD for upper abdominal pain last 2021 and the EGD was unremarkable. She was arranged to have an US but she did not show up for this then. She describes episodes of pain on the epigastric area and towards the right upper quadrant on and off. She went to the ED the other night and an US showed gallstones. She was discharged with instructions to see me in the office for symptomatic gallstones. She came back to the ED this morning for the same episode of pain last night. She says she does not want to go home because she felt these episodes will happen again. She denies vomitting although says she may have some occasional nausea. She says the only abdominal surgery she has had is an umbilical hernia repair with mesh. Review of Systems Constitutional: Constitutional: Denies chills and Denies fever(s) Cardiovascular: Cardiovascular: Denies chest pain, Denies dyspnea and Denies dyspnea on exertion Respiratory: Respiratory: Denies cough, Denies dyspnea and Denies dyspnea on exertion Gastrointestinal: Gastrointestinal: Denies hematochezia and Denies change in bowel habits Genitourinary: Genitourinary: Denies hematuria Musculoskeletal: Musculoskeletal: Denies back pain and Denies limited range of motion Neurologic: Denies focal weakness and Denies convulsions Psychiatric: Psychiatric: Denies depression and Denies mood swings [facility] Past Medical History Medical History (Updated 10/01/22 @ 13:37 by REYNA Laurent) Anxiety Hernia Surgical History Surgical History (Updated 10/01/22 @ 13:51 by Zion Vargas MD) History of umbilical hernia repair Social History Social History Household Members: Spouse and Children Housing: Apartment Do you presently have visiting nurse or other home services: No Unable to assess alcohol history related to: Unknown Alcohol intake: current Alcohol intake frequency: a few times a month Patient Tobacco Use Status: Current everyday Tobacco user Tobacco use type: Cigarette Cigarettes Per Day: 5 Years Smoked: 20 Smoked in Last 30 Days: Yes Patient Interested in Nicotine Replacement: Yes Patient Given Instructions on How to Stop Smoking: Yes Date Education Initiated: 10/02/22 Second Hand Smoke Exposure: No Use of substances other than those prescribed or required for medical reasons: No Substance Use Type: Marijuana Currently Displaying Signs/Symptoms of Drug Intoxication Withdrawal: No Any prior treatment program specific to substance use: No Have you been hit, kicked, punched, or otherwise hurt by someone within the past year? If so, by whom?: No Do you feel safe in your current relationship?: Yes Is there a partner from a previous relationship who is making you feel unsafe now?: No Are you made to feel afraid or neglected: No Are you DNR?: No Advance Directives: No Advance Directives Information Provided: Yes Advance Directives on File: No Do you have thoughts of harming others: None Do you have a plan to hurt others: No Plan Recently lost weight without trying: Unsure Nutrition Risks: Poor intake 0-25% >4 days Patient : No : No Poor oral hygiene: No service: No Current occupational status: employed Meds Allergies Allergy/AdvReac Type Severity Reaction Status Date / Time No Known Allergies Allergy Verified 10/02/22 09:38 [No Known Allergies*] Active Medications: Current Medications Morphine Sulfate (Morphine Sulfate 4 Mg/Ml Cartridge) 2 mg IVPUSH Q3H PRN; Protocol PRN Reason: Pain, Severe (Pain Scale 7-10) Omeprazole (Omeprazole 20 Mg Capsule.Dr) 20 mg PO BID@0630,1630 [facility] Ondansetron HCl (Ondansetron Hcl 4 Mg/2 Ml Vial) 4 mg IVPUSH Q6H PRN PRN Reason: Nausea and Vomiting Oxycodone HCl (Oxycodone Hcl Immed Release 5 Mg Tablet) 5 mg PO Q6H PRN PRN Reason: Pain, Moderate (Pain Scale 4-6 Sodium Chloride (0.9 % Sodium Chloride Flush 3 Ml Syringe) 3 ml IVFLUSH [facility] Home Medications Medication Instructions Recorded Confirmed Last Taken Type pantoprazole 40 mg tablet,delayed 40 mg PO DAILY@0630 10/01/22 10/01/22 09/30/22 History release (Protonix) Physical Exam Vital Signs: Vital Signs: Last Vital Signs Temp 97.9 F 10/01/22 12:32 Pulse 73 10/01/22 12:32 Resp 14 10/01/22 12:32 BP 105/71 10/01/22 12:32 Pulse Ox 100 10/01/22 12:32 O2 Del Method 10/01/22 12:32 BMI result Body Mass Index 28.3 Const: General: comfortable and no acute distress Orientation/consciousness: patient oriented x3 Eyes: Conjunctivae: conjunctivae normal Neck: Neck: Yes no lymphadenopathy Resp: Auscultation: clear to auscultation bilaterally Cardio: Rhythm: regular rhythm GI: Other: minimal tenderness, RUQ, no Velázquez's sign Palpation (GI): Soft to palpation, nontender, no guarding and not rigid Neuro: General: patient oriented x3 Results Results Labs: Short CBC 10/01/22 Range/Units 11:07 WBC 8.5 (4.8-10.8) X10*3/uL Hgb 13.2 (12.0-16.0) g/dl Hct 39.7 (37.0-47.0) % Plt Count 295 (160-400) X10*3/uL BMP 10/01/22 11:07 Sodium 138 Potassium 4.5 Chloride 105 Carbon Dioxide 26 BUN 9 Creatinine 0.70 Calcium 9.4 Liver Function 10/01/22 Range/Units 11:07 Total Bilirubin 0.9 (0.0-1.0) mg/dL Direct Bilirubin 0.2 (0.0-0.5) mg/dL AST 20 (5-31) U/L ALT 21 (0-31) U/L Alkaline Phosphatase 72 (39-117) U/L Albumin 4.3 (3.5-5.0) g/dL Additional studies: Laboratory Results WBC 8.5 X10*3/uL (4.8-10.8) 10/01/22 11:07 RBC 4.31 X10*6/uL (4.20-5.50) 10/01/22 11:07 Hgb 13.2 g/dl (12.0-16.0) 10/01/22 11:07 Hct 39.7 % (37.0-47.0) 10/01/22 11:07 MCV 92.1 fL (80.0-98.0) 10/01/22 11:07 MCH 30.6 pg (27.0-33.0) 10/01/22 11:07 MCHC 33.2 g/dl (31.0-35.0) 10/01/22 11:07 RDW 12.9 % (11.0-16.0) 10/01/22 11:07 Plt Count 295 X10*3/uL (160-400) 10/01/22 11:07 MPV 9.7 fL (9.4-12.3) 10/01/22 11:07 Immature Gran % (Auto) 0.2 % (0.0-0.4) 10/01/22 11:07 Neut % (Auto) 63.7 % (45-73) 10/01/22 11:07 Lymph % (Auto) 29.3 % (20-40) 10/01/22 11:07 [place] % (Auto) 5.7 % (2-11) 10/01/22 11:07 Eos % (Auto) 0.7 % (0-4) 10/01/22 11:07 Baso % (Auto) 0.4 % (0-2) 10/01/22 11:07 Lymph # (Auto) 2.5 X10*3/uL (1.2-4.9) 10/01/22 11:07 [place] # (Auto) 0.5 X10*3/uL (0.1-1.2) 10/01/22 11:07 Eos # (Auto) 0.1 X10*3/uL (0.0-0.4) 10/01/22 11:07 Baso # (Auto) 0.0 X10*3/uL (0.0-0.2) 10/01/22 11:07 Abs Immat Gran (auto) 0.02 X10*3/uL (0.00-0.03) 10/01/22 11:07 Absolute Neuts (auto) 5.4 x10*3/uL (2.0-8.3) 10/01/22 11:07 Absolute Nucleated RBC 0.000 X10*3/uL (0.0-0.012) 10/01/22 11:07 Nucleated RBC % (auto) 0.0 /100WBC (0.0-0.2) 10/01/22 11:07 Sodium 138 mmol/L (135-145) 10/01/22 11:07 Potassium 4.5 mmol/L (3.3-5.1) 10/01/22 11:07 Chloride 105 mmol/L (96-108) 10/01/22 11:07 Carbon Dioxide 26 mmol/L (22-29) 10/01/22 11:07 Anion Gap 12 (12-20) 10/01/22 11:07 BUN 9 mg/dL (9-16) 10/01/22 11:07 Creatinine 0.70 mg/dL (0.5-1.4) 10/01/22 11:07 Estim Creat Clear Calc 100.0 10/01/22 11:07 Estimated GFR > 60 10/01/22 11:07 Random Glucose 81 mg/dL (60-115) 10/01/22 11:07 Calcium 9.4 mg/dL (8.4-10.2) 10/01/22 11:07 Total Bilirubin 0.9 mg/dL (0.0-1.0) 10/01/22 11:07 Direct Bilirubin 0.2 mg/dL (0.0-0.5) 10/01/22 11:07 AST 20 U/L (5-31) 10/01/22 11:07 ALT 21 U/L (0-31) 10/01/22 11:07 Alkaline Phosphatase 72 U/L (39-117) 10/01/22 11:07 Total Protein 7.0 g/dL (6.5-8.0) 10/01/22 11:07 Albumin 4.3 g/dL (3.5-5.0) 10/01/22 11:07 Lipase 13 U/L (8-78) 10/01/22 11:07 Beta HCG, Quant < 2 mIU/mL 10/01/22 11:07 COVID-19 ([facility]) Negative (Negative) 10/01/22 09:01 COVID-19 Clin Com See Note 10/01/22 09:01 Impressions Abdomen Ultrasound 10/01/22 12:03 IMPRESSION: While there is cholelithiasis with one of the stones apparently being impacted in the gallbladder neck, the gallbladder is somewhat contracted measuring no more than 1.6 cm in width. This lack of distention (less than 2.2 cm) is a highly sensitive sign for exclusion of acute cholecystitis. Assessment and Plan (1) Symptomatic cholelithiasis: Status: Acute She has had periodic pain on the epigastric area and right upper quadrant. Her US shows gallstones without cholecystitis even if 1 the gallstones seemed to be in the neck. Her labs are unremarkable and her LFTs are normal. She however does not want to go home because she states she is certain she will have recurrence of her pain. I will admit her for cholecystectomy due to her symptomatic gallstones. I explained the technique of lap paul poss. open. I reviewed the risks including but not limited to bleeding, infections, injury to the liver/bowel/biliary tree, as well the as the benefits and alternatives. She wants to stay in the hospital and proceed with lap cholecystectomy likely tomorrow. She looks well and has a benign exam. Time Spent With Patient Time: Total time managing care of this patient today ____ minutes. Quality Stroke Does the patient have a stroke diagnosis?: No VTE Prior VTE?: No VTE Risk Level:: Medical - low VTE Device Contraindication: N/A - Device Ordered VTE Drug Contraindication: Treatment Not Indicated Procedures Date of Service Date of Service: 10/01/22
--- NOTE | 2022-10-01 14:45 | PHA.MEDREC ---
Pharmacy Consult ? Medication Reconciliation Pharmacy has completed the medication reconciliation. Patient listed her medications for me but was unsure of most doses. Used claim history to complete med rec.
[2022-10-01] MEDS: Lactated Ringers 1,000 ML 80 ML IVCONT ×2 (15:03→22:52)
--- NOTE | 2022-10-01 15:26 | PC.NURSE ---
report received from [facility] pt resting comfortably on stretcher at this time denies pain at this time. Pt is aware of clear liquid diet order at this time and NPO at midnight. Pt on board with plan of care for surgery tomorrow. Fluids started per MAR
--- NOTE | 2022-10-01 17:53 | PC.NURSE ---
report called to HO[facility]. Transport will be bringing pt upstairs.
[2022-10-01] MEDS: oxyCODONE HCl Immed Release 5 MG TABLET PO (19:41)
[2022-10-01] MEDS: Nicotine 14 MG PATCH.TD24 TRANSDERMA (22:34)
[2022-10-01] MEDS: LORazepam 0.5 MG TABLET PO (22:34)
[2022-10-01] MEDS: Morphine Sulfate 4 MG/ML CARTRIDGE 2 MG IVPUSH (22:58)
[2022-10-02] VITALS (15 sets, daily range): BP systolic 103–131; BP diastolic 58–89; PULSE 65–96; RESP 14–22; TEMP 36.1–37.2; O2SAT 95–100
[2022-10-02] MEDS: Morphine Sulfate 4 MG/ML CARTRIDGE 2 MG IVPUSH ×3 (06:13→19:47)
[2022-10-02 07:15] LABS: Alanine Aminotransferase 19 U/L (0-31); Albumin Level 3.7 g/dL (3.5-5.0); Alkaline Phosphatase 62 U/L (39-117); Aspartate Amino Transferase 16 U/L (5-31); Bilirubin Direct 0.2 mg/dL (0.0-0.5); Bilirubin Total 0.8 mg/dL (0.0-1.0)
--- NOTE | 2022-10-02 08:23 | P.PNGS_ITS ---
Subjective Subjective Date of Service: 10/02/22 Interval history: feels ok this morning no RUQ pain wnats to proceed with cholecystectomy says she is very anxious Physical Exam Vital Signs: Vital Signs: Last Vital Signs Temp 98.5 F 10/02/22 08:00 Pulse 90 10/02/22 08:00 Resp 18 10/02/22 08:00 BP 106/58 L 10/02/22 08:00 Pulse Ox 97 10/02/22 08:00 O2 Del Method 10/02/22 08:00 BMI result Body Mass Index 28.3 Const: General: comfortable and no acute distress Resp: Effort & Inspection: normal respiratory effort Cardio: Rate: regular rate GI: Palpation (GI): Soft to palpation, not firm, nontender and no guarding Objective Data Active Medications Lactated Ringer's (Lr) 1,000 mls @ 80 mls/hr IVCONT .[id number] [facility] Last Admin: 10/01/22 22:52 Dose: 80 mls/hr Documented By: GEOFF Morphine Sulfate (Morphine Sulfate 4 Mg/Ml Cartridge) 2 mg IVPUSH Q3H PRN; Protocol PRN Reason: Pain, Severe (Pain Scale 7-10) Last Admin: 10/02/22 06:13 Dose: 2 mg Documented By: GEOFF Omeprazole (Omeprazole 20 Mg Capsule.Dr) 20 mg PO BID@0630,1630 [facility] Last Admin: 10/02/22 05:34 Dose: Not Given Documented By: GEOFF Non-Admin Reason: NPO Ondansetron HCl (Ondansetron Hcl 4 Mg/2 Ml Vial) 4 mg IVPUSH Q6H PRN PRN Reason: Nausea and Vomiting Oxycodone HCl (Oxycodone Hcl Immed Release 5 Mg Tablet) 5 mg PO Q6H PRN PRN Reason: Pain, Moderate (Pain Scale 4-6 Last Admin: 10/01/22 19:41 Dose: 5 mg Documented By: GEOFF Pharmacy Consult (Consult Rx Perform Med Rec) 1 each MISCELLANE ONCE PRN PRN Reason: Consult order Sodium Chloride (0.9 % Sodium Chloride Flush 3 Ml Syringe) 3 ml IVFLUSH [facility] Last Admin: 10/01/22 19:38 Dose: Not Given Documented By: GEOFF Non-Admin Reason: IV Running Labs 10/01/22 11:07 10/01/22 11:07 Labs: Laboratory Results - last 24 hr 10/01/22 10/01/22 10/01/22 09:01 11:07 11:07 MCV 92.1 MCH 30.6 MCHC 33.2 RDW 12.9 Plt Count 295 MPV 9.7 Immature Gran % (Auto) 0.2 Neut % (Auto) 63.7 Lymph % (Auto) 29.3 [place] % (Auto) 5.7 Eos % (Auto) 0.7 Baso % (Auto) 0.4 Lymph # (Auto) 2.5 [place] # (Auto) 0.5 Eos # (Auto) 0.1 Baso # (Auto) 0.0 Abs Immat Gran (auto) 0.02 Absolute Neuts (auto) 5.4 Absolute Nucleated RBC 0.000 Nucleated RBC % (auto) 0.0 Anion Gap 12 Estim Creat Clear Calc 100.0 Estimated GFR > 60 Random Glucose 81 Calcium 9.4 Total Bilirubin 0.9 Direct Bilirubin 0.2 AST 20 ALT 21 Alkaline Phosphatase 72 Total Protein 7.0 Albumin 4.3 Lipase 13 Beta HCG, Quant < 2 COVID-19 ([facility]) Negative COVID-19 Clin Com See Note 10/02/22 05:37 MCV MCH MCHC RDW Plt Count MPV Immature Gran % (Auto) Neut % (Auto) Lymph % (Auto) [place] % (Auto) Eos % (Auto) Baso % (Auto) Lymph # (Auto) [place] # (Auto) Eos # (Auto) Baso # (Auto) Abs Immat Gran (auto) Absolute Neuts (auto) Absolute Nucleated RBC Nucleated RBC % (auto) Anion Gap Estim Creat Clear Calc Estimated GFR Random Glucose Calcium Total Bilirubin 0.8 Direct Bilirubin 0.2 AST 16 ALT 19 Alkaline Phosphatase 62 Total Protein 6.0 L Albumin 3.7 Lipase Beta HCG, Quant COVID-19 ([facility]) COVID-19 Clin Com Procedures Date of Service Date of Service: 10/02/22 Progress Note: A&P Assessment and plan (1) Symptomatic cholelithiasis: Status: Acute Assessment and Plan: sates she has frequent episodes - has been to the ED twice since Friday LFTs normal wants to proceed with lap paul reviewed technique of lap paul/open paul explained risks including but not limited to bleeding, infections, bowel injury, injury to liver/ducts as well as benefits and alternatives she wants to proceed scheduled for OR today Time Spent With Patient Time: Total time managing care of this patient today ____ minutes. Quality Stroke Does the patient have a stroke diagnosis?: No VTE Prior VTE?: No VTE Risk Level:: Medical - low VTE Device Contraindication: N/A - Device Ordered VTE Drug Contraindication: Treatment Not Indicated
--- NOTE | 2022-10-02 08:53 | MHC.CM.PN ---
CM met with Patient and her at bedside and addressed GARCIA with her (original has been given to Patient and a copy has been placed on the chart). Patient lives in an apartment with her and Children ages 18 & 9 years of age. Patient is independent and working and home/self care is the goal. CM has initiated and will follow for dc planning. Patient has received no covid vax and she is not yet established with her new PCP at [place].
--- NOTE | 2022-10-02 10:44 | HO.ANESPROP2 ---
HPI - Anesthesia Eval Consult details Narrative: epigastric pain for ro gallbladder PMFSH Active Problems Active Problems: All Active Problems (Updated 10/01/22 @ 13:37 by REYNA Laurent) History of umbilical hernia repair (Acute) Biliary colic (Acute) Symptomatic cholelithiasis (Acute) Vomiting (Acute) Epigastric pain (Acute) COVID-19 (Acute) Past Medical History Medical History (Updated 10/01/22 @ 13:37 by REYNA Laurent) Anxiety Hernia Family History Family history of problems with anesthesia: No Surgical History Surgical History (Updated 10/01/22 @ 13:51 by Zion Vargas MD) History of umbilical hernia repair History of Problems with Anesthesia: No Social History Social History Household Members: Spouse and Children Housing: Apartment Do you presently have visiting nurse or other home services: No Unable to assess alcohol history related to: Unknown Alcohol intake: current Alcohol intake frequency: a few times a month Patient Tobacco Use Status: Current everyday Tobacco user Tobacco use type: Cigarette Cigarettes Per Day: 5 Years Smoked: 20 Smoked in Last 30 Days: Yes Patient Interested in Nicotine Replacement: Yes Patient Given Instructions on How to Stop Smoking: Yes Date Education Initiated: 10/02/22 Second Hand Smoke Exposure: No Use of substances other than those prescribed or required for medical reasons: No Substance Use Type: Marijuana Currently Displaying Signs/Symptoms of Drug Intoxication Withdrawal: No Any prior treatment program specific to substance use: No Have you been hit, kicked, punched, or otherwise hurt by someone within the past year? If so, by whom?: No Do you feel safe in your current relationship?: Yes Is there a partner from a previous relationship who is making you feel unsafe now?: No Are you made to feel afraid or neglected: No Are you DNR?: No Advance Directives: No Advance Directives Information Provided: Yes Advance Directives on File: No Do you have thoughts of harming others: None Do you have a plan to hurt others: No Plan Recently lost weight without trying: Unsure Nutrition Risks: Poor intake 0-25% >4 days Patient : No : No Poor oral hygiene: No service: No Current occupational status: employed Meds Allergies Allergy/AdvReac Type Severity Reaction Status Date / Time No Known Allergies Allergy Verified 10/02/22 09:38 [No Known Allergies*] Active Medications: Current Medications Lactated Ringer's (Lr) 1,000 mls @ 80 mls/hr IVCONT .[id number] [facility] Last Admin: 10/01/22 22:52 Dose: 80 mls/hr Lactated Ringer's (Lr) 1,000 mls @ 100 mls/hr IVCONT .Q10H [facility] Morphine Sulfate (Morphine Sulfate 4 Mg/Ml Cartridge) 2 mg IVPUSH Q3H PRN; Protocol PRN Reason: Pain, Severe (Pain Scale 7-10) Last Admin: 10/02/22 06:13 Dose: 2 mg Omeprazole (Omeprazole 20 Mg Capsule.Dr) 20 mg PO BID@0630,1630 [facility] Last Admin: 10/02/22 05:34 Dose: Not Given Ondansetron HCl (Ondansetron Hcl 4 Mg/2 Ml Vial) 4 mg IVPUSH Q6H PRN PRN Reason: Nausea and Vomiting Oxycodone HCl (Oxycodone Hcl Immed Release 5 Mg Tablet) 5 mg PO Q6H PRN PRN Reason: Pain, Moderate (Pain Scale 4-6 Last Admin: 10/01/22 19:41 Dose: 5 mg Pharmacy Consult (Consult Rx Perform Med Rec) 1 each MISCELLANE ONCE PRN PRN Reason: Consult order Sodium Chloride (0.9 % Sodium Chloride Flush 3 Ml Syringe) 3 ml IVFLUSH QSHIFT [facility] Last Admin: 10/02/22 09:22 Dose: Not Given Home Medications Medication Instructions Recorded Confirmed Last Taken Type pantoprazole 40 mg tablet,delayed 40 mg PO DAILY@0630 10/01/22 10/01/22 09/30/22 History release (Protonix) Exam Exam Date and Time: October 02, 2022 1044 Height,Weight and Vital Signs: Height 5 ft 2 in Weight 70.307 kg Last Vital Signs Temp 97.8 F 10/02/22 09:40 Pulse 87 10/02/22 09:40 Resp 16 10/02/22 09:40 BP 105/64 10/02/22 09:40 Pulse Ox 96 10/02/22 09:40 O2 Del Method 10/02/22 09:40 Pertinent Lab Results Pertinent Lab Results: Laboratory Tests 10/01/22 10/01/22 10/01/22 09:01 11:07 11:07 WBC 8.5 RBC 4.31 Hgb 13.2 Hct 39.7 MCV 92.1 MCH 30.6 MCHC 33.2 RDW 12.9 Plt Count 295 MPV 9.7 Immature Gran % (Auto) 0.2 Neut % (Auto) 63.7 Lymph % (Auto) 29.3 [place] % (Auto) 5.7 Eos % (Auto) 0.7 Baso % (Auto) 0.4 Lymph # (Auto) 2.5 [place] # (Auto) 0.5 Eos # (Auto) 0.1 Baso # (Auto) 0.0 Abs Immat Gran (auto) 0.02 Absolute Neuts (auto) 5.4 Absolute Nucleated RBC 0.000 Nucleated RBC % (auto) 0.0 Sodium 138 Potassium 4.5 Chloride 105 Carbon Dioxide 26 Anion Gap 12 BUN 9 Creatinine 0.70 Estim Creat Clear Calc 100.0 Estimated GFR > 60 Random Glucose 81 Calcium 9.4 Total Bilirubin 0.9 Direct Bilirubin 0.2 AST 20 ALT 21 Alkaline Phosphatase 72 Total Protein 7.0 Albumin 4.3 Lipase 13 Beta HCG, Quant < 2 COVID-19 ([facility]) Negative COVID-19 Clin Com See Note 10/02/22 05:37 WBC RBC Hgb Hct MCV MCH MCHC RDW Plt Count MPV Immature Gran % (Auto) Neut % (Auto) Lymph % (Auto) [place] % (Auto) Eos % (Auto) Baso % (Auto) Lymph # (Auto) [place] # (Auto) Eos # (Auto) Baso # (Auto) Abs Immat Gran (auto) Absolute Neuts (auto) Absolute Nucleated RBC Nucleated RBC % (auto) Sodium Potassium Chloride Carbon Dioxide Anion Gap BUN Creatinine Estim Creat Clear Calc Estimated GFR Random Glucose Calcium Total Bilirubin 0.8 Direct Bilirubin 0.2 AST 16 ALT 19 Alkaline Phosphatase 62 Total Protein 6.0 L Albumin 3.7 Lipase Beta HCG, Quant COVID-19 ([facility]) COVID-19 Clin Com Airway Mallampati Class: I TM Dist: >3cm Neck ROM: Full Heart: RR Lungs: CTA Assessment and Plan Final Anesthetic Review Family History of Problems with Anesthesia: No History of Problems with Anesthesia: No NPO: Yes ASA Class: II Final Preanesthetic Review: No Changes in Pt Med Stat, Meds/Allgs Chart Reviewed, Consent Obtained/Reviewed and Anes Risks/Benef Reviewed Patient Risk: Low Procedure Risk: Intermediate Anesthetic Plan Anesthetic Plan: GA Disposition: Standard PACU
[2022-10-02] MEDS: Lactated Ringers 1,000 ML 100 ML IVCONT (10:50)
--- NOTE | 2022-10-02 11:51 | P.OP_ITS ---
Operative Note Operative Note Date of Service: 10/02/22 Narrative: PPreop diagnosis: Gallstones, with recurrent symptoms Postop diagnosis: The same Procedure: Laparoscopic cholecystectomy Surgeon: Zion Vargas MD assistant professor of drama: REYNA Cancino The patient is a 37-year-old female who had been to the ER twice the past 72 hours because of pain on the right upper quadrant with gallstones without cholecystitis. She therefore did not want to go home and be discharged again and wanted to proceed with cholecystectomy. She understood the technique of the procedure as well to risks, benefits, and alternatives. She was brought to the operating room. She was placed supine under general anesthesia via endotracheal tube. The abdomen is prepped and draped in the usual sterile fashion. A surgical time-out was done. The patient received Cefotan 2 g IV preoperatively. I made a short incision on the supraumbilical margin using a blade 15. This was carried down through the full-thickness of the skin subcutaneous fat down to the fascia. The fascia was incised. The peritoneum was entered. Through this incision a Cuca port was introduced. Pneumoperitoneum was introduced to a pressure of 15 minutes hg. From here on the rest of the procedure was done under vision with the laparoscope With laparoscopic visualization using a 10 mm flat scope, I proceeded to place a 5/12 mm port in the epigastric area below the subcostal margin. Two 5 mm ports were introduced below the subcostal margin along the mid clavicular line and the anterior axillary line . Graspers were applied to the pouch of the gallbladder. The patient was placed in head-up and [id number] position. The gallbladder was seen and this was noted to be supple without distension or acute inflammatory changes. I applied a grasper at the fundus to retract this cephalad. Another grasper was applied towards the pouch of the gallbladder and this was used to retract the gallbladder laterally. At this point the gallbladder was being retracted in a cephalad and lateral fashion to put the area of the cystic duct on stretch. I carefully did blunt dissection of the neck of the gallbladder using the [place] dissector until I was able to clearly define the cystic duct. By doing so I was able to achieve a critical view of the hepatocystic triangle and there were no other structures seen in the area except for the cystic artery. With confirmation of the confluence of the neck of the gallbladder with the cystic duct, achieved, I proceeded to then apply clips on the cystic duct with 2 clips being applied distally. The cystic duct was transected between clips with Endo scissors. I also applied clips on the cystic artery and this was transected between clips with Endo scissors. Two clips were applied distally. I proceeded to divide the hilum with the electrocautery spatula untili I reached the interface of the gallbladder wall and the liver bed. I incised the peritoneum of the gallbladder with the spatula and proceeded to define a plane of dissection between the gallbladder and the liver bed. I the gallbladder along this plane of dissection all the way to the fundus. The planes were not very well-defined in view of likely chronic cholecystitis so there was note of a small tear of the gallbladder with a little bit of bile leakage from this. I continued to dissect all the way to the fundus until the entire gallbladder was completely . I retrieved the gallbladder using an endobag through the umbilical incision. I reinserted all ports and re-insufflated. I re- examined the subhepatic space. There was note of good hemostasis and there was no evidence of any bile leak. I observed all 4 quadrants. No evidence of any bowel injury or any other pathology. I re-examine the area of dissection and suctioned out the irrigant fluid. Once hemostasis was confirmed, I desufflated through the port sites. I removed all ports under vision with the laparoscope and the umbilical port was removed last. The fascia of the umbilical incision was closed with a [id number] Dexon 0 stitch. Skin closure was achieved on all incisions using Dexon 4-0 subcuticular running sutures. Steri-Strips and dressings were applied. All incisions were infiltrated with Marcaine 0.5% for postop analgesia and the procedure was completed. The patient tolerated the procedure well. There were no immediate complications. Initial and final counts of sponges and instruments were correct. Estimated blood loss was about 25 cc. The patient was extubated without difficulty and transferred to the recovery room with stable vital signs.
[2022-10-02] MEDS: fentaNYL citrate/PF 100 MCG/2 ML VIAL 50 MCG IVPUSH ×2 (12:19→12:32)
[2022-10-02] MEDS: oxyCODONE HCl Immed Release 5 MG TABLET PO ×2 (12:35→21:31)
[2022-10-02] MEDS: HYDROmorphone HCl 0.5 MG/0.5 ML SYRINGE 0.25 MG IVPUSH (12:50)
--- NOTE | 2022-10-02 14:06 | PM.EVENT ---
Event Note Date of Service: 10/02/22 Event Note: Seen postop She had undergone laparoscopic cholecystectomy earlier - uneventful She looks well although anxious Stable vital signs Dressings dry Abdomen soft She says she will not be ready to go home today because of pain especially as she has severe anxiety She wants to stay overnight Likely home tomorrow Pain management Time Spent With Patient Time: Total time managing care of this patient today ____ minutes.
[2022-10-02] MEDS: Omeprazole 20 MG CAPSULE.DR PO (16:06)
[2022-10-02] MEDS: Lactated Ringers 1,000 ML 80 ML IVCONT (17:14)
[2022-10-02] MEDS: LORazepam 0.5 MG TABLET PO (21:35)
[2022-10-03] MEDS: Morphine Sulfate 4 MG/ML CARTRIDGE 2 MG IVPUSH ×4 (01:24→20:24)
[2022-10-03 04:00] VITALS: BP 105/62; PULSE 70; RESP 17; TEMP 36.2; O2SAT 96
[2022-10-03] MEDS: oxyCODONE HCl Immed Release 5 MG TABLET PO ×3 (05:10→22:54)
[2022-10-03] MEDS: Omeprazole 20 MG CAPSULE.DR PO ×2 (05:11→15:41)
[2022-10-03] MEDS: Lactated Ringers 1,000 ML 80 ML IVCONT ×2 (05:13→18:05)
[2022-10-03 08:00] VITALS: BP 96/55; PULSE 75; RESP 18; TEMP 36.7; O2SAT 97
[2022-10-03] MEDS: 0.9 % Sodium Chloride Flush 3 ML SYRINGE IVFLUSH ×3 (08:12→20:24)
[2022-10-03] MEDS: HYDROmorphone HCl 0.5 MG/0.5 ML SYRINGE 0.25 MG IVPUSH (08:12)
--- NOTE | 2022-10-03 08:13 | P.PNGS_ITS ---
Subjective Subjective Date of Service: 10/03/22 <Margoth Cancino PA-C - Last Filed: 10/03/22 08:16> 10/03/22 <Zion Vargas MD - Last Filed: 10/03/22 09:33> Interval history: Pain at incision sites, mostly umbilicus. Tolerating solid diet. OOB to bathroom. States she cannot take ibuprofen and has only a few tramadol left. <Margoth Cancino PA-C - Last Filed: 10/03/22 08:16> Physical Exam Vital Signs: Vital Signs: Last Vital Signs Temp 97.1 F 10/03/22 04:00 Pulse 70 10/03/22 04:00 Resp 17 10/03/22 04:00 BP 105/62 10/03/22 04:00 Pulse Ox 96 10/03/22 04:00 O2 Del Method 10/03/22 04:00 O2 Flow Rate 2 10/03/22 04:00 BMI result Body Mass Index 28.3 <Margoth Cancino PA-C - Last Filed: 10/03/22 08:16> Const: General: comfortable, no acute distress and alert <Margoth Cancino PA-C - Last Filed: 10/03/22 08:16> Orientation/consciousness: patient oriented x3 <Margoth Cancino PA-C - Last Filed: 10/03/22 08:16> Resp: Effort & Inspection: normal respiratory effort <Margoth Cancino PA-C - Last Filed: 10/03/22 08:16> GI: Inspection: No distended and Yes incision (dressings c/d/i) <Margoth Cancino PA-C - Last Filed: 10/03/22 08:16> Palpation (GI): Soft to palpation, Tenderness to palpation present (GI) (incisional), no guarding and not rigid <RADHA Deshpande Last Filed: 10/03/22 08:16> Percussion: Yes normal to percussion <RADHA Deshpande Last Filed: 10/03/22 08:16> Skin: General skin exam: no rashes or lesions noted <Margoth Cancino PA-C - Last Filed: 10/03/22 08:16> Neuro: General: patient oriented x3 and moves all extremities <Margoth Cancino PA-C - Last Filed: 10/03/22 08:16> Objective Data Active Medications Acetaminophen (Acetaminophen 325 Mg Tablet) 650 mg PO Q6H PRN PRN Reason: fever, pain Escitalopram Oxalate (Escitalopram Oxalate 5 Mg Tablet) 5 mg PO DAILY [facility] Fentanyl (Fentanyl Citrate/Pf 100 Mcg/2 Ml Vial) 50 mcg IVPUSH Q5M PRN; Protocol PRN Reason: Pain, Severe (Pain Scale 7-10) Last Admin: 10/02/22 12:32 Dose: 50 mcg Documented By: LEIDY Hydromorphone HCl (Hydromorphone Hcl 0.5 Mg/0.5 Ml Syringe) 0.25 mg IVPUSH Q5M PRN; Protocol PRN Reason: Pain, Severe (Pain Scale 7-10) Last Admin: 10/03/22 08:12 Dose: 0.25 mg Documented By: ALEKSANDR Lactated Ringer's (Lr) 1,000 mls @ 80 mls/hr IVCONT .[id number] [facility] Last Admin: 10/03/22 05:13 Dose: 80 mls/hr Documented By: ANNA Lorazepam (Lorazepam 0.5 Mg Tablet) 0.5 mg PO BEDTIME PRN PRN Reason: anxiety Last Admin: 10/02/22 21:35 Dose: 0.5 mg Documented By: ANNA Morphine Sulfate (Morphine Sulfate 4 Mg/Ml Cartridge) 2 mg IVPUSH Q3H PRN; Protocol PRN Reason: Pain, Severe (Pain Scale 7-10) Last Admin: 10/03/22 01:24 Dose: 2 mg Documented By: ANNA Omeprazole (Omeprazole 20 Mg Capsule.Dr) 20 mg PO BID@0630,1630 [facility] Last Admin: 10/03/22 05:11 Dose: 20 mg Documented By: ANNA Ondansetron HCl (Ondansetron Hcl 4 Mg/2 Ml Vial) 4 mg IVPUSH Q6H PRN PRN Reason: Nausea and Vomiting Oxycodone HCl (Oxycodone Hcl Immed Release 5 Mg Tablet) 5 mg PO Q6H PRN PRN Reason: Pain, Moderate (Pain Scale 4-6 Last Admin: 10/03/22 05:10 Dose: 5 mg Documented By: ANNA Pharmacy Consult (Consult Rx Perform Med Rec) 1 each MISCELLANE ONCE PRN PRN Reason: Consult order Sodium Chloride (0.9 % Sodium Chloride Flush 3 Ml Syringe) 3 ml IVFLUSH QSHIFT JONY Last Admin: 10/03/22 08:12 Dose: 3 ml Documented By: ALEKSANDR <Margoth Cancino PA-C - Last Filed: 10/03/22 08:16> Labs CBC & Chem 7: 10/01/22 11:07 10/01/22 11:07 <RADHA Deshpande Last Filed: 10/03/22 08:16> Procedures Date of Service Date of Service: 10/03/22 <RADHA Deshpande Last Filed: 10/03/22 08:16> Progress Note: A&P Assessment and plan (1) S/P laparoscopic cholecystectomy: Status: Acute <RADHA Deshpande Last Filed: 10/03/22 08:16> Assessment and Plan: Complains of pain mostly on the umbilical incision Tolerating diet well Abdomen soft and benign Dressings dry Stable vital signs Okay to DC home today with pain meds Discharge instructions given to the patient I will see her in the office on a follow-up <Zion Vargas MD - Last Filed: 10/03/22 09:33> (2) Biliary colic: Status: Acute <RADHA Deshpande Last Filed: 10/03/22 08:16> Assessment and Plan: 37 year old female now POD #1 s/p lap paul. Doing well post op. Tolerating diet. On PO analgesics. OOB without difficulty. Abd exam is benign with appropriate post op tenderness and dressings c/d/i. Stable for discharge to home today. Educated to not combine tramadol and percocet. She can f/u in office in 2 weeks. <RADHA Deshpande Last Filed: 10/03/22 08:16> Time Spent With Patient Time: Total time managing care of this patient today ____ minutes. <Margoth Cancino PA-C - Last Filed: 10/03/22 08:16> Quality Stroke Does the patient have a stroke diagnosis?: No <Margoth Cancino PA-C - Last Filed: 10/03/22 08:16> VTE Prior VTE?: No <Margoth Cancino PA-C - Last Filed: 10/03/22 08:16> VTE Risk Level:: Medical - low <Margoth Cancino PA-C - Last Filed: 10/03/22 08:16> VTE Device Contraindication: N/A - Device Ordered <Margoth Cancino PA-C - Last Filed: 10/03/22 08:16> VTE Drug Contraindication: Treatment Not Indicated <Margoth Cancino PA-C - Last Filed: 10/03/22 08:16>
--- NOTE | 2022-10-03 09:11 | MHC.CM.PN ---
Patient has been medically cleared for dc to home today, self care.
[2022-10-03] MEDS: Escitalopram Oxalate 5 MG TABLET PO (10:00)
--- NOTE | 2022-10-03 10:17 | HO.POSTANES ---
Post Anesthesia Evaluation Post Anesthesia Evaluation Vital Signs: Vital Signs Temp Pulse Resp BP Pulse Ox O2 Del Method O2 Flow Rate 10/03/22 08:00 98.1 F 75 18 96/55 L 97 Room Air 10/03/22 04:00 97.1 F 70 17 105/62 96 Nasal Cannula 2 10/02/22 23:55 97.0 F 65 18 110/62 96 Nasal Cannula 2 Anesthesia: General Endotracheal-GETA Mental Status: Awake Pain Control: Satisfactory Nausea/Vomiting: None Hydration: Adequate Anesthesia-Related Issues: No Anes. Related Issues
[2022-10-03 12:12] VITALS: O2SAT 96
[2022-10-03 12:43] VITALS: O2SAT 97
--- NOTE | 2022-10-03 14:11 | PM.EVENT ---
Event Note Date of Service: 10/03/22 Event Note: Patient seen on afternoon rounds Says she still has pain on the umbilical incision Has been ambulating Looks well Abdomen soft Tolerating diet well She says that she does not feel she is ready to go home because of this incisional pain on the umbilicus Wants to stay overnight Clinically doing well and stable Time Spent With Patient Time: Total time managing care of this patient today ____ minutes.
[2022-10-03 15:34] VITALS: BP 101/52; PULSE 84; RESP 18; TEMP 36.4; O2SAT 98
[2022-10-03 20:00] VITALS: BP 110/62; PULSE 60; RESP 17; TEMP 36.2; O2SAT 97
[2022-10-03] MEDS: LORazepam 0.5 MG TABLET PO (22:55)
[2022-10-04] MEDS: Morphine Sulfate 4 MG/ML CARTRIDGE 2 MG IVPUSH ×2 (02:27→09:43)
[2022-10-04 02:54] VITALS: BP 101/57; PULSE 82; RESP 18; TEMP 36.1; O2SAT 95
[2022-10-04] MEDS: oxyCODONE HCl Immed Release 5 MG TABLET PO ×2 (05:35→14:48)
[2022-10-04] MEDS: Omeprazole 20 MG CAPSULE.DR PO (05:35)
[2022-10-04 07:03] VITALS: BP 90/54; PULSE 69; RESP 16; TEMP 36.1; O2SAT 96
[2022-10-04 07:32] VITALS: BP 100/58; PULSE 74; RESP 18; TEMP 36.6; O2SAT 97
--- NOTE | 2022-10-04 08:21 | PM.PNGS ---
Subjective Subjective Date of Service: 10/04/22 <Margoth Cancino PA-C - Last Filed: 10/04/22 08:24> 10/04/22 <Zion Vargas MD - Last Filed: 10/04/22 09:58> Interval history: Was uncomfortable going home yesterday due to pain at umbilical incision site. Feels improved this morning, less pain and comfortable. Tolerating solid diet. OOB without difficulty. Feels ready for discharge. <Margoth Cancino PA-C - Last Filed: 10/04/22 08:24> Physical Exam Vital Signs: Vital Signs: Last Vital Signs Temp 98 F 10/04/22 07:32 Pulse 74 10/04/22 07:32 Resp 18 10/04/22 07:32 BP 100/58 L 10/04/22 07:32 Pulse Ox 97 10/04/22 07:32 O2 Del Method 10/04/22 07:32 O2 Flow Rate 2 10/04/22 07:32 BMI result Body Mass Index 28.3 <Margoth Cancino PA-C - Last Filed: 10/04/22 08:24> Const: General: comfortable, no acute distress and alert <Margoth Cancino PA-C - Last Filed: 10/04/22 08:24> Orientation/consciousness: patient oriented x3 <Margoth Cancino PA-C - Last Filed: 10/04/22 08:24> GI: Inspection: No distended and Yes incision (dressings clean) <Margoth Cancino PA-C - Last Filed: 10/04/22 08:24> Palpation (GI): Soft to palpation, Tenderness to palpation present (GI) (mild), no guarding and not rigid <Margoth Cancino PA-C - Last Filed: 10/04/22 08:24> Skin: General skin exam: no rashes or lesions noted <RADHA Deshpande Last Filed: 10/04/22 08:24> Neuro: General: patient oriented x3 <RADHA Deshpande Last Filed: 10/04/22 08:24> Objective Data Active Medications Acetaminophen (Acetaminophen 325 Mg Tablet) 650 mg PO Q6H PRN PRN Reason: fever, pain Escitalopram Oxalate (Escitalopram Oxalate 5 Mg Tablet) 5 mg PO DAILY [facility] Last Admin: 10/03/22 10:00 Dose: 5 mg Documented By: ALEKSANDR Fentanyl (Fentanyl Citrate/Pf 100 Mcg/2 Ml Vial) 50 mcg IVPUSH Q5M PRN; Protocol PRN Reason: Pain, Severe (Pain Scale 7-10) Last Admin: 10/02/22 12:32 Dose: 50 mcg Documented By: LEIDY Hydromorphone HCl (Hydromorphone Hcl 0.5 Mg/0.5 Ml Syringe) 0.25 mg IVPUSH Q5M PRN; Protocol PRN Reason: Pain, Severe (Pain Scale 7-10) Last Admin: 10/03/22 08:12 Dose: 0.25 mg Documented By: ALEKSANDR Lorazepam (Lorazepam 0.5 Mg Tablet) 0.5 mg PO BEDTIME PRN PRN Reason: anxiety Last Admin: 10/03/22 22:55 Dose: 0.5 mg Documented By: JOSS Morphine Sulfate (Morphine Sulfate 4 Mg/Ml Cartridge) 2 mg IVPUSH Q3H PRN; Protocol PRN Reason: Pain, Severe (Pain Scale 7-10) Last Admin: 10/04/22 02:27 Dose: 2 mg Documented By: JOSS Omeprazole (Omeprazole 20 Mg Capsule.Dr) 20 mg PO BID@0630,1630 [facility] Last Admin: 10/04/22 05:35 Dose: 20 mg Documented By: TEMO Ondansetron HCl (Ondansetron Hcl 4 Mg/2 Ml Vial) 4 mg IVPUSH Q6H PRN PRN Reason: Nausea and Vomiting Oxycodone HCl (Oxycodone Hcl Immed Release 5 Mg Tablet) 5 mg PO Q6H PRN PRN Reason: Pain, Moderate (Pain Scale 4-6 Last Admin: 10/04/22 05:35 Dose: 5 mg Documented By: TEMO Pharmacy Consult (Consult Rx Perform Med Rec) 1 each MISCELLANE ONCE PRN PRN Reason: Consult order Sodium Chloride (0.9 % Sodium Chloride Flush 3 Ml Syringe) [address] [facility] Last Admin: 10/03/22 20:24 Dose: 3 ml Documented By: JOSS <Margoth Cancino PA-C - Last Filed: 10/04/22 08:24> Labs CBC & Chem 7: 10/01/22 11:07 10/01/22 11:07 <Margoth Cancino PA-C - Last Filed: 10/04/22 08:24> Procedures Date of Service Date of Service: 10/04/22 <Margoth Cancino PA-C - Last Filed: 10/04/22 08:24> Progress Note: A&P Assessment and plan (1) S/P laparoscopic cholecystectomy: Status: Acute <Margoth Cancino PA-C - Last Filed: 10/04/22 08:24> Assessment and Plan: Complaints of pain on the umbilical incision although better says she is ready to go tolerating diet well abdomen soft and benign incisions clean and dry sclerae anicteric stable vital signs, no fever okay to DC home - she is comfortable with plan oral pain meds follow-up in the office discharge instructions reinforced <Zion Vargas MD - Last Filed: 10/04/22 09:58> Assessment and Plan: 37 year old female now POD #2 s/p lap paul. Feels improved this morning with less pain and feels comfortable going home. Abd remains benign with mild incisional tenderness and clean dressings. Will dc to home today. Educated to not combine tramadol and percocet. She can f/u in office in 2 weeks. Patient comfortable with plan. <Margoth Cancino PA-C - Last Filed: 10/04/22 08:24> Time Spent With Patient Time: Total time managing care of this patient today ____ minutes. <Margoth Cancino PA-C - Last Filed: 10/04/22 08:24> Quality Stroke Does the patient have a stroke diagnosis?: No <Margoth Cancino PA-C - Last Filed: 10/04/22 08:24> VTE Prior VTE?: No <Margoth Cancino PA-C - Last Filed: 10/04/22 08:24> VTE Risk Level:: Medical - low <RADHA Deshpande Last Filed: 10/04/22 08:24> VTE Device Contraindication: N/A - Device Ordered <Margoth Cancino PA-C - Last Filed: 10/04/22 08:24> VTE Drug Contraindication: Treatment Not Indicated <Margoth Cancino PA-C - Last Filed: 10/04/22 08:24>
--- NOTE | 2022-10-04 08:33 | MHC.CM.PN ---
PLAN IS HOME TODAY - SELF CARE RN AWARE
[2022-10-04] MEDS: 0.9 % Sodium Chloride Flush 3 ML SYRINGE IVFLUSH (09:43)
[2022-10-04] MEDS: Escitalopram Oxalate 5 MG TABLET PO (09:43)
--- NOTE | 2022-10-04 10:23 | PM.DS ---
DS: Providers Provider Date of Service: 10/03/22 Date of admission: 10/01/22 13:40 Date of discharge: 10/03/22 Primary care physician: Unknown Physician Attending physician on admission: Zion Vargas Consults: 10/01/22 13:19 Consult to General Surgery Stat Consulting Provider: Earnest Seymour Reason for consultation: Epigastric abdominal pain Has provider been notified: Yes Attending physician on discharge: Zion Vargas DS: Diagnosis Discharge Diagnosis (1) S/P laparoscopic cholecystectomy: Status: Acute (2) Biliary colic: Status: Acute DS: Summary Hospital Course Hospital Course: HPI AT ADMISSION: Rena Brady is a 37 year old female here in the ED for right sided abdominal pain. She has had these episodes for a few months . She actually was seen by GI last year and had undergone an EGD for upper abdominal pain last 2021 and the EGD was unremarkable. She was arranged to have an US but she did not show up for this then. She describes episodes of pain on the epigastric area and towards the right upper quadrant on and off. She went to the ED the other night and an US showed gallstones. She was discharged with instructions to see me in the office for symptomatic gallstones. She came back to the ED this morning for the same episode of pain last night. Repeat ABD US showed gallstones without cholecystitis.? Her labs are unremarkable. She says she does not want to go home because she felt these episodes will happen again. She denies vomiting although says she may have some occasional nausea. She says the only abdominal surgery she has had is an umbilical hernia repair with mesh. HOSPITAL COURSE: She was admitted to the surgical service for her symptomatic gallstones. Given her recurrent episodes of pain, it was therefore recommended to proceed with laparoscopic possible open cholecystectomy. She was added onto the OR schedule for the following day. On 10/02/22, a laparoscopic cholecystectomy was performed by Dr. Vargas without complication. The patient tolerated the procedure well. She had an uncomplicated recovery course. She was doing well on POD #1 with good pain control, tolerating a solid diet with a benign abd exam with appropriate post op tenderness and clean/intact dressings. She was discharged to home on 10/03/22 in stable condition. She is to follow up with Dr. Vargas in 2 weeks. Status at Discharge Functional status at discharge: independent ambulation Overall status at discharge: patient is progressing back to baseline Time Spent with Patient Time attestation: Total time managing care of this patient today ____ minutes. Discharge coordination time: Less than 30 minutes Quality: Safe Use of Opioids Does Pt have an Active Cancer Diagnosis on the Problem List?: No Quality: Stroke Does the patient have a stroke diagnosis?: No Physical Exam Vital Signs: Vital Signs: Last Vital Signs Temp 98.1 F 10/03/22 08:00 Pulse 75 10/03/22 08:00 Resp 18 10/03/22 08:00 BP 96/55 L 10/03/22 08:00 Pulse Ox 97 10/03/22 08:00 O2 Del Method 10/03/22 08:00 O2 Flow Rate 2 10/03/22 04:00 BMI result Body Mass Index 28.3 Const: General: comfortable, no acute distress and alert Orientation/consciousness: patient oriented x3 Resp: Effort & Inspection: normal respiratory effort GI: Inspection: No distended and Yes incision (dressings c/d/i) Palpation (GI): Soft to palpation, Tenderness to palpation present (GI) (mild incisional), no guarding and not rigid Percussion: Yes normal to percussion Skin: General skin exam: no rashes or lesions noted Neuro: General: patient oriented x3 DS: Data Data Completed and Pending Pending studies at discharge: Pending at discharge 10/02/22 11:41 Surgical [PTH] Routine Discharge Plan Discharge Patient Disposition: Home, Self-Care Discharge Diagnosis: s/p laparoscopic cholecystectomy Referrals: Zion Vargas MD [Physician] - 2 Weeks Physician,Eduardo J [Primary Care Provider] - 1 Week Discharge Medications: New oxycodone-acetaminophen [Percocet] 5-325 mg tablet 1 tab PO Q4-6H PRN (Reason: pain (scale score 7-10)) Qty: 15 0RF Rx Instructions: Partial Fill upon patient request. Continued tramadol 50 mg tablet 50 mg PO Q6H PRN (Reason: pain) Qty: 20 0RF ondansetron 4 mg tablet,disintegrating 4 mg PO Q6-8H PRN (Reason: nausea and vomiting) Qty: 10 0RF citalopram 10 mg tablet 10 mg PO DAILY Qty: 90 0RF lorazepam 0.5 mg tablet 0.5 mg PO BEDTIME PRN (Reason: anxiety) Qty: 10 0RF pantoprazole [Protonix] 40 mg tablet,delayed release (DR/EC) 40 mg PO DAILY@0630 Discharge Orders: Discharge Order (Routine); Ordered 10/03/22 Ordered By: Margoth Cancino Diet: Low fat, low cholesterol Activity on Discharge: No heavy lifting Stand Alone Forms: Patient Portal Discharge page Activity Restrictions/Additional Instructions: If the incision area is tender, you may apply an ice pack for short intervals (No more than 20 minutes on, followed by at least 20 minutes off). Do not apply heat. Do not use creams, lotions, or topical antibiotics unless instructed to do so by your surgeon. These can cause infection or allergic reaction. Ok to shower 24 hours after your surgery. Remove bandaids in 2 days and replace. You have steri strips (small white cloth strips) covering your incision- these will fall off ~1 week. Do not combine the tramadol and percocet. Take the tramadol as needed until you run out and then you can begin the percocet as needed. You can take 2 tablets every 4-6 h as needed. Follow up in office with Dr. Vargas in 2 weeks. ([phone]) No heavy lifting (>10-20lbs) or strenuous activity! Call Your Doctor If: -Your temperature exceeds 101.5? F -You experience excessive pain or swelling -You have an unexpected reaction to medication -You have excessive bleeding -You experience continued vomiting/nausea -Your incision begins to separate -Your incision shows signs of infection such as increased redness, swelling, excessive pain, drainage (light blood or clear fluid is normal) or heat Care Plan Goals: Return to baseline health and gradual return to activity following recovery period. Health Concerns: biliary colic Plan of Treatment: s/p lap paul f/u in office in 2 weeks Assessment: Doing well post op
[2022-10-04 12:00] VITALS: O2SAT 97
[2022-10-04] MEDS: Acetaminophen 325 MG TABLET 650 MG PO (14:49)
== END 2022-10-04 16:55 | disposition home or self-care (01) ==
LOC: HO.ED 13:43 → HO.EDOVER 14:02 → HO.S3 17:13
PROVIDERS: Physician Assistant Medical; Admitting Provider Surgery; Emergency Provider Emergency Medicine; Visit Provider Surgery
PROC: 0FT44ZZ Resection of Gallbladder, Percutaneous Endoscopic Approach (ICD-10-PCS; CPT 47562; principal; 2022-10-02 10:20)
DX: K80.70 Calculus of gallbladder and bile duct without cholecystitis without obstruction (principal); Z90.49 Acquired absence of other specified parts of digestive tract; K80.50 Calculus of bile duct without cholangitis or cholecystitis without obstruction; R10.13 Epigastric pain; Z20.822 Contact with and (suspected) exposure to COVID-19; F17.210 Nicotine dependence, cigarettes, uncomplicated; F12.90 Cannabis use, unspecified, uncomplicated; F41.9 Anxiety disorder, unspecified; Z79.899 Other long term (current) drug therapy
CPT/HCPCS: 47562; 36415; 76705; 80053; 80076; 82248; 83690; 84702; 85025; 87635; 88304; 93005; 96361; 96374; 96375; 99221; 99285; J1170; J1885; J2060; J2250; J2270; J2405; J2550; J2795; J3010

== ENCOUNTER 2022-10-17 08:31 | Emergency (ER) | payer OTHER, SELFPAY ==
--- NOTE | ~2022-10-17 | XR_ITS ---
EXAMINATION: XR CHEST CLINICAL INFORMATION: Chest pain COMPARISON: 06/16/2022 TECHNIQUE: 2 views of the chest were obtained. FINDINGS: No significant abnormality is noted involving the heart, lungs, mediastinum, bony thorax or soft tissues. XR/XR chest 2V IMPRESSION: Unremarkable examination.
--- NOTE | 2022-10-17 08:32 | ECG_ITS ---
Test Reason : cp Blood Pressure : / mmHG Vent. Rate : 092 BPM Atrial Rate : 092 BPM P-R Int : 132 ms QRS Dur : 082 ms QT Int : 346 ms P-R-T Axes : 023 -05 -23 degrees QTc Int : 427 ms Normal sinus rhythm Nonspecific T wave abnormality Abnormal ECG When compared with ECG of 01-OCT-2022 09:50, Nonspecific T wave abnormality now evident in Anterolateral leads Referred By: Generic ED Physician Electronically Signed By:LINWOOD MASON
--- NOTE | 2022-10-17 08:40 | ED_ITS ---
HPI - Chest Pain General Chief Complaint: Chest Pain Stated Complaint: Chest pain Time Seen by Provider: 10/17/22 08:40 Source: patient Mode of arrival: ambulatory Limitations: no limitations History of Present Illness HPI narrative: 37-year-old female who had a laparoscopic cholecystectomy October 02 who presents to the ER with complaints of left upper chest pain which began at 06:00 o'clock this morning while patient was in her bed. Patient denies any associated vomiting, diaphoresis, difficulty breathing, cough or fever. Patient reports she did not sleep well last night. Yesterday she was in the hospital all day visiting her nephew who was involved in a motor cycle accident and is quite critical. Patient reports that she is having quite a bit of anxiety about this. Patient reports since the pain started and has been constant. It is described as sharp and stabbing. It is not worsened with exertion. Patient denies any leg swelling or leg pain. No OCP use. No substance use. No family history of sudden cardiac Related Data Home Medications Medication Instructions Recorded Confirmed pantoprazole 40 mg tablet,delayed 40 mg PO DAILY@0630 10/01/22 10/01/22 release (Protonix) Previous Rx's Medication Instructions Recorded citalopram 10 mg tablet 10 mg PO DAILY #90 tabs 09/30/22 lorazepam 0.5 mg tablet 0.5 mg PO BEDTIME PRN anxiety #10 09/30/22 tabs ondansetron 4 mg disintegrating 4 mg PO Q6-8H PRN nausea and 09/30/22 tablet vomiting #10 tabs tramadol 50 mg tablet 50 mg PO Q6H PRN pain #20 tabs 09/30/22 oxycodone-acetaminophen 5 mg-325 1 tab PO Q4-6H PRN pain (scale 10/03/22 mg tablet (Percocet) score 7-10) #15 tabs lorazepam 1 mg tablet 1 mg PO TID PRN anxiety #10 tabs 10/17/22 Allergies Allergy/AdvReac Type Severity Reaction Status Date / Time No Known Allergies Allergy Verified 10/02/22 09:38 [No Known Allergies*] Review of Systems Review of Systems: Yes all other systems are reviewed and are negative Constitutional: Constitutional: Reports no additional constitutional complaints, Denies body ache(s), Denies chills, Denies fever(s), Denies headache(s) and Denies weakness Eyes: Eyes: Reports no additional eye complaints and Denies change in vision ENT: Reports system reviewed and no additional complaints, except as documented, Denies dizziness, Denies headache(s), Denies nasal congestion, Denies nasal discharge and Denies neck pain Cardiovascular: Cardiovascular: Reports no additional cardiovascular complaints, Reports chest pain, Denies leg edema and Denies dyspnea Respiratory: Respiratory: Reports no additional respiratory complaints, Denies cough and Denies dyspnea Gastrointestinal: Gastrointestinal: Reports no additional gastrointestinal complaints, Denies abdominal pain, Denies diarrhea, Denies nausea and Denies vomiting Genitourinary: Genitourinary: Reports no additional female genitourinary complaints and Denies urinary incontinence Musculoskeletal: Musculoskeletal: Reports no additional musculoskeletal complaints, Denies back pain, Denies arthralgias, Denies joint swelling, Denies neck pain, Denies numbness and Denies tingling Integumentary/Breasts: Skin/Breast: Reports system reviewed and no additional complaints, except as docu and Denies rash Neurologic: Reports system reviewed and no additional complaints, except as documented, Denies Abnormal speech present, Denies dizziness, Denies headache(s ), Denies numbness, Denies tingling and Denies weakness Psychiatric: Psychiatric: Reports anxiety PMFSH Past Medical History Attestation statement: The following information was validated with the patient. Source: old records reviewed and nursing notes reviewed Medical History Anxiety Hernia Surgical History History of laparoscopic cholecystectomy (10/02/22) History of umbilical hernia repair Social History Social History Household Members: Spouse and Children Housing: Apartment Do you presently have visiting nurse or other home services: No Unable to assess alcohol history related to: Unknown Alcohol intake: current Alcohol intake frequency: a few times a week Patient Tobacco Use Status: Current everyday Tobacco user Tobacco use type: Cigarette Cigarettes Per Day: 5 Years Smoked: 20 Smoked in Last 30 Days: Yes Second Hand Smoke Exposure: No Use of substances other than those prescribed or required for medical reasons: No Substance Use Type: Marijuana Advance Directives: No Advance Directives Information Provided: No service: No Current occupational status: employed Physical Exam Vital Signs: Vital Signs: Last Vital Signs Temp 98.1 F 10/17/22 10:13 Pulse 85 10/17/22 10:13 Resp 20 10/17/22 10:13 BP 102/65 10/17/22 10:13 Pulse Ox 97 10/17/22 10:13 O2 Del Method 10/17/22 10:13 BMI result Body Mass Index 28.3 Const: General: cooperative, healthy appearing, comfortable and no acute distress Orientation/consciousness: patient oriented x3 Limitations: no limitations HEENT: Head: Yes normal to inspection Ears: hearing grossly normal bilaterally General nose exam: Normal external nose present Face and sinus: Yes normal facial exam Mouth: Normal oral and palatal mucosa present Throat: Yes posterior oropharynx normal Eyes: General: appearance normal, both eyes and all related structures Pupils: Equal, round and reactive pupils present Neck: Neck: Yes normal visual inspection Chest: Chest palpation & inspection: normal inspection of the chest Resp: Effort & Inspection: normal respiratory effort Auscultation: clear to auscultation bilaterally Cardio: Rate: regular rate Rhythm: regular rhythm Peripheral pulses: Peripheral pulses 2+ throughout GI: Inspection: Yes normal to inspection Palpation (GI): Soft to palpation and nontender Auscultation: normal bowel sounds Back/Spine/Pelvis: Thoracic/Lumbar Spine: thoracic and lumbar spine normal to inspection Skin: General skin exam: no rashes or lesions noted Neuro: General: patient oriented x3, no focal motor deficits and normal sensation to monofilament Cranial nerves: Yes Equal, round and reactive pupils present Cognition (Neuro): normal cognition Speech: No Abnormal speech present Gait exam (Neuro): Normal gait present Motor exam (neuro): 5/5 motor strength present throughout Extrem: General: Yes normal to inspection, Yes no pedal edema and Yes no calf tenderness Course Course Course Narrative: Labs are unremarkable, EKG shows no ischemic changes. Chest x-ray is negative for any signs of infection. Patient feels improved after receiving Toradol and lorazepam. Plan for discharge home with follow-up with primary care. Patient with multiple life stressors. I will syndrome with a small prescription for lorazepam. Medications Administered Discontinued Medications Generic Name Dose Route Start Last Admin Trade Name Freq PRN Reason Stop Dose Admin Ketorolac Tromethamine 15 mg 10/17/22 09:53 10/17/22 10:00 Ketorolac Tromethamine 15 Mg/Ml Vial IVPUSH 10/17/22 09:54 15 mg ONCE ONE Administration Lorazepam 1 mg 10/17/22 08:58 10/17/22 09:24 Lorazepam 1 Mg Tablet PO 10/17/22 08:59 1 mg ONCE ONE Administration Lorazepam 1 mg 10/17/22 10:26 10/17/22 11:16 Lorazepam 2 Mg/Ml Vial IVPUSH 10/17/22 10:27 1 mg ONCE ONE Administration Medical Decision Making Medical Decision Making MDM Narrative: 37-year-old female who had recent lap choly who is here with reports of constant nonexertional sharp stabbing chest pain which began at 06:00 o'clock this morning with no associated symptoms. Patient reports having quite a bit of stress and anxiety about finding out that her nephew is in critical condition and spent yesterday in the hospital visiting him. Lungs are clear. Exam is benign. Vitals stable. Will check EKG, chest x-ray, labs, viral testing. Patient will be given oral Ativan will reassess Differential Diagnosis Differential Diagnoses: The differential diagnosis associated with the presentation includes ACS, PE, dissection, anxiety Lab Data [facility] Lab Attestation statement: I reviewed the patient's lab results. 10/17/22 09:14 10/17/22 09:13 Labs: Lab Results 10/17/22 10/17/22 10/17/22 Range/Units 09:01 09:13 09:13 WBC (4.8-10.8) X10*3/uL RBC (4.20-5.50) X10*6/uL Hgb (12.0-16.0) g/dl Hct (37.0-47.0) % MCV (80.0-98.0) fL MCH (27.0-33.0) pg MCHC (31.0-35.0) g/dl RDW (11.0-16.0) % Plt Count (160-400) X10*3/uL MPV (9.4-12.3) fL Immature Gran % (Auto) (0.0-0.4) % Neut % (Auto) (45-73) % Lymph % (Auto) (20-40) % [place] % (Auto) (2-11) % Eos % (Auto) (0-4) % Baso % (Auto) (0-2) % Lymph # (Auto) (1.2-4.9) X10*3/uL [place] # (Auto) (0.1-1.2) X10*3/uL Eos # (Auto) (0.0-0.4) X10*3/uL Baso # (Auto) (0.0-0.2) X10*3/uL Abs Immat Gran (auto) (0.00-0.03) X10*3/uL Absolute Neuts (auto) (2.0-8.3) x10*3/uL Absolute Nucleated RBC (0.0-0.012) X10*3/uL Nucleated RBC % (auto) (0.0-0.2) /100WBC PT (10.0-13.1) SEC INR (0.9-1.1) D-Dimer High Sensitivty 165 NG/ML Sodium 138 (135-145) mmol/L Potassium 4.2 (3.3-5.1) mmol/L Chloride 104 (96-108) mmol/L Carbon Dioxide 24 (22-29) mmol/L Anion Gap 14 (12-20) BUN 11 (9-16) mg/dL Creatinine 0.71 (0.5-1.4) mg/dL Estim Creat Clear Calc 98.6 Estimated GFR > 60 Random Glucose 98 (60-115) mg/dL Calcium 9.8 (8.4-10.2) mg/dL Magnesium 2.0 (1.6-2.6) mg/dL Total Bilirubin 0.7 (0.0-1.0) mg/dL Direct Bilirubin 0.2 (0.0-0.5) mg/dL AST 21 (5-31) U/L ALT 24 (0-31) U/L Alkaline Phosphatase 80 (39-117) U/L Troponin I High Sens (<3.5-17.0) ng/L Total Protein 7.3 (6.5-8.0) g/dL Albumin 4.6 (3.5-5.0) g/dL COVID-19 ([facility]) Negative (Negative) COVID-19 Clin Com See Note 10/17/22 10/17/22 10/17/22 Range/Units 09:14 09:14 09:14 WBC 15.6 H (4.8-10.8) X10*3/uL RBC 4.33 (4.20-5.50) X10*6/uL Hgb 13.0 (12.0-16.0) g/dl Hct 38.4 (37.0-47.0) % MCV 88.7 (80.0-98.0) fL MCH 30.0 (27.0-33.0) pg MCHC 33.9 (31.0-35.0) g/dl RDW 12.5 (11.0-16.0) % Plt Count 380 D (160-400) X10*3/uL MPV 9.4 (9.4-12.3) fL Immature Gran % (Auto) 0.4 (0.0-0.4) % Neut % (Auto) 68.0 (45-73) % Lymph % (Auto) 26.4 (20-40) % [place] % (Auto) 4.4 (2-11) % Eos % (Auto) 0.3 (0-4) % Baso % (Auto) 0.5 (0-2) % Lymph # (Auto) 4.1 (1.2-4.9) X10*3/uL [place] # (Auto) 0.7 (0.1-1.2) X10*3/uL Eos # (Auto) 0.1 (0.0-0.4) X10*3/uL Baso # (Auto) 0.1 (0.0-0.2) X10*3/uL Abs Immat Gran (auto) 0.06 H (0.00-0.03) X10*3/uL Absolute Neuts (auto) 10.6 H (2.0-8.3) x10*3/uL Absolute Nucleated RBC 0.000 (0.0-0.012) X10*3/uL Nucleated RBC % (auto) 0.0 (0.0-0.2) /100WBC PT 12.2 (10.0-13.1) SEC INR 1.1 (0.9-1.1) D-Dimer High Sensitivty NG/ML Sodium (135-145) mmol/L Potassium (3.3-5.1) mmol/L Chloride (96-108) mmol/L Carbon Dioxide (22-29) mmol/L Anion Gap (12-20) BUN (9-16) mg/dL Creatinine (0.5-1.4) mg/dL Estim Creat Clear Calc Estimated GFR Random Glucose (60-115) mg/dL Calcium (8.4-10.2) mg/dL Magnesium (1.6-2.6) mg/dL Total Bilirubin (0.0-1.0) mg/dL Direct Bilirubin (0.0-0.5) mg/dL AST (5-31) U/L ALT (0-31) U/L Alkaline Phosphatase (39-117) U/L Troponin I High Sens < 3.5 (<3.5-17.0) ng/L Total Protein (6.5-8.0) g/dL Albumin (3.5-5.0) g/dL COVID-19 ([facility]) (Negative) COVID-19 Clin Com Independent Interpretation I performed an independent interpretation of an: EKG Interpretation: I independently reviewed the EKG which shows normal sided this rhythm with a rate of 92, normal SD, normal QRS, normal QT I Independently reviewed the chest x-ray and agree with radiologist's report Radiology Impression Discussion of test interpretation with radiology: I have reviewed the radiologist's reading. Radiologist Impression: Launch?Image [place] [id number] XRay Report Signed Patient: Rena Brady MR#: [id number] : 1985 Acct:[id number] Age/Sex: 37 / F ADM Date: 10/17/22 Loc: .ED Attending Dr: Ordering Physician: Anaid Musa NP Date of Service: 10/17/22 Procedure(s): XR chest 2V Accession Number(s): [id number] cc: Anaid Musa NP~ EXAMINATION: XR CHEST CLINICAL INFORMATION: Chest pain COMPARISON: 06/16/2022 TECHNIQUE: 2 views of the chest were obtained. FINDINGS: No significant abnormality is noted involving the heart, lungs, mediastinum, bony thorax or soft tissues. XR/XR chest 2V IMPRESSION: Unremarkable examination. Discharge Plan Discharge Clinical Impression: Atypical chest pain Patient Disposition: Home, Self-Care Additional Instructions: Your lab work, EKG and chest x-ray all very reassuring Take medication as prescribed Follow-up with primary care doctor Prescriptions: New lorazepam 1 mg tablet 1 mg PO TID PRN (Reason: anxiety) Qty: 10 0RF No Action tramadol 50 mg tablet 50 mg PO Q6H PRN (Reason: pain) Qty: 20 0RF ondansetron 4 mg tablet,disintegrating 4 mg PO Q6-8H PRN (Reason: nausea and vomiting) Qty: 10 0RF citalopram 10 mg tablet 10 mg PO DAILY Qty: 90 0RF lorazepam 0.5 mg tablet 0.5 mg PO BEDTIME PRN (Reason: anxiety) Qty: 10 0RF pantoprazole [Protonix] 40 mg tablet,delayed release (DR/EC) 40 mg PO DAILY@0630 oxycodone-acetaminophen [Percocet] 5-325 mg tablet 1 tab PO Q4-6H PRN (Reason: pain (scale score 7-10)) Qty: 15 0RF Rx Instructions: Partial Fill upon patient request. Referrals: Physician,Unknown J [Primary Care Provider] - Stand Alone Forms: Work/School Release Interventions: ED Discharge Assessment Last Done: 10/17/22 11:49 Discharge Date/Time: 10/17/22 11:53
[2022-10-17 08:44] VITALS: BP 104/69; PULSE 98; RESP 12; TEMP 36.6; O2SAT 95; BMI 28.3
[2022-10-17 09:18] LABS: MANUAL DIFF FLAG NO
[2022-10-17 09:19] LABS: Basophils Absolute Auto 0.1 X10*3/uL (0.0-0.2); Basophils Percent Auto 0.5 % (0-2); Eosinophils Absolute Auto 0.1 X10*3/uL (0.0-0.4); Eosinophils Percent Auto 0.3 % (0-4); Hematocrit 38.4 % (37.0-47.0); Imm Gran Abs Auto 0.06 X10*3/uL (0.00-0.03); Imm Gran Pct Auto 0.4 % (0.0-0.4); Lymphocytes Absolute Auto 4.1 X10*3/uL (1.2-4.9); Lymphocytes Percent Auto 26.4 % (20-40); Mean Corpuscular HGB Conc 33.9 g/dl (31.0-35.0); Mean Corpuscular Volume 88.7 fL (80.0-98.0); Mean Platelet Volume 9.4 fL (9.4-12.3); Monocytes Absolute Auto 0.7 X10*3/uL (0.1-1.2); Monocytes Percent Auto 4.4 % (2-11); Neutrophils Absolute Auto 10.6 x10*3/uL (2.0-8.3); Platelet Count 380 X10*3/uL (160-400); Red Blood Count 4.33 X10*6/uL (4.20-5.50); Red Cell Distribution Width 12.5 % (11.0-16.0); White Blood Count 15.6 X10*3/uL (4.8-10.8)
[2022-10-17] MEDS: LORazepam 1 MG TABLET PO (09:24)
[2022-10-17 09:25] LABS: INTERNATIONAL NORM RATIO 1.1 (0.9-1.1); Prothrombin Time 12.2 SEC (10.0-13.1)
[2022-10-17 09:25] LABS: COVID-19 Test Negative (Negative); IDNOW Serial# 9DB6401D
[2022-10-17 09:28] LABS: D Dimer High Sensitivity 165 NG/ML
[2022-10-17 09:41] LABS: Alanine Aminotransferase 24 U/L (0-31); Albumin Level 4.6 g/dL (3.5-5.0); Alkaline Phosphatase 80 U/L (39-117); Anion Gap 14 (12-20); Aspartate Amino Transferase 21 U/L (5-31); Bilirubin Direct 0.2 mg/dL (0.0-0.5); Bilirubin Total 0.7 mg/dL (0.0-1.0); Blood Urea Nitrogen 11 mg/dL (9-16); Calcium 9.8 mg/dL (8.4-10.2); Carbon Dioxide 24 mmol/L (22-29); Chloride 104 mmol/L (96-108); Creatinine Clr Calc Pharmacy 98.6; Estimated Glomerular Filt Rate > 60; Glucose Random 98 mg/dL (60-115); Potassium 4.2 mmol/L (3.3-5.1); Sodium 138 mmol/L (135-145); Total Protein 7.3 g/dL (6.5-8.0)
[2022-10-17 09:56] LABS: Troponin-I High Sensitivity < 3.5 ng/L (<3.5-17.0)
[2022-10-17] MEDS: Ketorolac Tromethamine 15 MG/ML VIAL IVPUSH (10:00)
[2022-10-17 10:13] VITALS: BP 102/65; PULSE 85; RESP 20; TEMP 36.7; O2SAT 97
[2022-10-17] MEDS: LORazepam 2 MG/ML VIAL 1 MG IVPUSH (11:16)
== END 2022-10-17 11:53 | disposition home or self-care (01) ==
PROVIDERS: Nurse Practitioner Family; Emergency Provider Emergency Medicine Emergency Medical Services
DX: R07.89 Other chest pain (principal); F17.210 Nicotine dependence, cigarettes, uncomplicated; Z71.6 Tobacco abuse counseling; Z20.822 Contact with and (suspected) exposure to COVID-19; Z20.828 Contact with and (suspected) exposure to other viral communicable diseases; Z79.899 Other long term (current) drug therapy
CPT/HCPCS: 36415; 71046; 80048; 80076; 83735; 84484; 85025; 85379; 85610; 87635; 93005; 96374; 96375; 99284; 99285; J1885; J2060

== ENCOUNTER → 2022-10-21 13:52 | Outpatient (BNVA) | payer OTHER, SELFPAY | PROVIDERS: PCP Internal Medicine; Visit Provider Surgery | DX: Z90.49 Acquired absence of other specified parts of digestive tract (principal) | CPT/HCPCS: 99212 ==

== ENCOUNTER 2023-04-15 14:04 | Emergency (ER) | payer OTHER, SELFPAY ==
--- NOTE | ~2023-04-15 | XR_ITS ---
EXAMINATION: XR KNEE, RIGHT CLINICAL INFORMATION: Pain COMPARISON: None available. TECHNIQUE: Four views of the right knee. FINDINGS: No fracture or dislocation. Small suprapatellar joint effusion. Joint spaces are maintained. Small enthesophytes of the patella. No focal soft tissue swelling. XR/XR knee RT 2V IMPRESSION: Small suprapatellar joint effusion. No fracture.
[2023-04-15 14:29] VITALS: BP 99/70; PULSE 76; RESP 18; TEMP 36.4; O2SAT 96; BMI 27.5
--- NOTE | 2023-04-15 14:29 | ED_ITS ---
HPI - General Adult General Chief complaint: Extremity Injury, Lower Stated complaint: R knee pain Time Seen by Provider: 04/15/23 16:49 Source: patient and RN notes reviewed Mode of arrival: ambulatory Limitations: no limitations History of Present Illness HPI narrative: This is a 37-year-old female presenting to the emergency department with complaints of right knee pain x2 days. Patient reports that while she was playing mini golf, she tripped and fell backwards, she felt her right knee buckle back and forth and immediately had pain in her right knee. She states that she has been able to bear weight however reports that this causes her more pain. Denies history of knee pain in the past. She has been taking Tylenol without any relief. She is unable to take ibuprofen due to gastritis. Denies any other complaints or concerns at this time. MD complaint: Right knee pain Onset (ago): day(s) Location: lower extremity Radiation: non-radiation Severity: moderate Quality: aching Pain Consistency: constant Relieving factors: none Exacerbating factors: none Associated symptoms: denies other symptoms Treatments prior to arrival: none Related Data Home Medications Medication Instructions Recorded Confirmed pantoprazole 40 mg tablet,delayed 40 mg PO DAILY@0630 10/01/22 10/01/22 release (Protonix) Previous Rx's Medication Instructions Recorded citalopram 10 mg tablet 10 mg PO DAILY #90 tabs 09/30/22 lorazepam 0.5 mg tablet 0.5 mg PO BEDTIME PRN anxiety #10 09/30/22 tabs ondansetron 4 mg disintegrating 4 mg PO Q6-8H PRN nausea and 09/30/22 tablet vomiting #10 tabs tramadol 50 mg tablet 50 mg PO Q6H PRN pain #20 tabs 09/30/22 lorazepam 1 mg tablet 1 mg PO TID PRN anxiety #10 tabs 10/17/22 oxycodone-acetaminophen 5 mg-325 1 tab PO Q4-6H PRN pain (scale 10/21/22 mg tablet (Percocet) score 7-10) #15 tabs acetaminophen 325 mg tablet (Pain 650 mg PO Q6H PRN pain #30 tabs 04/15/23 Reliever (acetaminophen)) oxycodone 5 mg capsule 5 mg PO Q6H PRN severe pain (scale 04/15/23 score 7-10) #7 caps Allergies Allergy/AdvReac Type Severity Reaction Status Date / Time No Known Allergies Allergy Verified 04/15/23 14:29 [No Known Allergies*] Review of Systems Review of Systems: Yes all other systems are reviewed and are negative [facility] Past Medical History Medical History Anxiety Hernia Surgical History History of laparoscopic cholecystectomy (10/02/22) History of umbilical hernia repair Social History Social History Household Members: Spouse and Children Housing: Apartment Do you presently have visiting nurse or other home services: No Unable to assess alcohol history related to: Unknown Alcohol intake: current Alcohol intake frequency: a few times a week Patient Tobacco Use Status: Current everyday Tobacco user Tobacco use type: Cigarette Cigarettes Per Day: 5 Years Smoked: 20 Second Hand Smoke Exposure: No Substance Use Type: Marijuana Advance Directives: No Advance Directives Information Provided: Yes service: No Current occupational status: employed Physical Exam ED Vital Signs: Vital Signs - 24 hr 04/15/23 14:29 Temperature 97.6 F Pulse Rate 76 Respiratory Rate 18 Blood Pressure 99/70 Pulse Oximetry 96 Oxygen Delivery Method Room Air BMI result Body Mass Index 27.5 Const Other: General: Awake, alert, and oriented X3. No acute distress. HEENT: Normal inspection CVS: Normal heart rate and rhythm. Pulses normal. Respiratory: No respiratory distress Skin: Warm, dry, no rashes noted to exposed skin. Normal skin color. Normal skin turgor. Extremities: Right knee with tenderness to palpation along the medial and lateral joint line. Range of motion is full and intact. Tenderness with varus and valgus strain. Negative anterior-posterior drawer test. Neuro: Oriented X 3. No motor deficit. No sensory deficit. Course Course Course Narrative: This is an RME: Additional HPI, ROS, PE not included below will be deferred to primary provider. 37 year old female presenting with right knee pain that started Friday. Patient reports she fell playing mini golf. She says it feels like it moved out of placeand went back in. Patient reports the pain is an 8- 9/10. Plan: imaging Medical Decision Making Medical Decision Making MDM Narrative: 37-year-old female presenting to the emergency department with complaints of right knee pain x2 days. On arrival, all vital signs within normal limits. X- ray was obtained and does not show any bony abnormalities however moderate edema noted. Symptoms consistent with knee sprain. I advised patient I am unable to rule out any ligamentous injury and she needs to follow-up with orthopedics if she has continued pain. Patient right knee placed in Ganga wrap, given orthopedic referral. Also medicated in the department with oxycodone 5 mg by mouth. She has a ride home. Given small prescription for oxycodone for severe pain only and Tylenol. She is unable to take NSAIDs given severe gastritis. Given return precautions if any new or worsening symptoms occur. Patient understands and agrees with plan. Differential Diagnosis Differential Diagnoses: The differential diagnosis associated with the presentation includes Knee sprain, patellar dislocation, patellar fracture, internal derangement Radiology Impression Discussion of test interpretation with radiology: I have reviewed the radiologist's reading. Radiologist Impression: EXAMINATION: XR KNEE, RIGHT? CLINICAL INFORMATION: Pain? COMPARISON: None available.? TECHNIQUE: Four views of the right knee. FINDINGS: No fracture or dislocation. Small suprapatellar joint effusion. Joint spaces are maintained. Small enthesophytes of the patella. No focal soft tissue swelling.? XR/XR knee RT 2V IMPRESSION: Small suprapatellar joint effusion. No fracture. ? Dictated By: Liang Alcantar MD Discharge Plan Discharge Clinical Impression: Right knee sprain Patient Disposition: Home, Self-Care Instructions: Knee Sprain (ED) Additional Instructions: Your x-ray did not show any broken bones. X-rays do not show ligaments or tendon tears. If you continue to have pain in your right knee as well as instability may need to follow-up with orthopedics. You have to call to make an appointment. Take Tylenol as prescribed for pctp-ap-brwolict pain. I am also giving you a prescription for oxycodone well please take for severe pain only. We cannot refill this medication from the emergency room. This medication will cause drowsiness, do not drink alcohol or drive while taking this medication. Rest, ice, elevate your knee. If any new or worsening symptoms occur please return for re-evaluation. Prescriptions: New acetaminophen [Pain Reliever (acetaminophen)] 325 mg tablet 650 mg PO Q6H PRN (Reason: pain) Qty: 30 0RF oxycodone 5 mg capsule 5 mg PO Q6H PRN (Reason: severe pain (scale score 7-10)) Qty: 7 0RF Rx Instructions: Partial Fill upon patient request. No Action tramadol 50 mg tablet 50 mg PO Q6H PRN (Reason: pain) Qty: 20 0RF ondansetron 4 mg tablet,disintegrating 4 mg PO Q6-8H PRN (Reason: nausea and vomiting) Qty: 10 0RF citalopram 10 mg tablet 10 mg PO DAILY Qty: 90 0RF lorazepam 0.5 mg tablet 0.5 mg PO BEDTIME PRN (Reason: anxiety) Qty: 10 0RF lorazepam 1 mg tablet 1 mg PO TID PRN (Reason: anxiety) Qty: 10 0RF pantoprazole [Protonix] 40 mg tablet,delayed release (DR/EC) 40 mg PO DAILY@0630 oxycodone-acetaminophen [Percocet] 5-325 mg tablet 1 tab PO Q4-6H PRN (Reason: pain (scale score 7-10)) Qty: 15 0RF Rx Instructions: Partial Fill upon patient request. Referrals: [facility] [place] [facility] [Provider Group]
[2023-04-15] MEDS: oxyCODONE HCl Immed Release 5 MG TABLET PO (17:13)
== END 2023-04-15 17:20 | disposition home or self-care (01) ==
PROVIDERS: Emergency Provider Emergency Medicine; PCP Internal Medicine
DX: S83.91XA Sprain of unspecified site of right knee, initial encounter (principal); X58.XXXA Exposure to other specified factors, initial encounter; Y93.9 Activity, unspecified; Y92.9 Unspecified place or not applicable; Y99.9 Unspecified external cause status
CPT/HCPCS: 73560; 99283

== ENCOUNTER 2024-01-07 16:53 | Inpatient (IN) | payer OTHER, SELFPAY ==
--- NOTE | ~2024-01-07 | CT_ITS ---
EXAMINATION: CT ABDOMEN AND PELVIS WITH CONTRAST CLINICAL INFORMATION: Left lower quadrant pain COMPARISON: Previous CT of the abdomen and pelvis most recent February 2022 TECHNIQUE: Multidetector volumetric images were obtained from the superior aspect of the liver through the pubic symphysis following administration 85 mL of Omnipaque 350 intravenous contrast. Sagittal and coronal reformatted images were obtained on the technologist's workstation. Oral contrast: Yes This CT examination was performed using dose optimization techniques as appropriate, variously including the following: *Automated exposure control *Adjustment of mA and/or kV according to patient size (this includes techniques or standardized protocols for targeted exams where dose is matched to indication/reason for exam; i.e. extremities or head) *Use of iterative reconstruction technique DLP: 483 mGy-cm FINDINGS: LUNG BASES: The visualized lung bases are unremarkable. LIVER, GALLBLADDER, AND BILIARY TREE: The liver is normal in size, shape, and attenuation. No focal hepatic lesion or biliary ductal dilatation is present. The gallbladder has been removed. PANCREAS: Unremarkable. SPLEEN: Unremarkable. ADRENAL GLANDS: Unremarkable. KIDNEYS AND URETERS: The kidneys are normal in size, shape, and attenuation. There is mild right hydronephrosis and proximal ureteral dilatation. The right distal ureter does not appear dilated. No stone is seen. The left kidney is normal. BLADDER: Not optimally distended but appears unremarkable. GASTROINTESTINAL TRACT: There are fluid-filled loops of small and large bowel probably representing an ileus. There is question mild wall thickening and increased enhancement of the terminal ileum. Small and large bowel are otherwise unremarkable. The stomach is unremarkable. The appendix is unremarkable. ABDOMINAL WALL: No significant hernia is appreciated. Surgical changes in the periumbilical region from likely hernia repair. LYMPH NODES: There are small, small bowel mesentery lymph nodes. No enlarged lymph nodes. No ascites. VASCULAR: Unremarkable. PELVIC VISCERA: IUD in the uterus in satisfactory position. Question 2.8 cm right ovarian cyst. OSSEOUS STRUCTURES: Unremarkable. CT/CT abdomen pelvis w IV con IMPRESSION: Mild right hydronephrosis and proximal ureteral dilatation. No stone seen. Fluid-filled loops of small and large bowel suggestive of an ileus. Question mild wall thickening and increased enhancement of the terminal ileum. Shotty small bowel mesentery lymphadenopathy. Possible enteritis should be considered. Fleischner guidelines were followed.
[2024-01-07 17:02] VITALS: BP 109/56; PULSE 79; RESP 16; TEMP 36.6; O2SAT 98; BMI 27.4
--- NOTE | 2024-01-07 17:04 | ED.GENADULT ---
HPI - General Adult General Chief complaint: Nausea/Vomiting/Diarrhea Stated complaint: N/V/D since friday night Time Seen by Provider: 01/07/24 18:45 Source: patient, RN notes reviewed and old records reviewed Mode of arrival: ambulatory Limitations: no limitations History of Present Illness ED Provider: Ramila HPI narrative: 38-year-old female presents for evaluation of vomiting and abdominal pain. Started 4 days ago. She states that she had dominoes to eat around 9:00 p.m. Friday night and then started vomiting with diarrhea at 5:00 a.m. Friday She states that other people ate the same food but did not have any the similar symptoms. The patient endorses upper abdominal pain. She is status post cholecystectomy. Her pain is only a 4/10 She feels dehydrated Patient subjective chills but has not had any documented fevers No other abdominal surgeries Denies any symptoms Related Data Home Medications ?Medication ?Instructions ?Recorded ?Confirmed pantoprazole 40 mg tablet,delayed 40 mg PO DAILY@0630 10/01/22 10/01/22 release (Protonix) Previous Rx's ?Medication ?Instructions ?Recorded citalopram 10 mg tablet 10 mg PO DAILY #90 tabs 09/30/22 lorazepam 0.5 mg tablet 0.5 mg PO BEDTIME PRN anxiety #10 09/30/22 tabs ondansetron 4 mg disintegrating 4 mg PO Q6-8H PRN nausea and 09/30/22 tablet vomiting #10 tabs tramadol 50 mg tablet 50 mg PO Q6H PRN pain #20 tabs 09/30/22 lorazepam 1 mg tablet 1 mg PO TID PRN anxiety #10 tabs 10/17/22 oxycodone-acetaminophen 5 mg-325 1 tab PO Q4-6H PRN pain (scale 10/21/22 mg tablet (Percocet) score 7-10) #15 tabs acetaminophen 325 mg tablet (Pain 650 mg (2 x 325 mg) PO Q6H PRN 04/15/23 Reliever (acetaminophen)) pain #30 tabs oxycodone 5 mg capsule 5 mg PO Q6H PRN severe pain (scale 04/15/23 score 7-10) #7 caps Allergies Allergy/AdvReac Type Severity Reaction Status Date / Time No Known Allergies Allergy Verified 01/07/24 17:03 [No Known Allergies*] Review of Systems Constitutional: Constitutional: Denies body ache(s), Reports chills and Denies fever(s) Eyes: Eyes: Denies blurry vision ENT: Denies sore throat Cardiovascular: Cardiovascular: Denies chest pain and Denies dyspnea Respiratory: Respiratory: Denies cough and Denies dyspnea Gastrointestinal: Gastrointestinal: Reports abdominal pain, Denies melena, Denies hematochezia, Reports diarrhea, Reports loose stools, Reports nausea and Reports vomiting Musculoskeletal: Musculoskeletal: Denies back pain Integumentary/Breasts: Skin/Breast: Denies rash PMFSH Past Medical History Medical History Anxiety Hernia Surgical History History of laparoscopic cholecystectomy (10/02/22) History of umbilical hernia repair Social History Social History Household Members: Spouse and Children Housing: Apartment Do you presently have visiting nurse or other home services: No Unable to assess alcohol history related to: Unknown Alcohol intake: current Alcohol intake frequency: a few times a month Patient Tobacco Use Status: Current everyday Tobacco user Tobacco use type: Cigarette Cigarettes Per Day: 5 Years Smoked: 20 Smoked in Last 30 Days: Yes Second Hand Smoke Exposure: No Use of substances other than those prescribed or required for medical reasons: Yes Substance Use Type: Marijuana Substance Use Frequency: Socially Last Used Substance: Weeks (ago) Advance Directives: No Advance Directives Information Provided: No Patient : No service: No Current occupational status: employed Physical Exam ED Vital Signs: Vital Signs - 24 hr 01/07/24 17:02 01/07/24 19:22 01/07/24 21:05 Temperature 97.9 F 98.3 F 98.2 F Pulse Rate 79 72 82 Respiratory Rate 16 100 H 18 Blood Pressure 109/56 L 94/61 100/68 Pulse Oximetry 98 100 100 Oxygen Delivery Method Room Air Room Air Room Air 01/07/24 22:17 Temperature Pulse Rate 78 Respiratory Rate 18 Blood Pressure 93/56 L Pulse Oximetry 98 Oxygen Delivery Method Room Air BMI result Body Mass Index 27.4 Const General: healthy appearing, comfortable, no acute distress, alert and awake Nutritional Appearance: well nourished Orientation/consciousness: patient oriented x3 HENMT Head: Yes normocephalic and Yes atraumatic Eyes Eyelids: Yes eyelids normal Conjunctivae: conjunctivae normal Sclerae: sclerae normal Corneas: corneas normal Pupils: Equal, round and reactive pupils present EOM: EOMs intact bilaterally Neck Neck: Yes full ROM Resp Effort & Inspection: normal respiratory effort, able to speak in complete sentences and not labored GI Inspection: No distended Palpation (GI): Soft to palpation, not firm, Tenderness to palpation present (GI) in the epigastrum and in the LLQ; not in the RLQ, not in the LUQ and not in the RUQ, no guarding and not rigid Skin General skin exam: elasticity normal Neuro General: patient oriented x3 Cranial nerves: Yes Equal, round and reactive pupils present and Yes Bilaterally intact EOM present Cognition (Neuro): normal cognition Extrem Other: Moving all extremities well without any obvious deformities Course Course Course Narrative: This is an RME done by REYNA Harley: Additional HPI, ROS, PE not included below will be deferred to primary provider. 38 year old female presents with complaints of nausea, vomiting, diarrhea, and epigastric pain since Friday. She reports she thinks she may have food poisoning as she started to feel sick after eating pizza on Friday night. She states her stool has been black and anything she tries to eat she throws up. Patient reports possible fever and chills last night. Appearance: Alert.? Oriented X3.? No acute cardiopulmonary distress distress.? Head: Normocephalic, atraumatic, no step-offs or deformities CVS: Pulses normal.? Respiratory: No respiratory distress.? Abdomen: Soft and epigastric tenderness to palpation? Skin: ? Normal skin color. Extremities: 5/5 strength to bilateral upper and lower extremities Neuro: Oriented X 3.? No motor deficit.? No sensory deficit. Reevaluation(s) Reevaluation #1: Attempted to p.o. challenge the patient at after receiving Zofran and morphine. She was unable to tolerate even a small sip of water with crackers. I then gave her a dose of Reglan IV in she was still unable to tolerate anything p.o.. Plan to admit to the hospitalist due to ileus Time: 23:58 Medications Administered Discontinued Medications Generic Name Dose Route Start Last Admin Trade Name Freq PRN Reason Stop Dose Admin Sodium Chloride 1,000 mls @ 999 mls/hr 01/07/24 19:15 01/07/24 20:18 Ns IV 01/07/24 20:15 Infused .Q1H1M JONY Infusion Sodium Chloride 1,000 mls @ 999 mls/hr 01/07/24 22:15 01/07/24 23:45 Ns IV 01/07/24 23:15 Infused .Q1H1M JONY Infusion Iohexol 100 ml 01/07/24 19:48 01/07/24 19:49 Iohexol 350 Mg/Ml 100 Ml Infus..Btl IV 01/07/24 19:49 85 ml ONCE ONE Administration Lorazepam 1 mg 01/07/24 21:02 01/07/24 21:07 Lorazepam 1 Mg Tablet PO 01/07/24 21:03 1 mg ONCE ONE Administration Metoclopramide HCl 10 mg 01/07/24 22:54 01/07/24 23:04 Metoclopramide Hcl 10 Mg/2 Ml Vial IVPUSH 01/07/24 22:55 10 mg ONCE ONE Administration Morphine Sulfate 4 mg 01/07/24 19:04 01/07/24 19:15 Morphine Sulfate 4 Mg/Ml Cartridge IVPUSH 01/07/24 19:05 4 mg ONCE ONE Administration Protocol Ondansetron HCl 4 mg 01/07/24 19:04 01/07/24 19:15 Ondansetron Hcl 4 Mg/2 Ml Vial IVPUSH 01/07/24 19:05 4 mg ONCE ONE Administration Medical Decision Making Medical Decision Making [facility] Narrative: 38-year-old female presents for evaluation of abdominal pain. She reports epigastric abdominal pain for last 4 days. However she is tender in the left lower quadrant. She endorses nausea vomiting, and diarrhea. She has no risk factors for C diff. No recent travel or antibiotic use. Denies sick contacts. Given the tenderness in the left lower quadrant, will obtain CT scan of the abdomen pelvis to evaluate for colitis/diverticulitis. Differential Diagnosis Differential Diagnoses: The differential diagnosis associated with the presentation includes Abdominal pain Nausea/vomiting Diarrhea Colitis Diverticulitis Acute appendicitis less likely Admission/Observation Consideration of admission/observation: Escalation of care including admission/observation considered Discussed with the hospitalist as the patient is unable to tolerate anything p.o. Lab Data [facility] Lab Attestation statement: I reviewed the patient's lab results. No leukocytosis or anemia. Normal platelet count. No electrolyte abnormalities. Her renal function within normal limits ALT is just above normal at 33, unclear etiology 01/07/24 17:11 01/07/24 17:11 Labs: Lab Results 01/07/24 01/07/24 Range/Units 17:11 20:33 WBC 8.2 (4.8-10.8) X10*3/uL RBC 4.07 L (4.20-5.50) X10*6/uL Hgb 12.9 (12.0-16.0) g/dl Hct 37.9 (37.0-47.0) % MCV 93.1 (80.0-98.0) fL MCH 31.7 (27.0-33.0) pg MCHC 34.0 (31.0-35.0) g/dl RDW 12.4 (11.0-16.0) % Plt Count 286 (160-400) X10*3/uL MPV 10.2 (9.4-12.3) fL Immature Gran % (Auto) 0.4 (0.0-0.4) % Neut % (Auto) 63.2 (45-73) % Lymph % (Auto) 28.9 (20-40) % [place] % (Auto) 6.8 (2-11) % Eos % (Auto) 0.5 (0-4) % Baso % (Auto) 0.2 (0-2) % Lymph # (Auto) 2.4 (1.2-4.9) X10*3/uL [place] # (Auto) 0.6 (0.1-1.2) X10*3/uL Eos # (Auto) 0.0 (0.0-0.4) X10*3/uL Baso # (Auto) 0.0 (0.0-0.2) X10*3/uL Abs Immat Gran (auto) 0.03 (0.00-0.03) X10*3/uL Absolute Neuts (auto) 5.2 (2.0-8.3) x10*3/uL Absolute Nucleated RBC 0.000 (0.0-0.012) X10*3/uL Nucleated RBC % (auto) 0.0 (0.0-0.2) /100WBC Sodium 144 (135-145) mmol/L Potassium 3.5 (3.3-5.1) mmol/L Chloride 108 (96-108) mmol/L Carbon Dioxide 23 (22-29) mmol/L Anion Gap 17 (12-20) BUN 11 (9-16) mg/dL Creatinine 0.68 (0.5-1.4) mg/dL Estim Creat Clear Calc 100.4 Estimated GFR > 60 Random Glucose 84 (60-115) mg/dL Calcium 8.8 D (8.4-10.2) mg/dL Total Bilirubin 0.4 (0.0-1.0) mg/dL AST 26 (5-31) U/L ALT 33 H (0-31) U/L Alkaline Phosphatase 84 (39-117) U/L Total Protein 7.3 (6.5-8.0) g/dL Albumin 4.3 (3.5-5.0) g/dL Lipase 12 (8-78) U/L Beta HCG, Quant < 2 mIU/mL Urine Color Yellow Urine Appearance Clear Urine pH 7.5 (5.0-9.0) Ur Specific [place] >= 1.030 H (1.005-1.025) Urine Protein Negative (Neg-Trace) mg/dL Urine Glucose (UA) Negative (Negative) mg/dL Urine Ketones Negative (Negative) mg/dL Urine Blood Trace H (Negative) Urine Nitrite Negative (Negative) Ur Leukocyte Esterase Negative (Negative) Urine RBC 0-2 (0-2) /HPF Urine WBC 0-5 (0-5) /HPF Ur Squamous Epith Cells 0-2 (0-2) /HPF Urine Bacteria None Seen (None Seen) Hyaline Casts 0-2 (0-2) /LPF Radiology Impression Discussion of test interpretation with radiology: I have reviewed the radiologist's reading. Radiologist Impression: CT/CT abdomen pelvis w IV con IMPRESSION: Mild right hydronephrosis and proximal ureteral dilatation. No stone seen. Fluid-filled loops of small and large bowel suggestive of an ileus. Question mild wall thickening and increased enhancement of the terminal ileum. Shotty small bowel mesentery lymphadenopathy. Possible enteritis should be considered. Fleischner guidelines were followed. Discharge Plan Discharge Clinical Impression: Vomiting, Ileus Patient Disposition: Admitted As Inpatient Prescriptions: No Action tramadol 50 mg tablet 50 mg PO Q6H PRN (Reason: pain) Qty: 20 0RF ondansetron 4 mg tablet,disintegrating 4 mg PO Q6-8H PRN (Reason: nausea and vomiting) Qty: 10 0RF citalopram 10 mg tablet 10 mg PO DAILY Qty: 90 0RF lorazepam 0.5 mg tablet 0.5 mg PO BEDTIME PRN (Reason: anxiety) Qty: 10 0RF lorazepam 1 mg tablet 1 mg PO TID PRN (Reason: anxiety) Qty: 10 0RF pantoprazole [Protonix] 40 mg tablet,delayed release (DR/EC) 40 mg PO DAILY@0630 acetaminophen [Pain Reliever (acetaminophen)] 325 mg tablet 650 mg PO Q6H PRN (Reason: pain) Qty: 30 0RF oxycodone 5 mg capsule 5 mg PO Q6H PRN (Reason: severe pain (scale score 7-10)) Qty: 7 0RF Rx Instructions: Partial Fill upon patient request. oxycodone-acetaminophen [Percocet] 5-325 mg tablet 1 tab PO Q4-6H PRN (Reason: pain (scale score 7-10)) Qty: 15 0RF Rx Instructions: Partial Fill upon patient request. Print Language: Ethiopian
[2024-01-07 17:16] LABS: MANUAL DIFF FLAG NO
[2024-01-07 17:33] LABS: Basophils Percent Auto 0.2 % (0-2); Eosinophils Percent Auto 0.5 % (0-4); Hematocrit 37.9 % (37.0-47.0); Hemoglobin 12.9 g/dl (12.0-16.0); Imm Gran Abs Auto 0.03 X10*3/uL (0.00-0.03); Imm Gran Pct Auto 0.4 % (0.0-0.4); Lymphocytes Absolute Auto 2.4 X10*3/uL (1.2-4.9); Lymphocytes Percent Auto 28.9 % (20-40); Mean Corpuscular Hemoglobin 31.7 pg (27.0-33.0); Mean Corpuscular Volume 93.1 fL (80.0-98.0); Mean Platelet Volume 10.2 fL (9.4-12.3); Monocytes Absolute Auto 0.6 X10*3/uL (0.1-1.2); Monocytes Percent Auto 6.8 % (2-11); Neutrophils Absolute Auto 5.2 x10*3/uL (2.0-8.3); Neutrophils Percent Auto 63.2 % (45-73); Platelet Count 286 X10*3/uL (160-400); Red Blood Count 4.07 X10*6/uL (4.20-5.50); Red Cell Distribution Width 12.4 % (11.0-16.0); White Blood Count 8.2 X10*3/uL (4.8-10.8)
[2024-01-07 17:45] LABS: Alanine Aminotransferase 33 U/L (0-31); Albumin Level 4.3 g/dL (3.5-5.0); Alkaline Phosphatase 84 U/L (39-117); Anion Gap 17 (12-20); Aspartate Amino Transferase 26 U/L (5-31); Bilirubin Total 0.4 mg/dL (0.0-1.0); Blood Urea Nitrogen 11 mg/dL (9-16); Calcium 8.8 mg/dL (8.4-10.2); Carbon Dioxide 23 mmol/L (22-29); Chloride 108 mmol/L (96-108); Creatinine Clr Calc Pharmacy 100.4; Estimated Glomerular Filt Rate > 60; Glucose Random 84 mg/dL (60-115); Lipase 12 U/L (8-78); Potassium 3.5 mmol/L (3.3-5.1); Sodium 144 mmol/L (135-145); Total Protein 7.3 g/dL (6.5-8.0)
[2024-01-07 17:50] LABS: HCG Quantitative < 2 mIU/mL
[2024-01-07] MEDS: Morphine Sulfate 4 MG/ML CARTRIDGE IVPUSH (19:15)
[2024-01-07] MEDS: ondansetron HCL 4 MG/2 ML VIAL IVPUSH (19:15)
[2024-01-07] MEDS: 0.9 % Sodium Chloride 1,000 ML 999 ML IV ×2 (19:15→22:20)
[2024-01-07 19:22] VITALS: BP 94/61; PULSE 72; RESP 100; TEMP 36.8; O2SAT 100
[2024-01-07] MEDS: iohexoL 350 MG/ML 100 ML INFUS..BTL IV (19:49)
--- NOTE | 2024-01-07 20:02 | PC.NURSE ---
pt resting comfortably at this time. awaiting scan results. call cyril w/in reach
[2024-01-07 20:39] LABS: Appearance Urine Clear; Color Urine Yellow; Glucose Urine UA Negative (Negative); Leukocyte Esterase Urine Negative (Negative); Nitrite Urine Negative (Negative); PH 7.5 (5.0-9.0); Specific Gravity - Urine >= 1.030 (1.005-1.025); UMIC TRIGGER UACC YES; Urine Blood Trace (Negative); Urine Ketones Negative (Negative); Urine Protein Negative (Neg-Trace)
--- NOTE | 2024-01-07 20:44 | PC.NURSE ---
pt incont of loose stool. assist w/ bed change. pt washed up in bathroom, clean pants provided
[2024-01-07 20:48] LABS: Bacteria Urine None Seen (None Seen); Hyaline Casts Urine 0-2 /LPF (0-2); RBC Urine 0-2 /HPF (0-2); Squamous Epithelial Cell Urine 0-2 /HPF (0-2); WBC Urine 0-5 /HPF (0-5)
--- NOTE | 2024-01-07 21:02 | PC.NURSE ---
pt requesting medication for anxiety. provider aware
[2024-01-07 21:05] VITALS: BP 100/68; PULSE 82; RESP 18; TEMP 36.8; O2SAT 100
[2024-01-07] MEDS: LORazepam 1 MG TABLET PO (21:07)
[2024-01-07 22:17] VITALS: BP 93/56; PULSE 78; RESP 18; O2SAT 98
--- NOTE | 2024-01-07 23:02 | PC.NURSE ---
pt attempted to eat water and saltines, unable to keep down, vomit x2. provider aware
[2024-01-07] MEDS: Metoclopramide HCl 10 MG/2 ML VIAL IVPUSH (23:04)
[2024-01-07 23:58] VITALS: BP 100/55; PULSE 80; RESP 16; O2SAT 98
[2024-01-08] VITALS (8 sets, daily range): BP systolic 85–106; BP diastolic 48–61; PULSE 66–84; RESP 16–18; TEMP 36.1–36.9; O2SAT 94–99; BMI 28.1
--- NOTE | 2024-01-08 00:29 | PM.IMHP ---
History of Present Illness Date of Service: 01/08/24 Attending physician on admission: Vickey Mg Chief Complaint: Abdominal pain Rena Brady is a 38 years old woman with past medical history significant for GERD on omeprazole presents to the emergency department complaining of epigastric pain that started Friday associated with nausea, multiple events of nonbloody vomiting and diarrhea (black). She does complain of chills but denies fevers. She also reported generalized weakness and headache. Denied any acute cardiopulmonary or genitourinary symptoms. She drinks alcohol, smoke tobacco and smokes marijuana occasionally (last use was couple of weeks ago). Past surgical history is remarkable for laparoscopic cholecystectomy (10/02/22). The only medication she takes is omeprazole. Denied prior similar events, travel history and coapted with ill people. Last meal before symptoms was pizza. Chart review: Patient was evaluated on 05/2022 by gastroenterology, Dr. Swain for abdominal pain, bloating, constipation, nausea, vomiting and GERD. Underwent an EGD with biopsy July 2022 that showed linear furrows in the esophagus. Normal stomach and normal duodenal. Biopsies results: A. Duodenum, biopsy: Duodenal mucosa with patchy partial villous blunting and mildly increased intraepithelial lymphocytes. See comment. B. Stomach, random, biopsy: Antral-type and oxyntic mucosa with mild chronic inactive inflammation; no Helicobacter organisms seen. C. Esophagus, biopsy: Squamous epithelium within normal limits; no inflammation seen. COMMENT: The findings in the duodenum are non-specific. The differential diagnosis includes sequelae from prior injury, infection, medication/drugs (e.g. NSAIDs) and gluten sensitivity/celiac disease, among other etiologies. In the ED, she was found to have stable vital signs. There is no fever or tachycardia reported. O2 sats are normal on room air. Blood workup including CBC and CMP are basically unremarkable. Lipase is normal. UA showed trace blood and elevated specific gravity. Abdomen pelvis CT scan with IV contrast showed feel fluid loops and small large bowel suggestive of an ileus, question mild wall thickening and increased enhancement of the terminal ileus, Liana small bowel mesentery lymphadenopathy possibly enteritis she will be considered. Mild right hydronephrosis and proximal ureteral dilatation without stone seen. ED tx: NS 2 L bolus, Reglan 10 mg IV, Ativan 1 mg PO, Zofran 4 mg IV, morphine 4 mg IV. Review of Systems Review of Systems: All 12 systems were reviewed and normal except as noted in HPI. [facility] Medical History (Updated 01/08/24 @ 01:18 by Vickey Mg MD) Abdominal pain Hernia Anxiety Surgical History History of laparoscopic cholecystectomy (10/02/22) History of umbilical hernia repair Social History Household Members: Spouse and Children Housing: Apartment Do you presently have visiting nurse or other home services: No Unable to assess alcohol history related to: Unknown Alcohol intake: current Alcohol intake frequency: a few times a month Patient Tobacco Use Status: Current someday Tobacco user Tobacco use type: Cigarette Cigarettes Per Day: 5 Years Smoked: 20 Second Hand Smoke Exposure: No Substance Use Type: Marijuana service: No Current occupational status: employed Meds Allergies Allergy/AdvReac Type Severity Reaction Status Date / Time No Known Allergies Allergy Verified 01/07/24 17:03 [No Known Allergies*] Active Medications: Current Medications Lactated Ringer's (Lr) 1,000 mls @ 125 mls/hr IVCONT .Q8H JONY Morphine Sulfate (Morphine Sulfate 4 Mg/Ml Cartridge) 4 mg IVPUSH Q3H PRN; Protocol PRN Reason: Pain, Severe (Pain Scale 7-10) Ondansetron HCl (Ondansetron Hcl 4 Mg/2 Ml Vial) 4 mg IVPUSH Q8H PRN PRN Reason: Nausea and Vomiting Pantoprazole Sodium (Pantoprazole Sodium 40 Mg/10 Ml Vial) 40 mg IVPUSH BID [facility] Sodium Chloride (0.9 % Sodium Chloride Flush 3 Ml Syringe) 3 ml IVFLUSH QSHIFT [facility] Home Medications ?Medication ?Instructions ?Recorded ?Confirmed ?Last Taken ?Type pantoprazole 40 mg tablet,delayed 40 mg PO DAILY@0630 10/01/22 10/01/22 09/30/22 History release (Protonix) Physical Exam Vital Signs and Narrative: Vital Signs: Last Vital Signs Temp 98.2 F 01/07/24 21:05 Pulse 80 01/07/24 23:58 Resp 16 01/07/24 23:58 BP 100/55 L 01/07/24 23:58 Pulse Ox 98 01/07/24 23:58 O2 Del Method Room Air 01/07/24 23:58 BMI result Body Mass Index 27.4 Constitutional - Awake and Alert, No apparent distress. Looks fatigue. Afebrile. HEENT - Pupils equally round. Normal sclerae. Dry oral mucosa. Heart - S1S2, RRR. Lungs - Normal lung expansion, Normal respiratory effort, No respiratory distress, CTA bilaterally Abdomen - Nondistended. Increased bowel sounds. Lower hemiabdomen tenderness with mild guarding. No tenderness in the epigastrium. No rebound. Extremities - no calf tenderness bilaterally, no swelling Skin - Warm/Dry Neurological - Alert & oriented x3. No focal weakness grossly noted. Normal speech Psychological - Appropriate affect Results Labs 01/07/24 17:11 01/07/24 17:11 Labs: Laboratory Results - last 24 hr 01/07/24 01/07/24 17:11 20:33 MCV 93.1 MCH 31.7 MCHC 34.0 RDW 12.4 Plt Count 286 MPV 10.2 Immature Gran % (Auto) 0.4 Neut % (Auto) 63.2 Lymph % (Auto) 28.9 [place] % (Auto) 6.8 Eos % (Auto) 0.5 Baso % (Auto) 0.2 Lymph # (Auto) 2.4 [place] # (Auto) 0.6 Eos # (Auto) 0.0 Baso # (Auto) 0.0 Abs Immat Gran (auto) 0.03 Absolute Neuts (auto) 5.2 Absolute Nucleated RBC 0.000 Nucleated RBC % (auto) 0.0 Anion Gap 17 Estim Creat Clear Calc 100.4 Estimated GFR > 60 Random Glucose 84 Calcium 8.8 D Total Bilirubin 0.4 AST 26 ALT 33 H Alkaline Phosphatase 84 Total Protein 7.3 Albumin 4.3 Lipase 12 Beta HCG, Quant < 2 Urine Color Yellow Urine Appearance Clear Urine pH 7.5 Ur Specific [place] >= 1.030 H Urine Protein Negative Urine Glucose (UA) Negative Urine Ketones Negative Urine Blood Trace H Urine Nitrite Negative Ur Leukocyte Esterase Negative Urine RBC 0-2 Urine WBC 0-5 Ur Squamous Epith Cells 0-2 Urine Bacteria None Seen Hyaline Casts 0-2 Imaging Radiologist's Impressions: Impressions Abdomen/Pelvis CT 01/07/24 19:51 IMPRESSION: Mild right hydronephrosis and proximal ureteral dilatation. No stone seen. Fluid-filled loops of small and large bowel suggestive of an ileus. Question mild wall thickening and increased enhancement of the terminal ileum. Shotty small bowel mesentery lymphadenopathy. Possible enteritis should be considered. Fleischner guidelines were followed. Assessment and Plan (1) Ileus: Status: Acute (2) Vomiting: Qualifiers: Vomiting type: bilious vomiting Nausea presence: with nausea Qualified Code(s): R11.14 - Bilious vomiting Status: Acute (3) Diarrhea: Qualifiers: Diarrhea type: unspecified type Qualified Code(s): R19.7 - Diarrhea, unspecified Status: Acute (4) Abdominal pain: Qualifiers: Abdominal location: right lower quadrant Qualified Code(s): R10.31 - Right lower quadrant pain Status: Acute Plan Rena Brady is a 38 y/o woman with PMHx significant for GERD admitted with: Intractable nausea, vomiting, diarrhea and abdominal pain secondary to ileus + possible enteritis associated with clinical dehydration. Unclear etiology. No signs of acute infection. ?Food poisoning. Related to marijuana use? However, patient is not a marijuana heavy smoker and last use of it was couple of weeks ago. Admit to hospitalist service. NPO. Supportive therapy with IV fluids, anti-reflux and antiemetic therapy. Avoid opiates. Tylenol and Toradol for pain control. Check GI panel and occult blood test. To consider GI consult if symptoms persist. DVT prophylaxis: SCDs. Early ambulation. Code status: Full Patient will need hospitalization for at least 2 midnights for intractable nausea, vomiting, abdominal pain and diarrhea secondary to ileus treatment with IV fluids, antiemetic therapy and anti-reflux therapy. She might need evaluation by subspecialty if symptoms persist. Quality Stroke Does the patient have a stroke diagnosis?: No VTE Prior VTE?: No VTE Risk Level:: Medical - moderate - high VTE Device Contraindication: N/A - Device Ordered VTE Drug Contraindication: Treatment Not Indicated
[2024-01-08] MEDS: Morphine Sulfate 4 MG/ML CARTRIDGE IVPUSH (00:40)
[2024-01-08] MEDS: Lactated Ringers 1,000 ML 125 ML IVCONT ×4 (00:41→23:33)
[2024-01-08] MEDS: Pantoprazole Sodium 40 MG/10 ML VIAL IVPUSH ×3 (00:41→16:13)
[2024-01-08 01:45] LABS: Influenza A PCR NEGATIVE (Negative); Influenza B PCR NEGATIVE (Negative); Resp Syncy Virus RNA Qual PCR NEGATIVE (Negative); SARS COV2 PCR INHOUSE NEGATIVE (Negative)
--- NOTE | 2024-01-08 03:42 | PC.NURSE ---
BPs remain soft. MD aware
[2024-01-08] MEDS: 0.9 % Sodium Chloride 500 ML IV ×2 (03:58→05:54)
[2024-01-08] MEDS: Ketorolac Tromethamine 15 MG/ML VIAL IVPUSH (04:00)
--- NOTE | 2024-01-08 04:09 | PC.NURSE ---
per MD, IVF paused, Bolus 500ml NS
[2024-01-08] MEDS: 0.9 % Sodium Chloride Flush 3 ML SYRINGE IVFLUSH ×2 (07:30→16:13)
[2024-01-08 07:32] LABS: MANUAL DIFF FLAG NO
[2024-01-08 07:34] LABS: Basophils Percent Auto 0.2 % (0-2); Eosinophils Absolute Auto 0.1 X10*3/uL (0.0-0.4); Eosinophils Percent Auto 0.8 % (0-4); Hematocrit 32.3 % (37.0-47.0); Hemoglobin 10.9 g/dl (12.0-16.0); Imm Gran Abs Auto 0.03 X10*3/uL (0.00-0.03); Imm Gran Pct Auto 0.3 % (0.0-0.4); Lymphocytes Absolute Auto 2.9 X10*3/uL (1.2-4.9); Lymphocytes Percent Auto 31.3 % (20-40); Mean Corpuscular HGB Conc 33.7 g/dl (31.0-35.0); Mean Corpuscular Hemoglobin 31.5 pg (27.0-33.0); Mean Corpuscular Volume 93.4 fL (80.0-98.0); Mean Platelet Volume 9.8 fL (9.4-12.3); Monocytes Absolute Auto 0.6 X10*3/uL (0.1-1.2); Monocytes Percent Auto 6.1 % (2-11); Neutrophils Absolute Auto 5.6 x10*3/uL (2.0-8.3); Neutrophils Percent Auto 61.3 % (45-73); Platelet Count 224 X10*3/uL (160-400); Red Blood Count 3.46 X10*6/uL (4.20-5.50); Red Cell Distribution Width 12.6 % (11.0-16.0); White Blood Count 9.1 X10*3/uL (4.8-10.8)
[2024-01-08 07:56] LABS: Alanine Aminotransferase 23 U/L (0-31); Alkaline Phosphatase 60 U/L (39-117); Anion Gap 9 (12-20); Aspartate Amino Transferase 22 U/L (5-31); Bilirubin Total 0.3 mg/dL (0.0-1.0); Blood Urea Nitrogen 5 mg/dL (9-16); Carbon Dioxide 21 mmol/L (22-29); Chloride 114 mmol/L (96-108); Creatinine Clr Calc Pharmacy 115.2; Estimated Glomerular Filt Rate > 60; Glucose Random 84 mg/dL (60-115); Potassium 3.5 mmol/L (3.3-5.1); Sodium 140 mmol/L (135-145); Total Protein 5.1 g/dL (6.5-8.0)
[2024-01-08 08:10] LABS: Calcium 7.7 mg/dL (8.4-10.2)
--- NOTE | 2024-01-08 09:20 | PHA.MEDREC ---
Pharmacy Consult ? Medication Reconciliation Pharmacy has completed the medication reconciliation. patient sates they take lexapro 20 mg prn for anxiety. called pharmacy and they state her last chart picker was on 10/22/2022 for 90 DS of lexapro 10 mg. put in med rec how patient states she is taking.
[2024-01-08] MEDS: Throat Lozenge, Medicated LOZENGE 1 LOZENGE MUCOUS MEM ×3 (10:10→21:12)
[2024-01-08] MEDS: Morphine Sulfate 2 MG/ML CARTRIDGE IVPUSH ×3 (10:10→23:41)
--- NOTE | 2024-01-08 12:53 | PM.EVENT ---
Event Note Date of Service: 01/08/24 Event Note: This patient is seen and examined by hospitalist team this morning,seen and exmained again abd pain somewhat improving ,nausea similar ,has vomitedx2 Physical exam : similar to h&P. assessment and plan coordinated in APCs note, Agree with the plan in addition: Intractable nausea vomiting:? Ileus versus enteritis Will check ESR and CRP Continue IV fluid, try clear liquid diet, ppi, ESR CRP. The if does not improve may need GI evaluation Time Spent With Patient Time: Total time managing care of this patient today ____ minutes.
[2024-01-08 13:18] LABS: C Reactive Protein 0.55 mg/dL (< or = 0.50)
[2024-01-08 13:19] LABS: Amphetamine Screen Urine Not Detected (Not Detect); Barbiturates, Urine Not Detected (Not Detect); Benzodiazepines Screen Urine Not Detected (Not Detect); Buprenorphine Scr Not Detected (Not Detect); Cannabinoid Screen Urine Not Detected (Not Detect); Cocaine Screen Urine Not Detected (Not Detect); Fentanyl, urine Not Detected (Not Detect); Methadone Screen, Urine Not Detected (Not Detect); Opiate Screen Urine POSITIVE (Not Detect); Oxycodone Screen Urine Not Detected (Not Detect); Phencyclidine Screen Urine Not Detected (Not Detect)
[2024-01-08 13:48] LABS: Erythrocyte Sedimentation Rate 8 MM/HR (0-20)
--- NOTE | 2024-01-08 15:05 | MHC.CM.PN ---
PT REPORTS SHE LIVES WITH HER KIDS, AGES 20 AND 10. SHE IS INDEPENDENT WITH CARE AND WORKS PT HAS NO DME AND NO SERVICES PT DECLINES TO COMPLETE A HCP, BUT DID ACCEPT INFORMATION/DOCUMENT PCP: TORRES GOULD DCP: HOME NO SERVICES VIA PRIVATE TRANSPORT
[2024-01-08] MEDS: Acetaminophen 325 MG TABLET 975 MG PO (21:12)
[2024-01-09] VITALS (7 sets, daily range): BP systolic 91–119; BP diastolic 51–62; PULSE 66–74; RESP 16–18; TEMP 36.1–36.8; O2SAT 97–99
[2024-01-09] MEDS: Throat Lozenge, Medicated LOZENGE 1 LOZENGE MUCOUS MEM ×3 (04:28→21:21)
[2024-01-09] MEDS: Pantoprazole Sodium 40 MG/10 ML VIAL IVPUSH ×2 (06:17→15:35)
[2024-01-09] MEDS: Morphine Sulfate 2 MG/ML CARTRIDGE IVPUSH ×3 (06:33→21:22)
[2024-01-09] MEDS: Lactated Ringers 1,000 ML 125 ML IVCONT ×2 (08:38→16:42)
[2024-01-09] MEDS: Escitalopram Oxalate 20 MG TABLET PO (08:46)
[2024-01-09 09:33] LABS: Adenovirus PCR Not Detected (Not Detect.); Bordetella parapertussis PCR Not Detected (Not Detect.); Bordetella pertussis PCR Not Detected (Not Detect.); Chlamydia pneumoniae PCR Not Detected (Not Detect.); Coronavirus 229E PCR Not Detected (Not Detect.); Coronavirus HKU1 PCR Not Detected (Not Detect.); Coronavirus NL63 PCR Not Detected (Not Detect.); Coronavirus OC43 PCR Not Detected (Not Detect.); Human metapneumovirus PCR Not Detected (Not Detect.); Influenza A PCR Not Detected (Not Detect.); Influenza B PCR Not Detected (Not Detect.); Mycoplasma pneumoniae PCR Not Detected (Not Detect.); Parainfluenza 1 PCR Not Detected (Not Detect.); Parainfluenza 2 PCR Not Detected (Not Detect.); Parainfluenza 3 PCR Not Detected (Not Detect.); Parainfluenza 4 PCR Not Detected (Not Detect.); RSV PCR Not Detected (Not Detect.); Rhino/Enterovirus PCR Not Detected (Not Detect.)
--- NOTE | 2024-01-09 10:29 | PM.GICN ---
History of Present Illness Data of Consult Service Date: 01/09/24 Requesting physician: Yahir Torre Primary Care Provider: Alec Bailey MD HPI Reason for consult: abdo pain 38 year old female with hx of GERD on omeprazole, umbilical hernia repair, cholecystectomy who I am seeing for assessment for abdominal pain She has sudden onset periumbilical pain 10/10 without radiation and without relieving/exacerbating factors with nausea and non bloody emesis with diarrhea 4-5 d ago. She felt chills but no fever along with weakness and headache. She does drink alcohol and smokes tobacco and THC. She had pizza the night before but no one else sick at home. No foreign travel. she said she does have on and off chronic abdominal pain but this is different with severity and location She had EGD 06/01 for abdominal pain, bloating, constipation, nausea, vomiting and GERD. Underwent an EGD with biopsy July 2022 with IEL and mild villous blunting noted in duodenum. Today pain is better with morphine, no diarrhea or stool since last few days, passing gas ok, appetite still poor CT scan: fluid filled loops of small large bowel suggestive of an ileus, possible mild wall thickening and increased enhancement of the terminal ileus. Mild right hydronephrosis LABS: mild anemia, mild raised CRP, neg pregn test and lipase Review of Systems Review of Systems: Constitutional : No Weight loss, No Fever, No Chills ENT/Mouth : No sore throat, No Rhinorrhea Eyes: No Swelling, No Redness Cardiovascular : No Chest Pain, No SOB, No Edema Respiratory : No Cough, No Sputum, No Wheezing Gastrointestinal : see HPI Genitourinary : NO Dysuria, No Urinary Frequency, No Hematuria, No Urgency Musculoskeletal : no joint pain, No Myalgias, No Joint Swelling Skin : No Skin Lesions, No rash Neuro : No Weakness, No Numbness, No Dizziness, No Headache Psych : No Anxiety/Panic, No Depression Heme/Lymph: No Bruising, No Lymphadenopathy Endocrine : No Polyuria, No Polydipsia All other systems reviewed and are negative. [facility] Past Medical History Medical History (Updated 01/09/24 @ 15:39 by Blanca Cordova MD) Abdominal pain Hernia Anxiety Surgical History Surgical History History of laparoscopic cholecystectomy (10/02/22) History of umbilical hernia repair Social History Social History Household Members: Children Housing: Apartment Do you presently have visiting nurse or other home services: No Unable to assess alcohol history related to: Unknown Alcohol intake: current Alcohol intake frequency: a few times a month Patient Tobacco Use Status: Current someday Tobacco user Tobacco use type: Cigarette Cigarettes Per Day: 5 Years Smoked: 20 e-Cigarette/Vaping Use: Never Used Second Hand Smoke Exposure: No Substance Use Type: Marijuana service: No Current occupational status: employed Meds Allergies Allergy/AdvReac Type Severity Reaction Status Date / Time No Known Allergies Allergy Verified 01/07/24 17:03 [No Known Allergies*] Active Medications: Current Medications Acetaminophen (Acetaminophen 325 Mg Tablet) 975 mg PO Q6H PRN PRN Reason: mild pain, headache or fever Last Admin: 01/08/24 21:12 Dose: 975 mg Benzocaine (Throat Lozenge, Medicated Lozenge) 1 lozenge MUCOUS MEM Q2H PRN PRN Reason: Sore Throat Last Admin: 01/09/24 09:31 Dose: 1 lozenge Escitalopram Oxalate (Escitalopram Oxalate 20 Mg Tablet) 20 mg PO DAILY PRN PRN Reason: Anxiety Last Admin: 01/09/24 08:46 Dose: 20 mg Lactated Ringer's (Lr) 1,000 mls @ 125 mls/hr IVCONT .Q8H [facility] Last Admin: 01/09/24 08:38 Dose: 125 mls/hr Morphine Sulfate (Morphine Sulfate 2 Mg/Ml Cartridge) 2 mg IVPUSH Q4H PRN; Protocol PRN Reason: Pain, Moderate(Pain Scale 4-6) Last Admin: 01/09/24 06:33 Dose: 2 mg Ondansetron HCl (Ondansetron Hcl 4 Mg/2 Ml Vial) 4 mg IVPUSH Q8H PRN PRN Reason: Nausea and Vomiting Pantoprazole Sodium (Pantoprazole Sodium 40 Mg/10 Ml Vial) 40 mg IVPUSH BID@0630,1630 [facility] Last Admin: 01/09/24 06:17 Dose: 40 mg Sodium Chloride (0.9 % Sodium Chloride Flush 3 Ml Syringe) 3 ml IVFLUSH QSHIFT [facility] Last Admin: 01/09/24 08:39 Dose: Not Given Home Medications ?Medication ?Instructions ?Recorded ?Confirmed ?Last Taken ?Type escitalopram oxalate 20 mg tablet 20 mg PO DAILY PRN Anxiety 01/08/24 01/08/24 Unknown History omeprazole 40 mg capsule,delayed 40 mg PO DAILY@0630 01/08/24 01/08/24 01/07/24 History release Physical Exam Vital Signs: Vital Signs: Last Vital Signs Temp 98.2 F 01/09/24 07:30 Pulse 68 01/09/24 07:30 Resp 16 01/09/24 07:30 BP 100/51 L 01/09/24 07:30 Pulse Ox 97 01/09/24 07:30 O2 Del Method Room Air 01/09/24 07:30 BMI result Body Mass Index 28.1 EXAM: GENERAL: The patient is well developed and nontoxic. VITAL SIGNS:see workflow HEENT: Nonicteric sclerae, PERRLA, EOMI. Oropharynx clear. Moist mucous membranes. Conjunctivae appear well perfused. No thyroid mass. CHEST: Chest wall is nontender. HEART: Regular rate and rhythm without murmurs. LUNGS: Clear to auscultation bilaterally. ABDOMEN: Soft, positive bowel sounds, nontender, no organomegaly.no flank tenderness--slightly distended SKIN: No rash, no excessive bruising, petechiae, or purpura. NEUROLOGIC: Cranial nerves II-XII intact without motor/sensory deficit. Psych: normal affect Results Labs 01/08/24 07:05 01/08/24 07:05 Microbiology Microbiology Results: Microbiology 01/08/24 12:46 Throat Throat Culture - Preliminary No Group A Beta-hemolytic Streptococci isolated to date. Imaging CT scan - abdomen: Attestation: I personally reviewed and interpreted this imaging study as follows: (fluid filled loops, TI thickening , stomach thickening) Assessment and Plan (1) Periumbilical pain: Status: Acute Plan 1/ Sx could be due to viral or bacterial enteropathy, clinically no ileus. ddx: crohns disease rojelio given her chronic background pain and sx PLAN: 1 Limit opiates as able 2/ encourage fluids, and advance diet as tolerated 3/ flagyl and cipro for 7 d 4/ if sx worsen over weekend then can consider EGD and colo on Friday. otherwise can do o/p Procedures Date of Service Date of Service: 01/09/24
[2024-01-09 10:48] LABS: SARS-CoV-2 PCR Not Detected (Not Detect.)
--- NOTE | 2024-01-09 14:40 | HO.PM.IMPN ---
Subjective Subjective Date of Service: 01/09/24 Interval History: Abdominal pain Review of Systems Abdominal pain only slight improving has nausea,no vominting throat soaraness Physical Exam Vital Signs: Vital Signs: Last Vital Signs Temp 98.3 F 01/09/24 11:40 Pulse 71 01/09/24 11:40 Resp 18 01/09/24 11:40 BP 110/59 L 01/09/24 11:40 Pulse Ox 98 01/09/24 11:40 O2 Del Method Room Air 01/09/24 11:40 BMI result Body Mass Index 28.1 Appearance: Alert.? Oriented X3.? throat -seems no erythema cvs: rrr, [id number] , no murmur res: clear to auscultation ,no rhonchii or wheezing abd: no rebound or guarding ,moderate epigastric discomfort , bs present. ext pulses present , no cyanosis . neuro: axo3 , nonfocal. Objective Data Active Medications Acetaminophen (Acetaminophen 325 Mg Tablet) 975 mg PO Q6H PRN PRN Reason: mild pain, headache or fever Last Admin: 01/08/24 21:12 Dose: 975 mg Documented By: BINDU Benzocaine (Throat Lozenge, Medicated Lozenge) 1 lozenge MUCOUS MEM Q2H PRN PRN Reason: Sore Throat Last Admin: 01/09/24 09:31 Dose: 1 lozenge Documented By: CAIN Escitalopram Oxalate (Escitalopram Oxalate 20 Mg Tablet) 20 mg PO DAILY PRN PRN Reason: Anxiety Last Admin: 01/09/24 08:46 Dose: 20 mg Documented By: GOYO Lactated Ringer's (Lr) 1,000 mls @ 125 mls/hr IVCONT .Q8H [facility] Last Admin: 01/09/24 08:38 Dose: 125 mls/hr Documented By: GOYO Morphine Sulfate (Morphine Sulfate 2 Mg/Ml Cartridge) 2 mg IVPUSH Q4H PRN; Protocol PRN Reason: Pain, Moderate(Pain Scale 4-6) Last Admin: 01/09/24 11:09 Dose: 2 mg Documented By: GOYO Ondansetron HCl (Ondansetron Hcl 4 Mg/2 Ml Vial) 4 mg IVPUSH Q8H PRN PRN Reason: Nausea and Vomiting Pantoprazole Sodium (Pantoprazole Sodium 40 Mg/10 Ml Vial) 40 mg IVPUSH BID@0630,1630 [facility] Last Admin: 01/09/24 06:17 Dose: 40 mg Documented By: BINDU Sodium Chloride (0.9 % Sodium Chloride Flush 3 Ml Syringe) 3 ml IVFLUSH QSHIFT [facility] Last Admin: 01/09/24 08:39 Dose: Not Given Documented By: GOYO Non-Admin Reason: IV Running Labs 01/08/24 07:05 01/08/24 07:05 Labs: Laboratory Results - last 24 hr 01/08/24 15:35 Respiratory Panel [facility] See Note Adenovirus (Rapid PCR) Not Detected B.pert (TEM-PCR) Not Detected B.parapertussis DNA PCR Not Detected C. pneumoniae DNA (PCR) Not Detected Coronavirus OC43 (PCR) Not Detected Coronavirus HKU1 (PCR) Not Detected Coronavirus 229E (PCR) Not Detected Coronavirus NL63 (PCR) Not Detected Human Metapneumovir PCR Not Detected Influenza A (RT-PCR) Not Detected Influenza B (RT-PCR) Not Detected M. pneumoniae (PCR) Not Detected Parainfluenza 1 (PCR) Not Detected Parainfluenza 2 (PCR) Not Detected Parainfluenza 3 (PCR) Not Detected Parainfluenza 4 (PCR) Not Detected RSV (PCR) Not Detected Entero/Rhino (PCR) Not Detected SARS-CoV-2 RNA (RT-PCR) Not Detected Microbiology Microbiology Results: Microbiology 01/08/24 12:46 Throat Culture - Preliminary Throat No Group A Beta-hemolytic Streptococci isolated to date. Assessment and Plan (1) Abdominal pain: Status: Acute Assessment and Plan: 38 y/o woman with PMHx significant for GERD admitted with: Intractable nausea vomiting, abdominal pain: Possible ileus versus enteritis vs gastritis: CT abdomen: Question of ileus versus enteritis ESR normal, CRP borderline elevated GI panel need to be sent once stool available. Continue PPI, clear liquid diet, pain management with morphine, IV fluid,, antiemetics Seen by GI recommended to add IV antibiotics, and monitor, if patient does not improve further then may need possibly EGD. Need Ongoing hospitalization stay for possible ileus versus enteritis-need IV antibiotics, IV pain medications for pain, needs to be monitored clinically if does not improve may need EGD, and GI follow-up. Quality Stroke Does the patient have a stroke diagnosis?: No VTE Prior VTE?: No VTE Risk Level:: Medical - moderate - high VTE Device Contraindication: N/A - Device Ordered VTE Drug Contraindication: Treatment Not Indicated
[2024-01-09] MEDS: ondansetron HCL 4 MG/2 ML VIAL IVPUSH (15:35)
[2024-01-09] MEDS: LORazepam 1 MG TABLET PO (15:43)
[2024-01-09] MEDS: metroNIDAZOLE/NS 500 MG/100 ML PIGGYBACK 100 MG IV (16:42)
[2024-01-09] MEDS: 0.9 % Sodium Chloride Flush 3 ML SYRINGE IVFLUSH (16:43)
[2024-01-09] MEDS: levoFLOXacin/D5W 750 MG/150 ML PIGGYBACK 100 MG IV (18:04)
[2024-01-09 20:58] LABS: OBS1 POSITIVE (NEGATIVE)
[2024-01-09 20:59] LABS: OBS Int Ctl Valid YES
[2024-01-09] MEDS: Acetaminophen 325 MG TABLET 975 MG PO (23:53)
[2024-01-10] VITALS (7 sets, daily range): BP systolic 91–104; BP diastolic 52–60; PULSE 59–75; RESP 16–18; TEMP 36.1–36.7; O2SAT 95–96
[2024-01-10] MEDS: metroNIDAZOLE/NS 500 MG/100 ML PIGGYBACK 100 MG IV ×2 (04:59→16:30)
[2024-01-10] MEDS: Pantoprazole Sodium 40 MG/10 ML VIAL IVPUSH ×2 (06:05→16:29)
[2024-01-10] MEDS: Morphine Sulfate 2 MG/ML CARTRIDGE IVPUSH ×4 (08:15→23:26)
[2024-01-10] MEDS: Throat Lozenge, Medicated LOZENGE 1 LOZENGE MUCOUS MEM (08:15)
[2024-01-10] MEDS: 0.9 % Sodium Chloride Flush 3 ML SYRINGE IVFLUSH ×3 (08:15→21:20)
[2024-01-10] MEDS: Escitalopram Oxalate 20 MG TABLET PO (08:32)
[2024-01-10 09:46] LABS: Adenovirus F 40/41 Not Detected (Not Detect.); Astrovirus Not Detected (Not Detect.); Campylobacter Not Detected (Not Detect.); Cryptosporidium Not Detected (Not Detect.); Cyclospora cayetanensis Not Detected (Not Detect.); E. coli EAEC Not Detected (Not Detect.); E. coli EPEC Not Detected (Not Detect.); E. coli ETEC Not Detected (Not Detect.); E. coli STEC Not Detected (Not Detect.); Entamoeba histolytica Not Detected (Not Detect.); Giardia lamblia Not Detected (Not Detect.); Norovirus GI/GII Not Detected (Not Detect.); Plesiomonas shigelloides Not Detected (Not Detect.); Rotavirus A Not Detected (Not Detect.); Salmonella Not Detected (Not Detect.); Sapovirus Detected (Not Detect.); Shigella sp./EIEC Not Detected (Not Detect.); Vibrio Not Detected (Not Detect.); Vibrio Cholerae Not Detected (Not Detect.); Yersinia enterocolitica Not Detected (Not Detect.)
--- NOTE | 2024-01-10 10:44 | HO.PM.IMPN ---
Subjective Subjective Date of Service: 01/10/24 Interval History: Abdominal pain Review of Systems Abdominal pain similar ,has nausea hesitant for diet advancement due to above. no fever or chills Physical Exam Vital Signs: Vital Signs: Last Vital Signs Temp 97.5 F 01/10/24 07:09 Pulse 59 01/10/24 07:09 Resp 16 01/10/24 07:09 BP 101/52 L 01/10/24 07:09 Pulse Ox 96 01/10/24 07:09 O2 Del Method Room Air 01/10/24 07:09 BMI result Body Mass Index 28.1 Appearance: Alert.? Oriented X3.? throat -seems no erythema cvs: rrr, [id number] , no murmur res: clear to auscultation ,no rhonchii or wheezing abd: no rebound or guarding ,moderate epigastric discomfort , bs present. ext pulses present , no cyanosis . neuro: axo3 , nonfocal. Objective Data Active Medications Acetaminophen (Acetaminophen 325 Mg Tablet) 975 mg PO Q6H PRN PRN Reason: mild pain, headache or fever Last Admin: 01/09/24 23:53 Dose: 975 mg Documented By: BINDU Benzocaine (Throat Lozenge, Medicated Lozenge) 1 lozenge MUCOUS MEM Q2H PRN PRN Reason: Sore Throat Last Admin: 01/10/24 08:15 Dose: 1 lozenge Documented By: GOYO Escitalopram Oxalate (Escitalopram Oxalate 20 Mg Tablet) 20 mg PO DAILY PRN PRN Reason: Anxiety Last Admin: 01/10/24 08:32 Dose: 20 mg Documented By: GOYO Comments: Early administration okayed by Dr. Torre. Metronidazole (Flagyl) 500 mg in 100 mls @ 100 mls/hr IV Q12H [facility] Last Infusion: 01/10/24 06:00 Dose: Infused Documented By: BINDU Levofloxacin (Levaquin) 750 mg in 150 mls @ 100 mls/hr IV Q24H [facility] Last Infusion: 01/09/24 19:34 Dose: Infused Documented By: BINDU Morphine Sulfate (Morphine Sulfate 2 Mg/Ml Cartridge) 2 mg IVPUSH Q4H PRN; Protocol PRN Reason: Pain, Moderate(Pain Scale 4-6) Last Admin: 01/10/24 08:15 Dose: 2 mg Documented By: GOYO Ondansetron HCl (Ondansetron Hcl 4 Mg/2 Ml Vial) 4 mg IVPUSH Q8H PRN PRN Reason: Nausea and Vomiting Last Admin: 01/09/24 15:35 Dose: 4 mg Documented By: GOYO Pantoprazole Sodium (Pantoprazole Sodium 40 Mg/10 Ml Vial) 40 mg IVPUSH BID@0630,1630 [facility] Last Admin: 01/10/24 06:05 Dose: 40 mg Documented By: BINDU Sodium Chloride (0.9 % Sodium Chloride Flush 3 Ml Syringe) 3 ml IVFLUSH QSHIFT [facility] Last Admin: 01/10/24 08:15 Dose: 3 ml Documented By: GOYO Labs 01/08/24 07:05 01/08/24 07:05 Labs: Laboratory Results - last 24 hr 01/08/24 01/09/24 15:35 18:45 Stool Occult Blood POSITIVE Stl C. cayetanensis PCR Not Detected Stool Rotavirus A PCR Not Detected Stl Adenov F 40/41 PCR Not Detected Stool Astrovirus (PCR) Not Detected Stool Campylobacter PCR Not Detected Stool Cryptosporidium PCR Not Detected Stl Sh Tox Pr E STEC PCR Not Detected Stool E coli O157 PCR Not applicable Stl Enterotoxigenic E PCR Not Detected Stool EPEC (PCR) Not Detected Stool EAEC (PCR) Not Detected Stl E. histolytica PCR Not Detected Stool Giardia Lamblia PCR Not Detected Stl P. shigelloides PCR Not Detected Stool Salmonella PCR Not Detected Stool Sapovirus (PCR) Detected A Stl Shigella/EIEC PCR Not Detected St Y.enterocolitica PCR Not Detected Stool Vibrio (PCR) Not Detected Stl Vibrio cholerae PCR Not Detected Stl Norovirus GI/GII PCR Not Detected Respiratory Panel [facility] See Note Adenovirus (Rapid PCR) Not Detected B.pert (TEM-PCR) Not Detected B.parapertussis DNA PCR Not Detected C. pneumoniae DNA (PCR) Not Detected Coronavirus OC43 (PCR) Not Detected Coronavirus HKU1 (PCR) Not Detected Coronavirus 229E (PCR) Not Detected Coronavirus NL63 (PCR) Not Detected Human Metapneumovir PCR Not Detected Influenza A (RT-PCR) Not Detected Influenza B (RT-PCR) Not Detected M. pneumoniae (PCR) Not Detected Parainfluenza 1 (PCR) Not Detected Parainfluenza 2 (PCR) Not Detected Parainfluenza 3 (PCR) Not Detected Parainfluenza 4 (PCR) Not Detected RSV (PCR) Not Detected Entero/Rhino (PCR) Not Detected SARS-CoV-2 RNA (RT-PCR) Not Detected Microbiology Microbiology Results: Microbiology 01/08/24 12:46 Throat Culture - Final Throat No Group A Beta-hemolytic Streptococci isolated. Assessment and Plan (1) Abdominal pain: Status: Acute Assessment and Plan: 38 y/o woman with PMHx significant for GERD admitted with: Intractable nausea vomiting, abdominal pain: Possible ileus versus enteritis vs gastritis: CT abdomen: Question of ileus versus enteritis ESR normal, CRP borderline elevated GI panel pending,passed bm yesterday,passing gases. Continue PPI, clear liquid diet, pain management with morphine, IV fluid, antiemetics Seen by GI recommended -continue IV antibiotics, and monitor, if patient does not improve further then may need possibly EGD. Need Ongoing hospitalization stay for possible ileus versus enteritis-need IV antibiotics, IV pain medications for pain,unable to tolerate diet, needs to be monitored clinically if does not improve may need EGD, and GI follow-up. Quality Stroke Does the patient have a stroke diagnosis?: No VTE Prior VTE?: No VTE Risk Level:: Medical - moderate - high VTE Device Contraindication: N/A - Device Ordered VTE Drug Contraindication: Treatment Not Indicated
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
[2024-01-10 12:53] LABS: CDiff Gene PCR NEGATIVE (Negative)
[2024-01-10] MEDS: levoFLOXacin/D5W 750 MG/150 ML PIGGYBACK 100 MG IV (18:46)
[2024-01-10] MEDS: LORazepam 0.5 MG TABLET PO (21:19)
[2024-01-11 03:31] VITALS: BP 94/54; PULSE 66; RESP 18; TEMP 36.3; O2SAT 96
[2024-01-11] MEDS: metroNIDAZOLE/NS 500 MG/100 ML PIGGYBACK 100 MG IV (05:42)
[2024-01-11] MEDS: Pantoprazole Sodium 40 MG/10 ML VIAL IVPUSH ×2 (05:42→16:29)
[2024-01-11 08:00] VITALS: BP 95/53; PULSE 59; RESP 16; TEMP 36.4; O2SAT 96
[2024-01-11] MEDS: 0.9 % Sodium Chloride Flush 3 ML SYRINGE IVFLUSH ×2 (09:30→16:29)
[2024-01-11] MEDS: Morphine Sulfate 2 MG/ML CARTRIDGE IVPUSH (09:45)
[2024-01-11] MEDS: hydrOXYzine HCL 25 MG TABLET PO (10:09)
--- NOTE | 2024-01-11 10:46 | HE.PHANOTE ---
CHANGE LEVOFLOXACIN AND METRONIDAZOLE TO PO DOSING FROM IV PER PROTOCOL AFTER CONFIRMATION WITH DR GRACIA
--- NOTE | 2024-01-11 13:39 | HO.PM.IMPN ---
Subjective Subjective Date of Service: 01/11/24 Interval History: Abdominal pain Review of Systems Abdominal pain somewhat seems moving No fever or chills Physical Exam Vital Signs: Vital Signs: Last Vital Signs Temp 97.6 F 01/11/24 08:00 Pulse 59 01/11/24 08:00 Resp 16 01/11/24 08:00 BP 95/53 L 01/11/24 08:00 Pulse Ox 96 01/11/24 08:00 O2 Del Method Room Air 01/11/24 08:00 BMI result Body Mass Index 28.1 Appearance: Alert.? Oriented X3.? cvs: rrr, [id number] , no murmur res: clear to auscultation ,no rhonchii or wheezing abd: no rebound or guarding ,moderate epigastric discomfort , bs present. ext pulses present , no cyanosis . neuro: axo3 , nonfocal. Objective Data Active Medications Acetaminophen (Acetaminophen 325 Mg Tablet) 975 mg PO Q6H PRN PRN Reason: mild pain, headache or fever Last Admin: 01/09/24 23:53 Dose: 975 mg Documented By: BINDU Benzocaine (Throat Lozenge, Medicated Lozenge) 1 lozenge MUCOUS MEM Q2H PRN PRN Reason: Sore Throat Last Admin: 01/10/24 08:15 Dose: 1 lozenge Documented By: GOYO Escitalopram Oxalate (Escitalopram Oxalate 20 Mg Tablet) 20 mg PO DAILY PRN PRN Reason: Anxiety Last Admin: 01/10/24 08:32 Dose: 20 mg Documented By: GOYO Comments: Early administration okayed by Dr. Torre. Hydroxyzine HCl (Hydroxyzine Hcl 25 Mg Tablet) 25 mg PO BID [facility] Last Admin: 01/11/24 10:09 Dose: 25 mg Documented By: DELVIN Levofloxacin (Levofloxacin 750 Mg Tablet) 750 mg PO Q24H [facility] Metronidazole (Metronidazole 500 Mg Tablet) 500 mg PO Q12H [facility] Morphine Sulfate (Morphine Sulfate 2 Mg/Ml Cartridge) 1 mg IVPUSH Q6H PRN; Protocol PRN Reason: Pain, Moderate(Pain Scale 4-6) Ondansetron HCl (Ondansetron Hcl 4 Mg/2 Ml Vial) 4 mg IVPUSH Q8H PRN PRN Reason: Nausea and Vomiting Last Admin: 01/09/24 15:35 Dose: 4 mg Documented By: GOYO Pantoprazole Sodium (Pantoprazole Sodium 40 Mg/10 Ml Vial) 40 mg IVPUSH BID@0630,1630 [facility] Last Admin: 01/11/24 05:42 Dose: 40 mg Documented By: BINDU Sodium Chloride (0.9 % Sodium Chloride Flush 3 Ml Syringe) 3 ml IVFLUSH QSHIFT [facility] Last Admin: 01/11/24 09:30 Dose: 3 ml Documented By: CHARTN Labs 01/08/24 07:05 01/08/24 07:05 Assessment and Plan (1) Abdominal pain: Status: Acute Assessment and Plan: 38 y/o woman with PMHx significant for GERD admitted with: Intractable nausea vomiting, abdominal pain: Possible ileus versus enteritis vs gastritis: CT abdomen: Question of ileus versus enteritis ESR normal, CRP borderline elevated GI panel pending,passed bm yesterday,passing gases. Continue PPI, clear liquid diet, pain management with morphine, IV fluid, antiemetics Seen by GI recommended -continue IV antibiotics, and monitor, if patient does not improve further then may need possibly EGD. Need Ongoing hospitalization stay for possible ileus versus enteritis-need IV antibiotics, IV pain medications for pain,unable to tolerate diet, needs to be monitored clinically if does not improve may need EGD, and GI follow-up. Quality Stroke Does the patient have a stroke diagnosis?: No VTE Prior VTE?: No VTE Risk Level:: Medical - moderate - high VTE Device Contraindication: N/A - Device Ordered VTE Drug Contraindication: Treatment Not Indicated
[2024-01-11 15:08] VITALS: BP 100/55; PULSE 75; RESP 16; TEMP 36.1; O2SAT 95
--- NOTE | 2024-01-11 15:09 | PM.DS ---
DS: Providers Provider Date of Service: 01/11/24 Date of admission: 01/08/24 00:16 Date of discharge: 01/11/24 Primary care physician: Alec Bailey MD Consults: 01/09/24 08:48 Consult to Gastroenterology Routine Consulting Provider: Len Stern Reason for consultation: ABD PAIN Has provider been notified: No 01/10/24 08:32 Consult to Psychiatry Routine Consulting Provider: Psych Covering Reason for consultation: Severe anxiety / panic symptoms Attending physician on discharge: Yahir Torre Discharging clinician: Yahir Torre DS: Diagnosis Discharge Diagnosis (1) Abdominal pain: Status: Acute DS: Summary Hospital Course Hospital Course: 38 years old woman with past medical history significant for GERD on omeprazole presents to the emergency department complaining of epigastric pain that started Friday associated with nausea, multiple events of nonbloody vomiting and diarrhea (black). She does complain of chills but denies fevers. She also reported generalized weakness and headache. Denied any acute cardiopulmonary or genitourinary symptoms. She drinks alcohol, smoke tobacco and smokes marijuana occasionally (last use was couple of weeks ago). Past surgical history is remarkable for laparoscopic cholecystectomy (10/02/22). The only medication she takes is omeprazole. Denied prior similar events, travel history and coapted with ill people. Last meal before symptoms was pizza. Chart review: Patient was evaluated on 05/2022 by gastroenterology, Dr. Swain for abdominal pain, bloating, constipation, nausea, vomiting and GERD. Underwent an EGD with biopsy July 2022 that showed linear furrows in the esophagus. Normal stomach and normal duodenal. Hospital course: Patient came to the hospital because of intractable nausea vomiting and abdominal pain: No leukocytosis, fever, CT abdomen shows some possible enteritis: Started on IV fluids, antiemetics, also given antibiotics, and GI panel and C diff PCR sent, ESR normal, CRP borderline elevated.: With above supportive care patient seems to be improved significantly: Tolerating diet, C diff PCR negative, GI P panel positive for sapovirus. Discussed GI: Recommended to add PPI upon discharge for some possible gastritis and will defer antibiotics since patient most likely has viral enteritis. Initial CT also showed question of ileus versus enteritis, patient is passing bowels and gas, tolerating diet, patient need to follow up with GI outpatient for colonoscopy and EGD. Mild normocytic anemia: Monitor CBC outpatient. Patient has occult blood positive, discussed with GI- Further workup outpatient. Anxiety: Patient take escitalopram, she requested for hydroxyzine 25 mg p.o. b.i.d. p.r.n. which we added, discuss further use of Effexor outpatient with her psych. Patient will go home with omeprazole 20 mg daily . plan: Continue omeprazole 20 mg daily, further GI workup outpatient possible: Colonoscopy and EGD. Monitor CBC. Follow-up with psych for anxiety-further consideration of if using Effexor outpatient, added hydroxyzine limited supply 30 tablets(patient requested 20 mg p.o. b.i.d.) Above management discussed with the patient detail and she understand and in agreement with the above plan, time spent 40 minute. Time Attestation Total time managing care of this patient today: 40 mintues. Discharge Coordination Time (in mins): 40 min Quality: Safe Use of Opioids Does Pt have an Active Cancer Diagnosis on the Problem List?: No Quality: Stroke Does the patient have a stroke diagnosis?: No Physical Exam Vital Signs: Vital Signs: Last Vital Signs Temp 97.0 F 01/11/24 15:08 Pulse 75 01/11/24 15:08 Resp 16 01/11/24 15:08 BP 100/55 L 01/11/24 15:08 Pulse Ox 95 01/11/24 15:08 O2 Del Method Room Air 01/11/24 15:08 BMI result Body Mass Index 28.1 Appearance: Alert.? Oriented X3.?. cvs: rrr, [id number] , no murmur res: clear to auscultation ,no rhonchii or wheezing abd: no rebound or guarding ,nt, bs present. ext pulses present , no cyanosis . neuro: axo3 , nonfocal. DS: Data Imaging Chest x-ray: Radiologist's impression: ITS Impressions Abdomen/Pelvis CT 01/07/24 19:51 IMPRESSION: Mild right hydronephrosis and proximal ureteral dilatation. No stone seen. Fluid-filled loops of small and large bowel suggestive of an ileus. Question mild wall thickening and increased enhancement of the terminal ileum. Shotty small bowel mesentery lymphadenopathy. Possible enteritis should be considered. Fleischner guidelines were followed. Discharge Plan Discharge Anticipated Discharge Date/Time: 01/11/24 15:00 Patient Disposition: Home, Self-Care Discharge Diagnosis: Possible viral enteritis Referrals: Blanca Cordova MD [Physician] - 1 Week Alec Bailey MD [Primary Care Provider] - 1 Week Discharge Medications: New hydroxyzine HCl 25 mg Tablet 25 mg PO BID PRN (Reason: anxiety/restlessness) Qty: 30 0RF Continued acetaminophen [Pain Reliever (acetaminophen)] 325 mg tablet 650 mg PO Q6H PRN (Reason: pain) Qty: 30 0RF omeprazole 40 mg Capsule,Delayed Release(Dr/Ec) 40 mg PO DAILY@0630 escitalopram oxalate 20 mg Tablet 20 mg PO DAILY PRN (Reason: Anxiety) Discharge Orders: Discharge Order (Routine); Ordered 01/11/24 Ordered By: Yahir Torre Diet: Advance to usual diet Activity on Discharge: As tolerated Stand Alone Forms: Patient Portal Discharge page Print Language: Greek Care Plan Goals: Patient came to the hospital because of intractable nausea vomiting and abdominal pain: No leukocytosis, fever, CT abdomen shows some possible enteritis: Started on IV fluids, antiemetics, also given antibiotics, and GI panel and C diff PCR sent, ESR normal, CRP borderline elevated.: With above supportive care patient seems to be improved significantly: Tolerating diet, C diff PCR negative, GI P panel positive for sapovirus. Discussed GI: Recommended to add PPI upon discharge for some possible gastritis and will defer antibiotics since patient most likely has viral enteritis. Initial CT also showed question of ileus versus enteritis, patient is passing bowels and gas, tolerating diet, patient need to follow up with GI outpatient for colonoscopy and EGD. Anxiety: Patient take escitalopram, she requested for hydroxyzine 25 mg p.o. b.i.d. p.r.n. which we added, discuss further use of Effexor outpatient with her psych. Patient will go home with omeprazole 20 mg daily Health Concerns: As above. Plan of Treatment: As above. Assessment: As above. Discharge Date/Time: 01/11/24 16:45
--- NOTE | 2024-01-11 15:37 | MHC.CM.PN ---
PT WILL DC HOME TODAY WITH NO SERVICES VIA PRIVATE TRANSPORT
[2024-01-11] MEDS: Acetaminophen 325 MG TABLET 975 MG PO (16:29)
== END 2024-01-11 16:45 | disposition home or self-care (01) | DRG 249 ==
LOC: HO.ED 23:58 → HO.EDOVER 01-08 00:21 → HO.S3 01-08 05:35
PROVIDERS: Physician Assistant; Admitting Provider Internal Medicine; Emergency Provider Emergency Medicine; PCP Internal Medicine; Visit Provider Internal Medicine
DX: A08.4 Viral intestinal infection, unspecified (principal); K56.7 Ileus, unspecified; D64.9 Anemia, unspecified; E86.0 Dehydration; F17.210 Nicotine dependence, cigarettes, uncomplicated; Z71.6 Tobacco abuse counseling; F41.1 Generalized anxiety disorder; K21.9 Gastro-esophageal reflux disease without esophagitis; F41.0 Panic disorder [episodic paroxysmal anxiety]; Z20.822 Contact with and (suspected) exposure to COVID-19; Z79.899 Other long term (current) drug therapy
CPT/HCPCS: 0241U; 36415; 74177; 80053; 80307; 81001; 82272; 83690; 84702; 85025; 85652; 86140; 87070; 87493; 87507; 87633; 99285; C9113; J1836; J1885; J1956; J2270; J2405; J2765; J7120; Q9967

== ENCOUNTER → 2024-01-08 00:16 | Outpatient (BNV) | payer OTHER, SELFPAY | PROVIDERS: Admitting Provider Internal Medicine; Emergency Provider Emergency Medicine; PCP Internal Medicine; Visit Provider Internal Medicine | DX: R10.31 Right lower quadrant pain (principal); R11.14 Bilious vomiting | CPT/HCPCS: 99222; 99232; 99239; 99499 ==

== ENCOUNTER → 2024-01-08 00:16 | Outpatient (BNV) | payer OTHER, SELFPAY | PROVIDERS: Admitting Provider Internal Medicine; Emergency Provider Emergency Medicine; PCP Internal Medicine; Visit Provider Internal Medicine Gastroenterology | DX: R10.33 Periumbilical pain (principal) | CPT/HCPCS: 99223 ==

== ENCOUNTER → 2024-01-08 00:16 | Outpatient (BNV) | payer OTHER, SELFPAY | PROVIDERS: Admitting Provider Internal Medicine; Emergency Provider Emergency Medicine; PCP Internal Medicine; Visit Provider Psychiatry & Neurology Psychiatry | DX: F41.1 Generalized anxiety disorder (principal); F41.0 Panic disorder [episodic paroxysmal anxiety] | CPT/HCPCS: 99222; 99232 ==

== ENCOUNTER 2024-01-14 15:33 | Outpatient (AMB) | payer OTHER, SELFPAY ==
--- NOTE | 2024-01-14 15:36 | A.OFFVIS_ITS ---
Vital Signs 01/14/24 15:39 01/14/24 15:40 Height 5 ft 2 in 5 ft 2 in Weight 143 lb 4.807 oz BMI 26.2 BP 103/64 Blood Pressure Location Lt brachial Position Sitting Pulse 82 Intake Visit Reasons: ER follow up Intake Note: Rena presents in the office as a ER follow up. CC: She states that she is feeling okay but she is still in pains. Right now she has a cramping in the middle of her abdomen. Constiation is always there. She states she went friday and then had another BM yesterday. Allergies No Known Allergies [No Known Allergies*] Allergy (Verified 01/30/24 17:11) HPI Comments Details: This is a 36-year-old female who is here for abdominal pain follow up. 05/14/22: History was gained from the patient, who states that for the past 3-4 months, she has been having intermittent epigastric pain that radiates to her back as well as seems to go down into her lower back. This is associated with nausea and vomiting as well as decreased appetite. Pain worsens with food. Notices it mostly at nighttime. Last 2-3 hours before getting better. Was seen in the emergency room for the same and was started on Protonix 40 mg which seems to have helped the most so far. Had normal workup including LFTs at that time. Denies any blood in vomiting, changes in stool habits, blood in stool. Does not take any blood thinners, has not taken any NSAIDs in the past 3 months. Does smoke, 1-2 cigarettes a day. Occasional alcohol use. No family history of gallbladder or liver disease. No recent changes in medication or travel. 01/14/24: In the interim pt had been seen by general surgery and underwent CCY and was doing well. Here for follow up after she was seen in hospital for what appears to be acute infectious illness. Lasted almost 2 weeks but was worst for initial 3-4 days for which went to the hospital. +Sapovirus positive. Now doing well. In fact is occasionally constipated. Has occ periumbilical pain rojelio post prandially. PFSH Medical History Abdominal pain Hernia Anxiety Surgical History History of laparoscopic cholecystectomy (10/02/22) History of umbilical hernia repair Social History Household Members: Children Housing: Apartment Do you presently have visiting nurse or other home services: No Unable to assess alcohol history related to: Unknown Alcohol intake: current Alcohol intake frequency: a few times a month Patient Tobacco Use Status: Current someday Tobacco user Tobacco use type: Cigarette Cigarettes Per Day: 5 Years Smoked: 20 Smoked in Last 30 Days: No e-Cigarette/Vaping Use: Never Used Second Hand Smoke Exposure: No Substance Use Type: Marijuana Advance Directives: No Advance Directives Information Provided: No Do you have a plan to hurt others: No Plan service: No Current occupational status: employed Review of Systems Const All systems reviewed & are unremarkable except as noted in HPI and below Physical Exam Vital Signs: Last Vital Signs Pulse 82 01/14/24 15:39 BP 103/64 01/14/24 15:39 BMI result Body Mass Index 26.2 No apparent distress Nonicteric Abdomen soft, nondistended Alert and oriented x3, normal gait Assessment & Plan Assessment & Plan (1) Periumbilical pain: Code(s): R10.33 - Periumbilical pain Category: Medical (2) Gastroenteritis due to sapovirus: Code(s): A08.31 - Calicivirus enteritis Category: Medical Plan Pt reassured that sapovirus is typically food borne illness that is self limi niki. Does not lead to chronic infection/illness. Pt also without any diarrhea now. Intermittent postprandial pain is likely unrelated. Suspect may have mild gastritis vs EPS. PPI will be refilled. Requests recheck labs to ensure no white count or metabolic abnl remain as prev noted before her discharge. These have been ordered and can be done by the pt electively. Follow up if results abnl otherwise PRN Orders: Orders Complete Blood Count no Diff 01/14/24 R10.33 - Periumbilical pain Basic Metabolic Panel 01/14/24 R10.33 - Periumbilical pain Medications: Changed From omeprazole 40 mg PO DAILY@0630 To omeprazole 40 mg PO DAILY 90 caps 0RF Coding Level of Care Code Est Pt Level 3 (01777) Diagnoses Periumbilical pain R10.33 Gastroenteritis due to sapovirus A08.31
[2024-01-14 15:39] VITALS: BP 103/64; PULSE 82; BMI 26.2
== END 2024-01-14 16:04 | disposition home or self-care (01) ==
PROVIDERS: PCP Internal Medicine; Visit Provider Internal Medicine
DX: R10.33 Periumbilical pain (principal); A08.31 Calicivirus enteritis
CPT/HCPCS: 99213

== ENCOUNTER → 2024-01-14 15:33 | Outpatient (BNVA) | payer OTHER, SELFPAY | PROVIDERS: PCP Internal Medicine; Visit Provider Internal Medicine | DX: Z09 Encounter for follow-up examination after completed treatment for conditions other than malignant neoplasm (principal); R10.33 Periumbilical pain; A08.31 Calicivirus enteritis | CPT/HCPCS: 99212 ==

== ENCOUNTER 2024-01-30 16:56 | Emergency (ER) | payer OTHER, SELFPAY ==
--- NOTE | ~2024-01-30 | XR_ITS ---
EXAMINATION: XR ABDOMEN KUB CLINICAL INDICATION: Constipation COMPARISON: None available. TECHNIQUE: AP view of the abdomen. FINDINGS: The bowel gas pattern is normal with no evidence of ileus or obstruction. No abnormally dilated bowel loop. Large volume of stool in the colon from cecum through the pelvis. No unusual soft tissue calcifications are noted. Surgical clips right upper quadrant of abdomen. IUD in the central pelvis. The bones are unremarkable. XR/XR KUB IMPRESSION: Large volume of stool in colon. Nonobstructive bowel pattern.
[2024-01-30 17:10] VITALS: BP 104/63; PULSE 81; RESP 18; TEMP 36.8; O2SAT 99; BMI 27.7
--- NOTE | 2024-01-30 17:12 | ED.GENADULT ---
HPI - General Adult General Chief complaint: Abdominal Pain Stated complaint: Lower R side abdominal pain Time Seen by Provider: 01/30/24 19:13 History of Present Illness ED Provider: Paul ROTHMAN narrative: The patient is a 38-year-old woman who comes to the emergency room saying she has had worsening abdominal pains over the last 3 or 4 days. This seems to be associated with a sense of constipation. She feels she has not been able to pass a bowel movement for the last 3 or 4 days either. She has no urinary discomfort. She has had some nausea but no vomiting. She has had no diarrhea. She has been able to eat. The patient presented to the emergency room with abdominal symptoms 3 weeks ago at the end of December. At that time she had a CT scan of the abdomen and pelvis that showed an ileus. She was hospitalized because of an inability to tolerate oral intake. Stool studies were sent and she was ultimately found to be positive for sapovirus from her stool studies. The patient says that her symptoms today are different from the symptoms that presented at the end of December. On that occasion she had nausea, vomiting, and diarrhea combined with the abdominal pain. Today she has abdominal pain and a sense of constipation. No diarrhea. Some mild nausea but no vomiting. No fevers. Related Data Home Medications ?Medication ?Instructions ?Recorded ?Confirmed escitalopram oxalate 20 mg tablet 20 mg PO DAILY PRN Anxiety 01/08/24 01/08/24 Previous Rx's ?Medication ?Instructions ?Recorded acetaminophen 325 mg tablet (Pain 650 mg (2 x 325 mg) PO Q6H PRN 04/15/23 Reliever (acetaminophen)) pain #30 tabs hydroxyzine HCl 25 mg tablet 25 mg PO BID PRN 01/11/24 anxiety/restlessness #30 tabs trazodone 50 mg tablet 25 mg (1/2 x 50 mg) PO BID PRN 01/11/24 pain (scale score 4-6) #14 tabs omeprazole 40 mg capsule,delayed 40 mg PO DAILY #90 caps 01/14/24 release Allergies Allergy/AdvReac Type Severity Reaction Status Date / Time No Known Allergies Allergy Verified 01/30/24 17:11 [No Known Allergies*] Review of Systems Review of Systems: Yes all other systems are reviewed and are negative PMFSH Past Medical History Medical History Abdominal pain Hernia Anxiety Surgical History History of laparoscopic cholecystectomy (10/02/22) History of umbilical hernia repair Social History Social History Household Members: Children Housing: Apartment Do you presently have visiting nurse or other home services: No Unable to assess alcohol history related to: Unknown Alcohol intake: current Alcohol intake frequency: a few times a month Patient Tobacco Use Status: Current someday Tobacco user Tobacco use type: Cigarette Cigarettes Per Day: 5 Years Smoked: 20 Smoked in Last 30 Days: No e-Cigarette/Vaping Use: Never Used Second Hand Smoke Exposure: No Substance Use Type: Marijuana Advance Directives: No Advance Directives Information Provided: No Do you have a plan to hurt others: No Plan service: No Current occupational status: employed Physical Exam ED Vital Signs: Vital Signs - 24 hr 01/30/24 17:10 01/30/24 19:05 01/30/24 21:59 Temperature 98.2 F 98.1 F 97.7 F Pulse Rate 81 78 80 Respiratory Rate 18 16 16 Blood Pressure 104/63 99/57 L 100/58 L Pulse Oximetry 99 99 99 Oxygen Delivery Method Room Air Room Air Room Air BMI result Body Mass Index 27.7 Const Other: Patient was awake and alert. She seemed tired and possibly mildly uncomfortable but not obviously acutely ill or toxic in any way. HENMT Other: Face is symmetrical, mucous membranes moist. Eyes Other: Pupils are round equal, conjunctivae clear Neck Other: No neck swelling, moving her neck easily Resp Effort & Inspection: normal respiratory effort Auscultation: clear to auscultation bilaterally Cardio Rate: regular rate Rhythm: regular rhythm Heart sounds: S1 normal heart sound present and S2 normal heart sound present GI Other: The abdomen was soft and I really did not appreciate any tenderness in any quadrant. Rectal exam revealed good rectal tone. No fecal impaction. There was no particular stool in the rectum. Skin Other: Skin is dry and unremarkable Neuro Other: The patient is awake and alert with a normal mental status although she seems tired. Cranial nerves are grossly intact. She moves her extremities symmetrically and appropriately. Grossly neurologically intact Extrem Other: No peripheral edema. Course Course Course Narrative: KIM performed by Soni Huizar PA-C. Patient is a 38 year old assigned female at presenting to the emergency department with abdominal pain. Patient states she was seen for the same thing a few weeks ago but now it is back. Patient states that it is in the right lower part of her abdomen. Detailed physical exam and review of systems are deferred to the medical technologist. Labs ordered. Patient placed back in the waiting room pending room availability and results. Medications Administered Discontinued Medications Generic Name Dose Route Start Last Admin Trade Name Freq PRN Reason Stop Dose Admin Sodium Chloride 1,000 mls @ 999 mls/hr 01/30/24 19:30 01/30/24 21:28 Ns IV 01/30/24 20:30 Infused .Q1H1M JONY Infusion Ketorolac Tromethamine 10 mg 01/30/24 19:21 01/30/24 19:50 Ketorolac Tromethamine 15 Mg/Ml Vial IVPUSH 01/30/24 19:22 10 mg ONCE ONE Administration Metoclopramide HCl 10 mg 01/30/24 19:21 01/30/24 19:51 Metoclopramide Hcl 10 Mg/2 Ml Vial IVPUSH 01/30/24 19:22 10 mg ONCE ONE Administration Sodium Biphosphate/Sodium Phosphate 133 ml 01/30/24 20:59 01/30/24 21:17 Sodium Phosphate,[place]-Dibasic 133 Ml Enema MS 01/30/24 21:00 133 ml ONCE ONE Administration Medical Decision Making Medical Decision Making MDM Narrative: The patient is a 38-year-old female who presents complaining of abdominal pain and also complaining of a sense of constipation. On rectal exam there is no fecal impaction. KUB suggested a large stool volume however elsewhere in the colon. Labs are unremarkable. The patient was given ketorolac and Reglan for symptomatic treatment. The patient was given a Fleet enema. She had a large bowel movement and felt considerably better. She was discharged. Lab Data 01/30/24 18:04 01/30/24 18:04 Labs: Lab Results 01/30/24 Range/Units 18:04 WBC 11.8 H (4.8-10.8) X10*3/uL RBC 3.84 L (4.20-5.50) X10*6/uL Hgb 12.1 (12.0-16.0) g/dl Hct 35.5 L (37.0-47.0) % MCV 92.4 (80.0-98.0) fL MCH 31.5 (27.0-33.0) pg MCHC 34.1 (31.0-35.0) g/dl RDW 13.2 (11.0-16.0) % Plt Count 297 D (160-400) X10*3/uL MPV 9.7 (9.4-12.3) fL Immature Gran % (Auto) 0.4 (0.0-0.4) % Neut % (Auto) 48.2 (45-73) % Lymph % (Auto) 42.3 H (20-40) % [place] % (Auto) 7.7 (2-11) % Eos % (Auto) 1.0 (0-4) % Baso % (Auto) 0.4 (0-2) % Lymph # (Auto) 5.0 H (1.2-4.9) X10*3/uL [place] # (Auto) 0.9 (0.1-1.2) X10*3/uL Eos # (Auto) 0.1 (0.0-0.4) X10*3/uL Baso # (Auto) 0.1 (0.0-0.2) X10*3/uL Abs Immat Gran (auto) 0.05 H (0.00-0.03) X10*3/uL Absolute Neuts (auto) 5.7 (2.0-8.3) x10*3/uL Absolute Nucleated RBC 0.000 (0.0-0.012) X10*3/uL Nucleated RBC % (auto) 0.0 (0.0-0.2) /100WBC Smear Tech's Comments VERIFIED ESR 11 (0-20) MM/HR Sodium 141 (135-145) mmol/L Potassium 4.0 (3.3-5.1) mmol/L Chloride 107 (96-108) mmol/L Carbon Dioxide 23 (22-29) mmol/L Anion Gap 15 (12-20) BUN 13 (9-16) mg/dL Creatinine 0.70 (0.5-1.4) mg/dL Estim Creat Clear Calc 98.0 Estimated GFR > 60 Random Glucose 98 (60-115) mg/dL Calcium 9.3 D (8.4-10.2) mg/dL Magnesium 2.0 (1.6-2.6) mg/dL Total Bilirubin 0.5 (0.0-1.0) mg/dL AST 21 (5-31) U/L ALT 24 (0-31) U/L Alkaline Phosphatase 80 (39-117) U/L C-Reactive Protein 0.20 (< or = 0.50) mg/dL Total Protein 7.3 (6.5-8.0) g/dL Albumin 4.2 (3.5-5.0) g/dL Beta HCG, Quant < 2 mIU/mL Influenza Type A (PCR) NEGATIVE (Negative) Influenza Type B (PCR) NEGATIVE (Negative) RSV RNA Qual (PCR) NEGATIVE (Negative) SARS-CoV-2 RNA (RT-PCR) NEGATIVE (Negative) Discharge Plan Discharge Clinical Impression: Constipation Abdominal pain Qualifiers: Abdominal location: right lower quadrant Qualified Code(s): R10.31 - Right lower quadrant pain Patient Disposition: Home, Self-Care Instructions: Constipation (ED) Additional Instructions: I believe that your abdominal pain was likely caused by a fair amount of constipation. I would recommend using polyethylene glycol (this is the ingredient of the brand name product MiraLax). You may purchase MiraLax or a store brand with a similar ingredient. Please take a dose of this every day until you feel you are significantly relieved from your constipation. The usual dose is a capful (17 g) in a large glass of water. Please also read the accompanying information about constipation and possible dietary changes. Please plan on following up with your regular doctor or your kids club attendant. Return to the emergency room if worse. Prescriptions: No Action acetaminophen [Pain Reliever (acetaminophen)] 325 mg tablet 650 mg PO Q6H PRN (Reason: pain) Qty: 30 0RF escitalopram oxalate 20 mg Tablet 20 mg PO DAILY PRN (Reason: Anxiety) hydroxyzine HCl 25 mg Tablet 25 mg PO BID PRN (Reason: anxiety/restlessness) Qty: 30 0RF trazodone 50 mg tablet 25 mg PO BID PRN (Reason: pain (scale score 4-6)) Qty: 14 0RF omeprazole 40 mg capsule,delayed release(DR/EC) 40 mg PO DAILY Qty: 90 0RF Referrals: Alec Bailey MD [Primary Care Provider] - (Constipation) Radha Swain MD [Physician] - (Constipation) Interventions: ED Discharge Assessment Last Done: 01/30/24 21:59 Discharge Date/Time: 01/30/24 22:06 Print Language: Amharic
[2024-01-30 18:09] LABS: Basophils Absolute Auto 0.1 X10*3/uL (0.0-0.2); Basophils Percent Auto 0.4 % (0-2); Eosinophils Absolute Auto 0.1 X10*3/uL (0.0-0.4); Hematocrit 35.5 % (37.0-47.0); Hemoglobin 12.1 g/dl (12.0-16.0); Imm Gran Abs Auto 0.05 X10*3/uL (0.00-0.03); Imm Gran Pct Auto 0.4 % (0.0-0.4); Lymphocytes Percent Auto 42.3 % (20-40); MANUAL DIFF FLAG SCAN; Mean Corpuscular HGB Conc 34.1 g/dl (31.0-35.0); Mean Corpuscular Hemoglobin 31.5 pg (27.0-33.0); Mean Corpuscular Volume 92.4 fL (80.0-98.0); Mean Platelet Volume 9.7 fL (9.4-12.3); Monocytes Absolute Auto 0.9 X10*3/uL (0.1-1.2); Monocytes Percent Auto 7.7 % (2-11); Neutrophils Absolute Auto 5.7 x10*3/uL (2.0-8.3); Neutrophils Percent Auto 48.2 % (45-73); Platelet Count 297 X10*3/uL (160-400); Red Blood Count 3.84 X10*6/uL (4.20-5.50); Red Cell Distribution Width 13.2 % (11.0-16.0); SCAN SMEAR FLAG 1; White Blood Count 11.8 X10*3/uL (4.8-10.8)
[2024-01-30 18:35] LABS: Alanine Aminotransferase 24 U/L (0-31); Albumin Level 4.2 g/dL (3.5-5.0); Alkaline Phosphatase 80 U/L (39-117); Anion Gap 15 (12-20); Aspartate Amino Transferase 21 U/L (5-31); Bilirubin Total 0.5 mg/dL (0.0-1.0); Blood Urea Nitrogen 13 mg/dL (9-16); Calcium 9.3 mg/dL (8.4-10.2); Carbon Dioxide 23 mmol/L (22-29); Chloride 107 mmol/L (96-108); Estimated Glomerular Filt Rate > 60; Glucose Random 98 mg/dL (60-115); Sodium 141 mmol/L (135-145); Total Protein 7.3 g/dL (6.5-8.0)
[2024-01-30 18:37] LABS: HCG Quantitative < 2 mIU/mL
[2024-01-30 18:40] LABS: SLIDE REVIEW VERIFIED
[2024-01-30 19:05] VITALS: BP 99/57; PULSE 78; RESP 16; TEMP 36.7; O2SAT 99
[2024-01-30 19:07] LABS: Influenza A PCR NEGATIVE (Negative); Influenza B PCR NEGATIVE (Negative); Resp Syncy Virus RNA Qual PCR NEGATIVE (Negative); SARS COV2 PCR INHOUSE NEGATIVE (Negative)
[2024-01-30] MEDS: 0.9 % Sodium Chloride 1,000 ML 999 ML IV (19:48)
[2024-01-30] MEDS: Ketorolac Tromethamine 15 MG/ML VIAL 10 MG IVPUSH (19:50)
[2024-01-30] MEDS: Metoclopramide HCl 10 MG/2 ML VIAL IVPUSH (19:51)
[2024-01-30 20:32] LABS: Erythrocyte Sedimentation Rate 11 MM/HR (0-20)
[2024-01-30] MEDS: Sodium Phosphate,Mono-Dibasic 133 ML ENEMA PR (21:17)
--- NOTE | 2024-01-30 21:19 | PC.NURSE ---
rectal exam completed at bedside with RN present. Fleets enema given by MD at bedside with instructions and information regarding the use of a fleets enema. patient verbalized understsanding.
[2024-01-30 21:59] VITALS: BP 100/58; PULSE 80; RESP 16; TEMP 36.5; O2SAT 99
== END 2024-01-30 22:06 | disposition home or self-care (01) ==
PROVIDERS: Physician Assistant Medical; Emergency Provider Emergency Medicine; PCP Internal Medicine
DX: R10.31 Right lower quadrant pain (principal); R11.0 Nausea; K59.00 Constipation, unspecified; R11.2 Nausea with vomiting, unspecified; Z79.899 Other long term (current) drug therapy; Z03.818 Encounter for observation for suspected exposure to other biological agents ruled out
CPT/HCPCS: 0241U; 74018; 80053; 83735; 84702; 85025; 85652; 86140; 96361; 96374; 96375; 99284; 99285; J1885; J2765

== ENCOUNTER 2024-09-22 13:28 | Emergency (ER) | payer SELFPAY ==
--- NOTE | ~2024-09-22 | XR_ITS ---
EXAMINATION: XR LUMBOSACRAL SPINE CLINICAL INFORMATION: low back pain x1 week, no known injury. COMPARISON: Correlation made with CT abdomen pelvis 01/07/2024. TECHNIQUE: Three views of the lumbosacral spine. FINDINGS: The vertebral bodies and posterior elements are normal. Alignment is normal. There is minimal disc space narrowing at L5-S1. Facets are normally aligned without pars defects or significant arthritis. The paraspinal soft tissues are normal. IUD noted within the pelvis. There are cholecystectomy clips present. XR/XR lumbar spine 2-3V IMPRESSION: No acute findings lumbar spine. Mild disc degeneration L5-S1. Electronically signed by: Giorgio Welch MD 09/22/2024 02:42 PM EST
[2024-09-22 13:52] VITALS: BP 108/70; PULSE 108; RESP 20; TEMP 36.6; O2SAT 100; BMI 28.5
--- NOTE | 2024-09-22 13:52 | ED_ITS ---
HPI - Back Pain/Injury General Chief Complaint: Back Pain/Injury Stated Complaint: Back Pain and Sinus Pressure Time Seen by Provider: 09/22/24 17:24 Source: patient and old records reviewed Mode of arrival: ambulatory Limitations: no limitations History of Present Illness ED Provider: ROSALES ROTHMAN Narrative: 39 yo female with PMH of anxiety, biliary colic s/p lap paul here with low back pain since without b/b incontinence or saddle anesthesia, no IVDA she also just started with a cough and nasal congestion yesterday. She has been taking tylenol and her aunt's flexeril but no relief. MD elicited complaint: back pain Pertinent past history: prior back pain Onset (ago): day(s) () Timing: constant Severity: moderate Similar Symptoms Previously: Yes Quality: spasming and throbbing Location: lumbar spine Radiation: none Exacerbating factors: movement Relieving factors: immobilization Context: while lifting Associated symptoms: other (cough and runny nose) Treatments prior to arrival: acetaminophen and other medications Work related injury: No Related Data Home Medications ?Medication ?Instructions ?Recorded ?Confirmed escitalopram oxalate 20 mg tablet 20 mg PO DAILY PRN Anxiety 01/08/24 01/08/24 Previous Rx's ?Medication ?Instructions ?Recorded acetaminophen 325 mg tablet (Pain 650 mg (2 x 325 mg) PO Q6H PRN 04/15/23 Reliever (acetaminophen)) pain #30 tabs hydroxyzine HCl 25 mg tablet 25 mg PO BID PRN 01/11/24 anxiety/restlessness #30 tabs trazodone 50 mg tablet 25 mg (1/2 x 50 mg) PO BID PRN 01/11/24 pain (scale score 4-6) #14 tabs omeprazole 40 mg capsule,delayed 40 mg PO DAILY #90 caps 01/14/24 release ibuprofen 600 mg tablet 600 mg PO Q6H PRN pain #30 tabs 09/22/24 methocarbamol 750 mg tablet 750 mg PO Q8H PRN muscle spasm #30 09/22/24 tabs oseltamivir 75 mg capsule (Tamiflu) 75 mg PO BID 5 days #10 caps 09/22/24 Allergies Allergy/AdvReac Type Severity Reaction Status Date / Time No Known Allergies Allergy Verified 09/22/24 13:54 [No Known Allergies*] Review of Systems Review of Systems: Constitutional : No Weight loss, No Fever, No Chills, ENT/Mouth : No Hearing loss, No Ear Pain, No Nasal Congestion, No Sinus Pain, No Hoarseness, No sore throat, No Rhinorrhea, No Swallowing Difficulty Cardiovascular : No Chest Pain, No SOB Respiratory : No Cough, No Dyspnea Gastrointestinal : No Nausea, No Vomiting, No Diarrhea, No abdominal Pain, No Hematochezia, No Melena Genitourinary : No Dysuria, No Urinary Frequency, No Hematuria, No Urinary Incontinence, Musculoskeletal : positive back pain Skin : No Skin Lesions, No rash Neuro : No Weakness, No Numbness, No Paresthesias, no loss of bowel or bladder incontinence, no saddle anesthesia all other systems reviewed and are negative [facility] Past Medical History Attestation statement: The following information was validated with the patient. Source: old records reviewed Medical History Abdominal pain Hernia Anxiety Surgical History History of laparoscopic cholecystectomy (10/02/22) History of umbilical hernia repair Social History Social History Household Members: Children Housing: Apartment Do you presently have visiting nurse or other home services: No Unable to assess alcohol history related to: Unknown Alcohol intake: current Alcohol intake frequency: a few times a month Patient Tobacco Use Status: Current someday Tobacco user Tobacco use type: Cigarette Cigarettes Per Day: 5 Years Smoked: 20 e-Cigarette/Vaping Use: Never Used Second Hand Smoke Exposure: No Substance Use Type: Marijuana Advance Directives: No Advance Directives Information Provided: Yes Do you have a plan to hurt others: No Plan service: No Current occupational status: employed Physical Exam Vital Signs: Vital Signs: Last Vital Signs Temp 97.9 F 09/22/24 17:52 Pulse 108 H 09/22/24 17:52 Resp 20 09/22/24 17:52 BP 108/70 09/22/24 17:52 Pulse Ox 100 09/22/24 17:52 O2 Del Method Room Air 09/22/24 17:52 BMI result Body Mass Index 28.5 Appearance: Alert. Oriented X3. No acute distress. Eyes: Pupils equal, round and reactive to light. ENT: Pharynx normal. Neck: Normal inspection. Neck supple. CVS: Normal heart rate and rhythm. Pulses normal. Respiratory: No respiratory distress. Breath sounds normal. Abdomen: Soft and nontender. Back: ttp along bilateral lower paraspinal muscles Skin: Skin warm and dry. Normal skin color. Normal skin turgor. Extremities: No lower extremity edema. No calf ttp Neuro: Oriented X 3. No motor deficit. No sensory deficit. CN2-12 intact distal NV intact Course Course Course Narrative: This is a Rapid Medical Exam performed in triage by Carol Ann Shukla PA-C. Full HPI, ROS and PE to be performed by primary ED provider. 39-year-old female past medical history biliary colic, anxiety presenting to the ED c/o low back pain x6 days without known injury/fall. Took muscle relaxers & Tylenol w/o relief. denies numbness/tingling, weakness, incontinence/retention PE: no midline spinous ttp, +b/l lumbar paraspinal ttp, ambulating w/antalgic gait Plan: XR, pain control Medical Decision Making Medical Decision Making [facility] Narrative: 39 yo female here with low back pain no red flags on exam, no b/b incontinence and no saddle anesthesia. She is not toxic appearing and is NV intact doubt cauda equina. She also c/o nasal congestion at this time will provide analgesia - she has no urinary symptoms, xray and obtain flu panel. She wants tamiflu if she is positive, lungs are CTAB. Differential Diagnosis Differential Diagnoses: The differential diagnosis associated with the presentation includes back pain, strain viral syndrome Admission/Observation Consideration of admission/observation: Escalation of care including admission/observation considered not toxic stable for DC Lab Data [facility] Lab Attestation statement: I reviewed the patient's lab results. Labs: Lab Results 09/22/24 Range/Units 16:20 Influenza Type A (PCR) POSITIVE A (Negative) Influenza Type B (PCR) NEGATIVE (Negative) RSV RNA Qual (PCR) NEGATIVE (Negative) SARS-CoV-2 RNA (RT-PCR) NEGATIVE (Negative) Independent Interpretation I performed an independent interpretation of an: Plain X-Ray (no fracture) Radiology Impression Discussion of test interpretation with radiology: I have reviewed the radiologist's reading. External Record Review External record reviewed: Outpatient record Prescription Management I considered prescription management with: Pain Medication and Antiviral Discharge Plan Discharge Clinical Impression: Influenza A Strain of lumbar region Qualifiers: Encounter type: initial encounter Qualified Code(s): S39.012A - Strain of muscle, fascia and tendon of lower back, initial encounter Patient Disposition: Home, Self-Care Instructions: Influenza (ED), Acute Low Back Pain (ED) Additional Instructions: no broken bones on xray positive for the flu return for any worsening symptoms or concerns rest and stay hydrated. DO NOT MIX new muscle relaxer with tylenol Prescriptions: New ibuprofen 600 mg tablet 600 mg PO Q6H PRN (Reason: pain) Qty: 30 0RF oseltamivir [Tamiflu] 75 mg capsule 75 mg PO BID 5 Days Qty: 10 0RF methocarbamol 750 mg tablet 750 mg PO Q8H PRN (Reason: muscle spasm) Qty: 30 0RF No Action acetaminophen [Pain Reliever (acetaminophen)] 325 mg tablet 650 mg PO Q6H PRN (Reason: pain) Qty: 30 0RF escitalopram oxalate 20 mg Tablet 20 mg PO DAILY PRN (Reason: Anxiety) hydroxyzine HCl 25 mg Tablet 25 mg PO BID PRN (Reason: anxiety/restlessness) Qty: 30 0RF trazodone 50 mg tablet 25 mg PO BID PRN (Reason: pain (scale score 4-6)) Qty: 14 0RF omeprazole 40 mg capsule,delayed release(DR/EC) 40 mg PO DAILY Qty: 90 0RF Stand Alone Forms: Work/School Release Interventions: ED Discharge Assessment Last Done: 09/22/24 17:52 Discharge Date/Time: 09/22/24 17:52 Print Language: Cymro
--- OUTSIDE RECORDS SUMMARY | 2024-09-22 16:41 | XMS_ITS | Clinical Summary ---
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 4 Active meclizine (ANTIVERT) 25 mg tablet Take 1 Tablet by mouth every 8 hours as needed (Seasickness/diz ziness). Medication may cause drowsiness, do not drive/operate machinery while taking 4 Active sodium chloride 0.9 % injection Inject 1,000 mL into the vein every hour. 4 Active hydrOXYzine HCL (ATARAX) 25 mg tablet Take 1 Tablet by mouth 2 times daily as needed for Anxiety. 4 Active escitalopram (LEXAPRO) 10 mg tablet Take 1 tablet (10 mg total) by mouth 1 (one) time each day. 4 Active omeprazole (PriLOSEC) [address] capsule Take 1 capsule (40 mg total) by mouth 1 (one) time each day. 4 Active clotrimazole-be tamethasone (LOTRISONE) 1-0.05 % cream Apply topically to affected area twice daily for no more than 10 days 3 Active levonorgestrel (MIRENA UTRN) by intrauterine route. Active Active Problems Problem Noted Date Diagnosed Date Hiatal hernia 04/12/2022 Atypical squamous cell anand es of undetermined significance (ASCUS) on cervical cytology with positive high risk human papilloma virus (HPV) 03/29/2016 Overview (07/29/2024): Colposcopy - negative for dysplasia, repeat co-testing 12 months 2017 PAP Ascus + hpv 12/11/2021 PAP Gestational diabetes 09/22/2014 Anxiety and depression 06/16/2012 Chronic heartburn 04/04/2011 Constipation, chronic 04/04/2011 Immunizations Name Administration Dates Next Due Influenza Quadravalent, MDCK , 0.5ml, with preservative (Flucelvax) 6mo and older 05/12/2018 Influenza trivalent, 0.5mL, preservative free (Fluarix; FluLaval; Fluzone) ages 6mo and older (Afluria) 3 years and older 06/16/2012 Influenza, Unspecified 08/09/2019 Tdap Tetanus diptheria acell ular pertussis (Boostrix; Adacel) 7yo and older 05/12/2018 Surgical History Surgery Date Site/Laterality Comments HERNIA REPAIR 2007 PROCEDURE: HISTORICAL HERNIA REPAIR/UMB WISDOM TOOTH EXTRACTION PROCEDURE: HISTORICAL WISDOM TEETH EXTRACTION CHOLECYSTECTOMY 2022 PROCEDURE: HISTORICAL CHOLECYSTECTOMY Medical History Medical History Date Comments Constipation DX:Constipation Atypical squamous cell anand es of undetermined significance (ASCUS) on cervical cytology with positive high risk human papilloma virus (HPV) 03/29/2016 DX:Atypical squamous cell changes of undetermined significance (ASCUS) on cervical cytology with positive high risk human papilloma virus (HPV); COMMENT: Colposcopy - negative for dysplasia, repeat co-testing 12 months Gestational diabetes 09/22/2014 DX:Gestatio nal diabetes Anxiety and depression 06/16/2012 DX:Anxiet y and depression Headache 06/16/2012 DX:Headache Chronic heartburn 04/04/2011 DX:Chronic hea rtburn IUD (intrauterine device) in place DX:IUD (intrauterine device) in place; COMMENT: inserted 2020 Family History Medical History Relation Name Comments Hyperthyroidism Aunt Paternal No Known Problems Brother No Known Problems Daughter 1 Nehemias : 2002 No Known Problems Daughter 2 Shana : 07/04 Asthma Father Hypertension Father Prostate cancer Maternal Grandfather No Known Problems Maternal Grandmother No Known Problems Mother Prostate cancer Paternal Grandfather Diabetes Paternal Grandmother Thyroid disease Sister No Known Problems Son Mateo : 2013 Breast cancer Neg Hx Colon cancer Neg Hx Heart attack Neg Hx Ovarian cancer Neg Hx Stroke Neg Hx Uterine cancer Neg Hx Relation Name Status Comments Aunt Paternal Alive Brother Alive Daughter 1 Nehemias Alive Daughter 2 Shana Alive Father Alive Maternal Grandfather Alive Maternal Grandmother Alive Mother Alive Paternal Grandfather Alive Paternal Grandmother Alive Sister Alive Son Mateo Alive Social History Tobacco Use Types Packs/Day Years Used Date Smoking Tobacco: Every Day Cigarettes 0.3 23.4 Started: 05/12/2001 Smokeless Tobacco: Never Alcohol Use Standard Drinks/Week Comments Yes 0 (1 standard drink = 0.6 oz pur e alcohol) Comments Unknown Sex and Gender Information Value Date Recorded Sex Assigned at Not on file Legal Sex Female 2:10 PM EST Gender Identity Not on file Sexual Orientation Not on file Obstetrics History Last Filed Vital Signs Vital Sign Reading Time Taken Comments Blood Pressure 100/50 01/15/2024 1:04 PM EDT Pulse 86 01/15/2024 9:10 AM EDT Temperature - - Respiratory Rate - - Oxygen Saturation - - Inhaled Oxygen Concentration - - Weight 66.2 kg (146 lb) 01/15/2024 9:10 AM EDT Height 157.5 cm (5' 2 ) 01/15/2024 9:10 AM EDT Body Mass Index 26.7 01/15/2024 9:10 AM EDT Plan of Treatment Health Maintenance Due Date Last Done Comments Breast Cancer Screening 1984 Pneumococcal Vaccine: Pediatrics (0 to 5 Years) and At-Risk Patients (6 to 64 Years) (1 of 2 - PCV) 1990 Hepatitis B Vaccines (1 of 3 - 19+ 3-dose series) 2003 HIV Screening 07/10/2022 Hepatitis C Screening 07/10/2022 Social Influencers of Health Screening 07/10/2022 Cholesterol Screening (Lipid Panel) 05/13/2023 05/13/2018 COVID-19 Vaccine ( - 2023-2 5 season) 2024 Influenza Vaccine (#1) 2024 9, 05/12/2018, 06/16/2012 Cervical Cancer Screening: P ap Smear 12/26/2024 12/26/2021, 12/11/2021 Depression Screening 03/12/2025 03/12/2024 DTaP,Tdap,and Td Vaccines (2 - Td or Tdap) 05/12/2028 05/12/2018 HIB Vaccines Aged Out No longer eligi ble based on patient's age to complete this topic HPV Vaccines Aged Out No longer eligi ble based on patient's age to complete this topic Hepatitis A Vaccines Aged Out No long er eligible based on patient's age to complete this topic IPV Vaccines Aged Out No longer eligi ble based on patient's age to complete this topic MMR Vaccines Aged Out No longer eligi ble based on patient's age to complete this topic Meningococcal ACWY Vaccine Aged Out N o longer eligible based on patient's age to complete this topic RSV Immunization Patients Under 20 months Aged Out No longer eligible b ased on patient's age to complete this topic Varicella Vaccines Aged Out No longer eligible based on patient's age to complete this topic Procedures Procedure Name Priority Date/Time Associated Diagnosis Comments DEPRESSION SCREENING Routine 03/12/2024 PAP SMEAR Routine 12/26/2021 LIPID PANEL Routine 05/13/2018 from Last 3 Months or Most Recently Relevant to Health Maintenance Results * Depression Screening (03/12/2024) [facility] Depression Screening Abstracted [facility] Provider HEALTH MAINTENANCE Final Result * Pap Smear (12/26/2021) [facility] Pap smear Negative, Abstracted [facility] Provider HEALTH MAINTENANCE Final Result * (ABNORMAL) Lipid panel (05/13/2018) Pathologist [facility] LDL/HDL Ratio 4 0 - 4 Triglycerides 115 0 - 150 mg/dL Cholesterol 164 0 - 200 mg/dL HDL 39(A) >=40 mg/dL LDL Cholesterol 102(A) 0 - 100 mg/dL Blood Venous blood specimen / Unknown [facility] Provider LAB BLOOD ORDERABLES Mckenna l Result from Last 3 Months or Most Recently Relevant to Health Maintenance Care Teams Mechanical Maintenance Worker Relationship Specialty Start Date End Date Alec Bailey MD [address] [place] [address] PCP - General Internal Medicine 03/27/22
--- OUTSIDE RECORDS SUMMARY | 2024-09-22 16:41 | XMS_ITS | Clinical Summary ---
Author Organization [employer] Address [address] [place] [address] Care Team Providers Care Ob Gyn Name Role Phone Unavailable Primary Care Provider Unavailabl e Allergies No known active allergies Social History Tobacco Use Types Packs/Day Years Used Date Smoking Tobacco: Never Assessed Comments Unknown Sex and Gender Information Value Date Recorded Sex Assigned at Female 12/03/2022 11:15 AM EDT Legal Sex Female 11:11 AM EDT Gender Identity Female 12/03/2022 11:15 AM EDT Sexual Orientation Choose not to disclose 2022 11:15 AM EDT Plan of Treatment Health Maintenance Due Date Last Done Comments Dental Oral Exam 1984 Dental Prophylaxis 1984 Dental X-Ray: Bitewings 1984 Dental X-Ray: Full Mouth 1984 Depression Screening 1984 HIV Screening 1984 SDOH Screening 1984 Alcohol/Substance Use Screening 1996 Tobacco Screening 1996 Family Planning (PISQ) 1999 Hepatitis C Screening 2002 Hepatitis B Vaccines (1 of 3 - 19+ 3-dose series) 2003 Pap Smear 2005 Cervical Cancer Screening 2014 HPV/Cotest 2014 COVID-19 Vaccine ( - 2023-2 5 season) 2024 Influenza Vaccine (#1) 2024 9, 05/12/2018, 06/16/2012 Mammogram 2024 DTaP/Tdap/Td Vaccines (2 - T d or Tdap) 05/12/2028 05/12/2018 Zoster Vaccines (1 of 2) 2034 RSV Patients and Patients Aged 60 years or older (1 - 1-dose 75+ series) 2059 HIB Vaccines Aged Out No longer eligi [...] patient's age to complete this topic Meningococcal Vaccine Aged Out No darren scott eligible based on patient's age to complete this topic Pneumococcal Vaccine: Pediatrics (0 to 5 Years) and At-Risk Patients (6 to 49) Years) Aged Out No longer eligible b ased on patient's age to complete this topic RSV under 20 months Aged Out No longe r eligible based on patient's age to complete this topic Rotavirus Vaccines Aged Out No longer eligible based on patient's age to complete [place] [id number] [facility] MEDICAID STAND ADULT [place], [place] [id number]
[2024-09-22 17:20] LABS: Influenza A PCR POSITIVE (Negative); Influenza B PCR NEGATIVE (Negative); Resp Syncy Virus RNA Qual PCR NEGATIVE (Negative); SARS COV2 PCR INHOUSE NEGATIVE (Negative)
[2024-09-22 17:51] VITALS: BP 108/70; PULSE 108; RESP 20; TEMP 36.6; O2SAT 100
[2024-09-22 17:52] VITALS: BP 108/70; PULSE 108; RESP 20; TEMP 36.6; O2SAT 100
== END 2024-09-22 17:52 | disposition home or self-care (01) ==
PROVIDERS: Physician Assistant; Emergency Provider Emergency Medicine; PCP Internal Medicine
DX: J10.1 Influenza due to other identified influenza virus with other respiratory manifestations (principal); S39.012A Strain of muscle, fascia and tendon of lower back, initial encounter; R05.9 Cough, unspecified; R09.89 Other specified symptoms and signs involving the circulatory and respiratory systems; F17.210 Nicotine dependence, cigarettes, uncomplicated; F41.9 Anxiety disorder, unspecified; X58.XXXA Exposure to other specified factors, initial encounter; Y93.9 Activity, unspecified; Y92.9 Unspecified place or not applicable; Y99.8 Other external cause status; Z03.818 Encounter for observation for suspected exposure to other biological agents ruled out; Z79.899 Other long term (current) drug therapy
CPT/HCPCS: 0241U; 72100; 99282; 99283

== ENCOUNTER → 2024-09-22 13:54 | Outpatient (BNV) | payer OTHER, SELFPAY | PROVIDERS: PCP Internal Medicine; Visit Provider Radiology Diagnostic Radiology | DX: M54.50 Low back pain, unspecified (principal) | CPT/HCPCS: 72100 ==

== ENCOUNTER 2025-05-07 17:55 | Emergency (ER) | payer OTHER, SELFPAY ==
[2025-05-07] VITALS (7 sets, daily range): BP systolic 103–115; BP diastolic 59–69; PULSE 69–83; RESP 14–27; TEMP 36.1–36.9; O2SAT 97–100; BMI 27.4
--- NOTE | ~2025-05-07 | CT_ITS ---
CLINICAL HISTORY: enlarged tosil on the right side CT soft tissue neck with contrast Comparison: None provided Findings: The visualized intracranial contents are unremarkable. There are mild hypodensities within the right palatine tonsil. Pharyngeal mucosal space, parapharyngeal fat, prevertebral tissues, and epiglottis are otherwise within normal limits. Salivary glands are within normal limits. No sialoliths. No suspicious thyroid nodules. Mildly prominent subcentimeter cervical lymph nodes. No consolidation at the lung apices. No acute fracture or dislocation. IMPRESSION: Mild hypodensities within the right palatine tonsil, may represent developing phlegmon. No measurable abscess. This document has been electronically signed by: Brenna Vargas MD on 05/07/2025 23:00:05
--- NOTE | 2025-05-07 17:56 | ECG_ITS ---
Test Reason : chest pain Blood Pressure : */* mmHG Vent. Rate : 85 BPM Atrial Rate : 85 BPM P-R Int : 144 ms QRS Dur : 80 ms QT Int : 366 ms P-R-T Axes : 24 -3 -11 degrees QTcB Int : 435 ms Normal sinus rhythm Normal ECG When compared with ECG of 17-Oct-2022 08:36, Nonspecific T wave abnormality no longer evident in Anterolateral leads Referred By: Mamie Mittal Electronically Signed By: Dontrell Sanders
--- NOTE | 2025-05-07 18:06 | ED_ITS ---
HPI - General Adult General Chief complaint: Upper Respiratory Symptoms Stated complaint: sore throat,chest pain Time Seen by Provider: 05/07/25 18:43 Related Data Home Medications ?Medication ?Instructions ?Recorded ?Confirmed escitalopram oxalate 20 mg tablet 20 mg PO DAILY PRN A nxiety 01/08/24 01/08/24 Previous Rx's ?Medication ?Instructions ?Recorded acetaminophen 325 mg tablet (Pain 650 mg (2 x 325 mg) PO Q6H PRN 04/15/23 Reliever (acetaminophen)) pain #30 tabs hydroxyzine HCl 25 mg tablet 25 mg PO BID PRN 01/11/24 anxiety/restlessness #30 tabs trazodone 50 mg tablet 25 mg (1/2 x 50 mg) PO BID P RN 01/11/24 pain (scale score 4-6) #14 tabs omeprazole 40 mg capsule,delayed 40 mg PO DAILY #90 ca ps 01/14/24 release ibuprofen 600 mg tablet 600 mg PO Q6H PRN pain #30 t abs 09/22/24 methocarbamol 750 mg tablet 750 mg PO Q8H PRN muscle s pasm #30 09/22/24 tabs oseltamivir 75 mg capsule (Tamiflu) 75 mg PO BID 5 day s #10 caps 09/22/24 amoxicillin 875 mg-potassium 1 tab PO BID #14 tabs clavulanate 125 mg tablet ondansetron 4 mg disintegrating 4 mg PO TID PRN nausea and 05/07/25 tablet vomiting 5 days #10 tabs oxycodone 5 mg tablet 5 mg PO Q8H PRN pain #7 tabs 05/07/25 prednisone 20 mg tablet 40 mg (2 x 20 mg) PO DAILY # 10 tabs 05/07/25 Allergies Allergy/AdvReac Type Severity Reaction Status Date / Time No Known Allergies (No Known Allergy Verified 05/07/25 18:06 Allergies*) FORMERLY [facility], 1928–[facility] Past Medical History Medical History Abdominal pain Hernia Anxiety Surgical History History of laparoscopic cholecystectomy (10/02/22) History of umbilical hernia repair Social History Social History Household Members: Children Housing: Apartment Do you presently have visiting nurse or other home services: No Alcohol intake: current Alcohol intake frequency: a few times a month Patient Tobacco Use Status: Current someday Tobacco user Tobacco use type: Cigarette Cigarettes Per Day: 5 Years Smoked: 20 e-Cigarette/Vaping Use: Never Used Second Hand Smoke Exposure: No Substance Use Type: Marijuana service: No Current occupational status: employed Physical Exam ED Vital Signs: BMI result Body Mass Index 27.4 Course Course Course Narrative: This is a rapid medical exam performed by Karly Mittal NP: Additional HPI, ROS, PE not included below will be deferred to primary provider. Patient is a 39y/o F presenting with complaint of sore throat, headache, chest pain, subjective fevers. Plan: EKG, strep and viral swabs Medications Administered Discontinued Medications Generic Name Dose Route Start Last Admin Trade Name Freq PRN Reason Stop Dose Admin Dexamethasone Sodium Phosphate 10 mg 05/07/25 19:16 05/07/25 19:40 Dexamethasone Sod Phosphate 10 Mg/Ml Vial IVPUSH 05/07/25 19:17 10 mg ONCE ONE Administration Hydromorphone HCl 0.5 mg 05/07/25 19:22 05/07/25 19:46 Hydromorphone Hcl 0.5 Mg/0.5 Ml Syringe IVPUSH 05/07/25 19:23 0.5 mg ONCE ONE Administration Protocol Hydromorphone HCl 0.5 mg 05/07/25 22:46 05/07/25 22:59 Hydromorphone Hcl 0.5 Mg/0.5 Ml Syringe IVPUSH 05/07/25 22:47 0.5 mg ONCE ONE Administration Protocol Sodium Chloride 1,000 mls @ 999 mls/hr 05/07/25 19:30 05/07/25 20:36 Ns IV 05/07/25 20:30 Infused .Q1H1M JONY Infusion Clindamycin Phosphate 600 mg in 50 mls @ 100 mls/hr 05/07/25 19:17 05/07/25 20:10 Cleocin IV 05/07/25 19:46 Infused ONCE ONE Infusion Sodium Chloride 1,000 mls @ 999 mls/hr 05/07/25 19:30 05/07/25 21:16 Ns IV 05/07/25 20:30 Infused .Q1H1M JONY Infusion Iohexol 80 ml 05/07/25 21:52 05/07/25 22:00 Iohexol 350 Mg/Ml 100 Ml Infus..Btl IV 05/07/25 21:53 80 ml ONCE ONE Administration Ketorolac Tromethamine 15 mg 05/07/25 19:22 05/07/25 19:46 Ketorolac Tromethamine 15 Mg/Ml Vial IVPUSH 05/07/25 19:23 15 mg ONCE ONE Administration Lidocaine HCl 1 appl 05/07/25 19:18 05/07/25 21:20 Lidocaine Hcl 4 % [id number]-T-Ykb 4 Ml TOPICAL 05/07/25 19:19 1 appl ONCE ONE Administration Medical Decision Making Lab Data 05/07/25 19:35 05/07/25 19:35 Labs: Lab Results 05/07/25 05/07/25 Range/Units 18:09 19:35 WBC 11.2 H (4.8-10.8) X10*3/uL RBC 4.20 (4.20-5.50) X10*6/uL Hgb 13.2 (12.0-16.0) g/dl Hct 37.9 (37.0-47.0) % MCV 90.2 (80.0-98.0) fL MCH 31.4 (27.0-33.0) pg MCHC 34.8 (31.0-35.0) g/dl RDW 13.0 (11.0-16.0) % Plt Count 270 (160-400) X10*3/uL MPV 9.7 (9.4-12.3) fL Immature Gran % (Auto) 0.3 (0.0-0.4) % Neut % (Auto) 75.9 H (45-73) % Lymph % (Auto) 17.1 L (20-40) % Beauregard % (Auto) 6.0 (2-11) % Eos % (Auto) 0.4 (0-4) % Baso % (Auto) 0.3 (0-2) % Lymph # (Auto) 1.9 (1.2-4.9) X10*3/uL Beauregard # (Auto) 0.7 (0.1-1.2) X10*3/uL Eos # (Auto) 0.1 (0.0-0.4) X10*3/uL Baso # (Auto) 0.0 (0.0-0.2) X10*3/uL Abs Immat Gran (auto) 0.03 (0.00-0.03) X10*3/uL Absolute Neuts (auto) 8.5 H (2.0-8.3) x10*3/uL Absolute Nucleated RBC 0.000 (0.0-0.012) X10*3/uL Nucleated RBC % (auto) 0.0 (0.0-0.2) /100WBC Sodium 139 (135-145) mmol/L Potassium 3.8 (3.3-5.1) mmol/L Chloride 108 (96-108) mmol/L Carbon Dioxide 22 (22-29) mmol/L Anion Gap 13 (12-20) BUN 8 L (9-16) mg/dL Creatinine 0.61 (0.5-1.4) mg/dL Estim Creat Clear Calc 110.8 Estimated GFR > 60 Random Glucose 84 (60-115) mg/dL Lactic Acid 1.1 (0.5-2.0) mmol/L Calcium 9.3 (8.4-10.2) mg/dL Troponin I High Sens < 2.7 (<3.5-17.0) ng/L Beta HCG, Quant < 2 mIU/mL COVID-19 ([facility]) Negative (Negative) COVID-19 Clin Com See Note Influenza Type A ([facility]) Negative (Negative) Influenza Type B ([facility]EN) Negative (Negative) Influenza A & B Note See Note S. pyogenes GrpA ADEN Negative (Negative) Discharge Plan Discharge Clinical Impression: Peritonsillar cellulitis Patient Disposition: Home, Self-Care Instructions: Peritonsillar Abscess (ED) Prescriptions: New amoxicillin-pot clavulanate 875-125 mg tablet 1 tab PO BID Qty: 14 0RF prednisone 20 mg tablet 40 mg PO DAILY Qty: 10 0RF ondansetron 4 mg tablet,disintegrating 4 mg PO TID PRN (Reason: nausea and vomiting) 5 Days Qty: 10 0RF oxycodone 5 mg tablet 5 mg PO Q8H PRN (Reason: pain) Qty: 7 0RF Rx Instructions: Partial Fill upon patient request. No Action acetaminophen [Pain Reliever (acetaminophen)] 325 mg tablet 650 mg PO Q6H PRN (Reason: pain) Qty: 30 0RF ibuprofen 600 mg tablet 600 mg PO Q6H PRN (Reason: pain) Qty: 30 0RF oseltamivir [Tamiflu] 75 mg capsule 75 mg PO BID 5 Days Qty: 10 0RF methocarbamol 750 mg tablet 750 mg PO Q8H PRN (Reason: muscle spasm) Qty: 30 0RF escitalopram oxalate 20 mg Tablet 20 mg PO DAILY PRN (Reason: Anxiety) hydroxyzine HCl 25 mg Tablet 25 mg PO BID PRN (Reason: anxiety/restlessness) Qty: 30 0RF trazodone 50 mg tablet 25 mg PO BID PRN (Reason: pain (scale score 4-6)) Qty: 14 0RF omeprazole 40 mg capsule,delayed release(DR/EC) 40 mg PO DAILY Qty: 90 0RF Referrals: Kamran Carpio [Physician, Ear, Nose, Throat] - 05/09/25 Interventions: ED Discharge Assessment Last Done: 05/07/25 23:42 Discharge Date/Time: 05/07/25 23:43 Print Language: Anguillan
[2025-05-07 18:25] LABS: IDNOW Serial# 08D9AD1C; Strep A Nucleic Acid Negative (Negative)
[2025-05-07 18:29] LABS: COVID-19 Test Negative (Negative); IDNOW Serial# 58CA691E
[2025-05-07 18:30] LABS: IDNOW Serial# 55D5AD1C; Influenza B2 Negative (Negative)
--- OUTSIDE RECORDS SUMMARY | 2025-05-07 18:55 | XMS_ITS | Clinical Summary ---
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 Role Phone Unavailable Primary Care Provider [...] 1984 HIV Screening 1984 SDOH Screening 1984 Disability Screening 1984 Alcohol/Substance Use Screening 1996 Tobacco Screening 1996 Family Planning (PISQ) 1999 HPV Vaccines (1 - 3-dose series) 1999 Hepatitis C Screening 2002 Hepatitis B Vaccines (1 of 3 - 19+ 3-dose series) 2003 Pap Smear 2005 Cervical Cancer Screening 2014 HPV/Cotest 2014 Mammogram 2024 COVID-19 Vaccine ( season) 2025 Influenza Vaccine (#1) 2025 9, 05/12/2018, 06/16/2012, Additional history exists DTaP/Tdap/Td Vaccines (2 - Td or Tdap) 05/12/2028 05/12/2018 Zoster Vaccines (1 [...] patient's age to complete this topic Meningococcal B Vaccine Aged Out No l onger eligible based on patient's age to complete this topic Meningococcal Vaccine Aged Out No darren scott eligible based on patient's age to complete this topic Pneumococcal Vaccine: Pediatrics (0 to 5 Years) and At-Risk Patients (6 to 49) Years Aged Out No longer eligible based on patient's age to complete this topic RSV under 20 months Aged Out No longe r eligible based on patient's age to complete this topic Rotavirus Vaccines Aged Out No longer eligible based on patient's age to complete [place] [address] [facility] [place] [id number] * Guarantor: Rena Brady Account Type Relation to Patient Date of Phone Billing Address Personal/Family Self [place], [place] [id number]
--- OUTSIDE RECORDS SUMMARY | 2025-05-07 18:55 | XMS_ITS | Clinical Summary ---
Author Organization [facility] [address] [facility] Address [address] [place] [phone] Phone Care Team Providers Care Professional Caster Name Role Phone Alec Bailey MD Primary Care Provider Allergies No known active allergies Medications LORazepam (ATIVAN) 0.5 mg tablet Take 1 Tablet by mouth daily as needed for Anxiety (travel anxiety). 06/01/20 24 Active sodium chloride 0.9 % injection Inject 1,000 mL into the vein every hour. 01/15/20 24 Active omeprazole (PriLOSEC) [address] capsule Take 1 capsule (40 mg total) by mouth 1 (one) time each day. 01/15/20 24 Active clotrimazole- betamethasone (LOTRISONE) 1-0.05 % cream Apply topically to affected area twice daily for no more than 10 days 10/10/19 23 Active levonorgestre l (MIRENA UTRN) by intrauterine route. Active escitalopram (LEXAPRO) 10 mg tablet Take one tablet by mouth once daily. 90 tablet 04/13/20 25 Active methocarbamoL (ROBAXIN) 750 mg tablet Take 1 tablet by mouth every 8 hours as needed for lower back pain 30 tablet 1 04/13/20 25 Active loratadine (CLARITIN) 10 mg tablet Take 1 tablet (10 mg total) by mouth 1 (one) time each day. 30 each 04/13/20 25 025 Active meclizine (ANTIVERT) 25 mg tablet Take 1 Tablet by mouth every 8 hours as needed (Seasickness/di zziness). Medication may cause drowsiness, do not drive/operate machinery while taking 06/01/20 24 025 Discontinued hydrOXYzine HCL (ATARAX) 25 mg tablet Take 1 Tablet by mouth 2 times daily as needed for Anxiety. 01/15/20 24 025 Discontinued escitalopram (LEXAPRO) 10 mg tablet Take 1 tablet (10 mg total) by mouth 1 (one) time each day. 01/15/20 24 025 Discontinued(R eorder) methocarbamoL (ROBAXIN) 750 mg tablet Take 1 tablet (750 mg total) by mouth every 8 (eight) hours if needed for muscle spasms. 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) 03/29/2016 Overview (07/29/2024): Colposcopy - negative for dysplasia, repeat co-testing 12 months 2016 PAP Ascus + hpv 12/11/2021 PAP Gestational diabetes 09/22/2014 Anxiety and depression 06/16/2012 Chronic heartburn 04/04/2011 Constipation, chronic 04/04/2011 Encounters Date Type Department Care Team Description 04/13/2025 3:00 PM EDT Office Visit Adult Medicine [address] [phone] Ezio Eastman PA Upper respiratory tract infection, unspecified type (Primary Dx); Strain of lumbar region, initial encounter; Grief 04/12/2025 Telephone Adult Medicine [address] [phone] Alec Bailey MD 04/08/2025 Telephone Adult Medicine [address] [phone] Jacinta Singh MA from Last 3 Months Immunizations Name Administration Dates Next Due Influenza [...] Date Smoking Tobacco: Every Day Cigarettes 0.3 24 Started: 05/12/2001 Smokeless Tobacco: Never Tobacco Cessation:Ready to Q uit: Not Asked; Counseling Given: Not Answered Alcohol Use Standard Drinks/Week Comments Yes 0 (1 standard drink = 0.6 oz pur e alcohol) Housing Instability Answer Date Recorde d Are you worried that in the next 2 months you may not have stable housing? No 04/13/2025 Food Access & Nutrition Answer Date Rec orded Do you have access to a vari ety of food including fruits and vegetables? Yes 04/13/2025 Health Literacy Answer Date Recorded How often do you need to hav e someone help you when you read instructions, pamphlets, or other written material from your doctor or pharmacy? Never 04/13/2025 Caregiver: How often do you need to have someone help you when you read instructions, pamphlets, or other written material from your doctor or pharmacy? Not on file 04/13/2025 Financial Risk Answer Date Recorded How hard is it for you to pa y for the very basics like food, housing, medical care, and air conditioning / heating? Not very hard 04/13/2025 Transportation Answer Date Recorded Has the lack of transportati on kept you from meetings, work, or from getting things needed for daily living? No Has the lack of transportati on kept you from medical appointments or from getting medications? No 04/13/2025 Social Isolation Answer Date Recorded How often do you feel lonely or isolated from th ose around you? Never 04/13/2025 Food Risk Answer Date Recorded Within the past 12 months we worried whether our food would run out before we got money to buy more. Never true 04/13/2025 Within the past 12 months th e food we bought just didn't last and we didn't have money to get more. Never true 04/13/2025 Dependent Care Answer Date Recorded Do you need help finding or paying for care for your loved ones. For example, child care leader or elderly care for an older adult? No 04/13/2025 Education Answer Date Recorded Do you think completing more education or training, like finishing a GED, going to college, or learning a trade, would be helpful for you? No 04/13/2025 Employment and Income Answer Date Recor ded During the last four weeks, have you been actively looking for work? No 04/13/2025 Living Situation Answer Date Recorded What is your living situation? 0 04/13/2025 Comments No Sex and Gender Information Value Date Recorded Sex Assigned at Not on file Legal Sex Female 2:10 PM EST Gender Identity Not on file Sexual Orientation Not on file Obstetrics History Last Filed Vital Signs Vital Sign Reading Time Taken Comments Blood Pressure 100/73 04/13/2025 3:01 PM EDT Pulse 97 04/13/2025 3:01 PM EDT Temperature 36 C (96.8 F) 04/13/2025 3:01 PM EDT Respiratory Rate 16 04/13/2025 3:01 PM EDT Oxygen Saturation 97% 04/13/2025 3:01 PM EDT Inhaled Oxygen Concentration - - Weight 71.2 kg (157 lb) 04/13/2025 3:01 PM EDT Height 157.5 cm (5' 2 ) 04/13/2025 3:01 PM EDT Body Mass Index 28.72 04/13/2025 3:01 PM EDT Plan of Treatment Upcoming Encounters Date Type Department Care Team (Late st Contact Info) Description 08/12/2025 8:30 AM EST Office Visit Adult Medicine [address] [phone] Hortencia Mazariegos PA [address] [place] [phone] Health Maintenance Due Date Last Done Comments Breast Cancer Screening 1984 Hepatitis B Vaccines (1 of 3 - 19+ 3-dose series) 2003 Pneumococcal Vaccine: Pediatrics (0 to 5 Years) and At-Risk Patients (6 to 49 Years) (1 of 2 - PCV) 2003 HIV Screening 07/10/2022 Hepatitis C Screening 07/10/2022 Cholesterol Screening (Lipid Panel) 05/13/2023 05/13/2018 Cervical Cancer Screening: P ap Smear 12/26/2024 12/26/2021, 12/11/2021 COVID-19 Vaccine ( - 2023-2 5 season) 2025 Influenza Vaccine (#1) 2025 9, 05/12/2018, 06/16/2012 Social Influencers of Health Screening 04/13/2026 04/13/2025 DTaP,Tdap,and Td Vaccines (2 - Td or Tdap) 05/12/2028 05/12/2018 Depression Screening Completed 04/13/2025, 03/12/2024 HIB Vaccines Aged Out No longer eligi [...] Maintenance Results * Depression Screening (03/12/2024) Pathologist [facility] Depression Screening Abstracted [facility] Provider HEALTH MAINTENANCE Final Result * Pap Smear (12/26/2021) Pathologist [facility] Pap smear Negative, Abstracted [facility] Provider HEALTH MAINTENANCE Final Result * (ABNORMAL) Lipid panel (05/13/2018) [facility] LDL/HDL Ratio 4 0 - 4 Triglycerides 115 0 - 150 mg/dL Cholesterol 164 0 - 200 mg/dL HDL 39(A) >=40 mg/dL LDL Cholesterol 102(A) 0 - 100 mg/dL Blood Venous blood specimen / Unknown [facility] Provider LAB BLOOD ORDERABLES Mckenna l Result from Last 3 Months or Most Recently Relevant to Health Maintenance [place] [id number] [place]ICA[place] Care Teams Professional Caster Relationship Specialty Start Date End Date Alec Bailey MD [address] [place] [address] PCP - General Internal Medicine 03/27/22
--- OUTSIDE RECORDS SUMMARY | 2025-05-07 18:55 | XMS_ITS ---
Author Name [facility] Organization Unknown Care Team Organization Name Specialty Phone Email Start Date End Da te [facility] Alec Bailey Primary Care 04/17/202303/11 [facility] Cal Walker Primary Care 10/16/20222023 [facility] Ankita Flores Primary Care 06/18/2022 03/29/20 24
--- NOTE | 2025-05-07 19:23 | ED_ITS ---
HPI - URI/Sore Throat General Chief Complaint: Upper Respiratory Symptoms Stated Complaint: sore throat,chest pain Time Seen by Provider: 05/07/25 18:43 History of Present Illness HPI Narrative: Patient is a 39-year-old female presents today with having 2 day history of sore throat. Pain getting worse generalized malaise weakness. Subjective fever cook some Motrin no relief came to the ED no history of allergies no fever no chills. No difficulty swallowing but there is a lot of pain. Patient denies any shortness of breath. Denies any difficulty with her words. Related Data Home Medications ?Medication ?Instructions ?Recorded ?Confirmed escitalopram oxalate 20 mg tablet 20 mg PO DAILY PRN A nxiety 01/08/24 01/08/24 Previous Rx's ?Medication ?Instructions ?Recorded acetaminophen 325 mg tablet (Pain 650 mg (2 x 325 mg) PO Q6H PRN 04/15/23 Reliever (acetaminophen)) pain #30 tabs hydroxyzine HCl 25 mg tablet 25 mg PO BID PRN 01/11/24 anxiety/restlessness #30 tabs trazodone 50 mg tablet 25 mg (1/2 x 50 mg) PO BID P RN 01/11/24 pain (scale score 4-6) #14 tabs omeprazole 40 mg capsule,delayed 40 mg PO DAILY #90 ca ps 01/14/24 release ibuprofen 600 mg tablet 600 mg PO Q6H PRN pain #30 t abs 09/22/24 methocarbamol 750 mg tablet 750 mg PO Q8H PRN muscle s pasm #30 09/22/24 tabs oseltamivir 75 mg capsule (Tamiflu) 75 mg PO BID 5 day s #10 caps 09/22/24 amoxicillin 875 mg-potassium 1 tab PO BID #14 tabs clavulanate 125 mg tablet ondansetron 4 mg disintegrating 4 mg PO TID PRN nausea and 05/07/25 tablet vomiting 5 days #10 tabs oxycodone 5 mg tablet 5 mg PO Q8H PRN pain #7 tabs 05/07/25 prednisone 20 mg tablet 40 mg (2 x 20 mg) PO DAILY # 10 tabs 05/07/25 Allergies Allergy/AdvReac Type Severity Reaction Status Date / Time No Known Allergies (No Known Allergy Verified 05/07/25 18:06 Allergies*) Review of Systems 2 Review of Systems: Positive sore throat Yes all other systems are reviewed and are negative [facility] Past Medical History Attestation statement: The following information was validated with the patient. Medical History Abdominal pain Hernia Anxiety Surgical History History of laparoscopic cholecystectomy (10/02/22) History of umbilical hernia repair Social History Social History Household Members: Children Housing: Apartment Do you presently have visiting nurse or other home services: No Alcohol intake: current Alcohol intake frequency: a few times a month Patient Tobacco Use Status: Current someday Tobacco user Tobacco use type: Cigarette Cigarettes Per Day: 5 Years Smoked: 20 Smoked in Last 30 Days: Yes e-Cigarette/Vaping Use: Never Used Second Hand Smoke Exposure: No Use of substances other than those prescribed or required for medical reasons: No Substance Use Type: Marijuana Advance Directives: No Advance Directives Information Provided: No service: No Current occupational status: employed Physical Exam 2 Exam: Exam: Appearance: Alert. Oriented X3. No acute distress. Eyes: Pupils equal, round and reactive to light. ENT: Right Tonsil was erythematous bulging almost touching the uvula. Posterior pharynx was normal Neck: Normal inspection. Neck supple. No lymph nodes noted. No crepitus CVS: Normal heart rate and rhythm. Pulses normal. Normal S1 and S2 Respiratory: No respiratory distress. Breath sounds normal. No Wheezing. No rales Abdomen: Soft and nontender. No rigidity. No distention. good BS x4 Skin: Skin warm and dry. Normal skin color. Normal skin turgor. Extremities: No lower extremity edema. Neurovascular intact to all extremities. No Lacerations. No Rash Neuro: Oriented X 3. No motor deficit. No sensory deficit. Moving all extermities. No slurred speech Vital Signs: Vital Signs: Last Vital Signs Temp 98.1 F 05/07/25 20:27 Pulse 83 05/07/25 22:30 Resp 15 05/07/25 22:30 BP 105/65 05/07/25 22:30 Pulse Ox 98 05/07/25 22:30 O2 Del Method Room Air 05/07/25 22:30 BMI result Body Mass Index 27.4 Medications Administered Discontinued Medications Generic Name Dose Route Start Last Admin Trade Name Sandee PRN Reason Stop Dose Admin Dexamethasone Sodium Phosphate 10 mg 05/07/25 19:16 05/07/25 19:40 Dexamethasone Sod Phosphate 10 Mg/Ml Vial IVPUSH 05/07/25 19:17 10 mg ONCE ONE Administration Hydromorphone HCl 0.5 mg 05/07/25 19:22 05/07/25 19:46 Hydromorphone Hcl 0.5 Mg/0.5 Ml Syringe IVPUSH 05/07/25 19:23 0.5 mg ONCE ONE Administration Protocol Hydromorphone HCl 0.5 mg 05/07/25 22:46 05/07/25 22:59 Hydromorphone Hcl 0.5 Mg/0.5 Ml Syringe IVPUSH 05/07/25 22:47 0.5 mg ONCE ONE Administration Protocol Sodium Chloride 1,000 mls @ 999 mls/hr 05/07/25 19:30 05/07/25 20:36 Ns IV 05/07/25 20:30 Infused .Q1H1M JONY Infusion Clindamycin Phosphate 600 mg in 50 mls @ 100 mls/hr 05/07/25 19:17 05/07/25 20:10 Cleocin IV 05/07/25 19:46 Infused ONCE ONE Infusion Sodium Chloride 1,000 mls @ 999 mls/hr 05/07/25 19:30 05/07/25 21:16 Ns IV 05/07/25 20:30 Infused .Q1H1M JONY Infusion Iohexol 80 ml 05/07/25 21:52 05/07/25 22:00 Iohexol 350 Mg/Ml 100 Ml Infus..Btl IV 05/07/25 21:53 80 ml ONCE ONE Administration Ketorolac Tromethamine 15 mg 05/07/25 19:22 05/07/25 19:46 Ketorolac Tromethamine 15 Mg/Ml Vial IVPUSH 05/07/25 19:23 15 mg ONCE ONE Administration Lidocaine HCl 1 appl 05/07/25 19:18 05/07/25 21:20 Lidocaine Hcl 4 % [id number] 4 Ml TOPICAL 05/07/25 19:19 1 appl ONCE ONE Administration Medical Decision Making Medical Decision Making MDM Narrative: We attempted needle decompression of the possible abscess but to no avail. Only minimal amount of fluid was removed. A CT of the soft tissue neck was done. It shows only phlegmon in the right tonsillar area. There is no evidence for abscess at this time. Probably developing. Antibiotic was already given. Steroids given. Will also give pain medication and have patient follow-up with ENT tolerate p.o. is no distress currently in stable condition Differential Diagnosis Differential Diagnoses: The differential diagnosis associated with the presentation includes Peritonsillar cellulitis peritonsillar abscess Admission/Observation Consideration of admission/observation: Escalation of care including admission/observation considered Lab Data [facility] Lab Attestation statement: I reviewed the patient's lab results. 05/07/25 19:35 05/07/25 19:35 Labs: Lab Results 05/07/25 05/07/25 Range/Units 18:09 19:35 WBC 11.2 H (4.8-10.8) X10*3/uL RBC 4.20 (4.20-5.50) X10*6/uL Hgb 13.2 (12.0-16.0) g/dl Hct 37.9 (37.0-47.0) % MCV 90.2 (80.0-98.0) fL MCH 31.4 (27.0-33.0) pg MCHC 34.8 (31.0-35.0) g/dl RDW 13.0 (11.0-16.0) % Plt Count 270 (160-400) X10*3/uL MPV 9.7 (9.4-12.3) fL Immature Gran % (Auto) 0.3 (0.0-0.4) % Neut % (Auto) 75.9 H (45-73) % Lymph % (Auto) 17.1 L (20-40) % Bond % (Auto) 6.0 (2-11) % Eos % (Auto) 0.4 (0-4) % Baso % (Auto) 0.3 (0-2) % Lymph # (Auto) 1.9 (1.2-4.9) X10*3/uL Bond # (Auto) 0.7 (0.1-1.2) X10*3/uL Eos # (Auto) 0.1 (0.0-0.4) X10*3/uL Baso # (Auto) 0.0 (0.0-0.2) X10*3/uL Abs Immat Gran (auto) 0.03 (0.00-0.03) X10*3/uL Absolute Neuts (auto) 8.5 H (2.0-8.3) x10*3/uL Absolute Nucleated RBC 0.000 (0.0-0.012) X10*3/uL Nucleated RBC % (auto) 0.0 (0.0-0.2) /100WBC Sodium 139 (135-145) mmol/L Potassium 3.8 (3.3-5.1) mmol/L Chloride 108 (96-108) mmol/L Carbon Dioxide 22 (22-29) mmol/L Anion Gap 13 (12-20) BUN 8 L (9-16) mg/dL Creatinine 0.61 (0.5-1.4) mg/dL Estim Creat Clear Calc 110.8 Estimated GFR > 60 Random Glucose 84 (60-115) mg/dL Lactic Acid 1.1 (0.5-2.0) mmol/L Calcium 9.3 (8.4-10.2) mg/dL Troponin I High Sens < 2.7 (<3.5-17.0) ng/L Beta HCG, Quant < 2 mIU/mL COVID-19 ([facility]) Negative (Negative) COVID-19 Clin Com See Note Influenza Type A ([facility]) Negative (Negative) Influenza Type B ([facility]) Negative (Negative) Influenza A & B Note See Note S. pyogenes GrpA [facility]EN Negative (Negative) Independent Interpretation I performed an independent interpretation of an: CT Scan (No obvious abscess) Radiology Impression Discussion of test interpretation with radiology: I have reviewed the radiologist's reading. Procedures Procedure Narrative Procedure Narrative: Attempted needle decompression of the possible peritonsillar abscess. Been 18 gauge needle was inserted to the right tonsil after lidocaine was applied for anesthesia. There is only minimal amount of purulent material removed. No complication bleeding is controlled Discharge Plan Discharge Clinical Impression: Peritonsillar cellulitis Patient Disposition: Home, Self-Care Instructions: Peritonsillar Abscess (ED) Prescriptions: New amoxicillin-pot clavulanate 875-125 mg tablet 1 tab PO BID Qty: 14 0RF prednisone 20 mg tablet 40 mg PO DAILY Qty: 10 0RF ondansetron 4 mg tablet,disintegrating 4 mg PO TID PRN (Reason: nausea and vomiting) 5 Days Qty: 10 0RF oxycodone 5 mg tablet 5 mg PO Q8H PRN (Reason: pain) Qty: 7 0RF Rx Instructions: Partial Fill upon patient request. No Action acetaminophen [Pain Reliever (acetaminophen)] 325 mg tablet 650 mg PO Q6H PRN (Reason: pain) Qty: 30 0RF ibuprofen 600 mg tablet 600 mg PO Q6H PRN (Reason: pain) Qty: 30 0RF oseltamivir [Tamiflu] 75 mg capsule 75 mg PO BID 5 Days Qty: 10 0RF methocarbamol 750 mg tablet 750 mg PO Q8H PRN (Reason: muscle spasm) Qty: 30 0RF escitalopram oxalate 20 mg Tablet 20 mg PO DAILY PRN (Reason: Anxiety) hydroxyzine HCl 25 mg Tablet 25 mg PO BID PRN (Reason: anxiety/restlessness) Qty: 30 0RF trazodone 50 mg tablet 25 mg PO BID PRN (Reason: pain (scale score 4-6)) Qty: 14 0RF omeprazole 40 mg capsule,delayed release(DR/EC) 40 mg PO DAILY Qty: 90 0RF Referrals: Kamran Carpio [Physician, Ear, Nose, Throat] - 05/09/25 Print Language: [place]
[2025-05-07 19:45] LABS: MANUAL DIFF FLAG NO
[2025-05-07 19:46] LABS: Hematocrit 37.9 % (37.0-47.0); Hemoglobin 13.2 g/dl (12.0-16.0); Imm Gran Abs Auto 0.03 X10*3/uL (0.00-0.03); Imm Gran Pct Auto 0.3 % (0.0-0.4); Lymphocytes Absolute Auto 1.9 X10*3/uL (1.2-4.9); Mean Corpuscular HGB Conc 34.8 g/dl (31.0-35.0); Mean Corpuscular Hemoglobin 31.4 pg (27.0-33.0); Mean Corpuscular Volume 90.2 fL (80.0-98.0); NRBC Abs Auto 0.000 X10*3/uL (0.0-0.012); NRBC Pct Auto 0.0 /100WBC (0.0-0.2); Platelet Count 270 X10*3/uL (160-400); Red Blood Count 4.20 X10*6/uL (4.20-5.50); White Blood Count 11.2 X10*3/uL (4.8-10.8)
[2025-05-07 20:04] LABS: Anion Gap 13 (12-20); Blood Urea Nitrogen 8 mg/dL (9-16); Calcium 9.3 mg/dL (8.4-10.2); Carbon Dioxide 22 mmol/L (22-29); Chloride 108 mmol/L (96-108); Creatinine Clr Calc Pharmacy 110.8; Estimated Glomerular Filt Rate > 60; Potassium 3.8 mmol/L (3.3-5.1); Sodium 139 mmol/L (135-145)
[2025-05-07 20:07] LABS: Troponin-I High Sensitivity < 2.7 ng/L (<3.5-17.0)
[2025-05-07] MEDS: Lidocaine HCl 4 % Laryng-O-Jet 4 ML 1 APPL TOPICAL (21:20)
[2025-05-07] MEDS: iohexoL 350 MG/ML 100 ML INFUS..BTL 80 ML IV (22:00)
== END 2025-05-07 23:43 | disposition home or self-care (01) ==
PROVIDERS: Registered Nurse Emergency; Emergency Provider Emergency Medicine Emergency Medical Services; PCP Internal Medicine
DX: J36 Peritonsillar abscess (principal); R07.89 Other chest pain; R53.1 Weakness; R53.81 Other malaise; R50.9 Fever, unspecified; Z79.899 Other long term (current) drug therapy; Z11.52 Encounter for screening for COVID-19
CPT/HCPCS: 36415; 70491; 80048; 83605; 84484; 84702; 85025; 87040; 87502; 87635; 87651; 93005; 96361; 96374; 96375; 96376; 99285; J0736; J1100; J1171; J1885; Q9967

== ENCOUNTER → 2025-05-07 17:56 | Outpatient (BNV) | payer OTHER, SELFPAY | PROVIDERS: Emergency Provider Emergency Medicine Emergency Medical Services; PCP Internal Medicine; Visit Provider Internal Medicine Cardiovascular Disease | DX: R07.9 Chest pain, unspecified (principal) | CPT/HCPCS: 93010 ==

== ENCOUNTER → 2025-05-07 21:34 | Outpatient (BNV) | payer OTHER, SELFPAY | PROVIDERS: Emergency Provider Emergency Medicine Emergency Medical Services; PCP Internal Medicine; Visit Provider Student in an Organized Health Care Education/Training Program | DX: J03.90 Acute tonsillitis, unspecified (principal) | CPT/HCPCS: 70491 ==

== ENCOUNTER 2025-07-17 15:55 | Emergency (ER) | payer OTHER, SELFPAY ==
--- NOTE | ~2025-07-17 | XR_ITS ---
CLINICAL HISTORY: cough sob Chest Radiographs, 2 views Comparison: 10/17/22 Findings: No cardiomegaly. Normal mediastinal contours. No pneumothorax. No opacity. No pleural effusion. No acute findings in the upper abdomen. No acute fracture. Impression: No acute findings. This document has been electronically signed by: Dulce Zamora MD on 07/17/2025 17:12:15
--- NOTE | 2025-07-17 15:58 | ECG_ITS ---
Test Reason : CHEST PAIN Blood Pressure : */* mmHG Vent. Rate : 98 BPM Atrial Rate : 98 BPM P-R Int : 130 ms QRS Dur : 86 ms QT Int : 356 ms P-R-T Axes : 42 -8 -20 degrees QTcB Int : 454 ms Normal sinus rhythm Nonspecific T wave abnormality Abnormal ECG When compared with ECG of 07-May-2025 17:58, Nonspecific T wave abnormality now evident in Anterolateral leads Referred By: Generic ED Physician Electronically Signed By: MARIBEL BROWN MD
[2025-07-17 16:10] VITALS: BP 90/53; PULSE 96; RESP 18; TEMP 36.4; O2SAT 98; BMI 25.4
--- NOTE | 2025-07-17 16:10 | ED.URI ---
HPI - URI/Sore Throat General Chief Complaint: Upper Respiratory Symptoms Stated Complaint: tightness in chest, cough Time Seen by Provider: 07/17/25 16:53 Source: patient, RN notes reviewed and old records reviewed Mode of arrival: ambulatory Limitations: no limitations History of Present Illness ED Provider: RADHA Brizuela HPI Narrative: 39-year-old female with medical history of anxiety disorder presents to the ED due to 2 days of nasal congestion, cough, headache, chest tightness when coughing. Patient states she has been taking mucinex for nasal congestion with minimal relief. Patient denies sick contacts or recent travel, chest pain, SOB, difficulty breathing, abdominal pain, nausea, vomiting, visual changes, diarrhea, urinary symptoms. Related Data Home Medications ?Medication ?Instructions ?Recorded ?Confirmed escitalopram oxalate 20 mg tablet 20 mg PO DAILY PRN Anxiety 01/08/24 01/08/24 Previous Rx's ?Medication ?Instructions ?Recorded acetaminophen 325 mg tablet (Pain 650 mg (2 x 325 mg) PO Q6H PRN 04/15/23 Reliever (acetaminophen)) pain #30 tabs hydroxyzine HCl 25 mg tablet 25 mg PO BID PRN 01/11/24 anxiety/restlessness #30 tabs trazodone 50 mg tablet 25 mg (1/2 x 50 mg) PO BID PRN 01/11/24 pain (scale score 4-6) #14 tabs ibuprofen 600 mg tablet 600 mg PO Q6H PRN pain #30 tabs 09/22/24 methocarbamol 750 mg tablet 750 mg PO Q8H PRN muscle spasm #30 09/22/24 tabs oseltamivir 75 mg capsule (Tamiflu) 75 mg PO BID 5 days #10 caps 09/22/24 amoxicillin 875 mg-potassium 1 tab PO BID #14 tabs 05/07/25 clavulanate 125 mg tablet ondansetron 4 mg disintegrating 4 mg PO TID PRN nausea and 05/07/25 tablet vomiting 5 days #10 tabs oxycodone 5 mg tablet 5 mg PO Q8H PRN pain #7 tabs 05/07/25 prednisone 20 mg tablet 40 mg (2 x 20 mg) PO DAILY #10 tabs 05/07/25 famotidine 20 mg tablet 20 mg PO DAILY PRN heartburn 30 05/24/25 days #30 tabs Allergies Allergy/AdvReac Type Severity Reaction Status Date / Time No Known Allergies (No Known Allergy Verified 07/17/25 16:11 Allergies*) Review of Systems Review of Systems: Yes all other systems are reviewed and are negative [facility] Past Medical History Attestation statement: The following information was validated with the patient. Source: old records reviewed and nursing notes reviewed Medical History Abdominal pain Hernia Anxiety Surgical History History of laparoscopic cholecystectomy (10/02/22) History of umbilical hernia repair Social History Social History Household Members: Children Housing: Apartment Do you presently have visiting nurse or other home services: No Unable to assess alcohol history related to: Unknown Alcohol intake: current Alcohol intake frequency: a few times a month Patient Tobacco Use Status: Current someday Tobacco user Tobacco use type: Cigarette Cigarettes Per Day: 5 Years Smoked: 20 e-Cigarette/Vaping Use: Never Used Second Hand Smoke Exposure: No Use of substances other than those prescribed or required for medical reasons: Unknown Substance Use Type: Marijuana Advance Directives: No Advance Directives Information Provided: Yes Do you have a plan to hurt others: No Plan service: No Current occupational status: employed Physical Exam Vital Signs: Vital Signs: Last Vital Signs Temp 97.6 F 07/17/25 17:46 Pulse 102 H 07/17/25 17:46 Resp 20 07/17/25 17:46 BP 101/56 L 07/17/25 17:46 Pulse Ox 96 07/17/25 17:46 O2 Del Method Room Air 07/17/25 17:46 BMI result Body Mass Index 25.4 GENERAL APPEARANCE: ?AxOx4, generally well-appearing, nontoxic appearing, no acute distress. HEENT: ?NC, AT. MMM. EOMI, clear conjunctiva, oropharynx clear. NECK: ?Supple without lymphadenopathy.? No stiffness or restricted ROM. HEART:? Normal rate and regular rhythm, normal S1/S2, no m/r/g LUNGS:? Mild rhonchi at bilateral lung bases, no expiratory wheeze ABDOMEN: ?Soft, nondistended, no rigidity, no guarding, nontender BACK: No CVAT, no obvious deformity. EXTREMITIES: ?Without cyanosis, clubbing or edema. NEUROLOGICAL: ?Grossly nonfocal. Alert and oriented, moving all 4 extremities. Observed to ambulate with normal gait. Skin: ?Warm and dry without any rash. Course Course Course Narrative: This is a Rapid Medical Exam performed in triage by Carol Ann Shukla PA-C. Full HPI, ROS and PE to be performed by primary ED provider. 39 yo F w/pmhx anxiety presenting to the ED c/o cough, chest tightness, SOB, myalgias, chills x2 days PE: +exp wheeze, NAD, nontoxic appearing Plan: CXR, SARs, ED bronch protocol Medications Administered Discontinued Medications Generic Name Dose Route Start Last Admin Trade Name Freq PRN Reason Stop Dose Admin Albuterol/Ipratropium 3 ml 07/17/25 16:50 07/17/25 18:02 Albuterol/Iprat 2.5/0.5mg 3 Ml Ampul.Neb INHALE 07/17/25 16:51 3 ml ONCE ONE Administration Lactated Ringer's 1,000 mls @ 999 mls/hr 07/17/25 17:36 07/17/25 18:45 Lr IV 07/17/25 18:36 Infused .Q1H1M ONE Infusion Acetaminophen 1,000 mg in 100 mls @ 400 mls/hr 07/17/25 17:36 07/17/25 18:20 Ofirmev IV 07/17/25 17:50 Infused ONCE ONE Infusion Ketorolac Tromethamine 15 mg 07/17/25 17:36 07/17/25 18:02 Ketorolac Tromethamine 15 Mg/Ml Vial IVPUSH 07/17/25 17:37 15 mg ONCE ONE Administration Medical Decision Making Medical Decision Making MDM Narrative: 39-year-old female with medical history of anxiety disorder presents to the ED due to 2 days of nasal congestion, cough, headache, chest tightness when coughing. Patient states she has been taking mucinex for nasal congestion with minimal relief. VS on initial observation-BP 90/53, pulse rate of 96, respiratory rate of 18, afebrile with oral temp of 97.5?, O2 saturation 98% on room air. On physical exam patient is nontoxic appearing, in no acute distress, lungs with mild rhonchi at bilateral lung bases, no wheeze, cardiac exam reveals normal rate and rhythm without murmurs/rubs/gallops, abdomen is soft and nontender, lower extremities without edema EKG reveals normal sinus rhythm without ST-elevation/depression, non specific T wave abnormality, patient with chest tightness when coughing, no chest pain Viral serology negative CXR without infiltrates, consolidations or any acute cardiopulmonary findings. Patient with 2 days of nasal congestion, cough, headache and chest tightness and coughing, patients symptoms most likely viral syndrome, no indication for antibiotics at this time. Patients headache has resolved after medication. Patient is complaining of nasal congestion. I have counseled patient to use saline nasal spray and humidifier for comfort. I counseled patient to use Tylenol and Motrin for fever and body ache. I counseled patient to follow up with her primary care doctor. Patient well enough to go home for self-care today. Patient is in agreement with the plan. Differential Diagnosis Differential Diagnoses: The differential diagnosis associated with the presentation includes Flu COVID RSV Pneumonia Viral illness Admission/Observation Consideration of admission/observation: Escalation of care including admission/observation considered I considered admission however patient with 2 days of symptoms, Lab Data MDM Lab Attestation statement: I reviewed the patient's lab results. Labs: Lab Results 07/17/25 Range/Units 16:23 Influenza Type A (PCR) NEGATIVE (Negative) Influenza Type B (PCR) NEGATIVE (Negative) RSV RNA Qual (PCR) NEGATIVE (Negative) SARS-CoV-2 RNA (RT-PCR) NEGATIVE (Negative) Independent Interpretation I performed an independent interpretation of an: EKG and Plain X-Ray Interpretation: I personally interpreted the EKG which reveals normal sinus rhythm with nonspecific T-wave abnormality, no ST-elevation/depression Vent. Rate : 98 BPM Atrial Rate : 98 BPM P-R Int : 130 ms QRS Dur : 86 ms QT Int : 356 ms P-R-T Axes : 42 -8 -20 degrees QTcB Int : 454 ms Normal sinus rhythm Nonspecific T wave abnormality Abnormal ECG When compared with ECG of 07-May-2025 17:58, Nonspecific T wave abnormality now evident in Anterolateral leads I personally interpreted the CXR which was negative for infiltrates, consolidations or acute cardiopulmonary processes, I agree with the radiologist's interpretation Radiology Impression Discussion of test interpretation with radiology: I have reviewed the radiologist's reading. Radiologist Impression: CXR Findings: No cardiomegaly. Normal mediastinal contours. No pneumothorax. No opacity. No pleural effusion. No acute findings in the upper abdomen. No acute fracture. Impression: No acute findings. This document has been electronically signed by: Dulce Zamora MD on 07/17/2025 17:12:15 Dictated By: Dulce Case MD Signed By: <Electronically signed by Dulce Case MD in OV> 07/17/25 9053 External Record Review External record reviewed: Inpatient record, Office record and Outpatient record Prescription Management I considered prescription management with: Antibiotic I considered antibiotics however patient with 2 days of symptoms, no indication for antibiotics at this time Chronic Conditions Patient?s care impacted by: Other (Anxiety disorder) Discharge Plan Discharge Clinical Impression: Viral illness Patient Disposition: Home, Self-Care Instructions: Viral Syndrome (ED) Additional Instructions: You were evaluated in the emergency department due to cough, nasal congestion, and headache. Your EKG was normal. Your chest x-ray did not show any evidence of pneumonia. Your COVID/flu/RSV tests were negative. There are many other viruses that we do not test for that may be causing your symptoms. There is no indication for antibiotics at this time. Please follow up with your primary care doctor to ensure resolution of your symptoms as if your symptoms persist or get worse you may need antibiotics. To manage fever and body aches at home you can take 500 mg of Tylenol, 400 mg of ibuprofen every 6 hours. To manage nasal congestion you can use [id number]-[id number] saline nasal spray, and a humidifier by your bed. Please return to the emergency department if you experience chest pain, shortness of breath, fevers over 100.4? that are not managed by Tylenol/ibuprofen, or any new/worsening/concerning symptoms Prescriptions: No Action famotidine 20 mg tablet 20 mg PO DAILY PRN (Reason: heartburn) 30 Days Qty: 30 0RF acetaminophen [Pain Reliever (acetaminophen)] 325 mg tablet 650 mg PO Q6H PRN (Reason: pain) Qty: 30 0RF ibuprofen 600 mg tablet 600 mg PO Q6H PRN (Reason: pain) Qty: 30 0RF oseltamivir [Tamiflu] 75 mg capsule 75 mg PO BID 5 Days Qty: 10 0RF methocarbamol 750 mg tablet 750 mg PO Q8H PRN (Reason: muscle spasm) Qty: 30 0RF amoxicillin-pot clavulanate 875-125 mg tablet 1 tab PO BID Qty: 14 0RF prednisone 20 mg tablet 40 mg PO DAILY Qty: 10 0RF ondansetron 4 mg tablet,disintegrating 4 mg PO TID PRN (Reason: nausea and vomiting) 5 Days Qty: 10 0RF oxycodone 5 mg tablet 5 mg PO Q8H PRN (Reason: pain) Qty: 7 0RF Rx Instructions: Partial Fill upon patient request. escitalopram oxalate 20 mg Tablet 20 mg PO DAILY PRN (Reason: Anxiety) hydroxyzine HCl 25 mg Tablet 25 mg PO BID PRN (Reason: anxiety/restlessness) Qty: 30 0RF trazodone 50 mg tablet 25 mg PO BID PRN (Reason: pain (scale score 4-6)) Qty: 14 0RF Print Language: Latvian
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
[2025-07-17 16:51] VITALS: PULSE 117; RESP 20; O2SAT 99
[2025-07-17 17:03] LABS: Resp Syncy Virus RNA Qual PCR NEGATIVE (Negative); SARS COV2 PCR INHOUSE NEGATIVE (Negative)
[2025-07-17 17:46] VITALS: BP 101/56; PULSE 102; RESP 20; TEMP 36.4; O2SAT 96
[2025-07-17] MEDS: Lactated Ringers 1,000 ML 999 ML IV (18:02)
[2025-07-17] MEDS: Albuterol/Iprat 2.5/0.5MG 3 ML AMPUL.NEB INHALE (18:02)
[2025-07-17 19:07] VITALS: BP 102/62; PULSE 90; RESP 20; TEMP 37.1; O2SAT 99
[2025-07-17 19:39] VITALS: BP 102/62; PULSE 90; RESP 20; TEMP 37.1; O2SAT 99
== END 2025-07-17 19:40 | disposition home or self-care (01) ==
PROVIDERS: Physician Assistant; Emergency Provider Emergency Medicine Emergency Medical Services; PCP Internal Medicine
DX: B34.9 Viral infection, unspecified (principal); R05.9 Cough, unspecified; R51.9 Headache, unspecified; F17.210 Nicotine dependence, cigarettes, uncomplicated; Z03.818 Encounter for observation for suspected exposure to other biological agents ruled out
CPT/HCPCS: 71046; 87637; 93005; 94640; 96361; 96374; 96375; 99284; 99285; J0131; J1885; J7120

== ENCOUNTER → 2025-07-17 15:58 | Outpatient (BNV) | payer OTHER, SELFPAY | PROVIDERS: Emergency Provider Emergency Medicine Emergency Medical Services; PCP Internal Medicine; Visit Provider Internal Medicine Cardiovascular Disease | DX: R94.31 Abnormal electrocardiogram [ECG] [EKG] (principal); R07.9 Chest pain, unspecified | CPT/HCPCS: 93010 ==

== ENCOUNTER → 2025-07-17 16:11 | Outpatient (BNV) | payer OTHER, SELFPAY | PROVIDERS: Emergency Provider Emergency Medicine Emergency Medical Services; PCP Internal Medicine; Visit Provider Radiology Diagnostic Radiology | DX: R05.9 Cough, unspecified (principal); R06.02 Shortness of breath | CPT/HCPCS: 71046 ==